=== PATIENT | male | born 1945 | race Caucasian/White ===

== ENCOUNTER → 2017-11-20 08:18 | Outpatient (CLI) | payer MEDICARE, OTHER, SELFPAY ==
[2015-12-09 13:30] VITALS: BMI 21.5
[2017-11-20 10:50] LABS: AST(SGOT) 17 U/L (15-37); Alanine Aminotransfer ALT/SGPT 42 U/L (16-61); Albumin, Serum 3.8 g/dL (3.2-5.0); Alkaline Phosphatase 52 U/L (45-117); Cholesterol 158 mg/dL (200); Globulin 3.2 g/dL (2.2-4.2); High Density Lipoprotein 50 mg/dL; Triglycerides 168 mg/dL; Very Low Density Lipoprotein 34 mg/dL (5-40)
== END ==
PROVIDERS: Family Provider Family Medicine; PCP Family Medicine; Visit Provider Internal Medicine Cardiovascular Disease
DX: E78.5 Hyperlipidemia, unspecified (principal); Z79.899 Other long term (current) drug therapy
CPT/HCPCS: 36415; 80061; 80076

== ENCOUNTER 2018-03-22 08:41 | Emergency (ER) | payer MEDICARE, OTHER, SELFPAY ==
[2015-12-09 13:30] VITALS: BMI 21.5
[2018-03-22] VITALS (13 sets, daily range): BP systolic 119–172; BP diastolic 67–117; PULSE 51–68; RESP 12–24; TEMP 36.7; O2SAT 87–100; BMI 33.7
--- NOTE | 2018-03-22 09:24 | ED.DCSUM_ITS ---
- ER Visit Summary Date of Service: 03/22/18 Chief Complaint: Left hip pain suspect dislocated History of Present Illness: The patient is a 72 M status post left hip prosthesis by Dr. Clive Thomas in the past. Patient was getting dressed this morning and his foot slipped as he was put on his slipper and he developed immediate left hip pain. No fall no trauma no other injuries. No other complaints. Physical Examination: Well-appearing male vital signs are stable afebrile. H EENT exam unremarkable. Neck nontender lungs clear to auscultation heart regular rhythm no murmur. Abdomen soft nontender. He is moving both upper and right lower extremities. His left hip is posteriorly dislocated with internal rotation and shortening. The distal left leg is nontender of the left foot is neurovascularly intact with dorsi and plantar flexion and normal touch sensation. It is warm to touch. With normal cap refill. Test Results: Left hip x-ray shows a superior posterior hip dislocation. Prosthesis. No fracture. Reduction in good position. Emergency Department Course and Treatment: Patient treated with IV morphine and Zofran. I discussed reduction with the patient and deep sedation. He was given IV propofol. She was deeply sedated with propofol and using traction countertraction attempted to reduce the dislocation but was unsuccessful on several attempts. I have spoken to Dr. Pepe Lagos on-call for orthopedics and will be and evaluate the patient and to do orthopedic reduction. Patient was deeply sedated with propofol [address] Lagos reduce the dislocation. Post reduction film was satisfactory. Patient was placed in a knee immobilizer. He has been watched for a lengthy period time is doing well will be discharged home. Treatment Plan: Immobilizer. Follow-up with Dr. Lagos in 2 weeks. Disposition: Discharge Impression: Acute left hip prosthesis dislocation Deep sedation by ER Acute left hip dislocation reduction by orthopedic physician Dr. Ifeanyi Lagos This note was generated with [employer] dictation software. It may contain incorrect words, spelling, and punctuation that were not noted in review of the chart prior to signing ED Disposition - Plan for ED Patient: Chief Complaint: Lower Extremity Injury Referrals: Dwain Oliver DO [Primary Care Provider] -
[2018-03-22] MEDS: Ondansetron 4 MG/2 ML Vial IV (09:37)
[2018-03-22] MEDS: morphine 8 MG/ML Syringe IV (09:37)
[2018-03-22] MEDS: Propofol 200 MG/20 ML Vial 60 MG IV BOLUS (10:21)
--- NOTE | 2018-03-22 12:19 | ED.RN ---
DR PORTILLO AT BEDSIDE TO TRY TO PUT L HIP BACK IN. BP 166/78 P 53 O2 99%. PT ALERT AND ORIENTED.
--- NOTE | 2018-03-22 12:20 | ED.RN ---
[address] CARR AND LINDSEY AT BEDSIDE. PROCEDURE START
--- NOTE | 2018-03-22 12:24 | ED.RN ---
BP 138/90 70 92% PROCEDURE DONE
--- NOTE | 2018-03-22 12:29 | ED.RN ---
XRAY AT BEDSIDE. 128/61 61 96% PT AWAKE AND ORIENTED
--- NOTE | 2018-03-22 12:35 | ED.RN ---
KNEE IMMOBILIZER ON BP 141/63 P 59 O2 99%PT ALERT AND ORIENTED. AT BEDSIDE
--- NOTE | 2018-03-22 12:35 | PCM.CONS.GEN ---
Reason for Consult Date of Consultation: 03/22/18 Reason for Consultation: Left hip dislocation. Requested by Dr. Gill History of Present Illness: The patient is a 72 year old M status post left total hip replacement in June 2016 presents today with left hip pain. Patient was leaning forward to put his slippers on this morning when he felt immediate pain in his hip his leg was shortened and he could not put weight on it. He was brought to the emergency department with 10 out of 10 pain. He denies any numbness and tingling that is new he does have some chronic paresthesias from neuropathy. Patient does state that after surgery he did have groin pain in went through several bouts of physical therapy. The groin pain has persisted up until today. Today the pain is in the posterior and lateral portions of his hip as well as his groin. It is significantly worsened. Is worse with motion better with immobilization. Currently he is resting in bed. The emergency department physician did attempt a closed reduction however he has significant desaturation during this attempt in the run able to get in successfully. Past Medical History Past Medical History (Chronic Problems): Chronic Problems (Last Reviewed 11/26/17 @ 13:48 by Eve Morales) Cardiomyopathy in other diseases classified elsewhere (Chronic) H/O aortic valve replacement (Chronic) Mini invasive aortic valve replacement and aortoplasty of ascending aorta @ [facility] (Dr. Bony Bautista) Hypertension (Chronic) Hyperlipidemia (Chronic) Medical History: Medical History (Last Reviewed 03/22/18 @ 12:37 by Christiano Lagos MD) Cardiomyopathy in other diseases classified elsewhere (Chronic) I43 Hypertension (Chronic) I10 Hyperlipidemia (Chronic) E78.5 BPH with obstruction/lower urinary tract symptoms N40.1, N13.8 Neuropathy G62.9 Osteoarthritis M19.90 CONCEPCION (obstructive sleep apnea) G47.33 Allergies poison lauren extract Allergy (Verified 03/22/18 08:45) Itching Home Medications: Ambulatory Orders Medication Instructions Recorded Multivitamins,Therapeutic 1 tab PO DAILY 06/21/16 [Multivitamin] Aspirin E.C. [Ecotrin] 81 mg PO DAILY@0800 08/01/17 Gabapentin [Gralise] 600 mg PO DINNER 08/01/17 amlodipine 2.5 mg tablet 2.5 mg PO DAILY #90 tab 10/01/17 pravastatin 80 mg tablet 80 mg PO QHS #90 tab 02/12/18 losartan 100 1 tab PO QDAY #90 tab 02/19/18 mg-hydrochlorothiazide 25 mg tablet Surgical History: Surgical History (Last Reviewed 03/22/18 @ 12:37 by Christiano Lagos MD) H/O aortic valve replacement (Chronic) Z95.2 Mini invasive aortic valve replacement and aortoplasty of ascending aorta @ [facility] (Dr. Bony Bautista) History of left hip replacement Z96.642 History of tonsillectomy Z90.89 History of transurethral resection of prostate Z98.890, Z90.79 Surgical History: total hip arthroplasty - Left, 2016, - Smoking Status: Never smoker Tobacco Use: Non-smoker Alcohol: Heavy Drugs: None Review of Systems Constitutional: Denies: Chills, Fever, Weight Change HEENT: Denies: Head Aches, Sinus Congestion, Sinus Drainage Cardiovascular: Denies: Chest Pain, Palpitations Respiratory: Denies: Cough, Shortness of breath at rest, Sputum production Gastrointestinal: Denies: Abdominal Pain, Nausea, Vomiting Genitourinary: Denies: Dysuria Musculoskeletal: Reports: Joint Pain - See HPI Skin: Denies: Rash, Wounds Neurological: Denies: Numbness, Tingling, Focal weakness Psychiatric: Denies: Anxiety, Depression, Homicidal Ideations, Suicidal Ideations Hematologic/ Lymphatic: Denies: Easy Bruising, Easy Bleeding Objective: Left hip x-rays reveal a posterior superior dislocation of a total hip replacement. Acetabular component appears to be in appropriate version compared to [place] anatomy. - Physical Exam General: Alert, Oriented x3, Cooperative HEENT: - - Patient has rosacea of his nose Neck: No JVD Lungs: - - Nonlabored breathing Cardiovascular: - - Regular pulse rate Abdomen: Non-Distended Extremities: - - Left lower extremity: Pain with hip range of motion. Shortened externally rotated left lower extremity. Saphenous sural superficial peroneal deep peroneal and tibial nerve distributions are all intact light touch. Motor is intact dorsiflexion EHL and plantar flexion. 2+ DP pulse. Skin: No rashes, No breakdown Neurological: Cranial nerves II-XII grossly intact Psych/Mental Status: Normal Affect Vital Signs Temp Pulse Resp BP Pulse Ox 98.1 F 53 L 14 158/106 H 99 03/22/18 08:42 03/22/18 12:18 03/22/18 12:18 03/22/18 12:18 03/22/18 12:18 Oxygen Flow Rate (L/min) [7] 15 Oxygen Flow Rate (L/min) [6] 15 Oxygen Flow Rate (L/min) [5] 15 Oxygen Flow Rate (L/min) [4] 15 Oxygen Flow Rate (L/min) [2] 8 Oxygen Flow Rate (L/min) [1 ( 8 Initial Baseline)] Oxygen Flow Rate (L/min) 2 Oxygen Delivery Method [7] Ambu-Bag Oxygen Delivery Method [6] Ambu-Bag Oxygen Delivery Method [5] Ambu-Bag Oxygen Delivery Method [4] Ambu-Bag Oxygen Delivery Method [3] Non-Rebreather Oxygen Delivery Method [2] Nasal Cannula Oxygen Delivery Method [1 ( Nasal Cannula Initial Baseline)] Oxygen Delivery Method Nasal Cannula Weight: 235 lb Body Mass Index (BMI) 33.7 Assessment/Plan Patient is 21 months status post left total hip replacement with chronic groin pain since his surgery. He has a acute dislocation posterior superior of the hip today. After failed attempt at reduction from the emergency department physician and significant desaturation after his first conscious sedation we were elected to reattempt the reduction with myself and respiratory therapy to help monitor the patient's respiratory status. Risks and benefits of the procedure were discussed the patient including but not limited to feel reduction, neurovascular injuries, cardiovascular and respiratory compromise. Patient interested in understanding and is able to sign informed consent. The hip was reduced in the emergency department. Patient will spend 2 weeks in a knee immobilizer and follow-up in my office in 2 weeks. He was instructed once again on strict posterior hip precautions which will be maintained for the next 3 months. He will be discharged home today. [facility] Office: Procedure: After discussion of risk and benefits and obtaining consent from the patient for the procedure conscious sedation was administered by the emergency room physician. Respiratory therapy monitored the patient's respiratory status throughout the procedure. The hip was flexed to 90? internally rotated and traction was pulled. Hip was then reduced and placed in extension. X-rays used to verify reduction of the hip. Once it was adequately reduced patient was placed in a knee immobilizer.
--- NOTE | 2018-03-22 13:50 | ED.DEP ---
ED Disposition - Plan for ED Patient: Disposition: Home or Assisted Living Chief Complaint: Lower Extremity Injury Instructions: ED Hip Replace Dislocation Reduc Referrals: Christiano Lagos MD [STAFF PHYSICIAN] - 1-2 Weeks Additional Instructions: And follow-up with Dr. Lagos in 2 weeks. Legion knee immobilizer on to prevent a recurrent dislocation.
== END 2018-03-22 14:19 | disposition home or self-care (01) ==
PROVIDERS: Emergency Provider Emergency Medicine; Family Provider Family Medicine; PCP Family Medicine
DX: T84.021A Dislocation of internal left hip prosthesis, initial encounter (principal); I10 Essential (primary) hypertension
CPT/HCPCS: 27265; 72170; 73501; 73502; 96374; 96375; 99152; 99251; 99285; J7030; A4216; G0463; J2405

== ENCOUNTER 2018-05-28 10:00 | Outpatient (RCR) | payer MEDICARE, OTHER, SELFPAY ==
[2015-12-09 13:30] VITALS: BMI 21.5
--- NOTE | 2018-04-16 16:28 | HP.PTEVAL ---
Patient's Visit Information ELDA RUSH is a 72 year old M referred to Physical Therapy by Christiano Lagos MD with a diagnosis of Dislocation of L hip prothesis. Date of Evaluation: 04/16/18 Physical Therapist: Sandra Thomson - Visit Plan Frequency: 2x /Week Duration: 6 Weeks Plan: Maintain hip precautions as just a precaution..... 2X/ week for 4-6 weeks for B hip strength, core stability, gait training, functional training, with HEP - Subjective Subjective: Almost 2 years ago had L hip replacement. Pt reports that his L hip was dislocated when he had his foot on the step and his foot slipped off when he was tying his shoe. He was transported to [facility] and the ER Dr tried to put it back in place and was unsuccessful and then they called in Dr Lagos and her put it back in place. said to go back to PT for a refresher course in PT. Pt goes to the 3X/ week low impact step class and has been back to his step class. said to use common sense. He is avoiding crossing his legs. said that things look like they lined up good on x-ray. He reports that he is still sore from his buttcheck and up his back and in the groin a little bit. He used the cane for a few days to be on the safe side. Sometimes he will go up and down stairs one at a time if he is not feeling good that day. After her moves around a lot he is able to go up and down stairs easier. He sleeps with a pillow between his knees. Pt is sore. He has neuropathy in B feet. He can lay on L side but it will wake him up at night. - Pain L hip pain Pain Intensity (Out of 10): 2 - Objective Gait: walks with decrease stance time on the L compared to the Right. LE MMT: hip flex R 4+/5 and L 4/5, Knee ext B 4+/5, Knee flex B 4+/5, hip abd R 4+/5 and L 4/5, hip ext (able to do 3/4 normal ROM bridge). Sit to stand: pt is able to get out of a straight back chair without UE support - Goals Goal 1:: I HEP Goal Time Frame: 4-6 Weeks Goal 2:: Be able to walk with normal gait pattern with equal stance time on B LE's Goal Time Frame: 4-6 Weeks Goal 3:: Increase L hip strength to 4+/5 all planes (at time of eval: LE MMT: hip flex R 4+/5 and L 4/5, Knee ext B 4+/5, Knee flex B 4+/5, hip abd R 4+/5 and L 4/5, hip ext (able to do 3/4 normal ROM bridge). Goal Time Frame: 4-6 Weeks - Rehabilitation Potential Rehabilitation Potential: Good - Anticipated Interventions Patient/Client Instruction: Educate patient on: Condition, Plan of Care For the Purpose of:: To decrease pain, To decrease swelling/inflammation, To increase ROM, To improve nutrient delivery to tissue, To improve muscle performance and motor function, To improve ability to perform ADL's, To increase tolerance to activity/condition/position, To improve performance and independence with ADL's, To improve ability of physical actions for home/community/work/leisure, To improve gait and locomotor functions, To improve health of tissue Therapeutic Exercise to Include: Strength training, Balance training, Body mechanics, Gait and locomotor training, Neuromotor development, Active ROM, Dynamic Lumbar Stabilization For the Purpose of:: To decrease pain, To decrease swelling/inflammation, To increase ROM, To improve nutrient delivery to tissue, To increase oxygenation perfusion, To improve muscle performance and motor function, To improve ability to perform ADL's, To increase tolerance to activity/condition/position, To improve performance and independence with ADL's, To improve ability of physical actions for home/community/work/leisure, To improve gait and locomotor functions, To improve health of tissue Functional Training to Include: Gait training For the Purpose of:: To improve gait and locomotor functions, To improve health of tissue Thank you for the opportunity to evaluate your patient. For Medicare and Medicare HMO plans, please review the plan of care and approve it. It will need to be FAXED BACK to us at [phone] for Medicare purposes. Please let me know if there are questions or concerns regarding this plan of care. Physician Signature: Date:
--- NOTE | 2018-05-23 13:25 | HP.OTEVAL ---
Patient's Visit Information JEY RUSH is a 73 year old M, referred to Occupational Therapy by Christiano Lagos MD, with a diagnosis of OA of first R CMC joint. 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 Noted thumb pain started about 3 years ago. No cortisone injection to thumb but has had h/o of cortisone shots in B shoulders for OA. OA throughout body. - Pain Right Hand 0 Pain Intensity Range: 0, 4, 5 - Objective Objective/Observation: No reddness, or heat to touch. Concerns: Maybe beneficial for Jey to get CMC Push Brace for CMC stability during gardening and ADL/IADLs related tasks for pain management. A script would be beneficial to see if insurance will cover part with doctor script. - ROM CMC: opposition: R 0-26, L 0-37 degrees MP: R 0-46, L 38 degrees IP: R 0-69, L 0-60 degrees Radial Abduction: R 0-51, L 0-40 degrees MP: WFL PIP: WFL DIP: WFL - Strength Yield Loss Inspector: R 89, L 93 lbs Lateral Pinch: R 26, L 24 lbs Tripod Pinch: R 16 (pain 3/10), L 24 lbs Tip-to-Tip Pinch: R 12, L 16 lbs - Sensation Stereognosis: Normal - Right, Normal - Left Kinesthesia: Normal - Right, Normal - Left Proprioception: Normal - Right, Normal - Left Sensation Comments: Denied numbbess/tinging in fingers; does have neuropathy in feet. - DASH-Disabilities of Arm, Shoulder& Hand DASH Sum: 55 - Goals Goal:: Jey to complete strengthening program to promote increased in match maker of R hand by 10 lbs to promote increased strength and stability of R hand and CMC for ADl/IADls by d/c. Goal:: Jey to have no more than 0-1/10 with repetitive thumb and wrist movements with use of pain management tools and techniques to promote increased ability to complete ADL/IADLs by d/c. Goal:: Jey to be mod I to complete joint protection techniques for R thumb and wrist to decrease pain with functional tasks 4/5 trials 80% of the time by d/c. Goal:: Jey to be mod I to complete all ADl/IADls including yardwork with adaptations as needed 4/5 trials 80% of the time by d/c. Goal:: Jey to consistently complete HEP and techniques to promote CMC stability 4/5 trials 80% of the time by d/c. - Rehabilitation General Assessment: OT evaluation on this date of 05/23/18. He noted thumb pain has been off/on for last 3 years. Decreased strength noted in R hand. No braces for thumb pain. Notes often thumb pain decreases ability to complete certain tasks especially IADls tasks like gardening and yardwork. OT needed for 2x 4- 6 weeks to promote compensations and pain management strategies as well as strengthening program to promote ability to complete ADL/IADLS at OF. Rehabilitation Potential: Good - Anticipated Interventions Anticipated Interventions: A/AAROM/PROM, Strengthening, Edema Control, Scar Care, Modalities, Orthoses, Joint Protection/Energy Conservation, Dynamic Sitting Balance, Fine Motor Coord/Migue, ADL Training, Caregiver Training, Home Program - Visit Plan Frequency: 2x /Week Duration: 4-6 Weeks General Plan: OT to work on strength and stability of R CMC joint to promote increased ability to complete all ADl/IAdl sin pain free range. OT to additionally work on increasing compensations and joiner management as needed to decrease pain symptoms. TEXT: Thank you for the opportunity to evaluate your patient. For Medicare and Medicare HMO plans, please review the plan of care and approve it. It will need to be FAXED BACK to us at [phone] for Medicare purposes. Please let me know if there are questions or concerns regarding this plan of care. Physician Signature: Date:
--- NOTE | 2018-05-24 13:52 | HP.PTDCSUM ---
HP - PT D/C Summary It has been my pleasure to treat ELDA RUSH under orders from Christiano Lagos MD, for the diagnosis of Dislocation of L hip prothesis for a total of 9 visit(s). Discharge Date: 05/24/18 Please see the following information for a summary of their discharge status. - Subjective Subjective: Pt reports that he is achy all over today and thinks that it is because of the weather. - Pain L hip pain Pain Intensity (Out of 10): 1 - Objective Objective/Function: LE MMT: hip flex R 4+/5 and L 4/5, Knee ext B 4+/5, Knee flex B 4+/5, hip abd R 4+/5 and L 4/5, hip ext (able to do 3/4 normal ROM bridge). - Goals Goal 1:: I HEP Goal Progress: Goal Met Goal 2:: Be able to walk with normal gait pattern with equal stance time on B LE's Goal Progress: Progressing Goal 3:: Increase L hip strength to 4+/5 all planes (at time of eval: LE MMT: hip flex R 4+/5 and L 4/5, Knee ext B 4+/5, Knee flex B 4+/5, hip abd R 4+/5 and L 4/5, hip ext (able to do 3/4 normal ROM bridge). Goal Progress: Progressing - Plan Plan: DC PT to I exercise routine. - D/C Information Discharge Comments: DC PT to HEP and back to gym routine If there are questions or concerns regarding this patient's physical therapy, please feel free to call me at [phone]. Thank you for the referral of this patient. Sincerely, Sandra Thomson
--- NOTE | 2018-06-24 15:21 | HP.OT.NRP ---
HP - Discharge Summary - Patient Information ELDA RUSH was seen in my office for initial evaluation on 05/23/18. The following Plan of Care was established for this patient: Initial Frequency: 2x /Week Initial Duration: 4-6 Weeks Plan: cont POC - Anticipated Interventions Anticipated Interventions: A/AAROM/PROM, Strengthening, Edema Control, Scar Care, Modalities, Orthoses, Joint Protection/Energy Conservation, Dynamic Sitting Balance, Fine Motor Coord/Migue, ADL Training, Caregiver Training, Home Program This patient was last seen in our office 05/28/18. Pertinent comments regarding their Occupational therapy will appear below: Seen for one visit. Was to follow up but did not complete follow up appointments and will be discharged at this time. At this point I will be discontinuing this patient from occupational therapy. I would be happy to see this patient again in the future if found appropriate by the physician. Thank you! Ermelinda Hutton
== END 2018-05-28 19:00 | disposition home or self-care (01) ==
LOC: OT 10:00
PROVIDERS: Family Provider Family Medicine; PCP Family Medicine; Visit Provider Specialist
DX: T84.021D Dislocation of internal left hip prosthesis, subsequent encounter (principal)
CPT/HCPCS: 97110; 97161; 97166; 97530

== ENCOUNTER 2018-07-16 08:48 | Emergency (ER) | payer MEDICARE, OTHER, SELFPAY ==
[2015-12-09 13:30] VITALS: BMI 21.5
[2018-07-16] VITALS (9 sets, daily range): BP systolic 132–174; BP diastolic 68–111; PULSE 51–78; RESP 12–121; TEMP 36.6; O2SAT 86–100; BMI 35.6
--- NOTE | 2018-07-16 09:01 | ED.DCSUM_ITS ---
- ER Visit Summary Date of Service: 07/16/18 Chief Complaint: Prosthetic left hip dislocation. History of Present Illness: The patient is a 73 M who was bent over putting on his slippers. He states his left hip dislocated. He had a similar episode February 2018. He complains of pain left hip region. He was unable to ambulate after the event. He denies paresthesia, anesthesia motors. He does have history of obstructive sleep apnea and had episode of hypoxia when he was sedated earlier this year. He denies allergy to soy products or egg products. He denies fever, chills night sweats. He denies ocular, visual auditory symptoms. He denies cardiac respiratory symptoms. He denies abdominal pain, nausea or vomiting. He denies urologic symptoms. Past medical history of cardiomyopathy, hypertension, hyperlipidemia. Patient has history of obstructive sleep apnea and states he is compliant with his BiPAP mask. He last ate yesterday evening. He is not anything to drink this morning. Physical Examination: Vital signs are marked for an elevated blood pressure 174/111. He appears uncomfortable. HEENT exam is unremarkable. Heart is regular without murmur, gallop or rub. Lungs are clear auscultation. Abdomen soft nontender. There is no induration or pelvis. The left hip is flexed with flexion at the knee and internal rotation of the left lower extremity. PT pulses palpable. There is edema bilaterally. Neuro exam is nonfocal. Test Results: 3 view x-ray left hip reveals a posterior superior prosthetic dislocation. Post reduction film, 2 views, reveals proper alignment and successful reduction by Dr. Javier Perry Emergency Department Course and Treatment: X-ray of the hip was ordered. This was obtained to confirm suspicion for dislocation. Patient was consented for sedation with propofol and for closed reduction of presumed dislocation of left prosthetic hip. With history of hypoxia will have respiratory in the room when patient is sedated and appropriate airway rescue equipment available. Patient desaturated rapidly in spite of preoxygenation after first dose of propofol. Oxygen was increased. In spite of increasing oxygen by nasal cannula patient continued desaturated. He required bag valve assistance for respiratory therapist. Since I am unable to monitor patient's airway and attempt reduction, Dr. Javier Perry who is on-call for orthopedics was contacted. He will see patient in the emergency department. Plan is to attempt closed reduction in the ER with me managing the airway. Please read written notes by nursing staff to document vital signs, O2 saturation and CO2 reading. Time for initial attempt, which was unsuccessful was [address] Perry inform patient of risks for reduction. He received a total of 300 mg of propofol. Total time of deep procedural sedation was 7 minutes 44 seconds. He was placed in a knee immobilizer and he is to follow-up with Dr. Ifeanyi Lagos. Treatment Plan: Knee immobilizer for 2 weeks and follow-up with orthopedics Disposition: 1. Superior posterior left prosthetic hip dislocation 2. Deep procedural sedation 3. Failed attempt at closed reduction by me 4. Successful closed reduction by Dr. Javier Perry Impression: [] This note was generated with [employer] dictation software. It may contain incorrect words, spelling, and punctuation that were not noted in review of the chart prior to signing ED Disposition - Plan for ED Patient: Disposition: Home or Assisted Living Chief Complaint: Lower Extremity Injury Instructions: ED Hip Replace Dislocation Reduc Referrals: Dwain Oliver DO [Primary Care Provider] - Christiano Lagos MD [STAFF PHYSICIAN] - 1-2 Weeks
--- NOTE | 2018-07-16 09:25 | RAD_ITS ---
STUDY: X-RAY - LEFT HIP REASON FOR EXAM: Male, 73 years old. LEFT HIP DISLOCATION. LEFT HIP REPLACED 2 YEARS AGO PER PATIENT.. TECHNIQUE: 2 views of the hip. COMPARISON: None. FINDINGS: There is a dislocated left hip prosthesis. Normal Normal visualized superior and inferior pubic rami and ischial tuberosities. RAD/HIP, UNI W/ Pelvis 2-3 Views IMPRESSION: Dislocation. Electronically Signed: Tasia Hope MD at 9:57 EST Tel , Service support ,
[2018-07-16] MEDS: Ondansetron 4 MG/2 ML Vial IV (09:34)
[2018-07-16] MEDS: Propofol 200 MG/20 ML Vial IV BOLUS ×2 (10:30→10:32)
--- NOTE | 2018-07-16 10:31 | RAD_ITS ---
STUDY: X-RAY - LEFT HIP REASON FOR EXAM: Male, 73 years old. PORTABLE POST REDUCTION LEFT HIP. TECHNIQUE: 2 views of the hip. COMPARISON: None. FINDINGS: There is reduced femoral component now. RAD/HIP, UNI W/ Pelvis 2-3 Views IMPRESSION: Post reduction. Electronically Signed: Tasia Hope MD at 11:27 EST Tel , Service support ,
--- NOTE | 2018-07-16 10:56 | PCM.CONS.GEN ---
Reason for Consult Date of Consultation: 07/16/18 History of Present Illness: The patient is a 73 year old male patient in his usual state of health this morning when he bent over to put on his slippers. Patient had pain and felt a pop in his left hip. He was not able to walk. He was brought to [place] emergency room. He was diagnosed with a dislocated left hip replacement. Attempts at reduction were not successful. Orthopedics consulted. Patient had left total hip replacement by Dr. Thomas approximately 2 years ago Patient had dislocated his hip March 22, 2018 in a similar fashion. He underwent closed reduction by Dr. Lagos. He has seen Dr. Lagos in the office. She denies head injury or loss of consciousness. He did wish to have closed reduction in the emergency room. Seen with his present. Seen with ER physician present. [] Past Medical History Past Medical History (Chronic Problems): Chronic Problems (Last Reviewed 03/22/18 @ 12:37 by Christiano Lagos MD) Cardiomyopathy in other diseases classified elsewhere (Chronic) H/O aortic valve replacement (Chronic) Mini invasive aortic valve replacement and aortoplasty of ascending aorta @ [facility] (Dr. Bony Bautista) Hypertension (Chronic) Hyperlipidemia (Chronic) Medical History: Medical History (Last Reviewed 03/22/18 @ 12:37 by Christiano Lagos MD) Cardiomyopathy in other diseases classified elsewhere (Chronic) I43 Hypertension (Chronic) I10 Hyperlipidemia (Chronic) E78.5 BPH with obstruction/lower urinary tract symptoms N40.1, N13.8 Neuropathy G62.9 Osteoarthritis M19.90 CONCEPCION (obstructive sleep apnea) G47.33 Allergies poison lauren extract Allergy (Verified 03/22/18 08:45) Itching Home Medications: Ambulatory Orders Medication Instructions Recorded Multivitamins,Therapeutic 1 tab PO DAILY 06/21/16 [Multivitamin] Aspirin E.C. [Ecotrin] 81 mg PO DAILY@0800 08/01/17 Gabapentin [Gralise] 600 mg PO DINNER 08/01/17 amlodipine 2.5 mg tablet 2.5 mg PO DAILY #90 tab 10/01/17 pravastatin 80 mg tablet 80 mg PO QHS #90 tab 02/12/18 losartan 100 1 tab PO QDAY #90 tab 02/19/18 mg-hydrochlorothiazide 25 mg tablet Surgical History: Surgical History (Last Reviewed 03/22/18 @ 12:37 by Christiano Lagos MD) H/O aortic valve replacement (Chronic) Z95.2 Mini invasive aortic valve replacement and aortoplasty of ascending aorta @ [facility] (Dr. Bony Bautista) History of left hip replacement Z96.642 History of tonsillectomy Z90.89 History of transurethral resection of prostate Z98.890, Z90.79 Surgical History: total hip arthroplasty - Left, 2015, - Smoking Status: Never smoker Objective: Patient has shortening and internal rotation of the left hip. He has pain about the left hip. No pain at the left knee. No calf pain. Negative Homans sign. He is able to plantarflex and dorsiflex toes and ankles. Normal sensation throughout the foot and ankle. No pain at the right hip. X-rays AP pelvis AP and lateral of left hip shows a posterior superior left hip dislocation from a total hip replacement. No obvious signs of cup or stem failure or fractures. - Physical Exam Vital Signs Temp Pulse Resp BP Pulse Ox 97.8 F 63 16 147/87 H 98 07/16/18 08:48 07/16/18 09:50 07/16/18 09:50 07/16/18 09:50 07/16/18 09:50 Oxygen Flow Rate (L/min) [5] 15 Oxygen Flow Rate (L/min) [4] 15 Oxygen Flow Rate (L/min) [3] 5 Oxygen Flow Rate (L/min) [2] 15 Oxygen Flow Rate (L/min) 2 Oxygen Delivery Method [5] Ambu-Bag Oxygen Delivery Method [4] Ambu-Bag Oxygen Delivery Method [3] Nasal Cannula Oxygen Delivery Method [2] Ambu-Bag Oxygen Delivery Method Nasal Cannula Weight: 112.582 kg Body Mass Index (BMI) 35.6 Assessment/Plan Patient and his are explained his diagnosis and treatment options. They did wish to have closed reduction in the emergency room. Risk of needing hip revision surgery discussed. He will follow-up with Dr. Lagos. They understand I do not do total hip revisions routinely. Risk of surgery including but not limited to from operative or postoperative complications. Risk of anesthetic complications such as heart attacks, strokes, seizures, or . Risk of infections. Risk of damage to nerves arteries tendons. Risk of inadvertent fractures or dislocations. Risk of bone or wound healing complications. Possibility of nonunion malunion pain stiffness weakness. Possible need for further surgery such as hardware removal. Risk of DVT PE and other potential complications could lead to or disability explained. No guarantees were stated or implied. All of their questions were answered. Appropriate informed consent was obtained and signed for surgical intervention. Procedure: After obtaining appropriate informed consent patient was given conscious sedation by the ER physician. This was done with appropriate nursing and respiratory staff present. After adequate anesthesia was performed hip reduction was performed with me standing on the gurney, hip flexed near 90 degrees knee bent at 90 degrees and with gentle rotation of the hip and traction hip reduced clinically. Leg lengths were now equal with knee and hip in extension. No malrotation. Knee immobilizer was applied. X-rays immediately ordered. Postreduction x-rays AP pelvis, AP and lateral of left hip shows an anatomically reduced total hip replacement. Patient will be discharged to wear the knee immobilizer. Weightbearing as tolerated. Follow-up with Dr. Lagos. Case discussed with ER physician.
--- NOTE | 2018-07-16 11:07 | CON.PCM_ITS ---
Reason for Consult Date of Consultation: 07/16/18 History of Present Illness: The patient is a 73 year old male patient in his usual state of health this morning when he bent over to put on his slippers. Patient had pain and felt a pop in his left hip. He was not able to walk. He was brought to [facility] Emergency room. He was diagnosed with a dislocated left hip replacement. Attempts at reduction were not successful. Orthopedics consulted. Patient had left total hip replacement by Dr. Thomas approximately 2 years ago Patient had dislocated his hip March 22, 2018 in a similar fashion. He underwent closed reduction by Dr. Lagos. He has seen Dr. Lagos in the office. She denies head injury or loss of consciousness. He did wish to have closed reduction in the emergency room. Seen with his present. Seen with ER physician present. [] Past Medical History Past Medical History (Chronic Problems): Chronic Problems (Last Reviewed 03/22/18 @ 12:37 by Christiano Lagos MD) Cardiomyopathy in other diseases classified elsewhere (Chronic) H/O aortic valve replacement (Chronic) Mini invasive aortic valve replacement and aortoplasty of ascending aorta @ [facility] (Dr. Bony Bautista) Hypertension (Chronic) Hyperlipidemia (Chronic) Medical History: Medical History (Last Reviewed 03/22/18 @ 12:37 by Christiano Lagos MD) Cardiomyopathy in other diseases classified elsewhere (Chronic) I43 Hypertension (Chronic) I10 Hyperlipidemia (Chronic) E78.5 BPH with obstruction/lower urinary tract symptoms N40.1, N13.8 Neuropathy G62.9 Osteoarthritis M19.90 CONCEPCION (obstructive sleep apnea) G47.33 Allergies poison lauren extract Allergy (Verified 03/22/18 08:45) Itching Home Medications: Ambulatory Orders Medication Instructions Recorded Multivitamins,Therapeutic 1 tab PO DAILY 06/21/16 [Multivitamin] Aspirin E.C. [Ecotrin] 81 mg PO DAILY@0800 08/01/17 Gabapentin [Gralise] 600 mg PO DINNER 08/01/17 amlodipine 2.5 mg tablet 2.5 mg PO DAILY #90 tab 10/01/17 pravastatin 80 mg tablet 80 mg PO QHS #90 tab 02/12/18 losartan 100 1 tab PO QDAY #90 tab 02/19/18 mg-hydrochlorothiazide 25 mg tablet Surgical History: Surgical History (Last Reviewed 03/22/18 @ 12:37 by Christiano Lagos MD) H/O aortic valve replacement (Chronic) Z95.2 Mini invasive aortic valve replacement and aortoplasty of ascending aorta @ [facility] (Dr. Bony Bautista) History of left hip replacement Z96.642 History of tonsillectomy Z90.89 History of transurethral resection of prostate Z98.890, Z90.79 Surgical History: total hip arthroplasty - Left, 2016, - Smoking Status: Never smoker Objective: Patient has shortening and internal rotation of the left hip. He has pain about the left hip. No pain at the left knee. No calf pain. Negative Homans sign. He is able to plantarflex and dorsiflex toes and ankles. Normal sensation throughout the foot and ankle. No pain at the right hip. X-rays AP pelvis AP and lateral of left hip shows a posterior superior left hip dislocation from a total hip replacement. No obvious signs of cup or stem failure or fractures. - Physical Exam Vital Signs Temp Pulse Resp BP Pulse Ox 97.8 F 63 16 147/87 H 98 07/16/18 08:48 07/16/18 09:50 07/16/18 09:50 07/16/18 09:50 07/16/18 09:50 Oxygen Flow Rate (L/min) [5] 15 Oxygen Flow Rate (L/min) [4] 15 Oxygen Flow Rate (L/min) [3] 5 Oxygen Flow Rate (L/min) [2] 15 Oxygen Flow Rate (L/min) 2 Oxygen Delivery Method [5] Ambu-Bag Oxygen Delivery Method [4] Ambu-Bag Oxygen Delivery Method [3] Nasal Cannula Oxygen Delivery Method [2] Ambu-Bag Oxygen Delivery Method Nasal Cannula Weight: 112.582 kg Body Mass Index (BMI) 35.6 Assessment/Plan Patient and his are explained his diagnosis and treatment options. They did wish to have closed reduction in the emergency room. Risk of needing hip revision surgery discussed. He will follow-up with Dr. Lagos. They understand I do not do total hip revisions routinely. Risk of surgery including but not limited to from operative or postoperative complications. Risk of anesthetic complications such as heart attacks, strokes, seizures, or . Risk of infections. Risk of damage to nerves arteries tendons. Risk of inadvertent fractures or dislocations. Risk of bone or wound healing complications. Possibility of nonunion malunion pain stiffness weakness. Possible need for further surgery such as hardware removal. Risk of DVT PE and other potential complications could lead to or di sability explained. No guarantees were stated or implied. All of their questions were answered. Appropriate informed consent was obtained and signed for surgical intervention. Procedure: After obtaining appropriate informed consent patient was given conscious sedation by the ER physician. This was done with appropriate nursing and respiratory staff present. After adequate anesthesia was performed hip reduction was performed with me standing on the gurney, hip flexed near 90 degrees knee bent at 90 degrees and with gentle rotation of the hip and traction hip reduced clinically. Leg lengths were now equal with knee and hip in extension. No malrotation. Knee immobilizer was applied. X-rays immediately ordered. Postreduction x-rays AP pelvis, AP and lateral of left hip shows an anatomically reduced total hip replacement. Patient will be discharged to wear the knee immobilizer. Weightbearing as tolerated. Follow-up with Dr. Lagos. Case discussed with ER physician.
== END 2018-07-16 12:00 | disposition home or self-care (01) ==
PROVIDERS: Emergency Provider Emergency Medicine; Family Provider Family Medicine; PCP Family Medicine
DX: T84.021A Dislocation of internal left hip prosthesis, initial encounter (principal); I42.9 Cardiomyopathy, unspecified; R09.02 Hypoxemia; I10 Essential (primary) hypertension; E78.5 Hyperlipidemia, unspecified; G47.33 Obstructive sleep apnea (adult) (pediatric); E66.9 Obesity, unspecified; Z95.2 Presence of prosthetic heart valve; N40.1 Benign prostatic hyperplasia with lower urinary tract symptoms; N13.8 Other obstructive and reflux uropathy; G62.9 Polyneuropathy, unspecified; M19.90 Unspecified osteoarthritis, unspecified site; Z79.82 Long term (current) use of aspirin; Z96.642 Presence of left artificial hip joint; Z79.899 Other long term (current) drug therapy; Z68.35 Body mass index [BMI] 35.0-35.9, adult; X50.1XXA Overexertion from prolonged static or awkward postures, initial encounter; Y92.9 Unspecified place or not applicable
CPT/HCPCS: 27265; 73502; 96374; 99152; 99285; J7030; A4216; J2405

== ENCOUNTER 2018-08-28 07:58 | Inpatient (IN) | payer MEDICARE, OTHER, SELFPAY ==
[2015-12-09 13:30] VITALS: BMI 21.5
[2018-07-16 08:48] VITALS: BMI 35.6
[2018-08-09 14:45] VITALS: BP 147/74; PULSE 60; RESP 16; TEMP 37.1; O2SAT 97; BMI 34.9
--- NOTE | 2018-08-09 15:10 | SDCEKG_ITS ---
Test Reason : Blood Pressure : / mmHG Vent. Rate : 052 BPM Atrial Rate : 052 BPM P-R Int : 256 ms QRS Dur : 116 ms QT Int : 456 ms P-R-T Axes : 057 -09 016 degrees QTc Int : 424 ms Sinus bradycardia with 1st degree A-V block with occasional Premature ventricular complexes Otherwise normal ECG Confirmed by SUMEET MOY, LILA ([id number]), copy editor ANGELLA LEWIS ([id number]) on 08/13/2018 12:54:00 PM Referred By: Christiano Lagos Confirmed By:LILA FAY MD
[2018-08-09 16:42] LABS: Partial Thromboplast Time 28.5 Seconds (24.1-36.2); Prothrombin Time (Protime)PT. 13.2 SECONDS (11.7-14.9)
[2018-08-09 16:44] LABS: Absolute Lymphocyte Count 2.18 X10^3/ul (0.83-4.51); Absolute Neutrophil Count 4.8 X10^3/uL (2.0-7.7); Basophil# 0.04 X10^3/uL; Basophil% 0.5 % (0-1); Eosinophil# 0.07 X10^3/uL; Eosinophils% 0.9 % (0-5); Hemoglobin 14.6 g/dl (13.0-16.5); Lymphocyte # 2.18 X10^3/ul (4.0); Lymphocyte % 27.5 % (19-41); Mean Corpuscular Hgb 31.9 pg (27.0-32.0); Mean Corpuscular Volume 93.9 fL (80-94); Mean Platelet Vol. 11.4 fl (6.2-12.0); Monocyte# 0.81 X10^3/uL; Monocyte% 10.2 % (0-10); Neutrophil # 4.81 X10^3/uL (2.7-7.7); Neutrophil % 60.6 % (47-70); POSITIVE COUNT NO; POSITIVE DIFFERENTIAL NO; POSITIVE MORPHOLOGY NO; Platelet Count 229 K/mm3 (150-450); RBC Distribution Width CV 13.7 % (11.6-14.6); RBC Distribution Width SD 46.9 fl (35.1-43.9); Red Blood Count 4.58 M/mm3 (4.6-6.2); White Blood Count 7.9 K/mm3 (4.4-11.0)
[2018-08-09 17:20] LABS: AST(SGOT) 19 U/L (15-37); Alanine Aminotransfer ALT/SGPT 27 U/L (16-61); Alkaline Phosphatase 47 U/L (45-117); Anion Gap 9 (5-15); BUN 20 mg/dL (7-18); BUN/Creat Ratio 14.9 RATIO (10-20); Bilirubin, Direct 0.18 mg/dL (0.00-0.30); Calcium,Total 8.9 mg/dL (8.5-10.1); Chloride 104 mmol/L (98-107); Creatinine, Serum 1.34 mg/dL (0.70-1.30); EST Glomerular Filtration Rate 56 mL/min (>60); Est Glom Filt Rate - Afr Amer 67 mL/min (>60); Estimated Creatinine Clearance 51.45 ml/min; Globulin 3.2 g/dL (2.2-4.2); Glucose 90 mg/dL (74-106); Potassium 3.7 mmol/L (3.5-5.1); Protein, Total 7.2 g/dL (6.4-8.2); Sodium Level 141 mmol/L (136-145)
--- NOTE | 2018-08-09 17:21 | PCM.HP.BLA ---
History and Physical DATE OF SURGERY: 08/28/2018 SCHEDULED PROCEDURE: revision left total hip arthroplasty HISTORY OF PRESENT ILLNESS: This is a 73-year-old male who has had previous left total hip arthroplasty by Dr. Clive Thomas on July 04, 2016. Patient has had 2 previous dislocations with the first one being March 22, 2018 followed by a second dislocation on July 16, 2018. These were both done while trying to tie his shoes bending forward. Patient had closed reduction performed. Patient states he never did have significant decrease in pain after his initial total hip replacement. Patient currently denies any recent trauma or injury. Patient has a medical history pertinent for hypertension, hypercholesterolemia, sleep apnea with use of CPAP, and previous aortic valve replacement. Patient is followed by Dr. Thacker. We are obtaining surgical clearance from the practice business asst. Patient also does report having neuropathy and having numbness and tingling in both feet. He currently denies any chest pain, shortness of breath, fevers chills, recent infections. After failure of conservative measures and discussing treatment options with Dr. Christiano Lagos, the patient would like proceed with a revision left total hip arthroplasty. REVIEW OF SYSTEMS: ROS: Const: Denies anorexia, change in appetite, fever, hard of hearing, vision problems and weight change. CV: Reports chest pain and irregular heartbeat, but denies heart murmur and peripheral vascular disease. Resp: Reports sleep apnea, but denies asthma, cough, pneumonia, SOB, tuberculosis and wheezing. GI: Denies constipation, diarrhea, difficulty swallowing, heartburn, nausea, bloody stools and vomiting. : Urinary: denies incontinence. Musculo: Denies leg swelling, limp, trouble walking and weakness. Skin: Denies Raynaud's, history of shingles and tattoo. Neuro: Reports numbness/tingling but denies ambulatory dysfunction, dizziness and tremor. Psych: Reports depression, but denies anxiety, insomnia, mental illness and stress. Maurice/Lymph: Reports past transfusion, but denies anemia and bleeding/bruising tendency. Reviewed, no changes. PAST MEDICAL HISTORY: Advance Care Plan: Other Directive, LIVING WILL Effective Date: 05/02/2016 Other Directive, POA Effective Date: 05/02/2016 PMH: Medical Problems: Arthritis, Coronary Artery Disease (CAD), High Blood Pressure, High Cholesterol, Sleep Apnea, Prostate Accidents: Fracture - pinky finger as a child Sports Related Injury - low back LT Hip Dislocation - FEBRUARY & JUNE Surgical Hx: Heart Bypass (CABG) - 08/24/08 [facility] Rt big toe surgery - 15 yrs ago Tonsillectomy Polypectomy - age 13 [place] teeth extracted - age 21 Tooth Removed - (2014) Biopsy Of Prostate LT THR - (07/04/2016) JASIEL @ [facility] Bridge Work - (07/2017) Prostate Surgery - (07/2017) Anesthesia Complications: None Assistive Devices: Glasses Reviewed, no changes. 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 Personal Habits: Smoking: Patient has never smoked.Cigarette Use: Never.Alcohol: Occasionally.Drug Use: Denies Use.Enjoy Exercising: Exercises 1-3 X/Week. Reviewed, no changes. VITALS: Ht: 70 Wt: 241lb Wt k.318 BMI: 34.6 BP: 140/68 Pulse: 66 Resp: 16 T: 97.7 T: 36.5C ALLERGIES: No Known Drug Allergy MEDICATIONS: Multivitamins 1 po qd, Amlodipine Besylate 2.5 mg 1 by mouth every day, Pravastatin Sodium 80 mg 1 tab PO daily, Aspirin 81 mg one PO daily, Gabapentin 600 mg one PO daily, Losartan Potassium/Hydrochlorothiazide 100-25 mg 1po qday, Gabapentin 300 mg 1 by mouth three times a day PRE-OP EXAM: General appearance:NORMAL Other: Eyes: Conjunctivae and lids: NORMAL Pupils: ERR Ears, Nose, Mouth, and Throat: NORMAL Other: Inspection of lips, teeth and gums: NORMAL Other: Neck: Examination of neck: no masses noted. Respiratory: Assessment of respiratory effort: NORMAL Other: Auscultation of lungs: clear to auscultation no wheezes, rhonchi or rales. Cardiovascular: Auscultation of heart: regular rate and rhythm, positive systolic murmur Exam of carotid arteries: NORMAL Other: Gastrointestinal: Exam of abdomen: soft, nontender, nondistended bowel sounds present. PHYSICAL EXAMINATION: Patient does walk with an antalgic gait. Previous incision over the posterior hip is well healed without any signs of erythema or infection. Nontender to palpation. Patient has no increase in pain with gentle range of motion of the left hip. Patient does have a leg length discrepancy on the left approximately 3 mm longer on the left. IMAGING STUDIES: X-rays from [facility] on July 16, 2018 does reveal a reduced total hip arthroplasty with no evidence of subsidence or loosening. IMPRESSION: 1. Previous left total hip arthroplasty with 2 postoperative dislocations 2. History of aortic valve replacement: The 2008 [facility], currently on aspirin 3. Hypertension 4. Sleep apnea: Uses CPAP 5. Hypercholesterolemia 6. Coronary artery disease PLAN: Dr. Christiano Lagos did discuss and review with the patient all treatment options including surgical versus nonsurgical options. Patient does wish to proceed with the above-stated procedure. Potential risks, benefits, and complications of the procedure were discussed in detail including but not limited to , infection, nerve and blood vessel damage, persistent pain, numbness, tingling, paresthesias, blood clot, pulmonary embolism, and requirement for possible further surgery. The patient expressed full understanding and has no further questions for the doctor. Patient does agree to proceed with the above-stated procedure and has signed the surgery consent form. We will obtain surgical clearance from primary care physician and practice business asst. We will ask for appropriate stoppage of the aspirin prior to surgery from the practice business asst. This dictation was created using voice recognition software. Phonetic and/or grammatical errors may exist.. ___ I have re-examined the patient. There are no clinical changes since date of exam. ___ See progress notes for changes. ___ Dictated on admission Date: Time: Signature:
[2018-08-13 14:27] VITALS: BMI 35.6
--- NOTE | 2018-08-23 14:20 | CASEMGMT ---
Call placed to patient's home phone to discuss discharge needs after upcoming surgery, message left for patient to return call. Cely Hansen LPN Clinical Support
[2018-08-28] VITALS (11 sets, daily range): BP systolic 102–162; BP diastolic 54–85; PULSE 58–92; RESP 15–18; TEMP 35.9–36.9; O2SAT 93–100; BMI 34.9
[2018-08-28] MEDS: Celecoxib 200 MG Capsule 400 MG PO (08:29)
[2018-08-28] MEDS: oxyCODONE HCl Cr 10 MG Tablet PO (08:29)
[2018-08-28] MEDS: Acetaminophen 500 MG Tablet 1000 MG PO ×2 (08:29→22:23)
[2018-08-28] MEDS: Lactated Ringers 1,000 ML 999 ML IV ×2 (08:56→14:50)
[2018-08-28] MEDS: Heparin Injection (Vial) 5,000 UNIT/ML VIAL 5000 UNIT (10:05)
[2018-08-28] MEDS: Cefazolin 2 GM in 0.9% Normal Saline 100 ML IV (10:08)
[2018-08-28] MEDS: Vancomycin IV 1,000 MG/20 ML Vial 2000 MG OPERA.SITE (14:42)
--- NOTE | 2018-08-28 14:50 | PCM.OPRPT ---
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 appeals specialist: [place] Type of Anesthesia:: General Anesthesiologist: Aleksandar Platt Special Medications: 2 g Ancef, 1 g TXA at incision, 1 g TXA closure, 10 mg Decadron, joint cocktail (5 mg Duramorph, 30 mL of 0.5% Ropivicaine, 1000 units of epinephrine, 30 mg of Toradol), grams Ancef 2 and half hours after initial incision. 2 g vancomycin powder and wound at completion of case. Estimated Blood Loss (mL): 700 ml Fluids Replaced: 2700 mL crystalloid, 250 mL Cell Saver Description of Procedure: On the date of the procedure patient's left hip was marked in the preoperative area. Patient was brought back to the operating room where there transferred to the table in the supine position. Anesthesia assumed control of the C-spine airway and remained to control throughout the remainder of the procedure. After anesthesia was administered all bony prominences identified well-padded and patient was placed in lateral decubitus position. Left hip was up in the air. At this time the peroneal nerve was padded and so was the down extremity. The left hip was then prepped in a sterile fashion while the surgeon scrubbed. Upon reentering the room the left lower extremity was draped in a sterile orthopedic fashion and a timeout was called. Everyone agreed upon the side, the site, the procedure to be performed, patient's identity and antibiotic given. Incision was marked out using the previous incision and extending it proximally distally for revision exposure. At this time the incision was taken down through skin subcu tissue fat down the fascia. During this portion of the procedure we attempted to maintain hemostasis. Once we got down to the fascia the fascia was incised in line with the incision. Charnley retractor was placed and immediately could see that there were no posterior structures given the stability of the hip. At this time a synovectomy was performed and synovium was sent for culture. After appropriate synovectomy of the posterior superior and inferior portions of the hip the hip was dislocated and the femoral head was from the trunnion. At this time our plan was to revise the cup to a dual mobility cup and try to retain the stem. We directed our attention towards the acetabulum where it was exposed using retractors the remainder the synovectomy was performed in the acetabular nice were used to separate the acetabular component from the surrounding bone. Once this had been adequately using a long and short knife the cup was removed. It was noted that even prior to removing the cup there was posterior wall deficiency based on her exposure MC from the posterior portion of the acetabulum. Based on patient's instability, preop assessment showing increased offset and increased leg length compared to the contralateral side we also elected to review the version of the stem. After close review of this the stem appeared to be under anteverted roughly only 5 degrees anteversion. At this time based on the patient's instability and previous position of the acetabular component and current position of the femoral component we elected to remove the femoral component. We spent a considerable amount of time using burs and osteotomes to get around the femoral component proximally as it appeared to be approximately coated stem. After multiple attempts and clearing up the proximal area we were unsuccessful. At this time we decided we needed to do a eccentric enteric osteotomy in order to remove the stem. Extended trochanteric osteotomy was performed removing the lateral one third of the proximal femur. This was done using a bur saw an osteotome. Once we had probably done the osteotomy we can get to the distal portion of the stem once we had cleared of the distal portion of the stem were able to remove it with a back slap. Once this was done we then used the drill to open up the pedestal distally. Once this was done 6 L of normal saline copiously irrigated throughout the wound and our attention was directed towards the reconstruction. Sequentially reamed to 66 mm and then trialed a 68 mm acetabular component. Based on the residual bone stock we elected to over size component which gave us good snug fit. We used the acetabular positioning food checkers and cashiers supervisor order to verify the position of the acetabular component which showed adequate anteversion and abduction. Once this was completed 2 screws were placed in the acetabular shell and 3 additional screws were placed in the superior and the acetabulum. We did use a 68 mm Piiku acetabular component. At this time and MDM liner was impacted into place and our attention was directed towards the femur. Centralizing drill was used to drill the pedestal. At this time the canal finder reamer was placed down the canal. We then sequentially reamed up to 17 mm. After we reamed the distal canal we reduce the extended trochanteric osteotomy and placed 2 cables provisionally. We then reamed to 17 with the trochanteric osteotomy fixed. Once this was done we placed the 17 mm x 195 mm stem down the femur. Once this was completed we reamed to a 25 mm cone body which gives a good fit for the cone body. We used a +10 cone body based on our reamer positioning. We then trialed a +8 mm head. This gave us good leg lengths and good stability of the hip at 90 degrees flexion. He can flex beyond 90 degrees there was minimal shuck. At 90 degrees we could internally rotate the hip 40 degrees without instability. At this time the hip was dislocated the trial body was removed and trial head removed. Wound was roldan irrigated out normal saline. Final head was impacted in the appropriate anteversion which was about 30 degrees anteversion. Once this was impacted the tightening screw was tightened in. Once this was tightened down into place the trunnion was cleaned and the MDM ball was impacted into place. Hip was reduced and remained stable just like our trials. Wound was roldan irrigated out normal saline. 2 g of vancomycin were placed in the wound. No posterior structures are repairable. Fascia was repaired with #1 Vicryl. Deep #1 Vicryl repair was done. 2-0 Vicryl repair was done and final skin closure was done with nylon. Patient was then placed in supine position and awakened by anesthesia. He was then transferred to PACU for recovery. Implants: Fred 68 mm RIS acetabular cup with MDM liner alpha code F 46 mm inner diameter. 5 screws were placed in the cup. Stem was a 17 mm x 195 mm stem with 25+10 mm cone body. Ball was 28 mm inner diameter size 46F and 28 mm +8 mm offset cobalt-chromium head. Postop plan: Patient will be placed on doxycycline as we follow cultures. Patient is touchdown weightbearing for 2 weeks followed by 50% weightbearing for an additional 4 weeks. At this weeks postop we will plan on weightbearing as tolerated. DVT prophylaxis will be aspirin twice daily. No active abduction for 6 weeks. During the course of the procedure the physician fitness assistant played a vital role. His intimate knowledge of my steps in the procedure aided in safe and expedient completion of the procedure. The PA played a vital rolls in positioning particularly in obtaining the appropriate lateral decubitus. The PA was also vital in the retraction of soft tissues during the exposure and especially the femoral work as this is a vital part of the procedure to prevent complications and fractures. The PA was also vital and protecting soft tissues during times of bony cuts and reaming. He also played a vital role in closure with my direct supervision. The PA was also important during reduction and dislocation of the joint and trials intraoperatively. - Complications No intraoperative complications - Admit VTE Documentation VTE Present on Admission: No VTE Mechan Device Prophylaxis: SCD's, Thigh High WALTER Hose VTE Pharm Prophylaxis ordered?: Yes
--- NOTE | 2018-08-28 15:45 | RAD_ITS ---
STUDY: X-RAY - LEFT HIP REASON FOR EXAM: Male, 73 years old. Postop. TECHNIQUE: 2 views of the hip. COMPARISON: AP pelvis and additional views of the left hip July 16, 2018. FINDINGS: The previous metal bipolar left hip prosthesis has been replaced with a new bipolar prosthesis. The acetabular component is now secured with at least 2 screws passing into the superomedial margin of the acetabulum. The stem of the femoral prosthesis extends now to the mid femur, and appears in good alignment with the acetabular component. Fracture/osteotomy lines now project within the intertrochanteric area and proximal diaphysis of the femur. 2 metal cerclage wires surround the femur above and below the expected level of the lesser trochanter. Normal visualized superior and inferior pubic rami and ischial tuberosities. Gas lucencies are present in the tissues over the hip and in the lateral margin of the upper left thigh, consistent with recent surgery. RAD/Hip Min 2 Views (Portable) IMPRESSION: Status post redo left total hip arthroplasty with replacement of bipolar hip prosthesis, as described. Electronically Signed: Yrn Horvath MD at 19:43 EST , Service support ,
[2018-08-28] MEDS: Scopolamine 1mg/72hr Patch 1 PATCH TD (16:34)
[2018-08-28] MEDS: 0.9% NaCl Peripheral Flush Adult/Peds IV (17:39)
[2018-08-28] MEDS: Morphine 2 MG/ML Syringe IV (17:39)
[2018-08-28] MEDS: Lactated Ringers 1,000 ML 125 ML IV (18:19)
[2018-08-28] MEDS: Aspirin 325 MG Tablet PO (18:21)
[2018-08-28] MEDS: Gabapentin 600 MG Tablet PO (18:22)
[2018-08-28] MEDS: Cefazolin 1 GM/50 ML BAG IV (18:34)
--- NOTE | 2018-08-28 19:16 | PCM.PN.HOSP ---
Subjective: CC: Consult for post-op medical management: HPI: 73-year-old male has medical history of previous left total hip arthroplasty, hypertension, hyperlipidemia, CONCEPCION on CPAP, BPH, chronic systolic CHF, EF 50%who comes in for revision of the left total hip arthroplasty. He had reported history of 2 left hip dislocations that were reduced in the emergency departments on 2 different occasions. He is status post left posterior revision total hip replacement with extended trochanteric ileostomy today. At the time of being examined, patient complains of his pain in the right hip pain for over 10. He denied any chest pain or dizziness or palpitations of fever or chills. He is on 2 L of oxygen postoperatively. PMHX: History of aortic valve disease status post aortic valve replacement, hypertension, hyperlipidemia, CONCEPCION on CPAP, history of left hip dislocation PSHx: Status post aortic valve replacement, status post colectomy, polypectomy, robotic prostate surgery, history of surgery on his toes, left total hip replacement FHx: Heart disease in both father and mother, brother of congestive heart failure SHx: , denied any smoking, drinks alcohol occasionally; beer, denies any use of illicit drugs ROS: 12 point review of system was essentially negative except for HPI Vitals/I&O's: Vital Signs Temp Pulse Resp BP Pulse Ox 98.4 F 79 16 124/70 H 98 08/28/18 18:04 08/28/18 18:04 08/28/18 18:04 08/28/18 18:04 08/28/18 18:04 Oxygen Flow Rate (L/min) 3 Oxygen Delivery Method Nasal Cannula Weight: 110.3 kg Body Mass Index (BMI) 34.9 Intake and Output for Last 24 Hours 08/26/18 08/27/18 08/28/18 23:59 23:59 23:59 Intake Total 3100 / 3100 Balance 3100 / 3100 General: Alert, Oriented x3, Cooperative, No apparent distress, - - on 2L oxygen HEENT: Atraumatic, PERRLA, EOMI, Normocephalic Oral: Moist Mucosa Neck: Supple, No JVD, Negative Carotid Bruits Lungs: Clear to auscultation, Normal air movement Cardiovascular: Regular rate, Regular Rhythm, Normal S1, Normal S2, No murmurs Abdomen: Bowel Sounds Present, Soft, Non Tender, Non-Distended, No Hepato-splenomegaly Extremities: No edema, Edema Skin: No rashes, No breakdown Musculoskeletal: Tenderness - over the left hip with cooling mat, insitu Lymphatic: No Cervical, Supraclavicular, or Inguinal Adenopathy Neurological: Cranial nerves II-XII grossly intact, Neuro grossly intact Psych/Mental Status: Normal Affect, Appropriate Current Medications Acetaminophen (Tylenol) 1,000 mg PO Q8 [facility] Amlodipine Besylate (Norvasc) 2.5 mg PO DAILY [facility] Last Admin: 08/28/18 18:21 Dose: 325 mg Celecoxib (Celebrex) 200 mg PO BID [facility] Doxycycline Monohydrate (Doxycycline) 100 mg PO BID [facility] Stop: 09/04/18 22:01 Famotidine (Pepcid) 20 mg PO DAILY [facility] Gabapentin (Neurontin) 300 mg PO LUNCH [facility] Gabapentin (Neurontin) 600 mg PO DINNER [facility] Last Admin: 08/28/18 18:22 Dose: 600 mg Hydrochlorothiazide (Hctz) 25 mg PO DAILY [facility] Cefazolin Sodium () 1 gm in 50 mls @ 150 mls/hr IV Q8H [facility] Stop: 08/29/18 02:19 Last Admin: 08/28/18 18:34 Dose: 150 mls/hr Lactated Ringer's () 1,000 mls @ 125 mls/hr IV .Q8H [facility] Last Admin: 08/28/18 18:19 Dose: 125 mls/hr Ketorolac Tromethamine (Toradol) 15 mg IV Q6H PRN PRN PRN Reason: MILD-MOD PAIN (1-5/10) Losartan Potassium (Cozaar) 100 mg PO DAILY [facility] Morphine Sulfate () 2 - 4 mg IV Q2H PRN PRN PRN Reason: SEVERE PAIN (6-10/10) Last Admin: 08/28/18 17:39 Dose: 2 mg Nutritional Formula (Lactose Free) (Ensure Clear) 120 ml PO TIDCM [facility] Last Admin: 08/28/18 18:33 Dose: 120 ml Ondansetron HCl (Zofran) 4 mg IV Q8H PRN PRN PRN Reason: NAUSEA Oxycodone HCl (Oxyir) 5 - 10 mg PO Q4H PRN PRN PRN Reason: MOD-SEVERE PAIN (4-10/10) Pravastatin Sodium (Pravachol) 80 mg PO QHS [facility] Promethazine HCl (Phenergan) 12.5 mg IM Q6H PRN PRN; Protocol PRN Reason: NAUSEA/VOMITING Senna/Docusate Sodium (Senokot-S, Marika-Colace) 2 tablet PO BID [facility] Sodium Chloride () 5 - 15 ml IV UD PRN PRN Reason: SALINE FLUSH Last Admin: 08/28/18 17:39 Dose: 10 ml Medical Necessity - Tobacco Use Smoking Status: Never smoker Assessment/Plan 1. POD #0, status post left posterior revision total hip replacement with extended trochanteric ileostomy, pain is controlled, continue with current pain medications, further recommendations per orthopedic team 2. Elevation in creatinine secondary to dehydration, on IV fluids, will be cautious with IV fluids given history of CHF, continue on IV fluids at 100 cc an hour repeat blood work in a.m. 3. Hypertension, controlled, continue on amlodipine, hydrochlorothiazide, losartan, continue to monitor vitals. 4. Hyperlipidemia, continue on pravastatin 5. Chronic systolic CHF, EF 50%, not in acute exacerbation, on losartan, not on Lasix, on HCTZ 6. DVT PPx - per orthopedics recommendations - aspirin BID Code Visit Inpatient E&M: 33697 Subs Hosp L2
--- NOTE | 2018-08-28 19:19 | PN_ITS ---
Subjective: CC: Consult for post-op medical management: HPI: 73-year-old male has medical history of previous left total hip arthroplasty, hypertension, hyperlipidemia, CONCEPCION on CPAP, BPH, chronic systolic CHF, EF 50%who comes in for revision of the left total hip arthroplasty. He had reported history of 2 left hip dislocations that were reduced in the emergency departments on 2 different occasions. He is status post left posterior revision total hip replacement with extended trochanteric ileostomy today. At the time of being examined, patient complains of his pain in the right hip pain for over 10. He denied any chest pain or dizziness or palpitations of fever or chills. He is on 2 L of oxygen postoperatively. PMHX: History of aortic valve disease status post aortic valve replacement, hypertension, hyperlipidemia, CONCEPCION on CPAP, history of left hip dislocation PSHx: Status post aortic valve replacement, status post colectomy, polypectomy, robotic prostate surgery, history of surgery on his toes, left total hip replacement FHx: Heart disease in both father and mother, brother of congestive heart failure SHx: , denied any smoking, drinks alcohol occasionally; beer, denies any use of illicit drugs ROS: 12 point review of system was essentially negative except for HPI Vitals/I&O's: Vital Signs Temp Pulse Resp BP Pulse Ox 98.4 F 79 16 124/70 H 98 08/28/18 18:04 08/28/18 18:04 08/28/18 18:04 08/28/18 18:04 08/28/18 18:04 Oxygen Flow Rate (L/min) 3 Oxygen Delivery Method Nasal Cannula Weight: 110.3 kg Body Mass Index (BMI) 34.9 Intake and Output for Last 24 Hours 08/26/18 08/27/18 08/28/18 23:59 23:59 23:59 Intake Total 3100 / 3100 Balance 3100 / 3100 General: Alert, Oriented x3, Cooperative, No apparent distress, - - on 2L oxygen HEENT: Atraumatic, PERRLA, EOMI, Normocephalic Oral: Moist Mucosa Neck: Supple, No JVD, Negative Carotid Bruits Lungs: Clear to auscultation, Normal air movement Cardiovascular: Regular rate, Regular Rhythm, Normal S1, Normal S2, No murmurs Abdomen: Bowel Sounds Present, Soft, Non Tender, Non-Distended, No Hepato-splenomegaly Extremities: No edema, Edema Skin: No rashes, No breakdown Musculoskeletal: Tenderness - over the left hip with cooling mat, insitu Lymphatic: No Cervical, Supraclavicular, or Inguinal Adenopathy Neurological: Cranial nerves II-XII grossly intact, Neuro grossly intact Psych/Mental Status: Normal Affect, Appropriate Current Medications Acetaminophen (Tylenol) 1,000 mg PO Q8 [facility] Amlodipine Besylate (Norvasc) 2.5 mg PO DAILY [facility] Last Admin: 08/28/18 18:21 Dose: 325 mg Celecoxib (Celebrex) 200 mg PO BID [facility] Doxycycline Monohydrate (Doxycycline) 100 mg PO BID [facility] Stop: 09/04/18 22:01 Famotidine (Pepcid) 20 mg PO DAILY [facility] Gabapentin (Neurontin) 300 mg PO LUNCH [facility] Gabapentin (Neurontin) 600 mg PO DINNER [facility] Last Admin: 08/28/18 18:22 Dose: 600 mg Hydrochlorothiazide (Hctz) 25 mg PO DAILY [facility] Cefazolin Sodium () 1 gm in 50 mls @ 150 mls/hr IV Q8H [facility] Stop: 08/29/18 02:19 Last Admin: 08/28/18 18:34 Dose: 150 mls/hr Lactated Ringer's () 1,000 mls @ 125 mls/hr IV .Q8H [facility] Last Admin: 08/28/18 18:19 Dose: 125 mls/hr Ketorolac Tromethamine (Toradol) 15 mg IV Q6H PRN PRN PRN Reason: MILD-MOD PAIN (1-5/10) Losartan Potassium (Cozaar) 100 mg PO DAILY [facility] Morphine Sulfate () 2 - 4 mg IV Q2H PRN PRN PRN Reason: SEVERE PAIN (6-10/10) Last Admin: 08/28/18 17:39 Dose: 2 mg Nutritional Formula (Lactose Free) (Ensure Clear) 120 ml PO TIDCM [facility] Last Admin: 08/28/18 18:33 Dose: 120 ml Ondansetron HCl (Zofran) 4 mg IV Q8H PRN PRN PRN Reason: NAUSEA Oxycodone HCl (Oxyir) 5 - 10 mg PO Q4H PRN PRN PRN Reason: MOD-SEVERE PAIN (4-10/10) Pravastatin Sodium (Pravachol) 80 mg PO QHS [facility] Promethazine HCl (Phenergan) 12.5 mg IM Q6H PRN PRN; Protocol PRN Reason: NAUSEA/VOMITING Senna/Docusate Sodium (Senokot-S, Marika-Colace) 2 tablet PO BID [facility] Sodium Chloride () 5 - 15 ml IV UD PRN PRN Reason: SALINE FLUSH Last Admin: 08/28/18 17:39 Dose: 10 ml Medical Necessity - Tobacco Use Smoking Status: Never smoker Assessment/Plan 1. POD #0, status post left posterior revision total hip replacement with extended trochanteric ileostomy, pain is controlled, continue with current pain medications, further recommendations per orthopedic team 2. Elevation in creatinine secondary to dehydration, on IV fluids, will be cautious with IV fluids given history of CHF, continue on IV fluids at 100 cc an hour repeat blood work in a.m. 3. Hypertension, controlled, continue on amlodipine, hydrochlorothiazide, losartan, continue to monitor vitals. 4. Hyperlipidemia, continue on pravastatin 5. Chronic systolic CHF, EF 50%, not in acute exacerbation, on losartan, not on Lasix, on HCTZ 6. DVT PPx - per orthopedics recommendations - aspirin BID Code Visit Inpatient E&M: 16717 Subs Hosp L2
[2018-08-28] MEDS: Doxycycline 100 MG CAPSULE PO (22:23)
[2018-08-28] MEDS: Senna/Docusate Sodium 1 Tablet 2 TABLET PO (22:24)
[2018-08-28] MEDS: Celecoxib 200 MG Capsule PO (22:24)
[2018-08-28] MEDS: Pravastatin 80 MG Tablet PO (22:25)
[2018-08-29] MEDS: Lactated Ringers 1,000 ML 100 ML IV (01:31)
[2018-08-29] MEDS: Cefazolin 1 GM/50 ML BAG IV (01:33)
[2018-08-29 04:13] VITALS: BP 120/68; PULSE 68; RESP 18; TEMP 36.4; O2SAT 94
[2018-08-29] MEDS: Acetaminophen 500 MG Tablet 1000 MG PO ×3 (05:24→21:20)
[2018-08-29 06:21] LABS: Anion Gap 8 (5-15); BUN 17 mg/dL (7-18); BUN/Creat Ratio 15.9 RATIO (10-20); Calcium,Total 7.6 mg/dL (8.5-10.1); Chloride 107 mmol/L (98-107); Creatinine, Serum 1.07 mg/dL (0.70-1.30); EST Glomerular Filtration Rate 72 mL/min (>60); Est Glom Filt Rate - Afr Amer 87 mL/min (>60); Estimated Creatinine Clearance 64.43 ml/min; Glucose 124 mg/dL (74-106); Potassium 4.4 mmol/L (3.5-5.1); Sodium Level 137 mmol/L (136-145)
[2018-08-29 06:25] LABS: Hematocrit 34.9 % (40-54); Hemoglobin 11.7 g/dl (13.0-16.5); Mean Corp Hgb Conc 33.5 g/gl (32-36); Mean Corpuscular Hgb 31.6 pg (27.0-32.0); Mean Corpuscular Volume 94.3 fL (80-94); Mean Platelet Vol. 11.6 fl (6.2-12.0); Platelet Count 209 K/mm3 (150-450); RBC Distribution Width CV 12.8 % (11.6-14.6); RBC Distribution Width SD 42.7 fl (35.1-43.9); White Blood Count 17.8 K/mm3 (4.4-11.0)
[2018-08-29 06:28] LABS: Scan Indicated on CBC? Y/N NO
[2018-08-29] MEDS: Celecoxib 200 MG Capsule PO ×2 (08:27→21:20)
[2018-08-29] MEDS: Famotidine 20 MG Tablet PO (08:27)
[2018-08-29] MEDS: Aspirin 325 MG Tablet PO ×2 (08:27→16:15)
[2018-08-29] MEDS: Ketorolac 15 MG/ML Vial IV ×2 (08:27→21:06)
[2018-08-29] MEDS: Losartan Potassium 100 MG Tablet PO (08:28)
[2018-08-29] MEDS: hydroCHLOROthiazide 25 MG Tablet PO (08:28)
[2018-08-29] MEDS: Senna/Docusate Sodium 1 Tablet 2 TABLET PO ×2 (08:29→21:20)
[2018-08-29] MEDS: amLODIPine 2.5 MG Tablet PO (08:29)
[2018-08-29] MEDS: Doxycycline 100 MG CAPSULE PO ×2 (08:29→21:20)
[2018-08-29] MEDS: 0.9% NaCl Peripheral Flush Adult/Peds IV ×2 (08:30→21:07)
[2018-08-29 09:29] VITALS: O2SAT 95
[2018-08-29 09:36] VITALS: BP 137/51; PULSE 66; RESP 18; TEMP 36.7; O2SAT 94
--- NOTE | 2018-08-29 09:47 | PN.ORTHO_ITS ---
Subjective: The patient was sitting in bedside chair upon examination. Patient denies any chest pain, shortness of breath, dizziness, lightheadedness, nausea or vomiting, or calf pain. Patient is complaining of pain in his left hip. He is currently on Tylenol and oxycodone. Patient is hesitant to take the narcotics. When he does take the medications they are somewhat helpful. No adverse overnight events. Patient does complain of numbness in bilateral lower extremities. He does have neuropathy. He states the numbness and tingling is no different than prior to surgery. Patient has been up with physical therapy. Patient wants to take the oxycodone only at nighttime and in the morning. Patient is currently touchdown weightbearing for the first 2 weeks postoperatively. No active abduction for 6 weeks. Objective: Vital signs stable and afebrile. Patient is able to plantarflex and dorsiflex actively. Sensation is intact to light touch to saphenous, sural, superficial and deep peroneal, and tibial distribution. Dressing is clean dry and intact. Negative Homans bilaterally, negative signs and symptoms of DVT. - Physical Exam General: Alert, Oriented x3, Cooperative, No apparent distress Vital Signs Temp Pulse Resp BP Pulse Ox 98.1 F 66 18 137/51 H 94 08/29/18 09:36 08/29/18 09:36 08/29/18 09:36 08/29/18 09:36 08/29/18 09:36 Oxygen Flow Rate (L/min) 1.5 Oxygen Delivery Method Room Air Weight: 110.3 kg Body Mass Index (BMI) 34.9 Intake and Output for Last 24 Hours 08/27/18 08/28/18 08/29/18 23:59 23:59 23:59 Intake Total 3100 / 3100 2950 / 2950 Output Total 625 / 625 Balance 3100 / 3100 2325 / 2325 Microbiology Past 72 Hours 08/28/18 15:10 Gram Stain - Final Tissue - Hip 08/28/18 15:10 Gram Stain - Final Bone - Hip 08/28/18 15:10 Gram Stain - Final Tissue - Hip Laboratory Tests Past 24 Hrs 08/29/18 08/29/18 05:50 05:50 WBC 17.8 H RBC 3.70 L Hgb 11.7 L Hct 34.9 L MCV 94.3 H MCH 31.6 MCHC 33.5 RDW 12.8 RDW Differential 42.7 Plt Count 209 MPV 11.6 Sodium 137 Potassium 4.4 Chloride 107 Carbon Dioxide 22.0 Anion Gap 8 BUN 17 Creatinine 1.07 Estim Creat Clear Calc 64.43 Est GFR (MDRD) Af Amer 87 Est GFR (MDRD) Non-Af 72 BUN/Creatinine Ratio 15.9 Glucose 124 H Calcium 7.6 L Medical Necessity - Tobacco Use Smoking Status: Never smoker Assessment/Plan 1. S/P left posterior hip revision total hip replacement with extended trochanteric osteotomy POD #1 2. Continue Pain Medications: Tylenol and OxyIR. Patient only wants to use the oxycodone at nighttime and in the morning. Continue with scheduled Tylenol. 3. DVT Prophylaxis: Aspirin 325 mg twice daily with food 4. PT/OT: Patient will be touchdown weightbearing left lower extremity for 2 weeks postoperatively followed by 50% weightbearing for an additional 4 weeks. Plan for weightbearing as tolerated at 6-week postop visit. No active abduction left hip 6 weeks postoperatively 5. H & H: 11.7/34.9, asymptomatic 6. Reactive leukocytosis: Currently 17.8, afebrile. 7. Continue antibiotic while following cultures: Currently pending. Patient is on doxycycline for 1 week postoperatively 8. Encouraged Incentive Spirometry 9. Continue postoperative medical management per medicine 10. Disposition: Plan for possible discharge home tomorrow. Patient wants to go home and not to a group home facility. Patient states he is on one level and only has 3 steps to get into the house. Dependent upon pain control and tolerance with physical therapy plan will be for discharge home tomorrow.
--- NOTE | 2018-08-29 10:13 | PCM.PN.HOSP ---
Subjective: Feels okay today, no events overnight, his surgical pain is controlled with medication. Vitals/I&O's: Vital Signs Temp Pulse Resp BP Pulse Ox 98.1 F 66 18 137/51 H 94 08/29/18 09:36 08/29/18 09:36 08/29/18 09:36 08/29/18 09:36 08/29/18 09:36 Oxygen Flow Rate (L/min) 1.5 Oxygen Delivery Method Room Air Weight: 243 lb 2.718 oz Body Mass Index (BMI) 34.9 Intake and Output for Last 24 Hours 08/27/18 08/28/18 08/29/18 23:59 23:59 23:59 Intake Total 3100 / 3100 2950 / 2950 Output Total 625 / 625 Balance 3100 / 3100 2325 / 2325 General: Alert, Oriented x3, Cooperative, No apparent distress HEENT: Atraumatic, EOMI, Normocephalic Oral: Moist Mucosa Neck: Supple, No JVD Lungs: Clear to auscultation, Normal air movement, No rhonchi, No wheeze, No rales, Diminished Cardiovascular: Regular rate, Regular Rhythm, Normal S1, Normal S2, No murmurs, No rub noted, No Gallop Abdomen: Soft, Non Tender, Non-Distended, No Hepato-splenomegaly Extremities: No edema, Capillary Refill Less than 3 Seconds Skin: No rashes, No breakdown, Incision - Dressing is intact Musculoskeletal: Tenderness - Left hip over incision Neurological: Neuro grossly intact, Sensory exam intact to light touch and pain - Neuropathy does lower extremities are stable Psych/Mental Status: Normal Affect, Appropriate Microbiology Past 72 Hours 08/28/18 15:10 Tissue - Hip Gram Stain - Final 08/28/18 15:10 Bone - Hip Gram Stain - Final 08/28/18 15:10 Tissue - Hip Gram Stain - Final Laboratory Results 08/29/18 05:50: WBC 17.8 H, RBC 3.70 L, Hgb 11.7 L, Hct 34.9 L, MCV 94.3 H, MCH 31.6, MCHC 33.5, RDW 12.8, RDW Differential 42.7, Plt Count 209, MPV 11.6 08/29/18 05:50: Sodium 137, Potassium 4.4, Chloride 107, Carbon Dioxide 22.0, Anion Gap 8, BUN 17, Creatinine 1.07, Estim Creat Clear Calc 64.43, Est GFR (MDRD) Af Amer 87, Est GFR (MDRD) Non-Af 72, BUN/Creatinine Ratio 15.9, Glucose 124 H, Calcium 7.6 L Current Medications Acetaminophen (Tylenol) 1,000 mg PO Q8 [facility] Last Admin: 08/29/18 05:24 Dose: 1,000 mg Amlodipine Besylate (Norvasc) 2.5 mg PO DAILY [facility] Last Admin: 08/29/18 08:29 Dose: 2.5 mg [facility] Last Admin: 08/29/18 08:27 Dose: 325 mg Celecoxib (Celebrex) 200 mg PO BID [facility] Last Admin: 08/29/18 08:27 Dose: 200 mg Doxycycline Monohydrate (Doxycycline) 100 mg PO BID [facility] Stop: 09/04/18 22:01 Last Admin: 08/29/18 08:29 Dose: 100 mg Famotidine (Pepcid) 20 mg PO DAILY [facility] Last Admin: 08/29/18 08:27 Dose: 20 mg Gabapentin (Neurontin) 300 mg PO LUNCH [facility] Gabapentin (Neurontin) 600 mg PO DINNER [facility] Last Admin: 08/28/18 18:22 Dose: 600 mg Hydrochlorothiazide (Hctz) 25 mg PO DAILY [facility] Last Admin: 08/29/18 08:28 Dose: 25 mg Ketorolac Tromethamine (Toradol) 15 mg IV Q6H PRN PRN PRN Reason: MILD-MOD PAIN (1-5/10) Last Admin: 08/29/18 08:27 Dose: 15 mg Losartan Potassium (Cozaar) 100 mg PO DAILY [facility] Last Admin: 08/29/18 08:28 Dose: 100 mg Morphine Sulfate () 2 - 4 mg IV Q2H PRN PRN PRN Reason: SEVERE PAIN (6-10/10) Last Admin: 08/28/18 17:39 Dose: 2 mg Nutritional Formula (Lactose Free) (Ensure Clear) 120 ml PO TIDCM [facility] Last Admin: 08/29/18 08:28 Dose: 120 ml Ondansetron HCl (Zofran) 4 mg IV Q8H PRN PRN PRN Reason: NAUSEA Oxycodone HCl (Oxyir) 5 - 10 mg PO Q4H PRN PRN PRN Reason: MOD-SEVERE PAIN (4-10) Pravastatin Sodium (Pravachol) 80 mg PO QHS [facility] Last Admin: 08/28/18 22:25 Dose: 80 mg Promethazine HCl (Phenergan) 12.5 mg IM Q6H PRN PRN; Protocol PRN Reason: NAUSEA/VOMITING Senna/Docusate Sodium (Senokot-S, Marika-Colace) 2 tablet PO BID [facility] Last Admin: 08/29/18 08:29 Dose: 2 tablet Sodium Chloride () 5 - 15 ml IV UD PRN PRN Reason: SALINE FLUSH Last Admin: 08/29/18 08:30 Dose: 10 ml Medical Necessity - Tobacco Use Smoking Status: Never smoker Assessment/Plan 1. Left posterior hip revision postop day 1 -Pain controlled by primary -PT/OT -He would prefer to go to home versus a jail 2. HTN/HLD/chronic systolic CHF/status post aortic valve replacement/AK I -Kidney injury has resolved -Continue with his home medication -Vital signs are stable 2. Peripheral neuropathy -Managed with gabapentin -We will continue while here Dispo: Stable for discharge when appropriate by ortho DVT: Full dose aspirin BID per primary Code Visit Inpatient E&M: 46532 Subs Hosp L2
--- NOTE | 2018-08-29 10:30 | PN_ITS ---
Subjective: Feels okay today, no events overnight, his surgical pain is controlled with medication. Vitals/I&O's: Vital Signs Temp Pulse Resp BP Pulse Ox 98.1 F 66 18 137/51 H 94 08/29/18 09:36 08/29/18 09:36 08/29/18 09:36 08/29/18 09:36 08/29/18 09:36 Oxygen Flow Rate (L/min) 1.5 Oxygen Delivery Method Room Air Weight: 243 lb 2.718 oz Body Mass Index (BMI) 34.9 Intake and Output for Last 24 Hours 08/27/18 08/28/18 08/29/18 23:59 23:59 23:59 Intake Total 3100 / 3100 2950 / 2950 Output Total 625 / 625 Balance 3100 / 3100 2325 / 2325 General: Alert, Oriented x3, Cooperative, No apparent distress HEENT: Atraumatic, EOMI, Normocephalic Oral: Moist Mucosa Neck: Supple, No JVD Lungs: Clear to auscultation, Normal air movement, No rhonchi, No wheeze, No rales, Diminished Cardiovascular: Regular rate, Regular Rhythm, Normal S1, Normal S2, No murmurs, No rub noted, No Gallop Abdomen: Soft, Non Tender, Non-Distended, No Hepato-splenomegaly Extremities: No edema, Capillary Refill Less than 3 Seconds Skin: No rashes, No breakdown, Incision - Dressing is intact Musculoskeletal: Tenderness - Left hip over incision Neurological: Neuro grossly intact, Sensory exam intact to light touch and pain - Neuropathy does lower extremities are stable Psych/Mental Status: Normal Affect, Appropriate Microbiology Past 72 Hours 08/28/18 15:10 Tissue - Hip Gram Stain - Final 08/28/18 15:10 Bone - Hip Gram Stain - Final 08/28/18 15:10 Tissue - Hip Gram Stain - Final Laboratory Results 08/29/18 05:50: WBC 17.8 H, RBC 3.70 L, Hgb 11.7 L, Hct 34.9 L, MCV 94.3 H, MCH 31.6, MCHC 33.5, RDW 12.8, RDW Differential 42.7, Plt Count 209, MPV 11.6 08/29/18 05:50: Sodium 137, Potassium 4.4, Chloride 107, Carbon Dioxide 22.0, Anion Gap 8, BUN 17, Creatinine 1.07, Estim Creat Clear Calc 64.43, Est GFR (MDRD) Af Amer 87, Est GFR (MDRD) Non-Af 72, BUN/Creatinine Ratio 15.9, Glucose 124 H, Calcium 7.6 L Current Medications Acetaminophen (Tylenol) 1,000 mg PO Q8 [facility] Last Admin: 08/29/18 05:24 Dose: 1,000 mg Amlodipine Besylate (Norvasc) 2.5 mg PO DAILY [facility] Last Admin: 08/29/18 08:29 Dose: 2.5 [facility] Last Admin: 08/29/18 08:27 Dose: 325 mg Celecoxib (Celebrex) 200 mg PO BID [facility] Last Admin: 08/29/18 08:27 Dose: 200 mg Doxycycline Monohydrate (Doxycycline) 100 mg PO BID [facility] Stop: 09/04/18 22:01 Last Admin: 08/29/18 08:29 Dose: 100 mg Famotidine (Pepcid) 20 mg PO DAILY [facility] Last Admin: 08/29/18 08:27 Dose: 20 mg Gabapentin (Neurontin) 300 mg PO LUNCH [facility] Gabapentin (Neurontin) 600 mg PO DINNER [facility] Last Admin: 08/28/18 18:22 Dose: 600 mg Hydrochlorothiazide (Hctz) 25 mg PO DAILY [facility] Last Admin: 08/29/18 08:28 Dose: 25 mg Ketorolac Tromethamine (Toradol) 15 mg IV Q6H PRN PRN PRN Reason: MILD-MOD PAIN (1-5/10) Last Admin: 08/29/18 08:27 Dose: 15 mg Losartan Potassium (Cozaar) 100 mg PO DAILY [facility] Last Admin: 08/29/18 08:28 Dose: 100 mg Morphine Sulfate () 2 - 4 mg IV Q2H PRN PRN PRN Reason: SEVERE PAIN (6-10/10) Last Admin: 08/28/18 17:39 Dose: 2 mg Nutritional Formula (Lactose Free) (Ensure Clear) 120 ml PO TIDCM [facility] Last Admin: 08/29/18 08:28 Dose: 120 ml Ondansetron HCl (Zofran) 4 mg IV Q8H PRN PRN PRN Reason: NAUSEA Oxycodone HCl (Oxyir) 5 - 10 mg PO Q4H PRN PRN PRN Reason: MOD-SEVERE PAIN (4-10) Pravastatin Sodium (Pravachol) 80 mg PO QHS [facility] Last Admin: 08/28/18 22:25 Dose: 80 mg Promethazine HCl (Phenergan) 12.5 mg IM Q6H PRN PRN; Protocol PRN Reason: NAUSEA/VOMITING Senna/Docusate Sodium (Senokot-S, Marika-Colace) 2 tablet PO BID [facility] Last Admin: 08/29/18 08:29 Dose: 2 tablet Sodium Chloride () 5 - 15 ml IV UD PRN PRN Reason: SALINE FLUSH Last Admin: 08/29/18 08:30 Dose: 10 ml Medical Necessity - Tobacco Use Smoking Status: Never smoker Assessment/Plan 1. Left posterior hip revision postop day 1 -Pain controlled by primary -PT/OT -He would prefer to go to home versus a [place] [facility] facility 2. HTN/HLD/chronic systolic CHF/status post aortic valve replacement/AK I -Kidney injury has resolved -Continue with his home medication -Vital signs are stable 2. Peripheral neuropathy -Managed with gabapentin -We will continue while here Dispo: Stable for discharge when appropriate by ortho DVT: Full dose aspirin BID per primary Code Visit Inpatient E&M: 68472 Subs Hosp L2
[2018-08-29] MEDS: Gabapentin 300 MG Capsule PO (16:13)
[2018-08-29 16:16] VITALS: BP 134/73; PULSE 65; RESP 16; TEMP 36.9; O2SAT 96
--- NOTE | 2018-08-29 16:35 | CASEMGMT ---
RN CM Assessment Presentation: [facility] Revision Intro role of CM and purpose of RN CM assessment. Pt sitting in chair, able to participate in dc planning. PCP: Dr. Oliver Specialists: Dr. Lagos [facility] Insurance: [facility] Prescription Benefit: yes LNOK: Stacie Mcneal, Living Arrangements: Lives in two story home, first floor set up. 3 steps into home. Pt states is generally independent. is able to assist. Transportation: is able to drive. DME: walker, raised toilet. Pt states no other equipment needed. No oxygen use @ home. HHC: none DC PLAN: Home with outpt therapy @ [facility] to begin 09/02.
[2018-08-29 21:14] VITALS: BP 114/58; PULSE 60; RESP 16; TEMP 36.5; O2SAT 95
[2018-08-29] MEDS: Gabapentin 600 MG Tablet PO (21:20)
[2018-08-29] MEDS: Pravastatin 80 MG Tablet PO (21:20)
[2018-08-30 03:27] VITALS: BP 118/53; PULSE 57; RESP 16; TEMP 36.6; O2SAT 94
[2018-08-30 06:24] LABS: Hematocrit 29.6 % (40-54); Hemoglobin 9.9 g/dl (13.0-16.5); Mean Corp Hgb Conc 33.4 g/gl (32-36); Mean Corpuscular Hgb 31.7 pg (27.0-32.0); Mean Corpuscular Volume 94.9 fL (80-94); Mean Platelet Vol. 11.2 fl (6.2-12.0); Platelet Count 161 K/mm3 (150-450); RBC Distribution Width CV 12.8 % (11.6-14.6); Red Blood Count 3.12 M/mm3 (4.6-6.2); White Blood Count 10.6 K/mm3 (4.4-11.0)
[2018-08-30 06:25] LABS: Scan Indicated on CBC? Y/N NO
[2018-08-30] MEDS: Acetaminophen 500 MG Tablet 1000 MG PO (06:30)
--- NOTE | 2018-08-30 07:07 | PCM.PN.ORT ---
Subjective: The patient was sitting in bed upon examination. Patient denies any chest pain, shortness of breath, dizziness, lightheadedness, nausea or vomiting, or calf pain. Pain is controlled on medications. No adverse overnight events. Patient has not required any narcotic at this time. Patient states he is doing well today. He is ready for discharge home today. He states he has been tolerating therapy. Objective: Vital signs stable and afebrile. Patient is able to plantarflex and dorsiflex actively. Sensation is intact to light touch to saphenous, sural, superficial and deep peroneal, and tibial distribution. Dressing is clean dry and intact. Negative Homans bilaterally, negative signs and symptoms of DVT. - Physical Exam General: Alert, Oriented x3, Cooperative, No apparent distress Vital Signs Temp Pulse Resp BP Pulse Ox 97.9 F 57 L 16 118/53 L 94 08/30/18 03:27 08/30/18 03:27 08/30/18 03:27 08/30/18 03:27 08/30/18 03:27 Oxygen Flow Rate (L/min) 1.5 Oxygen Delivery Method CPAP Weight: 110.3 kg Body Mass Index (BMI) 34.9 Intake and Output for Last 24 Hours 08/28/18 08/29/18 08/30/18 23:59 23:59 23:59 Intake Total 3100 / 3100 3450 / 3450 800 / 800 Output Total 1225 / 1225 2225 / 2225 Balance 3100 / 3100 2225 / 2225 -1425 / -1425 Microbiology Past 72 Hours 08/28/18 15:10 Gram Stain - Final Tissue - Hip Wound Culture - Preliminary No growth-Final to follow 08/28/18 15:10 Gram Stain - Final Bone - Hip Wound Culture - Preliminary No growth-Final to follow 08/28/18 15:10 Gram Stain - Final Tissue - Hip Wound Culture - Preliminary No growth-Final to follow Laboratory Tests Past 24 Hrs 08/30/18 06:06 WBC 10.6 RBC 3.12 L Hgb 9.9 L Hct 29.6 L MCV 94.9 H MCH 31.7 MCHC 33.4 RDW 12.8 RDW Differential 43.0 Plt Count 161 MPV 11.2 Medical Necessity - Tobacco Use Smoking Status: Never smoker Assessment/Plan 1. S/P left posterior hip revision total hip replacement with extended trochanteric osteotomy POD #2 2. Continue Pain Medications: Tylenol and OxyIR. Patient only wants to use the oxycodone at nighttime and in the morning. Continue with scheduled Tylenol. 3. DVT Prophylaxis: Aspirin 325 mg twice daily with food for 2 weeks, at 2-week follow-up will switch over to baby aspirin 81 mg twice daily for an additional 2 weeks 4. PT/OT: Patient will be touchdown weightbearing left lower extremity for 2 weeks postoperatively followed by 50% weightbearing for an additional 4 weeks. Plan for weightbearing as tolerated at 6-week postop visit. No active abduction left hip 6 weeks postoperatively 5. H & H: 9.9/29.6, asymptomatic. Patient denies any dizziness, lightheadedness. Vitals have been stable 6. Reactive leukocytosis: Resolved currently 10.6, afebrile. 7. Continue antibiotic while following cultures: Currently pending. Patient is on doxycycline for 1 week postoperatively 8. Encouraged Incentive Spirometry 9. Continue postoperative medical management per medicine 10. Disposition: Orthopedically stable, plan will be for discharge home today if patient tolerates physical therapy. Patient wants to go home and not to a senior living facility. Patient states he is on one level and only has 3 steps to get into the house. Prescriptions will be E scribed to [facility]. Patient will follow-up per postop instructions. Outpatient physical therapy is scheduled.
--- NOTE | 2018-08-30 07:23 | DCINST_ITS ---
Discharge Diet: No Restrictions Discharge Activity: May Not Drive - while taking narcotic pain medications. May shower in (days): 1 - Turned dressing away from water Weight Bearing Status: - - Touchdown weightbearing left lower extremity postoperatively with use of walker, no active abduction times 6 weeks. Hip dislocation precautions for 3 months postoperatively: No hip flexion past 90 degrees and no crossing of the legs. Elevate: Operative Extremity Additional Activity Instructions:: Wear elastic stockings for 2 weeks. DO NOT use alcohol with narcotic pain medication. DO NOT make important decisions while taking narcotic medication. If you have problems with taking your medication (rash, itching, nausea, etc.) call the office at once. Call your doctor if your incision/area has: Increased Pain/ Swelling, Increased Redness, Foul Smelling Discharge Call your doctor if you observe: Fever of 101 or Higher Remove Dressing in (days):: 3 - Okay to remove on September 02, 2018 Additional Instructions: Follow [facility] postop instructions DVT prophylaxis: Will take aspirin 325 mg twice daily with food for the first 2 weeks. This will be followed by 2 weeks of 81 mg aspirin twice a day after your 2-week follow-up visit at [facility]. Do not take any other anti-inflammatories while on Celebrex Allergies/Adverse Reactions: Allergies lactose Allergy (Verified 08/28/18 18:18) Food Allergy poison lauren extract Allergy (Verified 08/28/18 18:18) Itching Medications to take at Discharge Multivitamins,Therapeutic [Multivitamin] 1 tab PO DAILY 06/21/16 Gabapentin [Gralise] 600 mg PO DINNER 08/01/17 Amlodipine [Norvasc] 2.5 mg PO DAILY 08/09/18 Gabapentin [Neurontin] 300 mg PO LUNCH 08/09/18 Losartan/Hydrochlorothiazide [Hyzaar 100-25 Tablet] 1 tab PO QDAY 08/09/18 Pravastatin [Pravachol] 80 mg PO QHS 08/09/18 Acetaminophen [Tylenol] 1,000 mg PO Q8 #90 tablet 08/30/18 Aspirin 325 mg PO BIDCM #30 tablet 08/30/18 Celecoxib [Celebrex] 200 mg PO DAILY 30 Days #30 capsule 08/30/18 Doxycycline 100 mg PO BID #12 capsule 08/30/18 Famotidine [Pepcid] 20 mg PO DAILY #30 tablet 08/30/18 Oxycodone [Oxyir] 5 - 10 mg PO Q4H PRN PRN 5 Days #20 tablet 08/30/18 Senna/Docusate Sodium [Senokot-S] 2 tablet PO BID #20 tablet 08/30/18 The following prescriptions were given: Oxycodone [Oxyir] 5 - 10 mg PO Q4H PRN PRN 5 Days #20 tablet PRN Reason: Mod-Severe Pain (-05/01) Acetaminophen [Tylenol] 1,000 mg PO Q8 #90 tablet Celecoxib [Celebrex] 200 mg PO DAILY 30 Days #30 capsule Famotidine [Pepcid] 20 mg PO DAILY #30 tablet Aspirin 325 mg PO BIDCM #30 tablet Doxycycline 100 mg PO BID #12 capsule Senna/Docusate Sodium [Senokot-S] 2 tablet PO BID #20 tablet Primary Care Physician: Dwain Oliver DO [Primary Care Provider] - Test Results: Test results from this visit will be discussed in further detail at your follow- up appointment, if applicable. Please Follow Up With: [facility] When: 09/02/18 @ 1:00 pm with Rufino Please Follow Up With: Oneil Grove PA-C When: 09/11/18 @ 11:00 AM
[2018-08-30] MEDS: Magnesium Hydroxide 30 ML UDC PO (07:51)
[2018-08-30] MEDS: Aspirin 325 MG Tablet PO (07:51)
[2018-08-30 08:02] VITALS: O2SAT 96
[2018-08-30 09:32] VITALS: BP 126/75; PULSE 64; RESP 16; TEMP 36.3; O2SAT 97
[2018-08-30] MEDS: Losartan Potassium 100 MG Tablet PO (10:06)
[2018-08-30] MEDS: amLODIPine 2.5 MG Tablet PO (10:06)
[2018-08-30] MEDS: Famotidine 20 MG Tablet PO (10:07)
[2018-08-30] MEDS: Senna/Docusate Sodium 1 Tablet 2 TABLET PO (10:07)
[2018-08-30] MEDS: hydroCHLOROthiazide 25 MG Tablet PO (10:07)
[2018-08-30] MEDS: Doxycycline 100 MG CAPSULE PO (10:07)
[2018-08-30] MEDS: Celecoxib 200 MG Capsule PO (10:08)
--- NOTE | 2018-08-30 10:14 | PCM.PN.HOSP ---
Subjective: Doing most little bit better last night, no events overnight. States he is little bit constipated Vitals/I&O's: Vital Signs Temp Pulse Resp BP Pulse Ox 97.3 F L 64 16 126/75 H 97 08/30/18 09:32 08/30/18 09:32 08/30/18 09:32 08/30/18 09:32 08/30/18 09:32 Oxygen Flow Rate (L/min) 1.5 Oxygen Delivery Method Room Air Weight: 243 lb 2.718 oz Body Mass Index (BMI) 34.9 Intake and Output for Last 24 Hours 08/28/18 08/29/18 08/30/18 23:59 23:59 23:59 Intake Total 3100 / 3100 3450 / 3450 800 / 800 Output Total 1225 / 1225 2225 / 2225 Balance 3100 / 3100 2225 / 2225 -1425 / -1425 General: Alert, Oriented x3, Cooperative, No apparent distress HEENT: Atraumatic, EOMI, Normocephalic Oral: Moist Mucosa Neck: Supple, No JVD Lungs: Clear to auscultation, Normal air movement, No rhonchi, No wheeze, No rales, Diminished Cardiovascular: Regular rate, Regular Rhythm, Normal S1, Normal S2, No murmurs, No rub noted, No Gallop Abdomen: Soft, Non Tender, Non-Distended, No Hepato-splenomegaly Extremities: No edema, Capillary Refill Less than 3 Seconds Skin: No rashes, No breakdown, Incision Musculoskeletal: Tenderness - Left hip over incision Neurological: Neuro grossly intact, Sensory exam intact to light touch and pain - Neuropathy in lower extremities are stable Psych/Mental Status: Normal Affect, Appropriate Microbiology Past 72 Hours 08/28/18 15:10 Tissue - Hip Gram Stain - Final 08/28/18 15:10 Tissue - Hip Wound Culture - Preliminary No growth-Final to follow 08/28/18 15:10 Bone - Hip Gram Stain - Final 08/28/18 15:10 Bone - Hip Wound Culture - Preliminary No growth-Final to follow 08/28/18 15:10 Tissue - Hip Gram Stain - Final 08/28/18 15:10 Tissue - Hip Wound Culture - Preliminary No growth-Final to follow Laboratory Results 08/30/18 06:06: WBC 10.6, RBC 3.12 L, Hgb 9.9 L, Hct 29.6 L, MCV 94.9 H, MCH 31.7, MCHC 33.4, RDW 12.8, RDW Differential 43.0, Plt Count 161, MPV 11.2 Current Medications Acetaminophen (Tylenol) 1,000 mg PO Q8 [facility] Last Admin: 08/30/18 06:30 Dose: 1,000 mg Amlodipine Besylate (Norvasc) 2.5 mg PO DAILY [facility] Last Admin: 08/30/18 10:06 Dose: 2.5 mg [facility] Last Admin: 08/30/18 07:51 Dose: 325 mg Celecoxib (Celebrex) 200 mg PO BID [facility] Last Admin: 08/30/18 10:08 Dose: 200 mg Doxycycline Monohydrate (Doxycycline) 100 mg PO BID [facility] Stop: 09/04/18 22:01 Last Admin: 08/30/18 10:07 Dose: 100 mg Famotidine (Pepcid) 20 mg PO DAILY [facility] Last Admin: 08/30/18 10:07 Dose: 20 mg Gabapentin (Neurontin) 300 mg PO LUNCH [facility] Last Admin: 08/29/18 16:13 Dose: 300 mg Gabapentin (Neurontin) 600 mg PO DINNER [facility] Last Admin: 08/29/18 21:20 Dose: 600 mg Hydrochlorothiazide (Hctz) 25 mg PO DAILY [facility] Last Admin: 08/30/18 10:07 Dose: 25 mg Ketorolac Tromethamine (Toradol) 15 mg IV Q6H PRN PRN PRN Reason: MILD-MOD PAIN (1-5/10) Last Admin: 08/29/18 21:06 Dose: 15 mg Losartan Potassium (Cozaar) 100 mg PO DAILY [facility] Last Admin: 08/30/18 10:06 Dose: 100 mg Magnesium Hydroxide (Milk Of Magnesia) 30 ml PO BID@0800,1800 [facility] Last Admin: 08/30/18 07:51 Dose: 30 ml Morphine Sulfate () 2 - 4 mg IV Q2H PRN PRN PRN Reason: SEVERE PAIN (6-10/10) Last Admin: 08/28/18 17:39 Dose: 2 mg Nutritional Formula (Lactose Free) (Ensure Clear) 120 ml PO TIDCM [facility] Last Admin: 08/30/18 10:08 Dose: 120 ml Ondansetron HCl (Zofran) 4 mg IV Q8H PRN PRN PRN Reason: NAUSEA Oxycodone HCl (Oxyir) 5 - 10 mg PO Q4H PRN PRN PRN Reason: MOD-SEVERE PAIN (4-1010) Pravastatin Sodium (Pravachol) 80 mg PO QHS [facility] Last Admin: 08/29/18 21:20 Dose: 80 mg Promethazine HCl (Phenergan) 12.5 mg IM Q6H PRN PRN; Protocol PRN Reason: NAUSEA/VOMITING Senna/Docusate Sodium (Senokot-S, Marika-Colace) 2 tablet PO BID [facility] Last Admin: 08/30/18 10:07 Dose: 2 tablet Sodium Chloride () 5 - 15 ml IV UD PRN PRN Reason: SALINE FLUSH Last Admin: 08/29/18 21:07 Dose: 10 ml Medical Necessity - Tobacco Use Smoking Status: Never smoker Assessment/Plan 1. Left posterior hip revision postop day 2 -Pain controlled by primary -PT/OT -He would prefer to go to home versus a prison 2. HTN/HLD/chronic systolic CHF/status post aortic valve replacement/AK I -Kidney injury has resolved -Continue with his home medication -Vital signs are stable 2. Peripheral neuropathy -Managed with gabapentin -We will continue while here Dispo: Stable for discharge when appropriate by ortho DVT: Full dose aspirin BID per primary Code Visit Inpatient E&M: 04802 Subs Hosp L2
[2018-08-30] MEDS: oxyCODONE 5 MG Tablet PO (12:20)
[2018-08-30] MEDS: Gabapentin 300 MG Capsule PO (12:21)
[2018-08-30 13:06] VITALS: BP 100/56; PULSE 68; RESP 18; TEMP 36.8; O2SAT 99
== END 2018-08-30 13:05 | disposition home or self-care (01) | DRG 467 ==
PROVIDERS: Anesthesiology; Admitting Provider Specialist; Family Provider Family Medicine; PCP Family Medicine; Referring Provider Specialist; Visit Provider Family Medicine
PROC: 0SRB02A Replacement of Left Hip Joint with Metal on Polyethylene Synthetic Substitute, Uncemented, Open Approach (ICD-10-PCS; CPT 27134; principal; 2018-08-28 09:40)
DX: T84.021A Dislocation of internal left hip prosthesis, initial encounter (principal); I50.22 Chronic systolic (congestive) heart failure; E78.00 Pure hypercholesterolemia, unspecified; I25.10 Atherosclerotic heart disease of native coronary artery without angina pectoris; G47.33 Obstructive sleep apnea (adult) (pediatric); N40.0 Benign prostatic hyperplasia without lower urinary tract symptoms; Z95.2 Presence of prosthetic heart valve; Z96.642 Presence of left artificial hip joint; I11.0 Hypertensive heart disease with heart failure; G62.9 Polyneuropathy, unspecified
CPT/HCPCS: 36415; 73502; 80048; 80076; 85025; 85027; 85610; 85730; 87015; 87070; 87075; 87077; 87081; 87102; 87116; 87205; 87206; 93005; 97110; 97162; 97166; 97530; 97535; 99251; C1776; J7120; A4216; G0463

== ENCOUNTER → 2019-01-28 13:55 | Outpatient (CLI) | payer MEDICARE, OTHER, SELFPAY ==
[2015-12-09 13:30] VITALS: BMI 21.5
[2018-08-28 18:04] VITALS: BMI 34.9
[2019-01-28 14:56] LABS: Absolute Lymphocyte Count 1.64 X10^3/ul (0.83-4.51); Absolute Neutrophil Count 4.7 X10^3/uL (2.0-7.7); Basophil# 0.04 X10^3/uL; Basophil% 0.6 % (0-1); Eosinophil# 0.06 X10^3/uL; Eosinophils% 0.8 % (0-5); Hemoglobin 14.7 g/dl (13.0-16.5); Lymphocyte # 1.64 X10^3/ul (4.0); Lymphocyte % 22.7 % (19-41); Mean Corp Hgb Conc 34.2 g/gl (32-36); Mean Corpuscular Hgb 30.7 pg (27.0-32.0); Mean Corpuscular Volume 89.8 fL (80-94); Mean Platelet Vol. 11.2 fl (6.2-12.0); Monocyte# 0.77 X10^3/uL; Monocyte% 10.7 % (0-10); Neutrophil # 4.66 X10^3/uL (2.7-7.7); Neutrophil % 64.5 % (47-70); Platelet Count 238 K/mm3 (150-450); RBC Distribution Width SD 49.1 fl (35.1-43.9); Red Blood Count 4.79 M/mm3 (4.6-6.2); White Blood Count 7.2 K/mm3 (4.4-11.0)
[2019-01-28 14:57] LABS: POSITIVE COUNT NO; POSITIVE DIFFERENTIAL NO; POSITIVE MORPHOLOGY NO
[2019-01-28 15:39] LABS: Vitamin B12 393 pg/mL (211-911); Vitamin D,25 Hydroxy 16.4 ng/mL (29.95-100.01)
[2019-01-28 15:43] LABS: ALB/GLOB Ratio 1.1 RATIO (0.9-2.4); AST(SGOT) 20 U/L (15-37); Alanine Aminotransfer ALT/SGPT 27 U/L (16-61); Albumin, Serum 3.9 g/dL (3.2-5.0); Alkaline Phosphatase 85 U/L (45-117); Anion Gap 9 (5-15); BUN 17 mg/dL (7-18); BUN/Creat Ratio 15.7 RATIO (10-20); CPK Total, Creatine Kinase 74 U/L (39-308); Calcium,Total 8.9 mg/dL (8.5-10.1); Chloride 106 mmol/L (98-107); Creatinine, Serum 1.08 mg/dL (0.70-1.30); EST Glomerular Filtration Rate 71 mL/min (>60); Est Glom Filt Rate - Afr Amer 86 mL/min (>60); Globulin 3.4 g/dL (2.2-4.2); Glucose 98 mg/dL (74-106); Magnesium 2.3 mg/dL (1.6-2.6); Phosphorus 3.3 mg/dL (2.5-4.9); Potassium 3.6 mmol/L (3.5-5.1); Protein, Total 7.3 g/dL (6.4-8.2); Sodium Level 142 mmol/L (136-145)
== END ==
PROVIDERS: Family Provider Family Medicine; PCP Family Medicine; Referring Provider Nurse Practitioner Family; Visit Provider Nurse Practitioner Family
DX: G62.9 Polyneuropathy, unspecified (principal); E55.9 Vitamin D deficiency, unspecified; R25.2 Cramp and spasm
CPT/HCPCS: 36415; 80053; 82306; 82550; 82607; 83735; 84100; 85025

== ENCOUNTER → 2019-02-07 07:41 | Outpatient (CLI) | payer MEDICARE, OTHER, SELFPAY ==
[2015-12-09 13:30] VITALS: BMI 21.5
[2019-02-06 07:46] VITALS: BMI 35.2
[2019-02-07 08:27] LABS: AST(SGOT) 14 U/L (15-37); Alanine Aminotransfer ALT/SGPT 23 U/L (16-61); Albumin, Serum 3.8 g/dL (3.2-5.0); Alkaline Phosphatase 77 U/L (45-117); Bilirubin, Direct 0.17 mg/dL (0.00-0.30); Cholesterol 176 mg/dL (200); Globulin 3.5 g/dL (2.2-4.2); High Density Lipoprotein 52 mg/dL; Protein, Total 7.3 g/dL (6.4-8.2); Triglycerides 209 mg/dL; Very Low Density Lipoprotein 42 mg/dL (5-40)
[2019-02-07 08:31] LABS: BNP,B-Type NATRIURETIC PEPTIDE 159.6 pg/mL (0-100)
== END ==
PROVIDERS: Family Provider Family Medicine; PCP Family Medicine; Referring Provider Nurse Practitioner Family; Visit Provider Nurse Practitioner Family
DX: R06.09 Other forms of dyspnea (principal); E78.5 Hyperlipidemia, unspecified
CPT/HCPCS: 36415; 80061; 80076; 83880

== ENCOUNTER → 2019-02-25 14:45 | Outpatient (CLI) | payer MEDICARE, OTHER, SELFPAY ==
[2015-12-09 13:30] VITALS: BMI 21.5
[2019-02-06 07:46] VITALS: BMI 35.2
--- NOTE | 2019-02-25 14:48 | ECHOCS_ITS ---
Reason For Study: DYSPNEA Procedure This was a 2D Doppler, Color Flow transthoracic echocardiogram. The study was technically difficult. Contrast injection was performed. Exam performed in department. Left Ventricle Mildly dilated left ventricle. Segmental dysfunction with preserved ejection fraction (see wall motion). The estimated ejection fraction is 55 %. Post operative septal motion. Mid-inferoseptal : Hypokinetic. Mid-anteroseptal : Hypokinetic. Right Ventricle Normal RV size. Normal systolic function. Atria The left atrium is moderately enlarged. Normal right atrium. No doppler evidence for ASD. Mitral Valve There is no mitral annular calcification. Normal mitral valve. Trivial mitral valve insufficiency. Tricuspid Valve Normal tricuspid valve. Mild tricuspid valve insufficiency. Right ventricular systolic pressure estimated to be 27 mmHg. Aortic Valve Moderate aortic stenosis. Stable appearing bioprosthetic aortic valve apparatus. Trivial transvalvular insufficiency of the aortic valve. Pulmonic Valve The pulmonic valve is not well visualized. Trivial pulmonic valve insufficiency. Great Vessels Normal sized aortic root. Pericardium/Pleural No pericardial effusion. Medication 22 gauge I.V. with prn adaptor inserted into right arm. [id number] given slow IV push to enhance endocardial definition. MMode/2D Measurements & Calculations LVIDd: 5.9 cm IVSd: 1.2 cm LVOT diam: 2.1 cm LVIDs: 4.5 cm LVPWd: 0.99 cm RVDd: 4.2 cm FS: 23.4 % LVOT area: 3.5 cm2 Ao root diam: 3.6 cm LAV(MOD-bp): 99.3 ml LA A4 area: 29.0 cm2 LAV(MOD-bp) Indexed: 43.6 ml/m2 LAV(MOD-sp2): 86.1 ml LAV(MOD-sp4): 110.9 ml LA dimension(2D): 4.8 cm RA A4 area: 24.5 cm2 Time Measurements MV dec time: 0.22 sec Doppler Measurements & Calculations MV E max roel: 71.0 cm/sec Lat Peak E' Roel: 5.4 cm/sec Med Peak E' Roel: 5.5 cm/sec MV A max roel: 66.5 cm/sec E/E' lat: 13.3 E/E' med: 12.9 MV E/A: 1.1 Ao V2 max: 304.5 cm/sec LV V1 max: 83.3 cm/sec SV(LVOT): 74.7 ml Ao max P.3 mmHg LV V1 max P.8 mmHg Ao V2 mean: 238.4 cm/sec LV V1 mean P.7 mmHg Ao mean P.3 mmHg LV V1 mean: 62.6 cm/sec Ao V2 VTI: 73.3 cm LV V1 VTI: 21.5 cm TIMBO(I,D): 1.0 cm2 TIMBO(V,D): 0.95 cm2 TR max roel: 240.6 cm/sec TR max P.9 mmHg Interpretation Summary The study was technically difficult. Contrast injection was performed. Mildly dilated left ventricle. Segmental dysfunction with preserved ejection fraction (see wall motion). The estimated ejection fraction is 55 %. Post operative septal motion. The left atrium is moderately enlarged. Trivial mitral valve insufficiency. Mild tricuspid valve insufficiency. Stable appearing bioprosthetic aortic valve apparatus. Moderate aortic stenosis. Trivial transvalvular insufficiency of the aortic valve. Trivial pulmonic valve insufficiency. Right ventricular systolic pressure estimated to be 27 mmHg. Transmitral diastolic flow velocities suggest diastolic dysfunction (pseudonormal pattern). Ordering Physician: Talat Perez/Rodrigo Thacker Referring Physician: ROGER KOLB Performed By: Shama Schuster, RDCS, RVT
== END ==
PROVIDERS: Family Provider Family Medicine; PCP Family Medicine; Referring Provider Nurse Practitioner Family; Visit Provider Nurse Practitioner Family
DX: R06.02 Shortness of breath (principal); Z95.2 Presence of prosthetic heart valve
CPT/HCPCS: 93306; Q9957; A4216; C8929

== ENCOUNTER → 2019-05-14 10:41 | Outpatient (CLI) | payer MEDICARE, OTHER, SELFPAY ==
[2015-12-09 13:30] VITALS: BMI 21.5
[2019-02-06 07:46] VITALS: BMI 35.2
[2019-05-14 12:58] LABS: Vitamin D,25 Hydroxy 18.2 ng/mL (29.95-100.01)
== END ==
PROVIDERS: Family Provider Family Medicine; PCP Family Medicine; Referring Provider Nurse Practitioner Family; Visit Provider Nurse Practitioner Family
DX: E55.9 Vitamin D deficiency, unspecified (principal); R97.20 Elevated prostate specific antigen [PSA]
CPT/HCPCS: 36415; 82306; 84153

== ENCOUNTER → 2019-07-07 12:53 | Outpatient (CLI) | payer MEDICARE, OTHER, SELFPAY ==
[2015-12-09 13:30] VITALS: BMI 21.5
[2019-02-06 07:46] VITALS: BMI 35.2
--- NOTE | 2019-07-07 13:06 | VDLE_ITS ---
Reason For Study: Pain RIGHT LEFT CFV is compressible, spontaneous, phasic, GSV is normal. competent and demonstrates normal CFV is compressible, spontaneous, phasic, augmentation. competent, and demonstrates normal Procedure augmentation. Exam performed in department. FV is compressible, spontaneous, phasic, A preliminary report was called and/or faxed competent and demonstrates normal to Dr. Oliver. augmentation. POP V is compressible, spontaneous, phasic, competent and demonstrates normal augmentation. T/P Trunk is compressible. PTV is compressible. LT PerV is compressible. Interpretation Summary Deep veins of the left lower extremity are patent and compressible segmentally. There is no evidence of left lower extremity deep vein thrombosis. Valvular competence appears intact within the proximal deep venous system on the left . The left great saphenous vein appears patent and compressible segmentally. Ordering Physician: Dwain Oliver Referring Physician: Dwain Oliver Performed By: Luisa Perez, MARIA ELENA, RVT
== END ==
PROVIDERS: Family Provider Family Medicine; PCP Family Medicine; Referring Provider Family Medicine; Visit Provider Family Medicine
DX: M79.662 Pain in left lower leg (principal)
CPT/HCPCS: 93971

== ENCOUNTER → 2019-08-14 08:07 | Outpatient (CLI) | payer MEDICARE, OTHER, SELFPAY ==
[2015-12-09 13:30] VITALS: BMI 21.5
[2019-02-06 07:46] VITALS: BMI 35.2
[2019-08-14 09:07] LABS: AST(SGOT) 17 U/L (15-37); Alanine Aminotransfer ALT/SGPT 27 U/L (16-61); Albumin, Serum 3.8 g/dL (3.2-5.0); Alkaline Phosphatase 58 U/L (45-117); Bilirubin, Direct 0.21 mg/dL (0.00-0.30); Cholesterol 177 mg/dL (200); Globulin 3.5 g/dL (2.2-4.2); High Density Lipoprotein 50 mg/dL; Protein, Total 7.3 g/dL (6.4-8.2); Triglycerides 212 mg/dL; Very Low Density Lipoprotein 42 mg/dL (5-40)
[2019-08-14 10:37] LABS: Vitamin D,25 Hydroxy 77.9 ng/mL (29.95-100.01)
== END ==
PROVIDERS: Internal Medicine Cardiovascular Disease; Family Provider Family Medicine; PCP Family Medicine; Referring Provider Family Medicine; Visit Provider Nurse Practitioner Family
DX: E78.5 Hyperlipidemia, unspecified (principal); E55.9 Vitamin D deficiency, unspecified
CPT/HCPCS: 36415; 80061; 80076; 82306

== ENCOUNTER → 2020-02-03 08:14 | Outpatient (CLI) | payer MEDICARE, OTHER, SELFPAY ==
[2015-12-09 13:30] VITALS: BMI 21.5
[2019-08-18 15:06] VITALS: BMI 35.2
[2020-02-03 09:05] LABS: AST(SGOT) 21 U/L (15-37); Alanine Aminotransfer ALT/SGPT 27 U/L (16-61); Albumin, Serum 3.8 g/dL (3.2-5.0); Alkaline Phosphatase 50 U/L (45-117); Bilirubin, Direct 0.19 mg/dL (0.00-0.30); Cholesterol 167 mg/dL (200); Globulin 3.3 g/dL (2.2-4.2); High Density Lipoprotein 59 mg/dL; Protein, Total 7.1 g/dL (6.4-8.2); Triglycerides 147 mg/dL; Very Low Density Lipoprotein 29 mg/dL (5-40)
== END ==
PROVIDERS: PCP Family Medicine; Referring Provider Internal Medicine Cardiovascular Disease; Visit Provider Internal Medicine Cardiovascular Disease
DX: E78.00 Pure hypercholesterolemia, unspecified (principal); E78.5 Hyperlipidemia, unspecified
CPT/HCPCS: 36415; 80061; 80076

== ENCOUNTER → 2020-02-20 12:55 | Outpatient (CLI) | payer MEDICARE, OTHER, SELFPAY ==
[2015-12-09 13:30] VITALS: BMI 21.5
[2020-02-20 11:16] VITALS: BMI 34.2
[2020-02-20 13:37] LABS: Absolute Lymphocyte Count 1.82 X10^3/uL (0.83-4.51); Absolute Neutrophil Count 5.7 X10^3/uL (2.0-7.7); Basophil# 0.06 X10^3/uL; Basophil% 0.7 % (0-1); Eosinophil# 0.07 X10^3/uL; Eosinophils% 0.8 % (0-5); Hematocrit 43.4 % (40-54); Hemoglobin 14.8 g/dL (13.0-16.5); Lymphocyte # 1.82 X10^3/ul (4.0); Lymphocyte % 21.4 % (19-41); Mean Corp Hgb Conc 34.1 g/dL (32-36); Mean Corpuscular Hgb 31.1 pg (27.0-32.0); Mean Corpuscular Volume 91.2 fL (80-94); Mean Platelet Vol. 11.1 fl (6.2-12.0); Monocyte# 0.84 X10^3/uL; Monocyte% 9.9 % (0-10); NRBC Flagged by Analyzer 0 % (0-5); Neutrophil # 5.67 X10^3/uL (2.7-7.7); Neutrophil % 66.7 % (47-70); Platelet Count 305 K/mm3 (150-450); RBC Distribution Width CV 13.4 % (11.6-14.6); RBC Distribution Width SD 44.7 fl (35.1-43.9); Red Blood Count 4.76 M/mm3 (4.6-6.2); White Blood Count 8.5 K/mm3 (4.4-11.0)
[2020-02-20 14:01] LABS: Anion Gap 5 (5-15); BUN 15 mg/dL (7-18); BUN/Creat Ratio 15.6 RATIO (10-20); Calcium,Total 9.4 mg/dL (8.5-10.1); Chloride 108 mmol/L (98-107); Creatinine, Serum 0.96 mg/dL (0.70-1.30); EST Glomerular Filtration Rate 81 mL/min (>60); Est Glom Filt Rate - Afr Amer 99 mL/min (>60); Glucose 101 mg/dL (74-106); Magnesium 2.5 mg/dL (1.6-2.6); Potassium 3.6 mmol/L (3.5-5.1); Sodium Level 139 mmol/L (136-145); T4 Free Direct 0.92 ng/dL (0.76-1.46); Thyroid Stim Hormone (TSH) 2.62 uIU/mL (0.358-3.74)
== END ==
PROVIDERS: PCP Family Medicine; Referring Provider Nurse Practitioner Family; Visit Provider Nurse Practitioner Family
DX: E78.5 Hyperlipidemia, unspecified (principal); I48.0 Paroxysmal atrial fibrillation; Z95.2 Presence of prosthetic heart valve
CPT/HCPCS: 36415; 80048; 83735; 84439; 84443; 85025

== ENCOUNTER → 2020-03-02 15:00 | Outpatient (CLI) | payer MEDICARE, OTHER, SELFPAY ==
[2015-12-09 13:30] VITALS: BMI 21.5
[2020-02-20 11:16] VITALS: BMI 34.2
--- NOTE | 2020-03-02 13:36 | LES_PTH ---
PATIENT: ELDA RUSH LOC: [facility] U#:[id number] AGE/SX: 80/M ROOM: RE03/02/[address]: Dr. Dwain Oliver DO : 1945 BED: DIS: SPEC #: [id number] RECD: 03/02/20 17:01 STATUS: TRINITY LAVERNE #: [id number] LUZ: 03/02/20 13:[address]: Dwain Oliver DEPT: SURGICAL PATHOLOGY RECD BY: Alhaji Rincon Tissues: Skin of scalp, NOS Procedures: Surgery Specimen Level IV HEADER OPERATION: Growth excision from scalp PRE-OP DIAGNOSIS: Slow growing scalp lesion TISSUE SUBMITTED: Scalp lesion MICROSCOPIC DIAGNOSIS Skin lesion of scalp, biopsy: Intradermal nevus. AM:erick 03/04/20 COMMENT Case has been reviewed in consultation with Dr. Lima who concurs with the above diagnosis. IDC:[email or web address] MICROSCOPIC DESCRIPTION Slides are reviewed. GROSS DESCRIPTION Received is one container labeled with the patient's name and not further designated. The specimen consists of a piece of evans-white skin measuring 1.2 x 1 x 0.3 cm. The specimen is inked, serially sectioned and submitted entirely in one cassette. / SJ:rg 03/03/20 TC:5 [facility]: [id number]
== END ==
PROVIDERS: PCP Family Medicine; Visit Provider Family Medicine
DX: L98.9 Disorder of the skin and subcutaneous tissue, unspecified (principal)
CPT/HCPCS: 88305

== ENCOUNTER → 2020-03-09 12:49 | Outpatient (CLI) | payer MEDICARE, OTHER, SELFPAY ==
[2015-12-09 13:30] VITALS: BMI 21.5
[2020-02-20 11:16] VITALS: BMI 34.2
--- NOTE | 2020-03-09 12:50 | ECHOCS_ITS ---
Version 2 Reason For Study: AORTIC VALVE HISTORY Procedure This was a 2D Doppler, Color Flow transthoracic echocardiogram. The study was technically difficult. Contrast injection was performed. Exam performed in department. Left Ventricle Mildly dilated left ventricle. Moderate segmental systolic dysfunction (see wall motion). The estimated ejection fraction is 30 %. Post operative septal motion. Posterior-Basal: Hypokinetic. Infero-Basal: Akinetic. Basal inferoseptal: Akinetic. Basal anteroseptal: Hypokinetic. Mid-Lateral : Hypokinetic. Mid-Posterior: Hypokinetic. Mid-Inferior: Hypokinetic. Mid-inferoseptal : Hypokinetic. Mid-anteroseptal : Hypokinetic. Bruni : Hypokinetic. Right Ventricle Normal RV size. Normal systolic function. Atria The left atrium is moderately enlarged. The right atrium is moderately enlarged. No doppler evidence for ASD. Mitral Valve There is no mitral annular calcification. Normal mitral valve. Trivial mitral valve insufficiency. Tricuspid Valve Normal tricuspid valve. Mild tricuspid valve insufficiency. Right ventricular systolic pressure estimated to be 23 mmHg. Aortic Valve The aortic valve is not well visualized. Moderate aortic stenosis. Stable appearing bioprosthetic aortic valve apparatus. Pulmonic Valve The pulmonic valve is not well visualized. Trivial pulmonic valve insufficiency. Great Vessels Normal sized aortic root. Pericardium/Pleural No pericardial effusion. Medication 22 gauge I.V. with prn adaptor inserted into right arm. Diluted definity 4ml given slow IV push to enhance endocardial definition. MMode/2D Measurements & Calculations LVIDd: 6.0 cm IVSd: 0.97 cm LVOT diam: 2.1 cm LVIDs: 4.8 cm LVPWd: 0.94 cm RVDd: 3.9 cm FS: 19.4 % LVOT area: 3.5 cm2 Ao root diam: 3.5 cm LAV(MOD-bp): 87.3 ml LVAd ap4: 42.9 cm2 LAV(MOD-bp) Indexed: 38.7 ml/m2 EDV(MOD-sp4): 175.2 ml LAV(MOD-sp2): 67.3 ml EDV(sp4-el): 187.2 ml LAV(MOD-sp4): 99.5 ml LVAs ap4: 33.9 cm2 ESV(MOD-sp4): 122.6 ml ESV(sp4-el): 126.1 ml EF(MOD-sp4): 30.0 % EF(sp4-el): 32.6 % SV(MOD-sp4): 52.6 ml SV(sp4-el): 61.1 ml LA A4 area: 28.5 cm2 LA dimension(2D): 4.8 cm RA A4 area: 22.7 cm2 Time Measurements MV dec time: 0.17 sec Doppler Measurements & Calculations MV E max roel: 85.4 cm/sec Lat Peak E' Roel: 10.4 cm/sec Med Peak E' Roel: 6.6 cm/sec MV A max roel: 33.7 cm/sec E/E' lat: 8.2 E/E' med: 12.8 MV E/A: 2.5 Ao V2 max: 259.8 cm/sec LV V1 max: 61.3 cm/sec SV(LVOT): 46.7 ml Ao max P.0 mmHg LV V1 max P.5 mmHg Ao V2 mean: 193.6 cm/sec LV V1 mean P.86 mmHg Ao mean P.2 mmHg LV V1 mean: 43.9 cm/sec Ao V2 VTI: 53.6 cm LV V1 VTI: 13.3 cm TIMBO(I,D): 0.87 cm2 TIMBO(V,D): 0.83 cm2 PA V2 max: 73.0 cm/sec TR max roel: 222.3 cm/sec TR max P.0 mmHg Interpretation Summary The study was technically difficult. Contrast injection was performed. Mildly dilated left ventricle. Moderate segmental systolic dysfunction (see wall motion). The estimated ejection fraction is 30 %. Post operative septal motion. The left atrium is moderately enlarged. The right atrium is moderately enlarged. Trivial mitral valve insufficiency. Mild tricuspid valve insufficiency. Stable appearing bioprosthetic aortic valve apparatus. Moderate aortic stenosis. Trivial pulmonic valve insufficiency. Right ventricular systolic pressure estimated to be 23 mmHg. Transmitral diastolic flow velocities suggest diastolic dysfunction (pseudonormal pattern). Ordering Physician: Talat Perez/Rodrigo Thacker Referring Physician: Talat Perez Performed By: Vita Escobedo RDCS
== END ==
PROVIDERS: PCP Family Medicine; Referring Provider Nurse Practitioner Family; Visit Provider Nurse Practitioner Family
DX: R00.2 Palpitations (principal); I43 Cardiomyopathy in diseases classified elsewhere; I48.0 Paroxysmal atrial fibrillation; Z95.2 Presence of prosthetic heart valve
CPT/HCPCS: 93306; Q9957; A4216; C8929

== ENCOUNTER 2020-03-30 10:29 | Day surgery (SDC) | payer MEDICARE, OTHER, SELFPAY ==
[2015-12-09 13:30] VITALS: BMI 21.5
[2020-03-19 10:51] VITALS: BMI 33.3
--- NOTE | 2020-03-19 12:10 | HP_ITS ---
HPI HPI History of Present Illness Surgical H&P: Yes Details: ELDA RUSH, is a 74 year old white male who presents to the office today for a cardiovascular outpatient follow-up with a history of aortic valve disease status post aortic valve replacement with a 25 mm Brooks Sams bioprosthetic aortic valve in 2008, aortic root dilation status post aortoplasty in 2008, paroxysmal atrial fibrillation first noted in January 2020, PVCs, hypertension, hyperlipidemia, and CONCEPCION with CPAP therapy. At last office appointment on 02/20/2020 patient was noted to be in atrial fibrillation. He was started on Eliquis therapy for CVA protection. He underwent an echocardiogram on 03/09/2020 that showed a reduced ejection fraction of 30%, moderately enlarged left atrium, and moderately enlarged right atrium. His aortic valve apparatus was noted to be stable and showed moderate aortic valve stenosis. He expresses prostate concerns and urinary frequency at night. He hoping to discuss with urologist. He states an increase in fatigue. He denies chest, arm, jaw, or neck discomfort. His exercise tolerance is stable. He denies symptoms of CHF, palpitations, lightheadedness, dizziness, near syncope, or syncopal episodes. He denies edema or claudication issues. He denies orthopnea, PND, fever, chills, blood in urine, blood in stool, or myalgia. 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 Accompanied by: None Is patient in pain?: No Allergies lactose Allergy (Verified 03/19/20 10:51) Food Allergy poison lauren extract Allergy (Verified 03/19/20 10:51) Itching Medications Multivitamins,Therapeutic [Multivitamin] 1 tab PO DAILY 06/21/16 [History Confirmed 03/19/20] gabapentin 300 mg capsule 300 mg PO QAM cap 02/06/19 [History Confirmed 03/19/20] gabapentin 600 mg tablet,extended release 24 hr 900 mg PO DINNER tab 02/06/19 [History Confirmed 03/19/20] cholecalciferol (vitamin D3) 250 mcg (10,000 unit) capsule 10,000 unit PO DAILY 08/18/19 [History Confirmed 03/19/20] naproxen sodium 220 mg capsule 220 mg PO BID PRN 08/18/19 [History Confirmed 03/19/20] amlodipine 5 mg tablet 5 mg PO DAILY #90 tab 08/29/19 [Rx Confirmed 03/19/20] losartan 100 mg-hydrochlorothiazide 25 mg tablet 1 tab PO QDAY #90 tab 01/26/20 [Rx Confirmed 03/19/20] pravastatin 80 mg tablet 80 mg PO QHS #90 tab 01/26/20 [Rx Confirmed 03/19/20] magnesium 250 mg tablet 250 mg PO DAILY 02/20/20 [History Confirmed 03/19/20] rivaroxaban 20 mg tablet 20 mg PO DAILY #30 tab 03/19/20 [Rx Confirmed 03/19/20] PFSH Social History (Updated 03/19/20 @ 12:10 by Talat Perez HEAD OF ENGLISH-C) Smoking Status: Never smoker alcohol intake: current details: 1 case per week caffeine: Yes Type: coffee ROS Const Const: Positive for fatigue; negative for weakness, body ache, fever(s) or chills ENT ENT: Negative for dizziness Cardio Chest Pain: No Palpitations: No Edema: None Muscle aches with walking: None Resp Respiratory: Negative for SOB with activity, SOB at rest, SOB orthopnea\SOB lying down or paroxysmal nocturnal dyspnea GI GI: Negative nausea, vomiting blood/hematemesis, bright, red blood in stools or black,tarry stools : Positive for frequent nighttime urination/ nocturia; negative for hematuria Musc Musc: Negative for muscle aches/ myalgia Skin Skin: Negative non-healing lesions or rash Neuro Neuro: Negative for dizziness, lightheadedness, near syncope, syncope, orthostatic symptoms or weakness Endo Endo: Positive for fatigue Allergy Allergy/Immunology: Negative for rash Assessment & Plan 1. Paroxysmal atrial fibrillation I48.0 Plan Patient's EKG today in office shows atrial flutter with PVC at a rate of 70 bpm, QTC of 427, and a QRS of 112. He states he has been on anticoagulants since last office appointment on 02/20/2020 without interruption. His heart rate is well controlled today. He will undergo a cardioversion in attempt to maintain sinus rhythm. Hopefully, with maintaining sinus rhythm his ejection fraction improves. If he maintains sinus rhythm and his ejection fraction does not improve, we can consider further evaluation with stress test to rule out coronary artery disease component. Patient does acknowledge challenge financially with Eliquis therapy. He will transition to Xarelto therapy. He was asked when he completes Eliquis therapy to resume Xarelto the following day without any days of interruption. If, cardioversion is unsuccessful, we can consider antiarrhythmic medication plus or minus repeat cardioversion in the future. Patient does acknowledge hesitancy for EPS/RFA evaluation if indicated. Orders Orders: 12 Lead EKG performed by [facility] Today Cardioversion Today Basic Metabolic Profile (BMP) Today Prothrombin Time w/INR Today Chest PA and Lateral Today 2. 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 His repeat echocardiogram in February 2020 showed ejection fraction of 30%, moderately enlarged left atrium, and moderate enlarged right atrium. At this time, his reduced ejection is thought to be related to his atrial dysrhythmia. Hopefully, with cardioversion and maintaining sinus rhythm if this improves. He does not appear to be in a fluid volume overload state. He will continue current medical therapy. Orders Orders: Cardioversion Today Basic Metabolic Profile (BMP) Today Prothrombin Time w/INR Today Chest PA and Lateral Today 3. H/O aortic valve replacement Z95.2 Mini invasive aortic valve replacement and aortoplasty of ascending aorta with a 25mm Julian Sams bioprosthetic valve @ [facility] (Dr. Bony Bautista) 08/24/08 Plan His echocardiogram in February 2020 showed an ejection fraction of 30%, stable appearing bioprosthetic aortic valve apparatus, and moderate aortic valve stenosis. At this time, he will continue current medical therapy and we will continue to monitor. He was reminded the importance of antibiotic prophylaxis prior to dental procedures. Orders Orders: Cardioversion Today Basic Metabolic Profile (BMP) Today Prothrombin Time w/INR Today Chest PA and Lateral Today 4. Essential (primary) hypertension I10 Plan His blood pressure still elevated today in office. This is uncharacteristic for him. The exact etiology is unknown clear. This will be evaluated over time. Hopefully with maintaining sinus rhythm/post cardioversion, this improves. If it does not, we can consider increasing his amlodipine to 10 mg p.o. daily or 5 mg p.o. twice daily. 5. Hyperlipidemia, unspecified hyperlipidemia type E78.5 Plan Lipid panel from 02/03/2020 showed cholesterol: 167, HDL: 59, LDL: 79, and triglycerides: 147. He will continue current high-dose statin medication. Plan Detail Other Medications New: rivaroxaban (Xarelto) must administer with evening meal 20 mg PO DAILY 30 tabs 11RF Discontinued: apixaban (Eliquis) Discontinued Reason: Order Changed 5 mg PO BID 60 tabs 11RF Additional Comments Thank you for allowing us to participate in the patients plan of care, if you have any questions please do not hesitate to call. This note was generated using a voice recognition system and there may be incorrect words, spelling or punctuation that were not noted when reviewing the office note prior to saving. 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 Contrast injection was performed. Mildly dilated left ventricle. Moderate segmental systolic dysfunction (see wall motion). The estimated ejection fraction is 30 %. Post operative septal motion. The left atrium is moderately enlarged. The right atrium is moderately enlarged. Trivial mitral valve insufficiency. Mild tricuspid valve insufficiency. Stable appearing bioprosthetic aortic valve apparatus. Moderate aortic stenosis. Trivial pulmonic valve insufficiency. Right ventricular systolic pressure estimated to be 23 mmHg. Transmitral diastolic flow velocities suggest diastolic dysfunction (pseudonormal pattern). Labs LDL Cholesterol 79 mg/dL (0-130) 02/03/20 HDL Cholesterol 59 mg/dL (40-) 02/03/20 Triglycerides 147 mg/dL (-199) 02/03/20 VLDL Cholesterol 29 mg/dL (5-40) 02/03/20 Diagnostics Electrocardiogram 03/19/20 Echocardiogram 03/09/20 Venous Doppler Study 07/07/19 03/19/20 1210 <Electronically signed by Talat Sultana> Date _ Talat JOHNSONC
--- NOTE | 2020-03-23 09:41 | RAD_ITS ---
STUDY: X-RAY CHEST REASON FOR EXAM: Male, 74 years old. pre-operative next Sunday for a-fib, some SOB TECHNIQUE: Frontal and lateral views COMPARISON: None. FINDINGS: Sternotomy wires are present. The lungs are clear and expanded. There is no demonstrated pleural abnormality. Borderline cardiac shadow. Normal mediastinum and jl. Normal visualized pulmonary arteries. Normal visualized aortic arch and descending thoracic aorta. Mild degenerative changes of the thoracic spine. Normal visualized ribs, clavicles, and shoulders. There is no demonstrated abnormality of the visualized soft tissue structures of the upper abdomen. RAD/Chest PA and Lateral IMPRESSION: No acute pulmonary pathology of the chest. Electronically Signed: Cleve Hester DO at 17:39 EDT Tel [phone], Service support ,
[2020-03-23 10:35] LABS: International Normalized Ratio 1.1; Prothrombin Time (Protime)PT. 13.4 SECONDS (11.7-14.9)
[2020-03-23 10:59] LABS: Anion Gap 4 (5-15); BUN 26 mg/dL (7-18); BUN/Creat Ratio 25.7 RATIO (10-20); Calcium,Total 8.9 mg/dL (8.5-10.1); Chloride 108 mmol/L (98-107); Creatinine, Serum 1.01 mg/dL (0.70-1.30); EST Glomerular Filtration Rate 77 mL/min (>60); Est Glom Filt Rate - Afr Amer 93 mL/min (>60); Glucose 100 mg/dL (74-106); Potassium 4.3 mmol/L (3.5-5.1); Sodium Level 137 mmol/L (136-145)
[2020-03-26 11:49] VITALS: BMI 33.3
--- NOTE | 2020-03-30 07:56 | PCM.HP.BLA ---
Problem List (1) Atrial fibrillation Status: Acute History and Physical Date of Admission: 03/30/20 [facility] [address] [place] [address] OFFICE VISIT Date of Service: 03/19/20 MR#: [id number] Acct: [id number] Name: ELDA RUSH Rep #: [id number] : 1945 Provider: EDIL Perez Age/Sex: 74/M Location: [facility] Status: Signed HPI HPI History of Present Illness Surgical H&P: Yes Details: ELDA RUSH, is a 74 year old white male who presents to the office today for a cardiovascular outpatient follow-up with a history of aortic valve disease status post aortic valve replacement with a 25 mm Brooks Sams bioprosthetic aortic valve in 2008, aortic root dilation status post aortoplasty in 2008, paroxysmal atrial fibrillation first noted in January 2020, PVCs, hypertension, hyperlipidemia, and CONCEPCION with CPAP therapy. At last office appointment on 02/20/2020 patient was noted to be in atrial fibrillation. He was started on Eliquis therapy for CVA protection. He underwent an echocardiogram on 03/09/2020 that showed a reduced ejection fraction of 30%, moderately enlarged left atrium, and moderately enlarged right atrium. His aortic valve apparatus was noted to be stable and showed moderate aortic valve stenosis. He expresses prostate concerns and urinary frequency at night. He hoping to discuss with urologist. He states an increase in fatigue. He denies chest, arm, jaw, or neck discomfort. His exercise tolerance is stable. He denies symptoms of CHF, palpitations, lightheadedness, dizziness, near syncope, or syncopal episodes. He denies edema or claudication issues. He denies orthopnea, PND, fever, chills, blood in urine, blood in stool, or myalgia. Intake Vital Signs 03/19/20 Height 5 ft 10 in 03/19/20 Weight: 232 lb 03/19/20 BP 161/87 H 03/19/20 Blood Pressure Location Lt brachial 03/19/20 Position Sitting 03/19/20 Respiration 18 03/19/20 Pulse 76 03/19/20 Pulse Source Monitor 03/19/20 Pulse Oximetry (%) 93 Intake Visit Reasons: [address] [employer] Required: No Accompanied by: None Is patient in pain?: No Allergies lactose Allergy (Verified 03/19/20 10:51) Food Allergy poison lauren extract Allergy (Verified 03/19/20 10:51) Itching Medications Multivitamins,Therapeutic [Multivitamin] 1 tab PO DAILY 06/21/16 [History Confirmed 03/19/20] gabapentin 300 mg capsule 300 mg PO QAM cap 02/06/19 [History Confirmed 03/19/20] gabapentin 600 mg tablet,extended release 24 hr 900 mg PO DINNER tab 02/06/19 [History Confirmed 03/19/20] cholecalciferol (vitamin D3) 250 mcg (10,000 unit) capsule 10,000 unit PO DAILY 08/18/19 [History Confirmed 03/19/20] naproxen sodium 220 mg capsule 220 mg PO BID PRN 08/18/19 [History Confirmed 03/19/20] amlodipine 5 mg tablet 5 mg PO DAILY #90 tab 08/29/19 [Rx Confirmed 03/19/20] losartan 100 mg-hydrochlorothiazide 25 mg tablet 1 tab PO QDAY #90 tab 01/26/20 [Rx Confirmed 03/19/20] pravastatin 80 mg tablet 80 mg PO QHS #90 tab 01/26/20 [Rx Confirmed 03/19/20] magnesium 250 mg tablet 250 mg PO DAILY 02/20/20 [History Confirmed 03/19/20] rivaroxaban 20 mg tablet 20 mg PO DAILY #30 tab 03/19/20 [Rx Confirmed 03/19/20] PFSH Social History (Updated 03/19/20 @ 12:10 by ALEX IngramC) Smoking Status: Never smoker alcohol intake: current details: 1 case per week caffeine: Yes Type: coffee ROS Const Const: Positive for fatigue; negative for weakness, body ache, fever(s) or chills ENT ENT: Negative for dizziness Cardio Chest Pain: No Palpitations: No Edema: None Muscle aches with walking: None Resp Respiratory: Negative for SOB with activity, SOB at rest, SOB orthopnea\SOB lying down or paroxysmal nocturnal dyspnea GI GI: Negative nausea, vomiting blood/hematemesis, bright, red blood in stools or black,tarry stools : Positive for frequent nighttime urination/ nocturia; negative for hematuria Musc Musc: Negative for muscle aches/ myalgia Skin Skin: Negative non-healing lesions or rash Neuro Neuro: Negative for dizziness, lightheadedness, near syncope, syncope, orthostatic symptoms or weakness Endo Endo: Positive for fatigue Allergy Allergy/Immunology: Negative for rash Assessment & Plan 1. Paroxysmal atrial fibrillation I48.0 Plan Patient's EKG today in office shows atrial flutter with PVC at a rate of 70 bpm, QTC of 427, and a QRS of 112. He states he has been on anticoagulants since last office appointment on 02/20/2020 without interruption. His heart rate is well controlled today. He will undergo a cardioversion in attempt to maintain sinus rhythm. Hopefully, with maintaining sinus rhythm his ejection fraction improves. If he maintains sinus rhythm and his ejection fraction does not improve, we can consider further evaluation with stress test to rule out coronary artery disease component. Patient does acknowledge challenge financially with Eliquis therapy. He will transition to Xarelto therapy. He was asked when he completes Eliquis therapy to resume Xarelto the following day without any days of interruption. If, cardioversion is unsuccessful, we can consider antiarrhythmic medication plus or minus repeat cardioversion in the future. Patient does acknowledge hesitancy for EPS/RFA evaluation if indicated. Orders Orders: 12 Lead EKG performed by [facility] Today Cardioversion Today Basic Metabolic Profile (BMP) Today Prothrombin Time w/INR Today Chest PA and Lateral Today 2. 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 His repeat echocardiogram in February 2020 showed ejection fraction of 30%, moderately enlarged left atrium, and moderate enlarged right atrium. At this time, his reduced ejection is thought to be related to his atrial dysrhythmia. Hopefully, with cardioversion and maintaining sinus rhythm if this improves. He does not appear to be in a fluid volume overload state. He will continue current medical therapy. Orders Orders: Cardioversion Today Basic Metabolic Profile (BMP) Today Prothrombin Time w/INR Today Chest PA and Lateral Today 3. H/O aortic valve replacement Z95.2 Mini invasive aortic valve replacement and aortoplasty of ascending aorta with a 25mm Julian Sams bioprosthetic valve @ [facility] (Dr. Bony Bautista) 08/24/08 Plan His echocardiogram in February 2020 showed an ejection fraction of 30%, stable appearing bioprosthetic aortic valve apparatus, and moderate aortic valve stenosis. At this time, he will continue current medical therapy and we will continue to monitor. He was reminded the importance of antibiotic prophylaxis prior to dental procedures. Orders Orders: Cardioversion Today Basic Metabolic Profile (BMP) Today Prothrombin Time w/INR Today Chest PA and Lateral Today 4. Essential (primary) hypertension I10 Plan His blood pressure still elevated today in office. This is uncharacteristic for him. The exact etiology is unknown clear. This will be evaluated over time. Hopefully with maintaining sinus rhythm/post cardioversion, this improves. If it does not, we can consider increasing his amlodipine to 10 mg p.o. daily or 5 mg p.o. twice daily. 5. Hyperlipidemia, unspecified hyperlipidemia type E78.5 Plan Lipid panel from 02/03/2020 showed cholesterol: 167, HDL: 59, LDL: 79, and triglycerides: 147. He will continue current high-dose statin medication. Plan Detail Other Medications New: rivaroxaban (Xarelto) must administer with evening meal 20 mg PO DAILY 30 tabs 11RF Discontinued: apixaban (Eliquis) Discontinued Reason: Order Changed 5 mg PO BID 60 tabs 11RF Additional Comments Thank you for allowing us to participate in the patients plan of care, if you have any questions please do not hesitate to call. This note was generated using a voice recognition system and there may be incorrect words, spelling or punctuation that were not noted when reviewing the office note prior to saving. 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 Contrast injection was performed. Mildly dilated left ventricle. Moderate segmental systolic dysfunction (see wall motion). The estimated ejection fraction is 30 %. Post operative septal motion. The left atrium is moderately enlarged. The right atrium is moderately enlarged. Trivial mitral valve insufficiency. Mild tricuspid valve insufficiency. Stable appearing bioprosthetic aortic valve apparatus. Moderate aortic stenosis. Trivial pulmonic valve insufficiency. Right ventricular systolic pressure estimated to be 23 mmHg. Transmitral diastolic flow velocities suggest diastolic dysfunction (pseudonormal pattern). Labs LDL Cholesterol 79 mg/dL (0-130) 02/03/20 HDL Cholesterol 59 mg/dL (40-) 02/03/20 Triglycerides 147 mg/dL (-199) 02/03/20 VLDL Cholesterol 29 mg/dL (5-40) 02/03/20 Diagnostics Electrocardiogram 03/19/20 Echocardiogram 03/09/20 Venous Doppler Study 07/07/19 03/19/20 1210 <Electronically signed by Talat SOLO> Date Talat SOLO Cosigner Signature: Date (if applicable) CC: Dr. Dwain Oliver, DO ~ I have re-examined the patient. There are no clinical changes since date of exam. Procedure Criteria Procedure Type: Elective COVID Risk Discussion: The surgeon/proceduralist and patient have discussed in detail the risk of exposure to and/or potential harm posed by the COVID-19 virus with having a surgery/procedure at this time versus the risk of delaying the surgery/procedure. It is not possible to know either the risk of delaying the surgery or procedure or chance of getting an infection with perfect accuracy, but a joint decision was made between the patient and the surgeon/proceduralist to proceed at this time with the scheduled surgery/procedure as indicated on the consent form.
--- NOTE | 2020-03-30 12:32 | CARDIOVERS ---
Cardioversion Cardioversion: Date: 03-30-2020 Procedure: Synchronized Biphasic DC Cardioversion Indications: Atrial fibrillation Consent: Per the Patient Anesthesia: per Dr. Greer of pulmonology and critical care medicine with etomidate 6 mg IV push total Procedure: Synchronized Biphasic DC Cardioversion: 200 J x1: Result: Sinus rhythm; occasional PVC Complications: no apparent complications This note was generated with One Jacksonation software. It may contain incorrect words, spelling, and punctuation that were not noted in checking the note before signing.
--- NOTE | 2020-03-30 12:44 | PCM.OP.PRO ---
Procedure Report Date of Procedure: 03/30/20 CONSCIOUS SEDATION REPORT DATE OF SERVICE: March 30, 2020 BRIEF HISTORY OF PRESENT ILLNESS: The patient is a 74-year-old male who presented to [facility] for an elective outpatient cardioversion due to underlying atrial fibrillation. The patient is currently anticoagulated on Xarelto. Surface echocardiogram revealed an ejection fraction of approximately 30%. The patient has never undergone a prior cardioversion. He denies any known prior anesthetic complications. He does have a history of obstructive sleep apnea and currently utilizes CPAP on a nightly basis. PHYSICAL EXAMINATION: VITAL SIGNS: Reviewed and were acceptable. GENERAL: The patient is a male, in no apparent distress, speaking in full sentences. HEENT: Normocephalic, atraumatic. Mucous membranes are moist and pink. Good mouth opening noted. Trachea is midline. CHEST: S1, S2 irregularly irregular. No murmurs, rubs or gallops were noted. LUNGS: Clear to auscultation bilaterally without appreciable wheezes, rales or rhonchi. ABDOMEN: Soft, nontender, nondistended. Positive bowel sounds. EXTREMITIES: There is no clubbing, cyanosis or edema. ASA Class: II DESCRIPTION OF PROCEDURE: After confirmation of informed consent, the patient's anesthesia plan was reviewed in detail. Etomidate was chosen. Risks and benefits were reviewed and the patient agreed to proceed. At 1206, the patient was given 6 mg of etomidate. The patient achieved an appropriate level of sedation and was given a 200 joule synchronized cardioversion by Dr. Thacker at the bedside. This was successful in achieving normal sinus rhythm. The patient was monitored until 1216, at which time he reached his baseline mental status and function. The patient tolerated the procedure well. COMPLICATIONS: None ESTIMATED BLOOD LOSS: None RECOMMENDATIONS: Okay to recover in usual fashion. 9xxxx: Other Procedure See Report - [id number]
== END 2020-03-30 13:15 | disposition home or self-care (01) ==
PROVIDERS: Nurse Practitioner Family; PCP Family Medicine; Referring Provider Internal Medicine Cardiovascular Disease; Visit Provider Internal Medicine Cardiovascular Disease
DX: I48.0 Paroxysmal atrial fibrillation (principal); I43 Cardiomyopathy in diseases classified elsewhere; I10 Essential (primary) hypertension; E78.5 Hyperlipidemia, unspecified; I11.9 Hypertensive heart disease without heart failure; Z79.01 Long term (current) use of anticoagulants; Z95.3 Presence of xenogenic heart valve; G47.33 Obstructive sleep apnea (adult) (pediatric); I49.3 Ventricular premature depolarization
CPT/HCPCS: 36415; 71046; 80048; 85610; 92960; 93005; J7040

== ENCOUNTER → 2020-05-18 20:54 | Outpatient (CLI) | payer MEDICARE, OTHER, SELFPAY ==
[2015-12-09 13:30] VITALS: BMI 21.5
[2020-05-04 10:24] VITALS: BMI 34.1
== END ==
PROVIDERS: PCP Family Medicine; Referring Provider Psychiatry & Neurology Neurology; Visit Provider Psychiatry & Neurology Neurology
DX: G47.30 Sleep apnea, unspecified (principal)
CPT/HCPCS: 95811

== ENCOUNTER → 2020-05-21 12:56 | Outpatient (CLI) | payer MEDICARE, OTHER, SELFPAY ==
[2015-12-09 13:30] VITALS: BMI 21.5
[2020-04-06 10:32] VITALS: BMI 33.3
[2020-05-04 10:24] VITALS: BMI 34.1
== END ==
PROVIDERS: PCP Family Medicine; Referring Provider Nurse Practitioner Family; Visit Provider Nurse Practitioner Family
DX: I11.0 Hypertensive heart disease with heart failure (principal); I50.9 Heart failure, unspecified; I43 Cardiomyopathy in diseases classified elsewhere; I48.0 Paroxysmal atrial fibrillation; I77.810 Thoracic aortic ectasia; E78.5 Hyperlipidemia, unspecified
CPT/HCPCS: 93308; Q9957; A4216; C8924

== ENCOUNTER → 2020-06-08 09:57 | Outpatient (CLI) | payer MEDICARE, OTHER, SELFPAY ==
[2015-12-09 13:30] VITALS: BMI 21.5
[2020-05-25 08:58] VITALS: BMI 34.4
[2020-06-08 11:56] LABS: Vitamin B12 403 pg/mL (211-911)
[2020-06-09 16:09] LABS: Free Kappa Light Chains 19.7 mg/L (3.3-19.4); Free Lambda Light Chains 22.6 mg/L (5.7-26.3)
== END ==
PROVIDERS: PCP Family Medicine; Referring Provider Psychiatry & Neurology Neurology; Visit Provider Psychiatry & Neurology Neurology
DX: G62.9 Polyneuropathy, unspecified (principal)
CPT/HCPCS: 36415; 82607; 82746; 83883

== ENCOUNTER → 2020-07-06 09:36 | Outpatient (CLI) | payer MEDICARE, OTHER, SELFPAY ==
[2015-12-09 13:30] VITALS: BMI 21.5
[2020-06-08 13:26] VITALS: BMI 34.1
[2020-07-06 10:58] LABS: International Normalized Ratio 1.3; Prothrombin Time (Protime)PT. 15.8 SECONDS (11.7-14.9)
[2020-07-08 12:07] LABS: Albumin 3.4 g/dL (2.9-4.4); Alpha-1-Globulins 0.2 g/dL (0.0-0.4); Alpha-2-Globulins 0.7 g/dL (0.4-1.0); Gamma Globulin 0.8 g/dL (0.4-1.8); Immunoglobulin A 212 mg/dL (61-437); Immunoglobulin G 752 mg/dL (603-1613); Immunoglobulin M 178 mg/dL (15-143); PROEL- TOTAL PROTEIN 6.2 g/dL (6.0-8.5)
== END ==
PROVIDERS: Internal Medicine Cardiovascular Disease; PCP Family Medicine; Referring Provider Psychiatry & Neurology Neurology; Visit Provider Psychiatry & Neurology Neurology
DX: G62.9 Polyneuropathy, unspecified (principal); I48.91 Unspecified atrial fibrillation; Z79.01 Long term (current) use of anticoagulants
CPT/HCPCS: 36415; 82784; 84165; 85610; 86334; 86335

== ENCOUNTER 2020-08-09 14:47 | Outpatient (RCR) | payer MEDICARE, OTHER, SELFPAY ==
[2015-12-09 13:30] VITALS: BMI 21.5
[2020-06-08 13:26] VITALS: BMI 34.1
[2020-08-09 15:16] LABS: Prothrombin Time Fingerstick 26.9 SEC (11.9-14.4)
== END 2020-08-09 18:00 | disposition home or self-care (01) ==
LOC: LAB 14:47
PROVIDERS: PCP Family Medicine; Referring Provider Internal Medicine Cardiovascular Disease; Visit Provider Internal Medicine Cardiovascular Disease
DX: I48.91 Unspecified atrial fibrillation (principal); Z79.01 Long term (current) use of anticoagulants
CPT/HCPCS: 36416; 85610

== ENCOUNTER 2020-09-16 13:56 | Outpatient (RCR) | payer MEDICARE, OTHER, SELFPAY ==
[2015-12-09 13:30] VITALS: BMI 21.5
[2020-06-08 13:26] VITALS: BMI 34.1
[2020-08-26 09:03] VITALS: BMI 35.2
[2020-08-26 12:26] LABS: Prothrombin Time Fingerstick 20.9 SEC (11.9-14.4)
[2020-09-02 10:30] LABS: Prothrombin Time Fingerstick 17.7 SEC (11.9-14.4)
[2020-09-16 14:05] LABS: Prothrombin Time Fingerstick 20.1 SEC (11.9-14.4)
== END 2020-09-16 18:00 | disposition home or self-care (01) ==
LOC: LAB 13:56
PROVIDERS: PCP Family Medicine; Referring Provider Internal Medicine Cardiovascular Disease; Visit Provider Internal Medicine Cardiovascular Disease
DX: I48.91 Unspecified atrial fibrillation (principal); Z79.01 Long term (current) use of anticoagulants
CPT/HCPCS: 36416; 85610

== ENCOUNTER 2020-10-07 08:17 | Outpatient (RCR) | payer MEDICARE, OTHER, SELFPAY ==
[2015-12-09 13:30] VITALS: BMI 21.5
[2020-08-26 09:03] VITALS: BMI 35.2
[2020-10-07 09:51] LABS: International Normalized Ratio 2.9; Prothrombin Time (Protime)PT. 29.7 SECONDS (11.7-14.9)
[2020-10-07 10:09] LABS: AST(SGOT) 14 U/L (15-37); Alanine Aminotransfer ALT/SGPT 27 U/L (16-61); Albumin, Serum 3.8 g/dL (3.2-5.0); Alkaline Phosphatase 42 U/L (45-117); Bilirubin, Direct 0.23 mg/dL (0.00-0.30); Cholesterol 170 mg/dL (200); High Density Lipoprotein 57 mg/dL; Protein, Total 6.8 g/dL (6.4-8.2); Triglycerides 121 mg/dL; Very Low Density Lipoprotein 24 mg/dL (5-40)
== END 2020-10-07 18:00 | disposition home or self-care (01) ==
LOC: LAB 08:17
PROVIDERS: PCP Family Medicine; Referring Provider Internal Medicine Cardiovascular Disease; Visit Provider Internal Medicine Cardiovascular Disease
DX: I48.91 Unspecified atrial fibrillation (principal); Z79.01 Long term (current) use of anticoagulants; E78.5 Hyperlipidemia, unspecified
CPT/HCPCS: 36415; 80061; 80076; 85610

== ENCOUNTER → 2020-10-28 09:45 | Outpatient (CLI) | payer MEDICARE, OTHER, SELFPAY ==
[2015-12-09 13:30] VITALS: BMI 21.5
[2020-10-18 15:11] VITALS: BMI 33.7
== END ==
PROVIDERS: PCP Family Medicine; Referring Provider Internal Medicine Cardiovascular Disease; Visit Provider Internal Medicine Cardiovascular Disease
DX: I48.0 Paroxysmal atrial fibrillation (principal); I43 Cardiomyopathy in diseases classified elsewhere; G47.33 Obstructive sleep apnea (adult) (pediatric); Z95.2 Presence of prosthetic heart valve
CPT/HCPCS: 93308; Q9957; A4216; C8924

== ENCOUNTER 2020-11-11 09:42 | Outpatient (RCR) | payer MEDICARE, OTHER, SELFPAY ==
[2015-12-09 13:30] VITALS: BMI 21.5
[2020-10-18 15:11] VITALS: BMI 33.7
[2020-11-04 12:34] LABS: Prothrombin Time (Protime)PT. 40.7 SECONDS (11.7-14.9)
[2020-11-04 12:51] LABS: International Normalized Ratio 4.3
[2020-11-05 15:11] LABS: INR Fingerstick 4.4; Prothrombin Time Fingerstick 46.6 SEC (11.9-14.4)
[2020-11-11 09:55] LABS: INR Fingerstick 2.4; Prothrombin Time Fingerstick 26.6 SEC (11.9-14.4)
== END 2020-11-11 18:00 | disposition home or self-care (01) ==
LOC: LAB 09:42
PROVIDERS: PCP Family Medicine; Referring Provider Internal Medicine Cardiovascular Disease; Visit Provider Internal Medicine Cardiovascular Disease
DX: I48.91 Unspecified atrial fibrillation (principal); Z79.01 Long term (current) use of anticoagulants
CPT/HCPCS: 36415; 36416; 85610

== ENCOUNTER 2020-11-26 14:28 | Outpatient (RCR) | payer MEDICARE, OTHER, SELFPAY ==
[2015-12-09 13:30] VITALS: BMI 21.5
[2020-10-18 15:11] VITALS: BMI 33.7
[2020-11-26 14:52] LABS: International Normalized Ratio 2.3; Prothrombin Time (Protime)PT. 24.8 SECONDS (11.7-14.9)
[2020-11-26 14:56] LABS: Anion Gap 5 (5-15); BUN 18 mg/dL (7-18); BUN/Creat Ratio 18.8 RATIO (10-20); Calcium,Total 9.2 mg/dL (8.5-10.1); Chloride 108 mmol/L (98-107); Creatinine, Serum 0.96 mg/dL (0.70-1.30); EST Glomerular Filtration Rate 82 mL/min (>60); Est Glom Filt Rate - Afr Amer 99 mL/min (>60); Glucose 99 mg/dL (74-106); Potassium 3.7 mmol/L (3.5-5.1); Sodium Level 141 mmol/L (136-145)
== END 2020-11-26 18:00 | disposition home or self-care (01) ==
LOC: LAB 14:28
PROVIDERS: Nurse Practitioner Family; PCP Family Medicine; Referring Provider Internal Medicine Cardiovascular Disease; Visit Provider Internal Medicine Cardiovascular Disease
DX: I48.91 Unspecified atrial fibrillation (principal); Z79.01 Long term (current) use of anticoagulants
CPT/HCPCS: 36415; 80048; 85610

== ENCOUNTER 2021-01-07 10:51 | Outpatient (RCR) | payer MEDICARE, OTHER, SELFPAY ==
[2015-12-09 13:30] VITALS: BMI 21.5
[2020-12-07 13:04] VITALS: BMI 33.7
[2020-12-24 09:41] LABS: International Normalized Ratio 3.5; Prothrombin Time (Protime)PT. 34.4 SECONDS (11.7-14.9)
[2020-12-24 10:11] LABS: Anion Gap 5 (5-15); BUN 30 mg/dL (7-18); BUN/Creat Ratio 25.9 RATIO (10-20); Calcium,Total 9.1 mg/dL (8.5-10.1); Chloride 100 mmol/L (98-107); Creatinine, Serum 1.16 mg/dL (0.70-1.30); EST Glomerular Filtration Rate 65 mL/min (>60); Est Glom Filt Rate - Afr Amer 79 mL/min (>60); Glucose 102 mg/dL (74-106); Potassium 3.9 mmol/L (3.5-5.1); Sodium Level 135 mmol/L (136-145)
[2020-12-28 16:09] LABS: Albumin 3.9 g/dL (2.9-4.4); Alpha-1-Globulins 0.2 g/dL (0.0-0.4); Alpha-2-Globulins 0.6 g/dL (0.4-1.0); Free Kappa Light Chains 12.1 mg/L (3.3-19.4); Free Lambda Light Chains 13.8 mg/L (5.7-26.3); Gamma Globulin 0.8 g/dL (0.4-1.8); Immunoglobulin A 238 mg/dL (61-437); Immunoglobulin G 841 mg/dL (603-1613); Immunoglobulin M 203 mg/dL (15-143); PROEL- TOTAL PROTEIN 6.5 g/dL (6.0-8.5)
[2021-01-07 11:10] LABS: INR Fingerstick 3.1; Prothrombin Time Fingerstick 33.9 SEC (11.9-14.4)
== END 2021-01-07 18:00 | disposition home or self-care (01) ==
LOC: LAB 10:51
PROVIDERS: Nurse Practitioner Family; PCP Family Medicine; Referring Provider Internal Medicine Cardiovascular Disease; Visit Provider Internal Medicine Cardiovascular Disease
DX: I48.91 Unspecified atrial fibrillation (principal); Z79.01 Long term (current) use of anticoagulants; G62.9 Polyneuropathy, unspecified
CPT/HCPCS: 36415; 36416; 80048; 82784; 83883; 84165; 85610; 86334; 86335

== ENCOUNTER 2021-02-18 10:58 | Outpatient (RCR) | payer MEDICARE, OTHER, SELFPAY ==
[2015-12-09 13:30] VITALS: BMI 21.5
[2020-12-07 13:04] VITALS: BMI 33.7
[2021-01-20 09:55] LABS: INR Fingerstick 2.4; Prothrombin Time Fingerstick 27.4 SEC (11.9-14.4)
[2021-02-18 11:10] LABS: INR Fingerstick 2.3; Prothrombin Time Fingerstick 26.2 SEC (11.9-14.4)
== END 2021-02-18 18:00 | disposition home or self-care (01) ==
LOC: LAB 10:58
PROVIDERS: PCP Family Medicine; Referring Provider Internal Medicine Cardiovascular Disease; Visit Provider Internal Medicine Cardiovascular Disease
DX: I48.91 Unspecified atrial fibrillation (principal); Z79.01 Long term (current) use of anticoagulants
CPT/HCPCS: 36416; 85610

== ENCOUNTER 2021-04-21 09:43 | Outpatient (RCR) | payer MEDICARE, OTHER, SELFPAY ==
[2015-12-09 13:30] VITALS: BMI 21.5
[2020-12-07 13:04] VITALS: BMI 33.7
[2021-03-24 09:51] LABS: INR Fingerstick 2.2; Prothrombin Time Fingerstick 24.9 SEC (11.9-14.4)
[2021-04-21 10:01] LABS: INR Fingerstick 2.2; Prothrombin Time Fingerstick 25.2 SEC (11.9-14.4)
== END 2021-04-21 18:00 | disposition home or self-care (01) ==
LOC: LAB 09:43
PROVIDERS: PCP Family Medicine; Referring Provider Internal Medicine Cardiovascular Disease; Visit Provider Internal Medicine Cardiovascular Disease
DX: I48.91 Unspecified atrial fibrillation (principal); Z79.01 Long term (current) use of anticoagulants
CPT/HCPCS: 36416; 85610

== ENCOUNTER 2021-05-20 08:33 | Outpatient (RCR) | payer MEDICARE, OTHER, SELFPAY ==
[2015-12-09 13:30] VITALS: BMI 21.5
[2021-04-21 18:23] VITALS: BMI 33.7
[2021-05-20 09:14] LABS: International Normalized Ratio 1.9; Prothrombin Time (Protime)PT. 20.9 SECONDS (11.7-14.9)
[2021-05-20 09:31] LABS: AST(SGOT) 20 U/L (15-37); Alanine Aminotransfer ALT/SGPT 26 U/L (16-61); Albumin, Serum 3.5 g/dL (3.2-5.0); Alkaline Phosphatase 51 U/L (45-117); Bilirubin, Direct 0.17 mg/dL (0.00-0.30); Cholesterol 178 mg/dL (200); Globulin 3.6 g/dL (2.2-4.2); High Density Lipoprotein 48 mg/dL; Protein, Total 7.1 g/dL (6.4-8.2); Triglycerides 232 mg/dL; Very Low Density Lipoprotein 46 mg/dL (5-40)
== END 2021-05-22 02:44 | disposition home or self-care (01) ==
LOC: LAB 08:33
PROVIDERS: Nurse Practitioner Family; PCP Family Medicine; Referring Provider Internal Medicine Cardiovascular Disease; Visit Provider Internal Medicine Cardiovascular Disease
DX: I48.91 Unspecified atrial fibrillation (principal); Z79.01 Long term (current) use of anticoagulants; E78.5 Hyperlipidemia, unspecified
CPT/HCPCS: 36415; 80061; 80076; 85610

== ENCOUNTER 2021-06-04 11:14 | Outpatient (RCR) | payer MEDICARE, OTHER, SELFPAY ==
[2015-12-09 13:30] VITALS: BMI 21.5
[2021-05-22 02:44] VITALS: BMI 33.7
[2021-06-04 12:05] LABS: International Normalized Ratio 2.2
== END 2021-06-21 18:00 | disposition home or self-care (01) ==
LOC: LAB 11:14
PROVIDERS: PCP Family Medicine; Referring Provider Internal Medicine Cardiovascular Disease; Visit Provider Internal Medicine Cardiovascular Disease
DX: I48.91 Unspecified atrial fibrillation (principal); Z79.01 Long term (current) use of anticoagulants
CPT/HCPCS: 36415; 85610

== ENCOUNTER 2021-07-12 10:05 | Outpatient (RCR) | payer MEDICARE, OTHER, SELFPAY ==
[2015-12-09 13:30] VITALS: BMI 21.5
[2021-06-22 01:17] VITALS: BMI 33.7
== END 2021-07-23 18:00 | disposition home or self-care (01) ==
LOC: LAB 10:05
PROVIDERS: PCP Family Medicine; Referring Provider Internal Medicine Cardiovascular Disease; Visit Provider Internal Medicine Cardiovascular Disease
DX: I48.91 Unspecified atrial fibrillation (principal); Z79.01 Long term (current) use of anticoagulants
CPT/HCPCS: 36416; 85610

== ENCOUNTER 2021-08-19 12:43 | Outpatient (RCR) | payer MEDICARE, OTHER, SELFPAY ==
[2015-12-09 13:30] VITALS: BMI 21.5
[2021-07-24 03:30] VITALS: BMI 33.7
[2021-08-19 12:56] LABS: INR Fingerstick 2.6; Prothrombin Time Fingerstick 29.9 SEC (11.9-14.4)
== END 2021-08-22 18:00 | disposition home or self-care (01) ==
LOC: LAB 12:43
PROVIDERS: PCP Family Medicine; Referring Provider Internal Medicine Cardiovascular Disease; Visit Provider Internal Medicine Cardiovascular Disease
DX: I48.91 Unspecified atrial fibrillation (principal); Z79.01 Long term (current) use of anticoagulants
CPT/HCPCS: 36416; 85610

== ENCOUNTER 2021-09-19 13:55 | Outpatient (RCR) | payer MEDICARE, OTHER, SELFPAY ==
[2015-12-09 13:30] VITALS: BMI 21.5
[2021-08-22 22:05] VITALS: BMI 33.7
[2021-09-19 16:56] LABS: INR Fingerstick 2.2; Prothrombin Time Fingerstick 25.8 SEC (11.9-14.4)
== END 2021-09-19 18:00 | disposition home or self-care (01) ==
LOC: LAB 13:55
PROVIDERS: PCP Family Medicine; Referring Provider Internal Medicine Cardiovascular Disease; Visit Provider Internal Medicine Cardiovascular Disease
DX: I48.91 Unspecified atrial fibrillation (principal); Z79.01 Long term (current) use of anticoagulants
CPT/HCPCS: 36416; 85610

== ENCOUNTER 2021-10-17 11:27 | Outpatient (RCR) | payer MEDICARE, OTHER, SELFPAY ==
[2015-12-09 13:30] VITALS: BMI 21.5
[2021-09-20 08:56] VITALS: BMI 33.7
[2021-10-17 16:01] LABS: INR Fingerstick 2.6; Prothrombin Time Fingerstick 29.8 SEC (11.7-14.9)
== END 2021-10-20 18:00 | disposition home or self-care (01) ==
LOC: LAB 11:27
PROVIDERS: PCP Family Medicine; Referring Provider Internal Medicine Cardiovascular Disease; Visit Provider Internal Medicine Cardiovascular Disease
DX: I48.91 Unspecified atrial fibrillation (principal); Z79.01 Long term (current) use of anticoagulants
CPT/HCPCS: 36416; 85610

== ENCOUNTER 2021-11-01 11:58 | Outpatient (RCR) | payer MEDICARE, OTHER, SELFPAY ==
[2015-12-09 13:30] VITALS: BMI 21.5
[2021-10-21 00:41] VITALS: BMI 33.7
[2021-11-01 12:56] LABS: International Normalized Ratio 2.5; Prothrombin Time (Protime)PT. 25.8 SECONDS (11.7-14.9)
[2021-11-01 13:00] LABS: AST(SGOT) 24 U/L (15-37); Alanine Aminotransfer ALT/SGPT 31 U/L (16-61); Albumin, Serum 3.7 g/dL (3.2-5.0); Alkaline Phosphatase 45 U/L (45-117); Anion Gap 5 (5-15); BUN 22 mg/dL (7-18); Bilirubin, Direct 0.14 mg/dL (0.00-0.30); Calcium,Total 9.1 mg/dL (8.5-10.1); Chloride 103 mmol/L (98-107); Cholesterol 197 mg/dL (200); Creatinine, Serum 1.05 mg/dL (0.70-1.30); EST Glomerular Filtration Rate 73 mL/min (>60); Est Glom Filt Rate - Afr Amer 88 mL/min (>60); Globulin 3.4 g/dL (2.2-4.2); Glucose 102 mg/dL (74-106); High Density Lipoprotein 56 mg/dL; Potassium 3.8 mmol/L (3.5-5.1); Protein, Total 7.1 g/dL (6.4-8.2); Sodium Level 138 mmol/L (136-145); Triglycerides 266 mg/dL; Very Low Density Lipoprotein 53 mg/dL (5-40)
== END 2021-11-01 18:00 | disposition home or self-care (01) ==
LOC: LAB 11:58
PROVIDERS: Nurse Practitioner Family; PCP Family Medicine; Referring Provider Internal Medicine Cardiovascular Disease; Visit Provider Internal Medicine Cardiovascular Disease
DX: I48.91 Unspecified atrial fibrillation (principal); Z79.01 Long term (current) use of anticoagulants; I43 Cardiomyopathy in diseases classified elsewhere; I10 Essential (primary) hypertension; I48.0 Paroxysmal atrial fibrillation
CPT/HCPCS: 36415; 80048; 80061; 80076; 85610

== ENCOUNTER 2021-11-03 14:07 | Outpatient (CLI) | payer MEDICARE, OTHER, SELFPAY ==
[2015-12-09 13:30] VITALS: BMI 21.5
[2021-11-03 14:20] LABS: Absolute Lymphocyte Count 1.94 X10^3/uL (0.83-4.51); Absolute Neutrophil Count 8.5 X10^3/uL (2.0-7.7); Basophil# 0.06 X10^3/uL; Basophil% 0.5 % (0-1); Eosinophil# 0.03 X10^3/uL; Eosinophils% 0.3 % (0-5); Hematocrit 41.1 % (40-54); Hemoglobin 14.7 g/dL (13.0-16.5); Lymphocyte # 1.94 X10^3/ul (0.83-4.51); Lymphocyte % 16.9 % (19-41); Mean Corp Hgb Conc 35.8 g/dL (32-36); Mean Corpuscular Hgb 31.1 pg (27.0-32.0); Mean Corpuscular Volume 87.1 fL (80-94); Mean Platelet Vol. 9.6 fl (6.2-12.0); Monocyte# 0.84 X10^3/uL; Monocyte% 7.3 % (0-10); NRBC Flagged by Analyzer 0 % (0-5); Neutrophil # 8.49 X10^3/uL (2.7-7.7); Neutrophil % 74.2 % (47-70); Platelet Count 287 K/mm3 (150-450); RBC Distribution Width SD 41.2 fl (35.1-43.9); Red Blood Count 4.72 M/mm3 (4.6-6.2); White Blood Count 11.5 K/mm3 (4.4-11.0)
[2021-11-03 14:36] LABS: Hemoglobin A1c 5.7 % (3.8-5.6)
[2021-11-03 14:45] LABS: Thyroid Stim Hormone (TSH) 2.88 uIU/mL (0.358-3.74)
== END 2021-11-03 23:59 | disposition home or self-care (01) ==
LOC: LAB 14:09
PROVIDERS: PCP Family Medicine; Referring Provider Physician Assistant Medical; Visit Provider Physician Assistant Medical
DX: E78.5 Hyperlipidemia, unspecified (principal); R73.9 Hyperglycemia, unspecified
CPT/HCPCS: 36415; 83036; 84443; 85025

== ENCOUNTER → 2021-11-24 | Outpatient (CLI) | payer MEDICARE, OTHER, SELFPAY ==
[2015-12-09 13:30] VITALS: BMI 21.5
--- NOTE | 2021-11-24 09:38 | STRESSREP_ITS ---
Stress Test Report Date: 11-24-2021 Procedure: Exercise tolerance test/imaging study Indications: Shortness of breath/dyspnea on exertion; atrial fibrillation; sta tus post aortic valve replacement (25 mm Julian-Sams bioprosthetic valve- 2008), status post aortoplasty; hyperlipidemia; hypertension Consent: Per the patient Procedure: The patient exercised on a Vinicio protocol for 3 minutes and 10 seconds completing Stage I achieving a peak heart rate of 153 bpm (105% predicted maximal heart rate) with a peak blood pressure 180/72 mmHg and a peak MET c apacity of 5 METs. The baseline ECG demonstrated atrial fibrillation with controlled ventricular response. The peak exercise ECG demonstrated somatic/motion artifact with no obvious ECG change. There was a rare PVC during exercise and recovery. The functional capacity was considered decreased. There was no complaint of chest discomfort during exercise or recovery. The examination was discontinued secondary to dyspnea. Impression: 1. Technically adequate (percent predicted maximal heart rate greater than 85%) exercise tolerance test 2. Peak exercise ECG with somatic/motion artifact with no obvious ECG changes 3. There was a rare PVC during exercise and recovery 4. Nuclear images pending Myocardial perfusion imaging study: Technique: The patient was injected with 14.8 mCi of technetium 99m Cardiolite and subsequently rest SPECT Cardiolite nuclear imaging was obtained in the horizontal long, vertical long, and short axis views. The patient exercised on a Vinicio protocol for 3 minutes and 10 seconds completing Stage I achieving a peak heart rate of 153 bpm (105% predicted maximal heart rate) with a peak blood pressure 180/72 mmHg and a peak MET capacity of 5 METs. The patient was injected with 44.9 mCi of technetium 99m Cardiolite and subsequently stress SPECT Cardiolite nuclear imaging was obtained in the horizontal long, vertical long, and short axis views. A gated Cardiolite study at peak stress was obtained. Interpretation: Rest and stress SPECT Cardiolite nuclear imaging status post realignment, normalization, and attenuation correction, demonstrates the appearance of relative uniform tracer uptake and myocardial perfusion appearing within normal limits. There is end systolic thickening and brightening. The gated Cardiolite study demonstrates myocardial thickening and inward wall motion. The reported LVEF is 41%. Impression: 1. Rest and stress SPECT Cardiolite nuclear imaging demonstrate relative uniform tracer uptake and myocardial perfusion appearing within normal limits. 2. The gated Cardiolite study reports an LVEF of 41%. This note was generated with Veritractation software. It may contain incorrect words, spelling, and punctuation that were not noted in checking the note before signing.
== END | disposition home or self-care (01) ==
LOC: CVS 06:23
PROVIDERS: PCP Family Medicine; Referring Provider Physician Assistant Medical; Visit Provider Physician Assistant Medical
DX: R53.83 Other fatigue (principal); I48.0 Paroxysmal atrial fibrillation; R06.02 Shortness of breath; E78.5 Hyperlipidemia, unspecified; I10 Essential (primary) hypertension; Z95.2 Presence of prosthetic heart valve
CPT/HCPCS: 78452; 93017; A9500; A4216

== ENCOUNTER 2021-12-20 10:05 | Outpatient (RCR) | payer MEDICARE, OTHER, SELFPAY ==
[2015-12-09 13:30] VITALS: BMI 21.5
[2021-11-20 02:34] VITALS: BMI 33.7
[2021-12-20 10:59] LABS: International Normalized Ratio 2.3; Prothrombin Time (Protime)PT. 25.2 SECONDS (11.7-14.9)
== END 2021-12-20 18:00 | disposition home or self-care (01) ==
LOC: LAB 10:05
PROVIDERS: PCP Family Medicine; Referring Provider Internal Medicine Cardiovascular Disease; Visit Provider Internal Medicine Cardiovascular Disease
DX: I48.91 Unspecified atrial fibrillation (principal); Z79.01 Long term (current) use of anticoagulants; Z12.5 Encounter for screening for malignant neoplasm of prostate
CPT/HCPCS: 36415; 84153; 85610; G0103

== ENCOUNTER 2022-01-18 14:52 | Outpatient (RCR) | payer MEDICARE, OTHER, SELFPAY ==
[2015-12-09 13:30] VITALS: BMI 21.5
[2021-12-20 20:06] VITALS: BMI 33.7
[2022-01-18 15:06] LABS: INR Fingerstick 2.6; Prothrombin Time Fingerstick 29.7 SEC (11.7-14.9)
== END 2022-01-18 18:00 | disposition home or self-care (01) ==
LOC: LAB 14:52
PROVIDERS: PCP Family Medicine; Referring Provider Internal Medicine Cardiovascular Disease; Visit Provider Internal Medicine Cardiovascular Disease
DX: Z79.01 Long term (current) use of anticoagulants; I48.91 Unspecified atrial fibrillation
CPT/HCPCS: 36416; 85610

== ENCOUNTER 2022-02-17 13:53 | Outpatient (RCR) | payer MEDICARE, OTHER, SELFPAY ==
[2015-12-09 13:30] VITALS: BMI 21.5
[2022-02-17 13:52] VITALS: BMI 33.7
[2022-02-17 14:11] LABS: INR Fingerstick 1.7; Prothrombin Time Fingerstick 20.6 SEC (11.7-14.9)
== END 2022-02-19 01:53 | disposition home or self-care (01) ==
LOC: LAB 13:53
PROVIDERS: PCP Family Medicine; Referring Provider Internal Medicine Cardiovascular Disease; Visit Provider Internal Medicine Cardiovascular Disease
DX: I48.91 Unspecified atrial fibrillation (principal); Z79.01 Long term (current) use of anticoagulants
CPT/HCPCS: 36416; 85610

== ENCOUNTER 2022-03-03 11:10 | Outpatient (RCR) | payer MEDICARE, OTHER, SELFPAY ==
[2015-12-09 13:30] VITALS: BMI 21.5
[2022-02-19 01:53] VITALS: BMI 33.7
[2022-03-03 11:20] LABS: INR Fingerstick 1.9; Prothrombin Time Fingerstick 22.2 SEC (11.7-14.9)
== END 2022-03-03 18:00 | disposition home or self-care (01) ==
LOC: LAB 11:10
PROVIDERS: PCP Family Medicine; Referring Provider Internal Medicine Cardiovascular Disease; Visit Provider Internal Medicine Cardiovascular Disease
DX: I48.91 Unspecified atrial fibrillation (principal); Z79.01 Long term (current) use of anticoagulants
CPT/HCPCS: 36416; 85610

== ENCOUNTER → 2022-03-09 | Outpatient (CLI) | payer MEDICARE, OTHER, SELFPAY ==
[2015-12-09 13:30] VITALS: BMI 21.5
--- NOTE | 2022-03-09 10:48 | RAD_ITS ---
STUDY: X-RAY - RIGHT FOOT CLINICAL: Pain at right first metatarsal region. TECHNIQUE: 3 view(s) of the foot. COMPARISON: Radiographs 03/03/2013. FINDINGS: Normal talus, calcaneus, and tarsal bones. Normal visualized subtalar, talonavicular, calcaneocuboid, tarsal and tarsometatarsal articulations. Normal metatarsi. There are marginal osteophytes and severe joint space narrowing of the metatarsophalangeal joint of the great toe, progressed since the prior study. Normal tibial and fibular sesamoid bones. Normal interphalangeal joint of the great toe. Normal phalanges of the great toe. Normal second through fifth metatarsophalangeal joints. Normal interphalangeal joints and phalanges of the lesser toes. There is vascular calcification. RAD/Foot min 3 Views IMPRESSION: Arthrosis of the first metatarsophalangeal joint. Electronically Signed: Brian Kahn MD at 14:36 EDT ,
== END | disposition home or self-care (01) ==
LOC: MTRAD 10:48
PROVIDERS: PCP Family Medicine; Referring Provider Psychiatry & Neurology Neurology; Visit Provider Psychiatry & Neurology Neurology
DX: M79.671 Pain in right foot (principal)
CPT/HCPCS: 73630

== ENCOUNTER → 2022-03-29 | Outpatient (CLI) | payer MEDICARE, OTHER, SELFPAY ==
[2015-12-09 13:30] VITALS: BMI 21.5
== END | disposition home or self-care (01) ==
LOC: SL 20:08
PROVIDERS: PCP Family Medicine; Referring Provider Internal Medicine Critical Care Medicine; Visit Provider Internal Medicine Critical Care Medicine
DX: G47.33 Obstructive sleep apnea (adult) (pediatric) (principal)
CPT/HCPCS: 95811

== ENCOUNTER → 2022-04-03 | Outpatient (CLI) | payer MEDICARE, OTHER, SELFPAY ==
[2015-12-09 13:30] VITALS: BMI 21.5
--- NOTE | 2022-04-03 15:37 | RAD_ITS ---
STUDY: X-RAY - RIGHT KNEE REASON FOR EXAM: Male, 76 years old. KNEE PAIN TECHNIQUE: 4 view(s) of the knee. COMPARISON: None. FINDINGS: Normal visualized distal femur. Normal visualized proximal tibia and fibula. Normal proximal tibiofibular articulation. Normal medial femorotibial compartment. Normal lateral femorotibial compartment. Normal patellofemoral articulation. The soft tissue structures are unremarkable. RAD/Knee 4 or More Views IMPRESSION: Normal x-ray examination of the knee. Electronically Signed: Benjie Aparicio MD at 17:06 EDT ,
== END | disposition home or self-care (01) ==
LOC: MTRAD 15:36
PROVIDERS: PCP Family Medicine; Referring Provider Family Medicine; Visit Provider Family Medicine
DX: M25.561 Pain in right knee (principal)
CPT/HCPCS: 73564

== ENCOUNTER 2022-04-20 09:23 | Outpatient (RCR) | payer MEDICARE, OTHER, SELFPAY ==
[2015-12-09 13:30] VITALS: BMI 21.5
[2022-04-20 09:56] LABS: International Normalized Ratio 2.7; Prothrombin Time (Protime)PT. 28.4 SECONDS (11.7-14.9)
[2022-04-20 10:31] LABS: AST(SGOT) 10 U/L (15-37); Alanine Aminotransfer ALT/SGPT 22 U/L (16-61); Albumin, Serum 3.5 g/dL (3.2-5.0); Alkaline Phosphatase 48 U/L (45-117); Bilirubin, Direct 0.18 mg/dL (0.00-0.30); Cholesterol 162 mg/dL (200); Globulin 3.2 g/dL (2.2-4.2); High Density Lipoprotein 58 mg/dL; Protein, Total 6.7 g/dL (6.4-8.2); Triglycerides 115 mg/dL; Very Low Density Lipoprotein 23 mg/dL (5-40)
== END 2022-04-20 18:00 | disposition home or self-care (01) ==
LOC: LAB 09:23
PROVIDERS: PCP Family Medicine; Visit Provider Internal Medicine Cardiovascular Disease
DX: I48.91 Unspecified atrial fibrillation (principal); Z79.01 Long term (current) use of anticoagulants; E78.1 Pure hyperglyceridemia
CPT/HCPCS: 36415; 80061; 80076; 85610

== ENCOUNTER → 2022-05-19 | Outpatient (CLI) | payer MEDICARE, OTHER, SELFPAY ==
[2015-12-09 13:30] VITALS: BMI 21.5
--- NOTE | 2022-05-19 13:35 | ECHOCS_ITS ---
Reason For Study: Aortic Valve Replacement Procedure This was a 2D Doppler, Color Flow transthoracic echocardiogram. The study was technically difficult. Contrast injection was performed. Exam performed in department. Left Ventricle Normal LV size. Mild concentric left ventricular hypertrophy. Mild segmental systolic dysfunction (see wall motion). The estimated ejection fraction is 50 %. Post operative septal motion. Unable to assess diastolic dysfunction. Basal inferoseptal: Hypokinetic. Basal anteroseptal: Hypokinetic. Mid- inferoseptal : Hypokinetic. Mid-anteroseptal : Hypokinetic. Right Ventricle Normal RV size. Normal systolic function. Atria The left atrium is mildly enlarged. The right atrium is mildly enlarged. No doppler evidence for ASD. Mitral Valve There is no mitral annular calcification. Normal mitral valve. Mild (1+) mitral valve insufficiency. Tricuspid Valve Normal tricuspid valve. Mild tricuspid valve insufficiency. Right ventricular systolic pressure estimated to be 23 mmHg. Aortic Valve Stable appearing bioprosthetic aortic valve apparatus. Pulmonic Valve Normal pulmonic valve. Trivial pulmonic valve insufficiency. Great Vessels The aortic root is not well visualized. Pericardium/Pleural No pericardial effusion. Medication 20 gauge I.V. with prn adaptor inserted into right arm. Diluted definity 2ml given slow IV push to enhance endocardial definition. MMode/2D Measurements & Calculations LVIDd: 4.8 cm IVSd: 1.3 cm LVOT diam: 2.0 cm LVIDs: 3.3 cm LVPWd: 1.3 cm FS: 31.4 % LVOT area: 3.2 cm2 LA dimension: 4.7 cm LAV(MOD-bp): 81.2 ml LA A4 area: 26.3 cm2 LAV(MOD-bp) Indexed: 36.2 ml/m2 LAV(MOD-sp2): 74.2 ml LAV(MOD-sp4): 83.7 ml RA A4 area: 27.4 cm2 Doppler Measurements & Calculations MV E max kierra: 72.3 cm/sec Ao V2 max: 241.0 cm/sec LV V1 max: 89.8 cm/sec Ao max P.5 mmHg LV V1 max P.3 mmHg Ao V2 mean: 156.3 cm/sec LV V1 mean P.7 mmHg Ao mean P.7 mmHg LV V1 mean: 58.9 cm/sec Ao V2 VTI: 42.9 cm LV V1 VTI: 16.3 cm TIMBO(I,D): 1.2 cm2 TIMBO(V,D): 1.2 cm2 SV(LVOT): 51.7 ml PA V2 max: 82.5 cm/sec TR max kierra: 225.9 cm/sec TR max P.4 mmHg ECHO/Echo Complete W/ Contrast Interpretation Summary The study was technically difficult. Contrast injection was performed. Mild segmental systolic dysfunction (see wall motion). The estimated ejection fraction is 50 %. Post operative septal motion. Mild concentric left ventricular hypertrophy. The left atrium is mildly enlarged. The right atrium is mildly enlarged. Mild (1+) mitral valve insufficiency. Mild tricuspid valve insufficiency. Stable appearing bioprosthetic aortic valve apparatus. Trivial pulmonic valve insufficiency. Right ventricular systolic pressure estimated to be 23 mmHg. Unable to assess diastolic dysfunction. Ordering Physician: Rodrigo Thacker Referring Physician: Dwain Oliver Performed By: Wes Ernst, YUSUF
== END | disposition home or self-care (01) ==
LOC: CVS 13:34
PROVIDERS: PCP Family Medicine; Referring Provider Internal Medicine Cardiovascular Disease; Visit Provider Internal Medicine Cardiovascular Disease
DX: I48.0 Paroxysmal atrial fibrillation (principal); I43 Cardiomyopathy in diseases classified elsewhere; I77.810 Thoracic aortic ectasia; I10 Essential (primary) hypertension; Z95.2 Presence of prosthetic heart valve; E78.5 Hyperlipidemia, unspecified
CPT/HCPCS: 93306; Q9957; A4216; C8929

== ENCOUNTER 2022-07-06 09:22 | Outpatient (RCR) | payer MEDICARE, OTHER, SELFPAY ==
[2015-12-09 13:30] VITALS: BMI 21.5
== END 2022-07-06 18:00 | disposition home or self-care (01) ==
LOC: LAB 09:22
PROVIDERS: PCP Family Medicine; Visit Provider Internal Medicine Cardiovascular Disease
DX: I48.91 Unspecified atrial fibrillation (principal); Z79.01 Long term (current) use of anticoagulants
CPT/HCPCS: 36416; 85610

== ENCOUNTER 2022-08-10 10:29 | Outpatient (RCR) | payer MEDICARE, OTHER, SELFPAY ==
[2015-12-09 13:30] VITALS: BMI 21.5
[2022-08-10 10:41] LABS: INR Fingerstick 2.6; Prothrombin Time Fingerstick 29.7 SEC (11.7-14.9)
== END 2022-08-10 12:00 | disposition home or self-care (01) ==
LOC: LAB 10:29
PROVIDERS: PCP Family Medicine; Visit Provider Internal Medicine Cardiovascular Disease
DX: I48.91 Unspecified atrial fibrillation (principal); Z79.01 Long term (current) use of anticoagulants
CPT/HCPCS: 36416; 85610

== ENCOUNTER 2022-10-16 13:12 | Outpatient (RCR) | payer MEDICARE, OTHER, SELFPAY ==
[2015-12-09 13:30] VITALS: BMI 21.5
[2022-10-16 13:51] LABS: Absolute Lymphocyte Count 1.77 X10^3/uL (0.83-4.51); Absolute Neutrophil Count 12.6 X10^3/uL (2.0-7.7); Basophil# 0.02 X10^3/uL; Basophil% 0.1 % (0-1); Eosinophil# 0.01 X10^3/uL; Eosinophils% 0.1 % (0-5); Hematocrit 42.8 % (40-54); Hemoglobin 14.8 g/dL (13.0-16.5); Lymphocyte # 1.77 X10^3/ul (0.83-4.51); Lymphocyte % 11.3 % (19-41); Mean Corp Hgb Conc 34.6 g/dL (32-36); Mean Corpuscular Volume 89.7 fL (80-94); Mean Platelet Vol. 10.5 fl (6.2-12.0); Monocyte# 0.94 X10^3/uL; NRBC Flagged by Analyzer 0 % (0-5); Neutrophil # 12.64 X10^3/uL (2.7-7.7); Platelet Count 318 K/mm3 (150-450); RBC Distribution Width CV 14.3 % (11.6-14.6); RBC Distribution Width SD 47.5 fl (35.1-43.9); Red Blood Count 4.77 M/mm3 (4.6-6.2); White Blood Count 15.6 K/mm3 (4.4-11.0)
[2022-10-16 14:01] LABS: International Normalized Ratio 2.2
[2022-10-16 14:07] LABS: Anion Gap 6 (5-15); BUN 35 mg/dL (7-18); BUN/Creat Ratio 28.5 RATIO (10-20); Calcium,Total 8.8 mg/dL (8.5-10.1); Chloride 101 mmol/L (98-107); Creatinine, Serum 1.23 mg/dL (0.70-1.30); EST Glomerular Filtration Rate 61 mL/min (>60); Est Glom Filt Rate - Afr Amer 74 mL/min (>60); Glucose 113 mg/dL (74-106); Potassium 3.9 mmol/L (3.5-5.1); Sodium Level 134 mmol/L (136-145)
== END 2022-10-20 21:14 | disposition home or self-care (01) ==
LOC: LAB 13:12
PROVIDERS: PCP Family Medicine; Visit Provider Internal Medicine Cardiovascular Disease
DX: I48.91 Unspecified atrial fibrillation (principal); Z79.01 Long term (current) use of anticoagulants; I10 Essential (primary) hypertension; Z51.81 Encounter for therapeutic drug level monitoring
CPT/HCPCS: 36415; 80048; 85025; 85610

== ENCOUNTER 2022-11-14 09:30 | Outpatient (RCR) | payer MEDICARE, OTHER, SELFPAY ==
[2015-12-09 13:30] VITALS: BMI 21.5
[2022-10-31 10:04] LABS: International Normalized Ratio 3.6; Prothrombin Time (Protime)PT. 35.8 SECONDS (11.7-14.9)
[2022-10-31 10:07] LABS: AST(SGOT) 18 U/L (15-37); Alanine Aminotransfer ALT/SGPT 31 U/L (16-61); Albumin, Serum 3.5 g/dL (3.2-5.0); Alkaline Phosphatase 45 U/L (45-117); Bilirubin, Direct 0.22 mg/dL (0.00-0.30); Cholesterol 203 mg/dL (200); Globulin 3.1 g/dL (2.2-4.2); High Density Lipoprotein 70 mg/dL; Protein, Total 6.6 g/dL (6.4-8.2); Triglycerides 171 mg/dL; Very Low Density Lipoprotein 34 mg/dL (5-40)
[2022-11-14 09:40] LABS: INR Fingerstick 3.3; Prothrombin Time Fingerstick 35.3 SEC (11.7-14.9)
== END 2022-11-19 00:23 | disposition home or self-care (01) ==
LOC: LAB 09:30
PROVIDERS: Nurse Practitioner Family; PCP Family Medicine; Referring Provider Internal Medicine Cardiovascular Disease; Visit Provider Internal Medicine Cardiovascular Disease
DX: I48.91 Unspecified atrial fibrillation (principal); Z51.81 Encounter for therapeutic drug level monitoring; Z79.01 Long term (current) use of anticoagulants; E78.00 Pure hypercholesterolemia, unspecified; I10 Essential (primary) hypertension
CPT/HCPCS: 36415; 36416; 80061; 80076; 85610

== ENCOUNTER 2022-11-30 13:58 | Outpatient (RCR) | payer MEDICARE, OTHER, SELFPAY ==
[2015-12-09 13:30] VITALS: BMI 21.5
[2022-11-30 14:16] LABS: Prothrombin Time Fingerstick 32.6 SEC (11.7-14.9)
== END 2022-11-30 15:00 | disposition home or self-care (01) ==
LOC: LAB 13:58
PROVIDERS: PCP Family Medicine; Referring Provider Internal Medicine Cardiovascular Disease; Visit Provider Internal Medicine Cardiovascular Disease
DX: I48.91 Unspecified atrial fibrillation (principal); I10 Essential (primary) hypertension; Z79.01 Long term (current) use of anticoagulants
CPT/HCPCS: 36416; 85610

== ENCOUNTER 2022-12-28 09:55 | Outpatient (RCR) | payer MEDICARE, OTHER, SELFPAY ==
[2015-12-09 13:30] VITALS: BMI 21.5
[2022-12-28 11:13] LABS: International Normalized Ratio 2.2; Prothrombin Time (Protime)PT. 24.5 SECONDS (11.7-14.9)
[2022-12-28 11:29] LABS: PSA,Total - Annual Screen 3.13 ng/mL (0.00-4.00)
== END 2022-12-28 18:00 | disposition home or self-care (01) ==
LOC: LAB 09:55
PROVIDERS: Urology; PCP Family Medicine; Referring Provider Internal Medicine Cardiovascular Disease; Visit Provider Internal Medicine Cardiovascular Disease
DX: I48.91 Unspecified atrial fibrillation (principal); I10 Essential (primary) hypertension; Z51.81 Encounter for therapeutic drug level monitoring; Z79.01 Long term (current) use of anticoagulants; Z12.5 Encounter for screening for malignant neoplasm of prostate
CPT/HCPCS: 36415; 84153; 85610; G0103

== ENCOUNTER 2023-04-13 14:08 | Outpatient (RCR) | payer MEDICARE, OTHER, SELFPAY ==
[2015-12-09 13:30] VITALS: BMI 21.5
[2023-04-13 14:22] LABS: INR Fingerstick 2.7; Prothrombin Time Fingerstick 28.7 SEC (11.7-14.9)
== END 2023-04-13 18:00 | disposition home or self-care (01) ==
LOC: LAB 14:08
PROVIDERS: PCP Family Medicine; Referring Provider Internal Medicine Cardiovascular Disease; Visit Provider Internal Medicine Cardiovascular Disease
DX: I48.91 Unspecified atrial fibrillation (principal); Z79.01 Long term (current) use of anticoagulants; I10 Essential (primary) hypertension; Z51.81 Encounter for therapeutic drug level monitoring
CPT/HCPCS: 36416; 85610

== ENCOUNTER 2023-07-19 09:00 | Outpatient (RCR) | payer MEDICARE, OTHER, SELFPAY ==
[2015-12-09 13:30] VITALS: BMI 21.5
[2023-07-19 10:08] LABS: Hematocrit 45.6 % (40-54); Hemoglobin 15.1 g/dL (13.0-16.5); Mean Corp Hgb Conc 33.1 g/dL (32-36); Mean Corpuscular Volume 93.6 fL (80-94); Mean Platelet Vol. 10.1 fl (6.2-12.0); Platelet Count 291 K/mm3 (150-450); RBC Distribution Width CV 13.7 % (11.6-14.6); RBC Distribution Width SD 47.1 fl (35.1-43.9); Red Blood Count 4.87 M/mm3 (4.6-6.2); White Blood Count 14.1 K/mm3 (4.4-11.0)
[2023-07-19 10:28] LABS: Hemoglobin A1c 5.8 % (3.8-5.6)
[2023-07-19 10:35] LABS: Vitamin B12 334 pg/mL (211-911)
[2023-07-19 10:43] LABS: AST(SGOT) 17 U/L (15-37); Alanine Aminotransfer ALT/SGPT 27 U/L (16-61); Albumin, Serum 3.4 g/dL (3.2-5.0); Alkaline Phosphatase 43 U/L (45-117); Anion Gap 6 (5-15); BUN 25 mg/dL (7-18); BUN/Creat Ratio 26.3 RATIO (10-20); Bilirubin, Direct 0.17 mg/dL (0.00-0.30); Calcium,Total 8.8 mg/dL (8.5-10.1); Chloride 108 mmol/L (98-107); Cholesterol 166 mg/dL (200); Creatinine, Serum 0.95 mg/dL (0.70-1.30); EST Glomerular Filtration Rate 82 mL/min (>60); Est Glom Filt Rate - Afr Amer 99 mL/min (>60); Globulin 3.4 g/dL (2.2-4.2); Glucose 99 mg/dL (74-106); High Density Lipoprotein 60 mg/dL; Magnesium 2.8 mg/dL (1.6-2.6); Potassium 4.2 mmol/L (3.5-5.1); Protein, Total 6.8 g/dL (6.4-8.2); Sodium Level 140 mmol/L (136-145); Triglycerides 156 mg/dL; Very Low Density Lipoprotein 31 mg/dL (5-40)
[2023-07-19 10:46] LABS: International Normalized Ratio 3.3; Prothrombin Time (Protime)PT. 33.9 SECONDS (11.7-14.9)
== END 2023-07-22 18:00 | disposition home or self-care (01) ==
LOC: LAB 09:00
PROVIDERS: Psychiatry & Neurology Neurology; PCP Family Medicine; Referring Provider Internal Medicine Cardiovascular Disease; Visit Provider Internal Medicine Cardiovascular Disease
DX: I48.91 Unspecified atrial fibrillation (principal); I10 Essential (primary) hypertension; E78.00 Pure hypercholesterolemia, unspecified; Z79.01 Long term (current) use of anticoagulants; G62.9 Polyneuropathy, unspecified; R73.9 Hyperglycemia, unspecified; E78.1 Pure hyperglyceridemia
CPT/HCPCS: 36415; 80053; 80061; 82248; 82607; 83036; 83735; 84443; 85027; 85610

== ENCOUNTER → 2023-08-10 | Outpatient (CLI) | payer MEDICARE, OTHER, SELFPAY ==
[2015-12-09 13:30] VITALS: BMI 21.5
--- NOTE | 2023-08-10 12:45 | ECHOCS_ITS ---
Reason For Study: Dyspnea/SOB Procedure This was a 2D Doppler, Color Flow transthoracic echocardiogram. Contrast injection was performed. Exam performed in department. Left Ventricle Normal LV size. The left ventricular ejection fraction is 50 %. Post operative septal motion. No regional wall motion abnormalities noted. Right Ventricle Normal RV size. Normal systolic function. Atria The left atrium is mildly enlarged. Normal right atrium. Mitral Valve Normal mitral valve. Mild (1+) eccentric mitral valve insufficiency. Tricuspid Valve Normal tricuspid valve. Mild tricuspid valve insufficiency. Pulmonary artery systolic pressure is 29 mmHg. Aortic Valve Peak aortic valve gradient 25 mmHg. Mean aortic valve gradient 16 mmHg. Trivial aortic valve insufficiency. Bioprosthetic aortic valve. Pulmonic Valve Normal pulmonic valve. Trivial pulmonic valve insufficiency. Great Vessels Normal aortic root. The pulmonary artery is normal size. Normal inferior vena cava. Pericardium/Pleural No pericardial effusion. Medication Diluted definity 3.5ml given slow IV push to enhance endocardial definition. MMode/2D Measurements & Calculations LVIDd: 5.8 cm IVSd: 1.1 cm LVOT diam: 2.1 cm LVIDs: 4.6 cm LVPWd: 1.1 cm RVDd: 3.5 cm FS: 21.4 % LVOT area: 3.4 cm2 Ao root diam: 3.4 cm LAV(MOD-bp): 89.1 ml LA A4 area: 25.7 cm2 LAV(MOD-bp) Indexed: 39.2 ml/m2 LAV(MOD-sp2): 89.1 ml LAV(MOD-sp4): 85.6 ml LA dimension(2D): 5.2 cm RA A4 area: 18.0 cm2 Doppler Measurements & Calculations MV E max roel: 79.1 cm/sec Lat Peak E' Roel: 12.8 cm/sec Med Peak E' Roel: 8.2 cm/sec E/E' lat: 6.2 E/E' med: 9.6 Ao V2 max: 250.3 cm/sec LV V1 max: 119.5 cm/sec SV(LVOT): 77.6 ml Ao max P.4 mmHg LV V1 max P.7 mmHg Ao V2 mean: 194.4 cm/sec LV V1 mean P.8 mmHg Ao mean P.2 mmHg LV V1 mean: 94.7 cm/sec Ao V2 VTI: 47.0 cm LV V1 VTI: 22.8 cm AV (velocity ratio): 0.48 TIMBO(I,D): 1.7 cm2 TIMBO(V,D): 1.6 cm2 PA V2 max: 89.1 cm/sec TR max roel: 250.3 cm/sec TR max P.1 mmHg ECHO/Echo Complete W/ Contrast Interpretation Summary Normal LV size. The left ventricular ejection fraction is 50 %. Post operative septal motion. The left atrium is mildly enlarged. Bioprosthetic aortic valve. Mean aortic valve gradient 16 mmHg. Contrast injection was performed. Ordering Physician: Bridgette Neal Referring Physician: Dwain Oliver Performed By: Luisa Perez RDCS, RVT
--- OUTSIDE RECORDS SUMMARY | 2023-08-10 13:07 | XMS RPT_ITS | CCD ---
Author Name Unknown Address [address] [place] [address] Organization [facility] Care Team Providers Care Clinical Services Consultant Name Role Phone Nicole Del Real Unavailable Unavailable Nicole Del Real Unavailable Unavailable Symone Ruiz Unavailable Unavailable Kedar MOY, Rodrigo Edwards Unavailable [phone] Medications Completed/Discontinued Medications Medication Drug Class(es) Dates Sig (Normalized) Sig (Original) amLODIPine 2.5 mg oral tablet (8 sources) Dihydropyridine Calcium Channel Audie Start: 01-19-2011 take 1 tablet by mouth once daily AMLODIPINE BESYLATE 2.5 MG TABS One tablet by mouth daily AMLODIPINE BESYLATE [id number] Talat Perez NP amoxicillin 500 mg oral tablet (4 sources) Penicillin-class Antibacterial Start: 03-14-2017 take 4 tablets by mouth every hour AMOXICILLIN 500 MG TABS 4 tablets by mouth 1 hr prior to procedure AMOXICILLIN [id number] Talat Perez NP aspirin 81 mg oral tablet (8 sources) Nonsteroidal Anti-inflammatory Drug Start: 01-19-2011 take 1 tablet by mouth once daily ASPIRIN 81 MG TABS One tablet by mouth daily ASPIRIN [id number] Wendi Sosa Problems Active Problems Problem Classification Problem Date Documented Date Episodic/Chronic Disorders of lipid metabolism (4 sources) Hyperlipidemia; Translations: [Hyperlipidemia, unspecified] Onset: 01-19-2011 01-19-2011 Chronic Heart valve disorders (8 sources) Aortic valve disorder; Translations: [Heart valve replaced by other means] Onset: 01-19-2011 01-19-2011 Chronic Marika-; endo-; and myocarditis; cardiomyopathy (4 sources) Cardiomyopathy in diseases classified elsewhere; Translations: [Cardiomyopathy in diseases classified elsewhere] Onset: 01-19-2011 01-19-2011 Chronic Unclassified (20 sources) Body mass index (BMI) 36.0-36.9, adult; Translations: [Body mass index (BMI) 34.0-34.9, adult] Onset: 05-07-2013 Resolved: 09-08-2015 09-08-2015 Chronic Unclassified (4 sources) 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; 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] Onset: 01-19-2011 01-19-2011 Past or Other Problems Problem Classification Problem Date Documented Date Episodic/Chronic Cardiac dysrhythmias (4 sources) Palpitations; Translations: [Palpitations] Onset: 05-20-2014 05-20-2014 Episodic Malaise and fatigue (4 sources) Fatigue; Translations: [Other fatigue] Onset: 01-19-2011 01-19-2011 Episodic Nonspecific chest pain (4 sources) Chest pain, unspecified; Translations: [Chest pain, unspecified] Onset: 05-20-2014 05-20-2014 Episodic Other lower respiratory disease (4 sources) Dyspnea; Translations: [Shortness of breath] Onset: 01-19-2011 01-19-2011 Episodic Unclassified (4 sources) Abnormal result of cardiovascular function study, unspecified; Translations: [Abnormal result of cardiovascular function study, unspecified] Onset: 01-19-2011 01-19-2011 Episodic Unclassified (4 sources) Family history of stroke; Translations: [Family history of stroke] 05-20-2014 Episodic Results Test Name Value Interpretation Reference Range Facil ity Vital Signs Date Time Vital Sign Value Performing Clinician Tyree adams 06-05-2017 09:02-0500 BMI (Body Mass Index) 36.15 kg/m2 [facility] Work Phone: 06-05-2017 09:02-0500 BP Diastolic 60 mm[Hg] [facility] Work Phone: 06-05-2017 09:02-0500 BP Systolic 130 mm[Hg] [facility] Work Phone: 06-05-2017 09:02-0500 Height 177.8 cm [facility] Work Phone: 06-05-2017 09:02-0500 Pulse (Heart Rate) 52 /min [facility] Work Phone: 06-05-2017 09:02-0500 Respiratory Rate 20 /min [facility] Work Phone: 06-05-2017 09:02-0500 Weight 114.31 kg Nicole Del Real [facility] Work Phone: 12-13-2016 15:40-0400 BMI (Body Mass Index) 36.01 kg/m2 Rodrigo Thacker MD [facility] Work Phone: 12-13-2016 15:40-0400 BP Diastolic 60 mm[Hg] Rodrigo Thacker MD [facility] Work Phone: 12-13-2016 15:40-0400 BP Systolic 102 mm[Hg] Rodrigo Thacker MD [facility] Work Phone: 12-13-2016 15:40-0400 Pulse (Heart Rate) 60 /min [facility] Work Phone: 12-13-2016 15:40-0400 Respiratory Rate 16 /min Rodrigo Thacker MD [facility] Work Phone: 12-13-2016 15:40-0400 Weight 113.85 kg Rodrigo Thacker MD [facility] Work Phone: 03-15-2016 13:00-0400 BSA (Body Surface Area) 2.29 m2 Rodrigo Thacker MD [facility] Work Phone: 12-11-2011 09:43-0400 Height 177.8 cm [facility] Work Phone: Procedures Date Procedure Procedure Detail Performing Clinician Start: 05-16-2017 End: 05-31-2017 *Hepatic Function Panel Rodrigo Thacker MD Start: 05-16-2017 End: 05-31-2017 Lipid 1996 panel - Serum or Plasma Rodrigo Thacker MD Start: 12-13-2016 End: 12-13-2016 Follow Up Appt 6 months Rodrigo Thacker MD Start: 12-13-2016 End: 12-13-2016 PFM Rodrigo Thacker MD Start: 09-26-2016 End: 11-14-2016 Lipid 1996 panel - Serum or Plasma Rodrigo Thacker MD Start: 03-15-2016 End: 03-15-2016 Ecg routine ecg w/least 12 lds w/i&r Rodrigo Thacker MD Start: 03-02-2016 End: 11-17-2016 *Hepatic Function Panel Rodrigo Thacker MD Start: 03-02-2016 End: 11-17-2016 Lipid 1996 panel - Serum or Plasma Rodrigo Thacker MD Start: 09-08-2015 End: 09-08-2015 Follow Up Appt 6 months Rodrigo Thacker MD Start: 09-08-2015 End: 09-08-2015 PFM Rodrigo Thacker MD Start: 08-31-2015 End: 09-01-2015 *Hepatic Function Panel Rodrigo Thacker MD Start: 08-31-2015 End: 09-01-2015 Lipid 1996 panel - Serum or Plasma Rodrigo Thacker MD Start: 03-10-2015 End: 03-11-2015 Documentation of current medications Rodrigo Thacker MD Start: 03-10-2015 End: 03-10-2015 Ecg routine ecg w/least 12 lds w/i&r Rodrigo Thacker MD Start: 03-10-2015 End: 03-10-2015 Follow Up Appt 6 months Rodrigo Thacker MD Start: 03-10-2015 End: 03-10-2015 PFM Rodrigo Thacker MD Start: 07-23-2014 End: 08-14-2014 *Hepatic Function Panel Rodrigo Thacker MD Start: 07-23-2014 End: 08-14-2014 Lipid 1996 panel - Serum or Plasma Rodrigo Thacker MD Start: 01-20-2014 End: 02-05-2014 *Hepatic Function Panel Rodrigo Thacker MD Start: 01-20-2014 End: 02-05-2014 Lipid 1996 panel - Serum or Plasma Rodrigo Thacker MD Start: 11-12-2013 End: 11-12-2013 Ecg routine ecg w/least 12 lds w/i&r Rodrigo Thacker MD Start: 11-12-2013 End: 11-12-2013 Follow Up Appt 6 months Rodrigo Thacker MD Start: 11-12-2013 End: 11-12-2013 PFM Rodrigo Thacker MD Start: 05-07-2013 End: 11-06-2013 *Hepatic Function Panel Rodrigo Thacker MD Start: 05-07-2013 End: 11-06-2013 Follow Up Appt 6 months Rodrigo Thacker MD Start: 05-07-2013 End: 11-06-2013 Lipid 1996 panel - Serum or Plasma Rodrigo Thacker MD Start: 05-07-2013 End: 11-06-2013 PFM Rodrigo Thacker MD Start: 04-22-2013 End: 11-06-2013 *Hepatic Function Panel Rodrigo Thacker MD Start: 04-22-2013 End: 11-06-2013 Lipid 1996 panel - Serum or Plasma Rodrigo Thacker MD Start: 10-21-2012 End: 11-04-2012 *Hepatic Function Panel Rodrigo Thacker MD Start: 10-21-2012 End: 11-04-2012 Lipid 1996 panel - Serum or Plasma Rodrigo Thacker MD Start: 07-12-2012 End: 11-06-2013 Echocardiography Rodrigo Thacker MD Start: 07-12-2012 End: 07-12-2012 Follow Up Appt 6 months Rodrigo Thacker MD Start: 05-23-2012 End: 05-23-2012 *Hepatic Function Panel Rodrigo Thacker MD Start: 05-23-2012 End: 05-23-2012 Lipid 1996 panel - Serum or Plasma Rodrigo Thacker MD Start: 12-12-2011 End: 05-23-2012 *Hepatic Function Panel Rodrigo Thacker MD Start: 12-12-2011 End: 05-23-2012 Lipid 1996 panel - Serum or Plasma Rodrigo Thacker MD Start: 12-11-2011 End: 11-06-2013 Follow Up Appt 6 months Rodrigo Thacker MD Plan of Treatment Date Care Activity Detail Author Start: 11-28-2017 End: 06-01-2017 *Hepatic Function Panel *Hepatic Function Panel [facility] Work Phone: Start: 11-28-2017 End: 06-01-2017 Lipid panel [AGGREGATE] *Lipid Profile CC PCP [facility] Work Phone: Start: 11-26-2017 End: 11-26-2017 Appointment Appointment [facility] Work Phone: Start: 06-05-2017 End: 06-05-2017 Appointment Appointment [facility] Work Phone: Start: 05-16-2017 End: 05-31-2017 *Hepatic Function Panel *Hepatic Function Panel [facility] Work Phone: Start: 05-16-2017 End: 05-31-2017 Lipid panel [AGGREGATE] *Lipid Profile CC PCP [facility] Work Phone: Start: 12-13-2016 End: 12-13-2016 24 hour holter monitor 24 hour holter monitor [facility] Work Phone: Start: 12-13-2016 End: 12-13-2016 Echocardiography Echocardiogram (complete) [facility] Work Phone: Start: 12-13-2016 End: 12-13-2016 Follow Up Appt 6 months Follow Up Appt 6 months [facility] Work Phone: Start: 12-13-2016 End: 12-13-2016 PFM PFM [facility] Work Phone: Start: 09-26-2016 End: 09-26-2016 *Hepatic Function Panel *Hepatic Function Panel [facility] Work Phone: Start: 09-26-2016 End: 11-14-2016 Lipid panel [AGGREGATE] *Lipid Profile CC PCP [facility] Work Phone: Start: 03-15-2016 End: 03-15-2016 Ecg routine ecg w/least 12 lds w/i&r EKG (In office) [facility] Work Phone: Start: 03-15-2016 End: 03-15-2016 Follow Up Appt 6 months Follow Up Appt 6 months [facility] Work Phone: Start: 03-15-2016 End: 03-15-2016 PFM PFM [facility] Work Phone: Start: 03-02-2016 End: 11-17-2016 *Hepatic Function Panel *Hepatic Function Panel [facility] Work Phone: Start: 03-02-2016 End: 11-17-2016 Lipid panel [AGGREGATE] *Lipid Profile CC PCP [facility] Work Phone: Start: 09-08-2015 End: 09-08-2015 Follow Up Appt 6 months Follow Up Appt 6 months [facility] Work Phone: Start: 09-08-2015 End: 09-08-2015 PFM PFM [facility] Work Phone: Start: 08-31-2015 End: 08-30-2015 *Hepatic Function Panel *Hepatic Function Panel [facility] Work Phone: Start: 08-31-2015 End: 08-30-2015 Lipid panel [AGGREGATE] *Lipid Profile CC PCP [facility] Work Phone: Start: 03-10-2015 End: 03-10-2015 Ecg routine ecg w/least 12 lds w/i&r EKG (In office) [facility] Work Phone: Start: 03-10-2015 End: 03-10-2015 Echocardiography Echocardiogram (complete) [facility] Work Phone: Start: 03-10-2015 End: 03-10-2015 Follow Up Appt 6 months Follow Up Appt 6 months [facility] Work Phone: Start: 03-10-2015 End: 03-10-2015 Follow Up Appt Other Follow Up Appt Other [facility] Work Phone: Start: 03-10-2015 End: 03-10-2015 PFM PF [facility] Work Phone: Start: 07-23-2014 End: 08-14-2014 *Hepatic Function Panel *Hepatic Function Panel [facility] Work Phone: Start: 07-23-2014 End: 08-14-2014 Lipid panel [AGGREGATE] *Lipid Profile CC PCP [facility] Work Phone: Start: 05-20-2014 End: 05-20-2014 Follow Up Appt 6 months Follow Up Appt 6 months [facility] Work Phone: Start: 05-20-2014 End: 05-20-2014 Follow Up Appt Other Follow Up Appt Other [facility] Work Phone: Start: 05-20-2014 End: 05-20-2014 PFM PF [facility] Work Phone: Start: 01-20-2014 End: 02-05-2014 *Hepatic Function Panel *Hepatic Function Panel [facility] Work Phone: Start: 01-20-2014 End: 02-05-2014 Lipid panel [AGGREGATE] *Lipid Profile CC PCP [facility] Work Phone: Start: 11-12-2013 End: 11-12-2013 Ecg routine ecg w/least 12 lds w/i&r EKG (In office) [facility] Work Phone: Start: 11-12-2013 End: 11-12-2013 Follow Up Appt 6 months Follow Up Appt 6 months [facility] Work Phone: Start: 11-12-2013 End: 11-12-2013 PFM PFM [facility] Work Phone: Start: 05-07-2013 End: 11-06-2013 *Hepatic Function Panel *Hepatic Function Panel [facility] Work Phone: Start: 05-07-2013 End: 11-06-2013 Follow Up Appt 6 months Follow Up Appt 6 months [facility] Work Phone: Start: 05-07-2013 End: 11-06-2013 Lipid panel [AGGREGATE] *Lipid Profile CC PCP [facility] Work Phone: Start: 05-07-2013 End: 11-06-2013 PFM PFM [facility] Work Phone: Start: 04-22-2013 End: 11-06-2013 *Hepatic Function Panel *Hepatic Function Panel [facility] Work Phone: Start: 04-22-2013 End: 11-06-2013 Lipid panel [AGGREGATE] *Lipid Profile [facility] Work Phone: Start: 10-21-2012 End: 11-04-2012 *Hepatic Function Panel *Hepatic Function Panel [facility] Work Phone: Start: 10-21-2012 End: 11-04-2012 Lipid panel [AGGREGATE] *Lipid Profile [facility] Work Phone: Start: 07-12-2012 End: 08-19-2012 Echocardiography Echocardiogram (complete) [facility] Work Phone: Start: 07-12-2012 End: 07-12-2012 Follow Up Appt 6 months Follow Up Appt 6 months [facility] Work Phone: Start: 05-23-2012 End: 05-23-2012 *Hepatic Function Panel *Hepatic Function Panel [facility] Work Phone: Start: 05-23-2012 End: 05-23-2012 Lipid panel [AGGREGATE] *Lipid Profile [facility] Work Phone: Start: 12-12-2011 End: 05-23-2012 *Hepatic Function Panel *Hepatic Function Panel [facility] Work Phone: Start: 12-12-2011 End: 05-23-2012 Lipid panel [AGGREGATE] *Lipid Profile [facility] Work Phone: Start: 12-11-2011 End: 11-06-2013 Follow Up Appt 6 months Follow Up Appt 6 months [facility] Work Phone: Patient Education [facility] Work Phone: Additional Source Comments FOR RECORDS PERTAINING TO PATIENTS WHO ARE OR HAVE BEEN ENROLLED IN A CHEMICAL DEPENDENCY/SUBSTANCEABUSE PROGRAM, SOME INFORMATION MAY BE OMITTED. This clinical summary was aggregated from multiple sources. Caution should be exercised in using it in the provision of clinical care. This summary normalizes information from multiple sources, and as a consequence, information in this document may materially change the coding, format and clinical context of patient data. In addition, data may be omitted in some cases. CLINICAL DECISIONS SHOULD BE BASED ON THE PRIMARY CLINICAL RECORDS. [employer] [facility]. provides no warranty or guarantee of the accuracy or completeness of information in this document.
== END | disposition home or self-care (01) ==
LOC: CVS 12:45
PROVIDERS: PCP Family Medicine; Referring Provider Nurse Practitioner Acute Care; Visit Provider Nurse Practitioner Acute Care
DX: I11.0 Hypertensive heart disease with heart failure (principal); I50.9 Heart failure, unspecified
CPT/HCPCS: 93306; Q9957; A4216; C8929

== ENCOUNTER 2023-08-16 10:02 | Outpatient (RCR) | payer MEDICARE, OTHER, SELFPAY ==
[2015-12-09 13:30] VITALS: BMI 21.5
[2023-08-16 10:13] LABS: Prothrombin Time Fingerstick 21.2 SEC (11.7-14.9)
== END 2023-08-16 18:00 | disposition home or self-care (01) ==
LOC: LAB 10:02
PROVIDERS: PCP Family Medicine; Referring Provider Internal Medicine Cardiovascular Disease; Visit Provider Internal Medicine Cardiovascular Disease
DX: I48.91 Unspecified atrial fibrillation (principal); I10 Essential (primary) hypertension; Z51.81 Encounter for therapeutic drug level monitoring; Z79.01 Long term (current) use of anticoagulants
CPT/HCPCS: 36416; 85610

== ENCOUNTER → 2023-08-24 | Outpatient (CLI) | payer MEDICARE, OTHER, SELFPAY ==
[2015-12-09 13:30] VITALS: BMI 21.5
--- OUTSIDE RECORDS SUMMARY | 2023-08-24 20:15 | XMS RPT_ITS | CCD ---
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 Phone Nicole Del Real Unavailable Unavailable Nicole Del Real Unavailable Unavailable Symone Ruiz Unavailable Unavailable Kedar MOY, Rodrigo Edwards Unavailable Medications Completed/Discontinued Medications Medication Drug Class(es) Dates Sig (Normalized) Sig (Original) amLODIPine 2.5 mg oral tablet (8 sources) Dihydropyridine Calcium Channel Audie Start: 01-19-2011 take 1 tablet by mouth once daily AMLODIPINE BESYLATE 2.5 MG TABS One tablet by mouth daily AMLODIPINE BESYLATE [id number] Talat Perez NP amoxicillin 500 mg oral tablet (4 sources) Penicillin-class Antibacterial Start: 03-14-2017 take 4 tablets by mouth every hour AMOXICILLIN 500 MG TABS 4 tablets by mouth 1 hr prior to procedure AMOXICILLIN [id number] Talat Perez NP aspirin 81 mg oral tablet (8 sources) Nonsteroidal Anti-inflammatory Drug Start: 01-19-2011 take 1 tablet by mouth once daily ASPIRIN 81 MG TABS One tablet by mouth daily ASPIRIN [id number] Wendi Sosa Problems Active Problems Problem Classification [...] (4 sources) 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; 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] Onset: 01-19-2011 01-19-2011 Past [...] BP Diastolic 60 mm[Hg] Rodrigo Thacker MD [facility] Work Phone: 12-13-2016 15:40-0400 BP Systolic 102 mm[Hg] Rodirgo Thacker MD [facility] Work Phone: 12-13-2016 15:40-0400 Pulse (Heart Rate) 60 /min [facility] Work Phone: 12-13-2016 15:40-0400 Respiratory Rate 16 /min Rodrigo Thacker MD [facility] Work Phone: 12-13-2016 15:40-0400 Weight 113.85 kg Rodrigo hTacker MD [facility] Work Phone: 03-15-2016 [...] 06-01-2017 *Hepatic Function Panel *Hepatic Function Panel [facility] Work Phone: Start: 11-28-2017 End: 06-01-2017 Lipid panel [AGGREGATE] *Lipid Profile CC PCP [facility] Work Phone: Start: 11-26-2017 End: 11-26-2017 Appointment Appointment [facility] Work Phone: Start: 06-05-2017 End: 06-05-2017 Appointment Appointment [facility] Work Phone: Start: 05-16-2017 End: 05-31-2017 *Hepatic Function Panel *Hepatic Function Panel [facility] Work Phone: Start: 05-16-2017 End: 05-31-2017 Lipid panel [AGGREGATE] *Lipid Profile CC PCP [facility] Work Phone: Start: 12-13-2016 End: 12-13-2016 24 hour holter monitor 24 hour holter monitor [facility] Work Phone: Start: 12-13-2016 End: 12-13-2016 Echocardiography Echocardiogram (complete) [facility] Work Phone: Start: 12-13-2016 End: 12-13-2016 Follow Up Appt 6 months Follow Up Appt 6 months [facility] Work Phone: Start: 12-13-2016 End: 12-13-2016 PFM PFM [facility] Work Phone: Start: 09-26-2016 End: 09-26-2016 *Hepatic Function Panel *Hepatic Function Panel [facility] Work Phone: Start: 09-26-2016 End: 11-14-2016 Lipid panel [AGGREGATE] *Lipid Profile CC PCP [facility] Work Phone: Start: 03-15-2016 End: 03-15-2016 Ecg routine ecg w/least 12 lds w/i&r EKG (In office) [facility] Work Phone: Start: 03-15-2016 End: 03-15-2016 Follow Up Appt 6 months Follow Up Appt 6 months [facility] Work Phone: Start: 03-15-2016 End: 03-15-2016 PFM PFM [facility] Work Phone: Start: 03-02-2016 End: 11-17-2016 *Hepatic Function Panel *Hepatic Function Panel [facility] Work Phone: Start: 03-02-2016 End: 11-17-2016 Lipid panel [AGGREGATE] *Lipid Profile CC PCP [facility] Work Phone: Start: 09-08-2015 End: 09-08-2015 Follow Up Appt 6 months Follow Up Appt 6 months [facility] Work Phone: Start: 09-08-2015 End: 09-08-2015 PFM PFM [facility] Work Phone: Start: 08-31-2015 End: 08-30-2015 *Hepatic Function Panel *Hepatic Function Panel [facility] Work Phone: Start: 08-31-2015 End: 08-30-2015 Lipid panel [AGGREGATE] *Lipid Profile CC PCP [facility] Work Phone: Start: 03-10-2015 End: 03-10-2015 Ecg routine ecg w/least 12 lds w/i&r EKG (In office) [facility] Work Phone: Start: 03-10-2015 End: 03-10-2015 Echocardiography Echocardiogram (complete) [facility] Work Phone: Start: 03-10-2015 End: 03-10-2015 Follow Up Appt 6 months Follow Up Appt 6 months [facility] Work Phone: Start: 03-10-2015 End: 03-10-2015 Follow Up Appt Other Follow Up Appt Other [facility] Work Phone: Start: 03-10-2015 End: 03-10-2015 PFM PF [facility] Work Phone: Start: 07-23-2014 End: 08-14-2014 *Hepatic Function Panel *Hepatic Function Panel [facility] Work Phone: Start: 07-23-2014 End: 08-14-2014 Lipid panel [AGGREGATE] *Lipid Profile CC PCP [facility] Work Phone: Start: 05-20-2014 End: 05-20-2014 Follow Up Appt 6 months Follow Up Appt 6 months [facility] Work Phone: Start: 05-20-2014 End: 05-20-2014 Follow Up Appt Other Follow Up Appt Other [facility] Work Phone: Start: 05-20-2014 End: 05-20-2014 PFM PF [facility] Work Phone: Start: 01-20-2014 End: 02-05-2014 *Hepatic Function Panel *Hepatic Function Panel [facility] Work Phone: Start: 01-20-2014 End: 02-05-2014 Lipid panel [AGGREGATE] *Lipid Profile CC PCP [facility] Work Phone: Start: 11-12-2013 End: [...] 6 months Follow Up Appt 6 months [facility] Work Phone: Start: 05-07-2013 End: 11-06-2013 Lipid panel [AGGREGATE] *Lipid Profile CC PCP [facility] Work Phone: Start: 05-07-2013 End: 11-06-2013 PFM PFM [facility] Work Phone: Start: 04-22-2013 End: 11-06-2013 *Hepatic Function Panel *Hepatic Function Panel [facility] Work Phone: Start: 04-22-2013 End: 11-06-2013 Lipid panel [AGGREGATE] *Lipid Profile [facility] Work Phone: Start: 10-21-2012 End: 11-04-2012 *Hepatic Function Panel *Hepatic Function Panel [facility] Work Phone: Start: 10-21-2012 End: 11-04-2012 Lipid panel [AGGREGATE] *Lipid Profile [facility] Work Phone: Start: 07-12-2012 End: 08-19-2012 Echocardiography Echocardiogram (complete) [facility] Work Phone: Start: 07-12-2012 End: 07-12-2012 Follow Up Appt 6 months Follow Up Appt 6 months [facility] Work Phone: Start: 05-23-2012 End: 05-23-2012 *Hepatic Function Panel *Hepatic Function Panel [facility] Work Phone: Start: 05-23-2012 End: 05-23-2012 Lipid panel [AGGREGATE] *Lipid Profile [facility] Work Phone: Start: 12-12-2011 End: 05-23-2012 *Hepatic Function Panel *Hepatic Function Panel [facility] Work Phone: Start: 12-12-2011 End: 05-23-2012 Lipid panel [AGGREGATE] *Lipid Profile [facility] Work Phone: Start: 12-11-2011 End: [...] BE BASED ON THE PRIMARY CLINICAL RECORDS. [employer] [facility]. provides no warranty or guarantee of the accuracy or completeness of information in this document.
== END | disposition home or self-care (01) ==
LOC: SL 20:13
PROVIDERS: PCP Family Medicine; Referring Provider Nurse Practitioner Acute Care; Visit Provider Nurse Practitioner Acute Care
DX: G47.33 Obstructive sleep apnea (adult) (pediatric) (principal)
CPT/HCPCS: 95811

== ENCOUNTER 2023-11-15 10:56 | Outpatient (RCR) | payer MEDICARE, OTHER, SELFPAY ==
[2015-12-09 13:30] VITALS: BMI 21.5
[2023-11-06 09:53] LABS: INR Fingerstick 1.3
[2023-11-15 11:09] LABS: INR Fingerstick 1.7; Prothrombin Time Fingerstick 18.2 SEC (11.7-14.9)
== END 2023-11-20 22:30 | disposition home or self-care (01) ==
LOC: LAB 10:56
PROVIDERS: PCP Family Medicine; Referring Provider Internal Medicine Cardiovascular Disease; Visit Provider Internal Medicine Cardiovascular Disease
DX: I10 Essential (primary) hypertension; Z51.81 Encounter for therapeutic drug level monitoring; Z79.01 Long term (current) use of anticoagulants; I48.0 Paroxysmal atrial fibrillation
CPT/HCPCS: 36416; 85610

== ENCOUNTER 2023-11-26 12:09 | Outpatient (RCR) | payer MEDICARE, OTHER, SELFPAY ==
[2015-12-09 13:30] VITALS: BMI 21.5
[2023-11-26 12:23] LABS: INR Fingerstick 2.3; Prothrombin Time Fingerstick 23.7 SEC (11.7-14.9)
== END 2023-11-26 18:00 | disposition home or self-care (01) ==
LOC: LAB 12:09
PROVIDERS: PCP Family Medicine; Referring Provider Internal Medicine Cardiovascular Disease; Visit Provider Internal Medicine Cardiovascular Disease
DX: I10 Essential (primary) hypertension; Z51.81 Encounter for therapeutic drug level monitoring; Z79.01 Long term (current) use of anticoagulants; I48.0 Paroxysmal atrial fibrillation
CPT/HCPCS: 36416; 85610

== ENCOUNTER → 2023-11-26 | Outpatient (CLI) | payer MEDICARE, OTHER, SELFPAY ==
[2015-12-09 13:30] VITALS: BMI 21.5
== END | disposition home or self-care (01) ==
LOC: PSN 11:50
PROVIDERS: PCP Family Medicine; Referring Provider Internal Medicine Cardiovascular Disease; Visit Provider Internal Medicine Cardiovascular Disease
DX: R00.1 Bradycardia, unspecified (principal); I48.19 Other persistent atrial fibrillation; I48.0 Paroxysmal atrial fibrillation; R42 Dizziness and giddiness
CPT/HCPCS: 93225; 93226

== ENCOUNTER → 2023-12-27 | Outpatient (CLI) | payer MEDICARE, OTHER, SELFPAY ==
[2015-12-09 13:30] VITALS: BMI 21.5
--- NOTE | 2023-12-27 14:20 | STRESSREP ---
Stress Test Report Pharmacologic myocardial perfusion stress test. 78-year-old man with a history of abnormal EKG Resting EKG demonstrates atrial fibrillation with a rate of 70 bpm. Resting blood pressure is 116/84 mmHg. 0.4 mg of regadenoson was infused per usual protocol followed by rapid intravenous saline flush injection. Continuous EKG monitoring was performed. The maximum heart rate was 83 bpm which was 58% of max impacted heart rate the maximum workload was 1 metabolic equivalent. At rest there were no ST or T wave changes noted to suggest ischemia and at peak infusion nonspecific ST changes were noted which did not meet the criteria for ischemia. No clinical angina is noted. The final blood pressure was 116/84 mmHg. Myocardial perfusion protocol. 14.8 mCi of technetium 99m sestamibi was injected at rest. 0.4 mg of regadenoson was infused per usual protocol. At peak infusion 45 mCi of technetium 99m sestamibi was injected stress images were obtained stress and rest images were reconstructed and compared in the short axis vertical long and horizontal long axis. Gated images were also obtained. Perfusion SPECT analysis: Review of the stress images demonstrate normal uptake of tracer noted in all areas of the myocardium except for a small area in the apex with mildly reduced perfusion. The resting images similar demonstrated normal uptake of tracer noted in all areas of the myocardium with mildly reduced perfusion. Minimal apical ischemia cannot be completely excluded. Gated SPECT analysis: The gated ejection fraction is 43%. Conclusion: Minimally abnormal pharmacologic myocardial perfusion stress test with apical ischemia Mildly reduced ejection fraction.
== END | disposition home or self-care (01) ==
LOC: CVS 06:46
PROVIDERS: PCP Family Medicine; Referring Provider Physician Assistant Medical; Visit Provider Physician Assistant Medical
DX: I49.3 Ventricular premature depolarization (principal); I43 Cardiomyopathy in diseases classified elsewhere; Z95.2 Presence of prosthetic heart valve; E78.5 Hyperlipidemia, unspecified; R94.31 Abnormal electrocardiogram [ECG] [EKG]
CPT/HCPCS: 78452; 93017; A9500; A4216; J2785

== ENCOUNTER 2024-01-21 07:03 | Day surgery (SDC) | payer MEDICARE, OTHER, SELFPAY ==
[2015-12-09 13:30] VITALS: BMI 21.5
--- NOTE | 2024-01-16 15:55 | PCM.HP.BLA ---
History and Physical Date of Admission: 01/21/24 ELDA RUSH, is a 78 year old white male who presents to the [facility] employment [facility] today for a heart catheterization on account of PVC burden and abnormal stress test. He has a history of aortic valve disease status post aortic valve replacement with a 25 mm Brooks Sams bioprosthetic aortic valve in 2008, aortic root dilation status post aortoplasty in 2008, paroxysmal atrial fibrillation first noted in January 2020, PVCs, hyperlipidemia, hypertension, and CONCEPCION with CPAP therapy. The patient reports that he is doing fairly well in his home environment he is concerned about his weight discussed in detail some weight loss management. Patient also complains of some dizziness and nonspecific interventricular conduction delay. The patient's dizziness is described as occurring once he is up in the activity does not appear to be orthostatic in nature. He does not remember if it is associated with palpitations or not he really has not paid attention as he does feel palpitations occasionally when he is in atrial fibs. The patient denies any chest pain denies any PND or he denies any lower extremity. Patient has a bioprosthetic aortic valve and is echo done July 2023 showed normal LV size his EF is 50% he has postoperative septal motion the left atrium was mildly enlarged he has a bioprosthetic aortic valve with a mean aortic valve gradient of 16. The patient does carry history of a nonischemic cardiomyopathy most probably related to his valvular heart disease. He denies any PND orthopnea denies any lower extremity edema and appears to be doing quite well as he continues to exercise Sunday and Sunday at one of the local health facilities. Intake Vital Signs: See EMR Intake Visit Reasons: [facility] Hide Curer Required: No Accompanied by: Self Is patient in pain?: No Allergies lactose Allergy (Verified 10/30/23 11:11) Food Allergy poison lauren extract Allergy (Verified 10/30/23 11:11) Itching dapagliflozin [From Farxiga] Adverse Reaction (Intermediate, Verified 10/30/23 11:11) Extreme fatigue and somnolence rivaroxaban [From Xarelto] Adverse Reaction (Intermediate, Verified 10/30/23 11:11) Bruising easily, nosebleeds Medications See EMR Ejection fraction %: 50 to [facility] History Aortic root dilatation BPH with obstruction/lower urinary tract symptoms Cardiomyopathy in other diseases classified elsewhere Essential hypertension History of cardioversion (~03/30/20) 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 Neuropathy Nocturnal leg cramps CONCEPCION (obstructive sleep apnea) CONCEPCION (obstructive sleep apnea) Osteoarthritis Polyneuropathy, unspecified Surgical History H/O aortic valve replacement (~08/24/08) History of left hip replacement History of prostate surgery History of tonsillectomy History of transurethral resection of prostate Family History Father CVA (cerebral vascular accident) Congestive heart failureBrother Heart disease Congestive heart failure DiabetesMother Cancer Ovarian Cancer Social History Smoking Status: Never smoker second hand exposure: No alcohol intake: current alcohol intake frequency: 0-2 drinks per day details: beer caffeine: Yes Type: coffee Number of servings: 1 what type of physical activity do you participate in: walking and other details: step & light weight lifting frequency: 3-4 times per week ambrose/islam: Scientologist seatbelt use: always ROS Const Const: Positive for fatigue and headache(s); Negative for weakness ENT ENT: Positive for headache(s) and dizziness; Negative for balance problems Cardio Chest Pain: No Palpitations: No Edema: None Muscle aches with walking: None Resp Respiratory: Positive for SOB with activity; Negative for SOB at rest or SOB orthopnea\SOB lying down GI GI: Negative nausea, vomiting or heartburn Musc Musc: Negative for muscle weakness or balance problems Neuro Neuro: Positive for dizziness and headache(s); Negative for lightheadedness, near syncope, syncope or weakness Endo Endo: Positive for fatigue Cardiology Exam Const Appearance: cooperative, comfortable and no acute distress Head Head: normal to inspection Eyes General: appearance normal, both eyes and all related structures Neck Neck: normal visual inspection and no JVD Carotids: Negative bruit Chest Chest inspection: normal inspection of the chest Auscultation: Bilateral: Clear to Auscultation Cardio Rate: regular rate Rhythm: irregularly irregular Heart sounds: S1 normal, S2 normal and murmur (Soft systolic murmur along the right and left sternal border.); Negative rub or gallop Murmur: Grade 1/6 and early systolic GI GI: other (Prominent abdomen.) Neuro General: patient alert and patient oriented x3 Skin Skin: no rashes or lesions noted Extremities Lower Extremity Edema: None: Bilateral Psych Psychological: normal affect Supplemental Info Supplemental Information Assessment and Plan Assessment and Plan (1) Atrial fibrillation: Status: Chronic Qualifiers: Atrial fibrillation type: persistent (not longstanding) Qualified Code(s): I48.19 - Other persistent atrial fibrillation Comment: Patient is in atrial fibrillation in the office on his EKG well-controlled rate on no rate modulating drug. Patient does complain of some dizziness but he is not certain that this occurs when he is in atrial fibrillation or regular rhythm. He feels that he feels his dizziness approximately every day. He completed a Holter monitor in November 2023 that showed atrial fibrillation with frequent PVCs. PVC burden was 23.1%. He had a stress test on 12/27/2023 that was minimally abnormal with apical ischemia. On account of such findings, he will proceed with heart catheterization. Depending on results, further recommendation will be made. (2) Dizziness: Status: Acute Comment: The dizziness appears to become evident after he is up and active 1 episode he describes he planted a tree yesterday did everything and then as he was putting his tools away in the barn noticed that he was dizzy. The spells do not occur with change of position (3) Congestive heart failure: Status: Chronic Qualifiers: Heart failure type: systolic Heart failure chronicity: chronic Qualified Code(s): I50.22 - Chronic systolic (congestive) heart failure Comment: Patient has a history of near normal EF of 50% normal functioning aortic valve with a mean gradient of 16 this is a bioprosthetic aortic valve. He denies any overt signs or symptoms of congestive heart failure. 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 Bony Bautista) 08/24/08 will monitor the patient yearly in the office. He is continue SBE prophylaxis. (6) Hyperlipidemia: Status: Chronic Qualifiers: Hyperlipidemia type: unspecified Qualified Code(s): E78.5 - Hyperlipidemia, unspecified Comment: Will continue to be followed to the primary care service. Given no known coronary disease his target LDL should be less than 100. He is tolerating the pravastatin 80 mg daily. (7) Obesity: Status: Chronic Qualifiers: Obesity type: due to excess calories Obesity classification: adult class 1 (BMI 30 - 34.9) Serious obesity comorbidity presence: with serious comorbidity Body mass index: BMI 34.0-34.9 Qualified Code(s): E66.09 - Other obesity due to excess calories; Z68.34 - Body mass index [BMI] 34.0-34.9, adult Comment: I congratulated him on his preference to going Sunday and Sunday to work out. This is wonderful for him. However he is still not able to get down to the weight that he would like to treat. (8) Essential hypertension: Status: Chronic Comment: Home blood pressure readings have ranged from 140-116 systolic and 65-100 diastolic. He is taking them with a biceps cuff in the seated position. It was recommended he continue to monitor his blood pressures but on a weekly basis instead on multiple days per week. I feel that if he can drop 20 to 30 pounds his blood pressure will be much better controlled that would be better than trying to add additional medical therapy.
--- NOTE | 2024-01-17 16:41 | PCM.HP.BLA ---
History and Physical Date of Admission: 01/21/24 ELDA RUSH, is a 78 year old white male with a history of aortic valve disease status post aortic valve replacement with a 25 mm Brooks Sams bioprosthetic aortic valve in 2008, aortic root dilation status post aortoplasty in 2008, paroxysmal atrial fibrillation first noted in January 2020, PVCs, hyperlipidemia, hypertension, and CONCEPCION with CPAP therapy. Patient has a bioprosthetic aortic valve and is echo done July 2023 showed normal LV size his EF is 50% he has postoperative septal motion the left atrium was mildly enlarged he has a bioprosthetic aortic valve with a mean aortic valve gradient of 16. The patient reports that he is doing fairly well in his home environment he is concerned about his weight discussed in detail some weight loss management. Patient also complains of some dizziness and nonspecific interventricular conduction delay. The patient's dizziness is described as occurring once he is up in the activity does not appear to be orthostatic in nature. He does not remember if it is associated with palpitations or not he really has not paid attention as he does feel palpitations occasionally when he is in atrial fibs. The patient denies any chest pain denies any PND or he denies any lower extremity. The patient does carry history of a nonischemic cardiomyopathy most probably related to his valvular heart disease. He denies any PND orthopnea denies any lower extremity edema and appears to be doing quite well as he continues to exercise Sunday and Sunday at one of the local health facilities. He underwent a stress test 12/2023 which demonstrated Minimally abnormal pharmacologic myocardial perfusion stress test with apical ischemia, Mildly reduced ejection fraction. He was referred to Dr. Collin Pollock for possible ablation is is scheduled to see him 01/29/24. With his abnormal stress test he is scheduled for a diagnostic heart cath. 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 Neuropathy Nocturnal leg cramps CONCEPCION (obstructive sleep apnea) CONCEPCION (obstructive sleep apnea) Osteoarthritis Polyneuropathy, unspecified Surgical History H/O aortic valve replacement (~08/24/08) History of left hip replacement History of prostate surgery History of tonsillectomy History of transurethral resection of prostate Family History Father CVA (cerebral vascular accident) Congestive heart failure Brother Heart disease Congestive heart failure Diabetes Mother Cancer Ovarian Cancer Social History Smoking Status: Never smoker second hand exposure: No alcohol intake: current alcohol intake frequency: 0-2 drinks per day details: beer caffeine: Yes Type: coffee Number of servings: 1 what type of physical activity do you participate in: walking and other details: step & light weight lifting frequency: 3-4 times per week ambrose/latter-day: Yarsanism seatbelt use: always ROS Const Const: Positive for fatigue and headache(s); Negative for weakness ENT ENT: Positive for headache(s) and dizziness; Negative for balance problems Cardio Chest Pain: No Palpitations: No Edema: None Muscle aches with walking: None Resp Respiratory: Positive for SOB with activity; Negative for SOB at rest or SOB orthopnea\SOB lying down GI GI: Negative nausea, vomiting or heartburn Musc Musc: Negative for muscle weakness or balance problems Neuro Neuro: Positive for dizziness and headache(s); Negative for lightheadedness, near syncope, syncope or weakness Endo Endo: Positive for fatigue Cardiology Exam Const Appearance: cooperative, comfortable and no acute distress Head Head: normal to inspection Eyes General: appearance normal, both eyes and all related structures Neck Neck: normal visual inspection and no JVD Carotids: Negative bruit Chest Chest inspection: normal inspection of the chest Auscultation: Bilateral: Clear to Auscultation Cardio Rate: regular rate Rhythm: irregularly irregular Heart sounds: S1 normal, S2 normal and murmur (Soft systolic murmur along the right and left sternal border.); Negative rub or gallop Murmur: Grade 1/6 and early systolic GI GI: other (Prominent abdomen.) Neuro General: patient alert and patient oriented x3 Skin Skin: no rashes or lesions noted Extremities Lower Extremity Edema: None: Bilateral Psych Psychological: normal affect Assessment & Plan Assessment/Plan (1) Abnormal stress test: (2) Atrial fibrillation: QUALIFIERS: Atrial fibrillation type: persistent (not longstanding) Qualified Code(s): I48.19 - Other persistent atrial fibrillation (3) Congestive heart failure: QUALIFIERS: Heart failure type: systolic Heart failure chronicity: chronic Qualified Code(s): I50.22 - Chronic systolic (congestive) heart failure (4) Aortic root dilatation: (5) H/O aortic valve replacement: (6) Hyperlipidemia: QUALIFIERS: Hyperlipidemia type: unspecified Qualified Code(s): E78.5 - Hyperlipidemia, unspecified PLAN: Plan F/u will be based on his heart cath.
[2024-01-18 09:59] VITALS: BMI 34.9
[2024-01-18 12:50] LABS: Absolute Lymphocyte Count 2.03 X10^3/uL (0.83-4.51); Absolute Neutrophil Count 9.5 X10^3/uL (2.0-7.7); Basophil# 0.05 X10^3/uL; Basophil% 0.4 % (0-1); Eosinophil# 0.06 X10^3/uL; Eosinophils% 0.5 % (0-5); Hemoglobin 14.1 g/dL (13.0-16.5); Lymphocyte # 2.03 X10^3/ul (0.83-4.51); Lymphocyte % 16.2 % (19-41); Mean Corp Hgb Conc 32.8 g/dL (32-36); Mean Corpuscular Hgb 29.4 pg (27.0-32.0); Mean Corpuscular Volume 89.6 fL (80-94); Mean Platelet Vol. 10.5 fl (6.2-12.0); Monocyte# 0.75 X10^3/uL; NRBC Flagged by Analyzer 0 % (0-5); Neutrophil # 9.53 X10^3/uL (2.7-7.7); Neutrophil % 76.3 % (47-70); Platelet Count 256 K/mm3 (150-450); RBC Distribution Width CV 13.5 % (11.6-14.6); RBC Distribution Width SD 44.6 fl (35.1-43.9); White Blood Count 12.5 K/mm3 (4.4-11.0)
--- NOTE | 2024-01-18 12:50 | RAD_ITS ---
STUDY: X-RAY CHEST REASON FOR EXAM: Male, 78 years old. Preprocedural evaluation for heart catheterization. TECHNIQUE: Frontal and lateral views of the chest on 3 images. COMPARISON: March 23, 2020 FINDINGS: Stable mild hyperinflation. There is no demonstrated pleural abnormality. Borderline cardiomegaly with sternotomy wires, unchanged. Normal mediastinum and jl. Normal visualized pulmonary arteries. Normal visualized aortic arch and descending thoracic aorta. Thoracic osteopenia with diffuse mild spondylosis. Normal visualized ribs, clavicles, and shoulders. No abnormality of the visualized soft tissue structures of the upper abdomen. RAD/Chest PA and Lateral IMPRESSION: Stable borderline cardiomegaly with mild hyperinflation. No acute or active cardiopulmonary disease. Electronically Signed: Kenney Castañeda MD at 13:24 EDT ,
[2024-01-18 12:57] LABS: International Normalized Ratio 2.2; Prothrombin Time (Protime)PT. 24.1 SECONDS (11.7-14.9)
[2024-01-18 12:58] LABS: Partial Thromboplast Time 33.4 Seconds (24.1-36.2)
[2024-01-18 13:13] LABS: Anion Gap 5 (5-15); BUN 16 mg/dL (7-18); Calcium,Total 9.1 mg/dL (8.5-10.1); Chloride 104 mmol/L (98-107); Creatinine, Serum 1.07 mg/dL (0.70-1.30); EST Glomerular Filtration Rate 71 mL/min (>60); Est Glom Filt Rate - Afr Amer 86 mL/min (>60); Estimated Creatinine Clearance 72.02 ml/min; Glucose 137 mg/dL (74-106); Potassium 3.5 mmol/L (3.5-5.1); Sodium Level 136 mmol/L (136-145)
[2024-01-21 07:26] LABS: International Normalized Ratio 1.3; Prothrombin Time (Protime)PT. 15.9 SECONDS (11.7-14.9)
--- NOTE | 2024-01-21 13:28 | CL.D_ITS ---
Patient Name: ELDA RUSH Study Date: 01/21/2024 Performing: Matias Delatorre MD Ht: 70 inches 177.8 cm : 1945 Wt: 244.01 lbs 110.68 kg Age: 78 Gender: male BSA: 2.27 PROCEDURE(S) PERFORMED [id number]-([id number])LHC/COR CLINICAL PROFILE AND INDICATIONS Indications: Other Heart Failure: None Stress/Imaging Date: 12/27/23Stress Test with SPECT MPI: Positive Low Risk CAD Presentations: Symptom unlikely to be ischemic. CONCLUSIONS Stable bioprosthetic aortic valve replacement and minimal coronary artery disease RECOMMENDATIONS Medical therapy DESCRIPTION OF PROCEDURE The patient arrived to the procedure lab. The risks and benefits of the procedure as well as a full description of our services here and current unavailability of surgical backup were fully explained to the patient and/or their significant other prior to the catheterization. The Timeout was completed, verifying the correct patient and procedure. The patient's procedural site was prepped and draped in the usual fashion. Local anesthetic was given subcutaneously to right radial region with Lidocaine 2%. Local anesthetic was given subcutaneously to right groin region with Lidocaine 2%. Using a modified Seldinger technique, arterial access was obtained via the right femoral artery, a 5Fr sheath was inserted. Left Coronary Artery selective angiography was performed in multiple views using a 5 Fr. JL4 catheter. Right Coronary Artery selective angiography was then performed in multiple views using a 5 Fr. 3DRC (Bryson) catheter.Contrast was injected through the sheath and the Right Iliac and Femoral artery were assessed for possible closure device.The arterial sheath was pulled and a Mynx closure device was deployed for hemostasis CORONARY ANGIOGRAPHY DOMINANCE: Left Dominant LEFT HEART ASSESSMENT Left Ventricular Ejection Fraction: by Echo 55 % Normal Left Ventricular systolic function LEFT MAIN: Angiographically normal LEFT ANTERIOR DESCENDING ARTERY: Mild luminal irregularities CIRCUMFLEX ARTERY: Mild luminal irregularities RIGHT CORONARY ARTERY: Mild luminal irregularities VALVE FINDINGS: Bioprosthetic and well-seated. COMPLICATIONS No Complications PROCEDURE MEDICATIONS Fentanyl 50 mcg IV Versed 1 mg IV Versed 1 mg IV Oxygen: 2 L/min via nasal cannula Oxygen: 2 L/min via nasal cannula Aspirin (325mg) 1 Tabs PO @ 01/21/2024 07:34:54 SUMMARY OF HEMODYNAMIC DATA Time AIR REST ECG 07:31:18 AO 142/49 (69) SA 11:16:23 Signed By Matias Delatorre MD On 01/21/2024 13:28:04 Matias Delatorre MD
== END 2024-01-21 14:00 | disposition home or self-care (01) ==
PROVIDERS: Internal Medicine Cardiovascular Disease; PCP Family Medicine; Referring Provider Internal Medicine Cardiovascular Disease; Visit Provider Internal Medicine Cardiovascular Disease
DX: I25.10 Atherosclerotic heart disease of native coronary artery without angina pectoris (principal); I11.0 Hypertensive heart disease with heart failure; I50.22 Chronic systolic (congestive) heart failure; I48.19 Other persistent atrial fibrillation; E66.09 Other obesity due to excess calories; I77.819 Aortic ectasia, unspecified site; E78.5 Hyperlipidemia, unspecified; G47.33 Obstructive sleep apnea (adult) (pediatric); Z79.01 Long term (current) use of anticoagulants; Z79.899 Other long term (current) drug therapy; Z68.34 Body mass index [BMI] 34.0-34.9, adult
CPT/HCPCS: 36415; 71046; 80048; 85025; 85610; 85730; 93454; 99152; 99153; C1760; J7040; C1769; C1894

== ENCOUNTER 2024-01-28 07:36 | Outpatient (RCR) | payer MEDICARE, OTHER, SELFPAY ==
[2015-12-09 13:30] VITALS: BMI 21.5
[2024-01-28 09:01] LABS: PSA,Total - Annual Screen 2.41 ng/mL (0.00-4.00)
[2024-01-28 09:28] LABS: International Normalized Ratio 1.6; Prothrombin Time (Protime)PT. 19.1 SECONDS (11.7-14.9)
== END 2024-02-20 18:00 | disposition home or self-care (01) ==
LOC: LAB 07:36
PROVIDERS: Nurse Practitioner Family; PCP Family Medicine; Referring Provider Internal Medicine Cardiovascular Disease; Visit Provider Internal Medicine Cardiovascular Disease
DX: I48.91 Unspecified atrial fibrillation (principal); Z79.01 Long term (current) use of anticoagulants; Z12.5 Encounter for screening for malignant neoplasm of prostate; I10 Essential (primary) hypertension; Z51.81 Encounter for therapeutic drug level monitoring
CPT/HCPCS: 36415; 84153; 85610; G0103

== ENCOUNTER → 2024-02-22 | Outpatient (CLI) | payer MEDICARE, OTHER, SELFPAY ==
[2015-12-09 13:30] VITALS: BMI 21.5
--- NOTE | 2024-02-22 11:36 | RAD_ITS ---
STUDY: X-RAY - LEFT FOOT CLINICAL: Male, 78 years old. FOOT INJURY TECHNIQUE: 3 views of the left foot. COMPARISON: Left foot radiographs dated 03/03/2013. FINDINGS: Intact talus, calcaneus, and tarsal bones. There is a small plantar calcaneal tuberosity spur. Normal visualized subtalar, talonavicular, calcaneocuboid, tarsal and tarsometatarsal articulations. Normal metatarsi. There is persistent severe degenerative arthrosis at the first MTP joint. Normal tibial and fibular sesamoid bones. Normal interphalangeal joint of the great toe. Normal phalanges of the great toe. Normal second through fifth metatarsophalangeal joints. Normal interphalangeal joints and phalanges of the lesser toes. There is no demonstrated fracture. There are mild atherosclerotic calcifications. There is new soft tissue swelling along the dorsum of the forefoot. RAD/Foot min 3 Views IMPRESSION: Persistent severe degenerative arthrosis at the first MTP joint. Small plantar calcaneal tuberosity spur. New soft tissue swelling along the dorsum of the forefoot. No demonstrated fracture. Electronically Signed: Ketan Roach MD at 12:12 EDT ,
== END | disposition home or self-care (01) ==
LOC: MTRAD 11:35
PROVIDERS: PCP Family Medicine; Referring Provider Nurse Practitioner Family; Visit Provider Nurse Practitioner Family
DX: M79.672 Pain in left foot (principal)
CPT/HCPCS: 73630

== ENCOUNTER 2024-03-12 10:44 | Outpatient (RCR) | payer MEDICARE, OTHER, SELFPAY ==
[2015-12-09 13:30] VITALS: BMI 21.5
[2024-02-29 11:36] LABS: International Normalized Ratio 3.4; Prothrombin Time (Protime)PT. 33.8 SECONDS (11.7-14.9)
[2024-02-29 11:52] LABS: Magnesium 2.5 mg/dL (1.6-2.6); Uric Acid 5.8 mg/dL (3.5-7.2)
[2024-03-06 09:32] LABS: INR Fingerstick 2.9; Prothrombin Time Fingerstick 29.2 SEC (11.7-14.9)
[2024-03-12 11:19] LABS: INR Fingerstick 2.3; Prothrombin Time Fingerstick 23.7 SEC (11.7-14.9)
== END 2024-03-12 18:00 | disposition home or self-care (01) ==
LOC: LAB 10:44
PROVIDERS: Psychiatry & Neurology Neurology; PCP Family Medicine; Referring Provider Internal Medicine Cardiovascular Disease; Visit Provider Internal Medicine Cardiovascular Disease
DX: Z79.01 Long term (current) use of anticoagulants (principal); I10 Essential (primary) hypertension; Z51.81 Encounter for therapeutic drug level monitoring; I48.0 Paroxysmal atrial fibrillation; M79.672 Pain in left foot; R25.2 Cramp and spasm
CPT/HCPCS: 36415; 36416; 83735; 84550; 85610

== ENCOUNTER 2024-06-10 09:04 | Outpatient (RCR) | payer MEDICARE, OTHER, SELFPAY ==
[2015-12-09 13:30] VITALS: BMI 21.5
[2024-06-10 10:14] LABS: International Normalized Ratio 1.7; Prothrombin Time (Protime)PT. 19.7 SECONDS (11.7-14.9)
[2024-06-10 10:54] LABS: Anion Gap 5 (5-15); BUN 17 mg/dL (7-18); BUN/Creat Ratio 18.8 RATIO (10-20); Calcium,Total 9.7 mg/dL (8.5-10.1); Chloride 101 mmol/L (98-107); EST Glomerular Filtration Rate 86 mL/min (>60); Est Glom Filt Rate - Afr Amer 105 mL/min (>60); Glucose 95 mg/dL (74-106); Potassium 3.6 mmol/L (3.5-5.1); Sodium Level 135 mmol/L (136-145)
== END 2024-06-21 18:00 | disposition home or self-care (01) ==
LOC: LAB 09:04
PROVIDERS: Nurse Practitioner Family; PCP Family Medicine; Referring Provider Internal Medicine Cardiovascular Disease; Visit Provider Internal Medicine Cardiovascular Disease
DX: Z79.01 Long term (current) use of anticoagulants (principal); I48.91 Unspecified atrial fibrillation; I10 Essential (primary) hypertension; Z51.81 Encounter for therapeutic drug level monitoring; I48.0 Paroxysmal atrial fibrillation; R60.0 Localized edema; R25.2 Cramp and spasm; Z79.899 Other long term (current) drug therapy
CPT/HCPCS: 36415; 80048; 85610

== ENCOUNTER 2024-07-17 07:52 | Outpatient (RCR) | payer MEDICARE, OTHER, SELFPAY ==
[2015-12-09 13:30] VITALS: BMI 21.5
[2024-07-17 08:25] LABS: International Normalized Ratio 2.3; Prothrombin Time (Protime)PT. 24.8 SECONDS (11.7-14.9)
[2024-07-17 08:34] LABS: Erythrocyte Sedimentation Rate 1 mm/hr (0-20)
[2024-07-17 08:36] LABS: ALB/GLOB Ratio 1.1 RATIO (0.9-2.4); AST(SGOT) 16 U/L (15-37); Absolute Lymphocyte Count 2.46 X10^3/uL (0.83-4.51); Absolute Neutrophil Count 7.2 X10^3/uL (2.0-7.7); Alanine Aminotransfer ALT/SGPT 32 U/L (16-61); Albumin, Serum 3.7 g/dL (3.2-5.0); Alkaline Phosphatase 76 U/L (45-117); Anion Gap 2 (5-15); BUN 27 mg/dL (7-18); BUN/Creat Ratio 20.1 RATIO (10-20); Basophil# 0.04 X10^3/uL; Basophil% 0.4 % (0-1); CRP 6.11 mg/L (0.0-3.0); Calcium,Total 9.5 mg/dL (8.5-10.1); Chloride 100 mmol/L (98-107); Creatinine, Serum 1.34 mg/dL (0.70-1.30); EST Glomerular Filtration Rate 55 mL/min (>60); Eosinophil# 0.06 X10^3/uL; Eosinophils% 0.6 % (0-5); Est Glom Filt Rate - Afr Amer 66 mL/min (>60); Globulin 3.3 g/dL (2.2-4.2); Glucose 104 mg/dL (74-106); Hematocrit 46.6 % (40-54); Hemoglobin 15.7 g/dL (13.0-16.5); Lymphocyte # 2.46 X10^3/ul (0.83-4.51); Lymphocyte % 23.1 % (19-41); Mean Corp Hgb Conc 33.7 g/dL (32-36); Mean Corpuscular Hgb 29.7 pg (27.0-32.0); Mean Corpuscular Volume 88.1 fL (80-94); Mean Platelet Vol. 10.5 fl (6.2-12.0); Monocyte# 0.78 X10^3/uL; Monocyte% 7.3 % (0-10); NRBC Flagged by Analyzer 0 % (0-5); Neutrophil # 7.24 X10^3/uL (2.7-7.7); Neutrophil % 67.9 % (47-70); Platelet Count 259 K/mm3 (150-450); RBC Distribution Width CV 13.9 % (11.6-14.6); RBC Distribution Width SD 44.7 fl (35.1-43.9); Red Blood Count 5.29 M/mm3 (4.6-6.2); Sodium Level 136 mmol/L (136-145); White Blood Count 10.7 K/mm3 (4.4-11.0)
== END 2024-07-17 18:00 | disposition home or self-care (01) ==
LOC: LAB 07:52
PROVIDERS: Nurse Practitioner Family; PCP Family Medicine; Referring Provider Internal Medicine Cardiovascular Disease; Visit Provider Internal Medicine Cardiovascular Disease
DX: Z79.01 Long term (current) use of anticoagulants (principal); I48.91 Unspecified atrial fibrillation; Z12.5 Encounter for screening for malignant neoplasm of prostate; I10 Essential (primary) hypertension; Z51.81 Encounter for therapeutic drug level monitoring
CPT/HCPCS: 36415; 80053; 85025; 85610; 85652; 86140

== ENCOUNTER 2024-07-26 19:17 | Emergency (ER) | payer MEDICARE, OTHER, SELFPAY ==
[2015-12-09 13:30] VITALS: BMI 21.5
[2024-07-26 19:18] VITALS: BP 127/69; PULSE 63; RESP 16; TEMP 36.8; O2SAT 98; BMI 29.8
--- NOTE | 2024-07-26 20:39 | EX.ED.UPPERE ---
HPI History of Present Illness Chief Complaint: Fall Narrative Narrative: 79-year-old male past medical history of atrial fibrillation, on Coumadin, presents with skin tear to his left hand that he sustained about an hour prior to arrival. He states that the cushion that he had on a chair fell on the floor. He leaned over to pick it up, and fell forward. His left hand hit a plant stand, and it was dragged across the metal surface. He sustained a large skin tear to the dorsum of his left hand, mainly between his first and second digit, and some at the base of his third digit. He has had skin tears in the past. He states his tetanus immunization is current. He denies other injury. No hitting his his head or loss of consciousness. 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 CONCEPCION (obstructive sleep apnea) History of cardioversion (~03/30/20) Aortic root dilatation Essential hypertension BPH with obstruction/lower urinary tract symptoms Cardiomyopathy in other diseases classified elsewhere CONCEPCION (obstructive sleep apnea) Neuropathy Hyperlipidemia Osteoarthritis Home Medications ?Medication ?Instructions ?Recorded ?Last Taken ?Type multivitamin with folic acid 400 1 tab PO DAILY SUPPLEMENT 06/21/16 08/07/17 08:00 History mcg tablet 1 magnesium 250 mg tablet 500 mg PO QHS 05/04/20 Unknown History cholecalciferol (vitamin D3) 50 50 mcg PO DAILY 10/18/20 Unknown History mcg (2,000 unit) tablet Compression stockings (10-20) #2 ea 02/26/24 Unknown Rx pravastatin 80 mg tablet 80 mg PO QHS CHOLESTEROL #90 tabs 04/04/24 Unknown Rx warfarin 4 mg tablet 4 mg PO DAILY #90 tabs 04/16/24 Unknown Rx gabapentin 600 mg tablet 1,200 mg (2 x 600 mg) PO QHS #180 05/08/24 Unknown Rx tabs tizanidine 4 mg tablet 4 mg PO QHS muscle spasticity #90 05/08/24 Unknown Rx tabs semaglutide (weight loss) 0.5 0.5 mg subcut QWEEK 06/10/24 Unknown History mg/0.5 mL subcutaneous pen injector (Wegovy) losartan 100 See Rx Instructions .Route 06/30/24 Unknown Rx mg-hydrochlorothiazide 25 mg tablet .COMPLEX #90 tabs furosemide 40 mg tablet 40 mg PO BID #180 tabs 07/01/24 Unknown Rx potassium chloride 20 mEq 20 meq PO BID this is a dose 07/03/24 Unknown Rx tablet,extended release increase #180 tabs Allergy/AdvReac Type Severity Reaction Status Date / Time lactose Allergy Food Verified 07/26/24 19:18 Allergy poison lauren extract Allergy Itching Verified 07/26/24 19:18 dapagliflozin (From Farxiga) AdvReac Intermediate Extreme Verified 07/26/24 19:18 fatigue and somnolence rivaroxaban (From Xarelto) AdvReac Intermediate Bruising Verified 07/26/24 19:18 easily, nosebleeds Family History Father CVA (cerebral vascular accident) Congestive heart failure Brother Heart disease Congestive heart failure Diabetes Mother Cancer Ovarian Cancer Surgical History History of prostate surgery History of transurethral resection of prostate History of left hip replacement History of tonsillectomy H/O aortic valve replacement (~08/24/08) Social History Smoking Status: Never smoker second hand exposure: No alcohol intake: current alcohol intake frequency: 0-2 drinks per day details: beer caffeine: Yes Type: coffee Number of servings: 1 what type of physical activity do you participate in: walking and other details: step & light weight lifting frequency: 3-4 times per week ambrose/pentecostalism: Temple seatbelt use: always ROS ROS ED ROS Narrative Review of systems positive for skin tear on dorsum of left hand between first and second digits, and on third digit. No hitting of his head, no loss of consciousness, no pain with movement of fingers. Denies other injuries. EXAM Physical Exam Narrative Exam Narrative: GCS 15. ABCs intact. Focused physical examination does reveal a 5 to 6 cm skin tear on the dorsum of his left hand, proximal to the webspace of the first and second digits. There is 2 to 3 cm skin tear at the base of his third digit on the dorsum of the finger. Minimal active bleeding. The larger avulsion does have remaining epidermis attached to about half of it. No bony tenderness of hand. Full range of motion of wrist without pain. Palpable radial pulse. Good capillary refill of fingers. Const Vital Signs: 07/26/24 19:18 07/26/24 20:08 Temperature 98.2 F Temperature Source Oral Pulse Rate 63 Respiratory Rate 16 Respiratory Effort Normal Blood Pressure 127/69 H Blood Pressure Mean 88 Pulse Ox 98 Oxygen Delivery Method Room Air Room Air MDM MDM MDM Narrative Medical decision making narrative: I do not feel differential diagnosis is applicable. He has a skin tear. I have very low suspicion for underlying fracture. I discussed the utility of x-ray with the patient but he declined stating that the skin holland, but he has no pain in his hand or wrist. I do not feel laboratory work is indicated. Additionally, he stopped taking his Coumadin recently for colonoscopy, but recently restarted it. He is supposed to have an INR drawn on Sunday, 3 days from now. I offered to draw his INR currently but he declined. His skin avulsion was cleansed with normal saline. I did discuss with him wound closure. Initially he wanted the epidermal layer debrided. However, as it is attached to half of the larger skin avulsion, I cleansed underneath it and pull the skin back in place. RN will Steri-Strip and dressed with either bacitracin and nonadherent dressing or Vaseline gauze dressing. At this point in time, I feel he can be discharged to follow-up with his primary care provider. He should have a wound check within a week. Return instructions to the emergency department were reviewed. Disposition is discharged home in stable condition. Discharge Plan Triage Chief Complaint: Fall Other Complaint: Wound ED Provider: Amadeo Claire Dx/Rx/DC Orders Clinical Impression: Skin tear of left hand without complication, Fall Instructions: ED Skin Tear (Skin Avulsion), ED Fall Prevention Prescriptions: No Action magnesium 250 mg tablet 500 mg PO QHS cholecalciferol (vitamin D3) 50 mcg (2,000 unit) tablet 50 mcg PO DAILY (DME) Compression stockings (10-20) See Rx Instructions .ROUTE .MEDSUPPLY Qty: 2 0RF Rx Instructions: As directed tizanidine 4 mg tablet 4 mg PO QHS Qty: 90 2RF gabapentin 600 mg tablet 1,200 mg PO QHS Qty: 180 2RF multivitamin with folic acid 1 TABLET tablet 1 tab PO DAILY pravastatin 80 mg tablet 80 mg PO QHS Qty: 90 3RF warfarin 4 mg tablet 4 mg PO DAILY Qty: 90 3RF Protocol: Dose Management Condition: Sunday Dose/Route: 2 mg Instruction: 0.5 x 4 mg tablets Condition: Sunday Dose/Route: 4 mg Instruction: 1 x 4 mg tablet Condition: Sunday Dose/Route: 4 mg Instruction: 1 x 4 mg tablet Condition: Sunday Dose/Route: 4 mg Instruction: 1 x 4 mg tablet Condition: Dose/Route: 4 mg Instruction: 1 x 4 mg tablet Condition: Sunday Dose/Route: 4 mg Instruction: 1 x 4 mg tablet Condition: Sunday Dose/Route: 4 mg Instruction: 1 x 4 mg tablet Protocol Text: Adjustment Start Date: 07/17/24 INR Value: 2.3 INR Date: 07/17/24 Recheck Date: 08/16/24 Wegovy 0.5 mg/0.5 mL pen injector 0.5 mg subcut QWEEK Rx Instructions: administer weeks 5 through 8 of therapy losartan-hydrochlorothiazide 100-25 mg tablet See Rx Instructions .ROUTE .COMPLEX Qty: 90 3RF Dose Instruction: TAKE 1 TABLET EVERY DAY Rx Instructions: TAKE 1 TABLET EVERY DAY furosemide 40 mg tablet 40 mg PO BID Qty: 180 3RF potassium chloride 20 mEq tablet extended release 20 meq PO BID Qty: 180 3RF Primary Care Provider: Dwain Oliver Referrals: Dwain Oliver DO [Primary Care Provider] - 1 Week Activity Restrictions/Additional Instructions: Return to the emergency department with fever, red streak up your hand/arm, new or worsening symptoms. Have your wound checked within the next week by your primary care provider. Print Language: Cymro Disposition Disposition: Home, Self Care
== END 2024-07-26 20:58 | disposition home or self-care (01) ==
PROVIDERS: Emergency Provider Emergency Medicine; PCP Family Medicine; Visit Provider Emergency Medicine
DX: S61.412A Laceration without foreign body of left hand, initial encounter (principal); I42.9 Cardiomyopathy, unspecified; E78.5 Hyperlipidemia, unspecified; I10 Essential (primary) hypertension; Z95.2 Presence of prosthetic heart valve; G47.33 Obstructive sleep apnea (adult) (pediatric); Z79.01 Long term (current) use of anticoagulants; W18.09XA Striking against other object with subsequent fall, initial encounter
CPT/HCPCS: 99284

== ENCOUNTER 2024-08-18 16:30 | Outpatient (RCR) | payer MEDICARE, OTHER, SELFPAY ==
[2015-12-09 13:30] VITALS: BMI 21.5
[2024-08-06 14:41] LABS: INR Fingerstick 1.5; Prothrombin Time Fingerstick 16.6 SEC (11.7-14.9)
[2024-08-18 16:52] LABS: International Normalized Ratio 2.1; Prothrombin Time (Protime)PT. 23.8 SECONDS (11.7-14.9)
== END 2024-08-18 18:00 | disposition home or self-care (01) ==
LOC: LAB 16:30
PROVIDERS: PCP Family Medicine; Referring Provider Internal Medicine Cardiovascular Disease; Visit Provider Internal Medicine Cardiovascular Disease
DX: Z79.01 Long term (current) use of anticoagulants (principal); I48.91 Unspecified atrial fibrillation; I10 Essential (primary) hypertension; Z51.81 Encounter for therapeutic drug level monitoring
CPT/HCPCS: 36415; 36416; 85610

== ENCOUNTER → 2024-08-18 | Outpatient (CLI) | payer MEDICARE, OTHER, SELFPAY ==
[2015-12-09 13:30] VITALS: BMI 21.5
--- NOTE | 2024-08-18 15:30 | VDLE_ITS ---
Reason For Study: Left leg pain RIGHT LEFT CFV is compressible, spontaneous, phasic, GSV is normal. competent and demonstrates normal CFV is compressible, spontaneous, phasic, augmentation. competent, and demonstrates normal Procedure augmentation. This is a venous duplex using B-mode, color FV is compressible, spontaneous, phasic, flow and spectral Doppler. competent and demonstrates normal Exam performed in department. augmentation. A preliminary report was called and/or faxed POP V is compressible, spontaneous, phasic, to Bob HAND STITCHER-C. competent and demonstrates normal augmentation. T/P Trunk is compressible. PTV is compressible. LT PerV is compressible. VL/Venous Duplex US, Unilateral Interpretation Summary Deep veins of the left lower extremity are patent and compressible segmentally. There is no evidence of left lower extremity deep vein thrombosis. The left great saphenous vein deon ears patent and compressible segmentally. Ordering Physician: Luisa Rojas Referring Physician: Dwain Oliver Performed By: Yesenia Perez RVT
--- NOTE | 2024-08-18 16:04 | RAD_ITS ---
STUDY: X-RAY - PELVIS AND LEFT HIP REASON FOR EXAM: Male, 79 years old. Fall. Pain. TECHNIQUE: 4 views of the pelvis and hip. COMPARISON: August 28, 2018 FINDINGS: There is a non-specific bowel gas pattern. Marked vascular calcification. Stable phleboliths. Osteopenia. Normal bilateral iliac wings, sacroiliac joints and visualized sacrum. Normal bilateral superior and inferior pubic rami. Normal pubic symphysis. Normal bilateral ischial tuberosities. Mild arthrosis of the right hip unchanged. Stable revision left total hip arthroplasty with longstem femoral component and cerclage wires. RAD/HIP, UNI W/ Pelvis 2-3 Views IMPRESSION: Stable pelvis and proximal femurs with no acute abnormality. Electronically Signed: Kenney Castañeda MD at 9:52 EST ,
== END | disposition home or self-care (01) ==
LOC: CVS 15:26
PROVIDERS: PCP Family Medicine; Referring Provider Nurse Practitioner Family; Visit Provider Nurse Practitioner Family
DX: M79.652 Pain in left thigh (principal); Z91.81 History of falling
CPT/HCPCS: 73502; 93971

== ENCOUNTER 2024-10-14 09:40 | Outpatient (RCR) | payer MEDICARE, OTHER, SELFPAY ==
[2015-12-09 13:30] VITALS: BMI 21.5
[2024-09-30 10:40] LABS: International Normalized Ratio 1.8; Prothrombin Time (Protime)PT. 21.3 SECONDS (11.7-14.9)
[2024-10-14 10:51] LABS: International Normalized Ratio 2.1; Prothrombin Time (Protime)PT. 23.9 SECONDS (11.7-14.9)
== END 2024-10-14 18:00 | disposition home or self-care (01) ==
LOC: LAB 09:40
PROVIDERS: PCP Family Medicine; Referring Provider Internal Medicine Cardiovascular Disease; Visit Provider Internal Medicine Cardiovascular Disease
DX: I48.0 Paroxysmal atrial fibrillation; Z79.01 Long term (current) use of anticoagulants
CPT/HCPCS: 36415; 85610

== ENCOUNTER 2024-11-04 08:49 | Outpatient (RCR) | payer MEDICARE, OTHER, SELFPAY ==
[2015-12-09 13:30] VITALS: BMI 21.5
[2024-11-04 10:20] LABS: International Normalized Ratio 2.7; Prothrombin Time (Protime)PT. 29.3 SECONDS (11.7-14.9)
[2024-11-04 11:20] LABS: Cholesterol 165 mg/dL (<=200); High Density Lipoprotein 66 mg/dL; Low Density Lipoprotein Calc. 73 mg/dL; Triglycerides 131 mg/dL; Very Low Density Lipoprotein 26 mg/dL (5-40); cholesterol:hdl ratio screen 2.49
[2024-11-04 11:22] LABS: AST(SGOT) 30 U/L (<=37); Alanine Aminotransfer ALT/SGPT 25 U/L (<=46); Albumin, Serum 3.8 g/dL (3.4-4.8); Alkaline Phosphatase 49 U/L (40-129); Bilirubin, Direct 0.18 mg/dL (0.00-0.30); Globulin 2.5 g/dL (2.2-4.2); Protein, Total 6.4 g/dL (5.9-8.4)
== END 2024-11-19 18:00 | disposition home or self-care (01) ==
LOC: LAB 08:49
PROVIDERS: PCP Family Medicine; Referring Provider Student in an Organized Health Care Education/Training Program; Visit Provider Internal Medicine Cardiovascular Disease
DX: Z79.01 Long term (current) use of anticoagulants (principal); I48.0 Paroxysmal atrial fibrillation; I10 Essential (primary) hypertension; Z51.81 Encounter for therapeutic drug level monitoring
CPT/HCPCS: 36415; 80061; 80076; 85610

== ENCOUNTER → 2024-11-13 | Outpatient (CLI) | payer MEDICARE, OTHER, SELFPAY ==
[2015-12-09 13:30] VITALS: BMI 21.5
== END | disposition home or self-care (01) ==
LOC: PSN 13:50
PROVIDERS: PCP Family Medicine; Referring Provider Student in an Organized Health Care Education/Training Program; Visit Provider Student in an Organized Health Care Education/Training Program
DX: R55 Syncope and collapse (principal)
CPT/HCPCS: 93225; 93226

== ENCOUNTER → 2024-11-25 | Outpatient (CLI) | payer MEDICARE, OTHER, SELFPAY ==
[2015-12-09 13:30] VITALS: BMI 21.5
--- NOTE | 2024-11-25 13:49 | ECHOCS_ITS ---
Reason For Study Reason For Study: AVR Procedure This was a 2D Doppler, Color Flow transthoracic echocardiogram. Contrast injection was performed. Exam performed in department. Left Ventricle Normal LV size. The left ventricular ejection fraction is 55 %. No regional wall motion abnormalities noted. Right Ventricle Normal RV size. Normal systolic function. Atria The left atrium is moderately enlarged. Normal right atrium. Mitral Valve Normal mitral valve. Tricuspid Valve Normal tricuspid valve. Mild (1+) tricuspid valve insufficiency. Pulmonary artery systolic pressure is 30 mmHg. Aortic Valve Peak aortic valve gradient 28 mmHg. Mean aortic valve gradient 16 mmHg. Bioprosthetic aortic valve. Pulmonic Valve Normal pulmonic valve. Great Vessels Normal aortic root. The sinus of valsalva is mildly dilated. The pulmonary artery is normal size. Inferior vena cava collapse with respiration. Pericardium/Pleural No pericardial effusion. Medication Diluted definity 2ml given slow IV push to enhance endocardial definition. MMode/2D Measurements & Calculations LVIDd: 5.5 cm IVSd: 1.2 cm LVOT diam: 2.5 cm LVIDs: 4.0 cm LVPWd: 1.1 cm RVDd: 4.0 cm FS: 27.4 % LVOT area: 4.9 cm2 Ao root diam: 3.1 cm LAV(MOD-bp): 97.4 ml LVAd ap4: 33.3 cm2 LAV(MOD-bp) Indexed: 46.8 ml/m2 LVLd ap4: 7.6 cm LAV(MOD-sp2): 99.2 ml EDV(MOD-sp4): 122.0 ml LAV(MOD-sp4): 94.2 ml EDV(sp4-el): 124.6 ml LVAs ap4: 19.5 cm2 LVLs ap4: 6.2 cm ESV(MOD-sp4): 51.2 ml ESV(sp4-el): 52.3 ml EF(MOD-sp4): 58.0 % EF(sp4-el): 58.0 % SV(MOD-sp4): 70.8 ml SV(sp4-el): 72.2 ml LA A4 area: 27.8 cm2 SI(MOD-sp4): 34.0 ml/m2 LA dimension(2D): 5.1 cm RA A4 area: 22.9 cm2 TAPSE: 1.1 cm Doppler Measurements & Calculations MV E max roel: 70.3 cm/sec Lat Peak E' Roel: 13.1 cm/sec Med Peak E' Roel: 9.3 cm/sec E/E' lat: 5.4 E/E' med: 7.6 Ao V2 max: 263.5 cm/sec LV V1 max: 128.1 cm/sec SV(LVOT): 139.5 ml Ao max P.0 mmHg LV V1 max P.7 mmHg Ao V2 mean: 191.4 cm/sec LV V1 mean P.5 mmHg Ao mean P.4 mmHg LV V1 mean: 102.5 cm/sec Ao V2 VTI: 57.3 cm LV V1 VTI: 28.2 cm AV (velocity ratio): 0.49 TIMBO(I,D): 2.4 cm2 TIMBO(V,D): 2.4 cm2 PA V2 max: 82.4 cm/sec TR max roel: 250.6 cm/sec TR max P.1 mmHg ECHO/Echo Complete W/ Contrast Interpretation Summary The left atrium is moderately enlarged. Normal LV size. The left ventricular ejection fraction is 55 %. Bioprosthetic aortic valve. Mean aortic valve gradient 16 mmHg. Ordering Physician: Raymon Heart Referring Physician: Dwain Oliver Performed By: Luisa Perez, MARIA ELENA, RVT
== END | disposition home or self-care (01) ==
LOC: CVS 13:48
PROVIDERS: PCP Family Medicine; Referring Provider Student in an Organized Health Care Education/Training Program; Visit Provider Student in an Organized Health Care Education/Training Program
DX: Z95.2 Presence of prosthetic heart valve (principal)
CPT/HCPCS: 93306; Q9957; A4216; C8929

== ENCOUNTER 2025-01-13 09:08 | Outpatient (RCR) | payer MEDICARE, OTHER, SELFPAY ==
[2015-12-09 13:30] VITALS: BMI 21.5
[2025-01-13 09:44] LABS: Hematocrit 42.2 % (40-54); Hemoglobin 14.8 g/dL (13.0-16.5); Mean Corp Hgb Conc 35.1 g/dL (32-36); Mean Corpuscular Hgb 31.8 pg (27.0-32.0); Mean Corpuscular Volume 90.8 fL (80-94); Platelet Count 271 K/mm3 (150-450); RBC Distribution Width CV 13.6 % (11.6-14.6); RBC Distribution Width SD 45.8 fl (35.1-43.9); Red Blood Count 4.65 M/mm3 (4.6-6.2); White Blood Count 9.9 K/mm3 (4.4-11.0)
[2025-01-13 10:03] LABS: International Normalized Ratio 1.5; Prothrombin Time (Protime)PT. 18.6 SECONDS (11.7-14.9)
[2025-01-13 10:07] LABS: Hemoglobin A1c 5.6 % (<=5.6)
[2025-01-13 10:25] LABS: Anion Gap 11 (5-15); BUN 24 mg/dL (4-19); BUN/Creat Ratio 23.3 RATIO (10-20); Calcium,Total 9.8 mg/dL (7.6-11.0); Carbon Dioxide 25.9 mmol/L (21.0-32.0); Chloride 102 mmol/L (98-108); Creatinine, Serum 1.02 mg/dL (0.70-1.20); EST Glomerular Filtration Rate 75 (>60); Glucose 101 mg/dL (70-99); Potassium 4.4 mmol/L (3.3-5.1); Sodium Level 138 mmol/L (133-145)
== END 2025-01-13 18:00 | disposition home or self-care (01) ==
LOC: LAB 09:08
PROVIDERS: Nurse Practitioner Family; Psychiatry & Neurology Neurology; PCP Family Medicine; Referring Provider Nurse Practitioner; Visit Provider Internal Medicine Cardiovascular Disease
DX: Z79.01 Long term (current) use of anticoagulants (principal); Z12.5 Encounter for screening for malignant neoplasm of prostate; I10 Essential (primary) hypertension; Z51.81 Encounter for therapeutic drug level monitoring; I48.0 Paroxysmal atrial fibrillation; R73.9 Hyperglycemia, unspecified
CPT/HCPCS: 36415; 80048; 83036; 85027; 85610

== ENCOUNTER 2025-01-27 08:41 | Outpatient (RCR) | payer MEDICARE, OTHER, SELFPAY ==
[2015-12-09 13:30] VITALS: BMI 21.5
[2025-01-27 09:39] LABS: Prothrombin Time (Protime)PT. 31.1 SECONDS (11.7-14.9)
[2025-01-27 10:26] LABS: PSA,Total - Annual Screen 2.19 ng/mL (0.02-4.00)
== END 2025-02-19 20:42 | disposition home or self-care (01) ==
LOC: LAB 08:41
PROVIDERS: Internal Medicine Cardiovascular Disease; PCP Family Medicine; Referring Provider Internal Medicine Cardiovascular Disease; Visit Provider Internal Medicine Cardiovascular Disease
DX: Z79.01 Long term (current) use of anticoagulants (principal); I48.0 Paroxysmal atrial fibrillation; I10 Essential (primary) hypertension; Z51.81 Encounter for therapeutic drug level monitoring; Z12.5 Encounter for screening for malignant neoplasm of prostate
CPT/HCPCS: 36415; 84153; 85610; G0103

== ENCOUNTER 2025-02-24 07:57 | Outpatient (RCR) | payer MEDICARE, OTHER, SELFPAY ==
[2015-12-09 13:30] VITALS: BMI 21.5
[2025-02-24 09:44] LABS: Prothrombin Time (Protime)PT. 29.3 SECONDS (11.7-14.9)
[2025-02-24 10:08] LABS: Anion Gap 10 (5-15); BUN 24 mg/dL (4-19); BUN/Creat Ratio 24.4 RATIO (10-20); Calcium,Total 9.5 mg/dL (7.6-11.0); Carbon Dioxide 28.5 mmol/L (21.0-32.0); Chloride 96 mmol/L (98-108); Glucose 89 mg/dL (70-99); Potassium 3.9 mmol/L (3.3-5.1)
== END 2025-02-24 18:00 | disposition home or self-care (01) ==
LOC: LAB 07:57
PROVIDERS: Student in an Organized Health Care Education/Training Program; PCP Family Medicine; Referring Provider Internal Medicine Cardiovascular Disease; Visit Provider Internal Medicine Cardiovascular Disease
DX: Z79.01 Long term (current) use of anticoagulants (principal); I48.91 Unspecified atrial fibrillation; I10 Essential (primary) hypertension; Z51.81 Encounter for therapeutic drug level monitoring
CPT/HCPCS: 36415; 80048; 85610

== ENCOUNTER 2025-04-14 08:05 | Outpatient (RCR) | payer MEDICARE, OTHER, SELFPAY ==
[2015-12-09 13:30] VITALS: BMI 21.5
[2025-04-14 09:03] LABS: Prothrombin Time (Protime)PT. 22.8 SECONDS (11.7-14.9)
[2025-04-14 09:32] LABS: Magnesium 2.9 mg/dL (1.5-2.2)
[2025-04-14 09:33] LABS: Anion Gap 11 (5-15); BUN 22 mg/dL (4-19); BUN/Creat Ratio 20.9 RATIO (10-20); Calcium,Total 9.6 mg/dL (7.6-11.0); Carbon Dioxide 29.1 mmol/L (21.0-32.0); Chloride 95 mmol/L (98-108); Glucose 93 mg/dL (70-99); Potassium 4.3 mmol/L (3.3-5.1)
== END 2025-04-21 18:00 | disposition home or self-care (01) ==
LOC: LAB 08:05
PROVIDERS: Student in an Organized Health Care Education/Training Program; PCP Family Medicine; Referring Provider Internal Medicine Cardiovascular Disease; Visit Provider Internal Medicine Cardiovascular Disease
DX: Z79.01 Long term (current) use of anticoagulants (principal); I48.91 Unspecified atrial fibrillation; Z12.5 Encounter for screening for malignant neoplasm of prostate; I10 Essential (primary) hypertension; Z51.81 Encounter for therapeutic drug level monitoring
CPT/HCPCS: 36415; 80048; 83735; 84443; 85610

== ENCOUNTER → 2025-04-23 | Outpatient (CLI) | payer MEDICARE, OTHER, SELFPAY ==
[2015-12-09 13:30] VITALS: BMI 21.5
--- NOTE | 2025-04-23 15:27 | LES_PTH ---
PATIENT: ELDA RUSH LOC: [facility] U#:[id number] AGE/SX: 79/M ROOM: RE04/23/[address]: Dr. Dwain Oliver DO : 1945 BED: DIS: 04/23/2025 SPEC #: [id number] RECD: 04/23/25 19:26 STATUS: TRINITY LAVERNE #: [id number] LUZ: 04/23/25 15:[address]: Dwain Oliver DEPT: SURGICAL PATHOLOGY RECD BY: Kenneth Saucedo Tissues: A - Skin of chest Procedures: Surgery Specimen Level IV HEADER OPERATION: Punch biopsy - mole chest PRE-OP DIAGNOSIS: Changing mole, rule out melanoma TISSUE SUBMITTED: A- 3mm - punch biopsy, right chest MICROSCOPIC DIAGNOSIS A. Skin, right chest, "changing mole", punch biopsy: * Seborrheic keratosis, benign. MICROSCOPIC DESCRIPTION Slides are reviewed. GROSS DESCRIPTION A. Received in formalin labeled with the patient's name and date of . Designated as " R chest" is a 0.4 x 0.3 cm light to dark brown, granular and friable skin punch excised to maximum depth of 0.1 cm. The resection margin is inked blue. Entirely submitted in 1 cassette. MN [id number]
--- OUTSIDE RECORDS SUMMARY | 2025-04-24 07:38 | XMS RPT_ITS | CCD ---
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 Dwain Kolb Primary Care Provider [phone] Dr. Dwain Kolb Referring Provider Timo ROY, 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-C Nichelle Attending Provider PATRICIA Moscoso Attending Provider PATRICIA Moscoso Referring Provider PATRICIA Moscoso Other Provider Dr. Rodrigo Thacker Attending Provider [phone] Dwain Kolb Primary Care Provider [phone] Dr. Dwain Kolb Referring Provider Dr. Dwain Kolb Primary Care Provider [phone] Dr. Dwain Kolb Referring Provider PATRICIA Moscoso Attending Provider Dr. Oneil Nova Attending Provider [phone] Dr. Vinicio Steward Attending Provider [phone] Dr. Dwain Kolb Primary Care Provider [phone] Dr. Dwain Kolb Primary Care Provider [phone] Dr. Dwain Kolb Referring Provider Dr. Rodrigo Thacker Attending Provider Neal 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, 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-C Bridgette Attending Provider [phone] Dr. Dwain Kolb Primary Care Provider [phone] Dr. Dwain Kolb Referring Provider Neal 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, 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-C Bridgette Attending Provider Dr. Oneil Nova Attending Provider [phone] Dr. Vinicio Steward Attending Provider Dr. Dwain Kolb Primary Care Provider [phone] Dr. Dwain Kolb Referring Provider Roof 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, 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-C Talat Bacon Attending Provider Dr. Dwain Kolb Primary Care Provider [phone] Dr. Dwain Kolb Referring Provider [phone] Dr. Dwain Kolb Primary Care Provider [phone] Dr. Dwain Kolb Referring Provider Chris 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, 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-C Talat Bacon Attending Provider Ángel 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, 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-C Bridgette Attending Provider Dr. Dwain Kolb Primary Care Provider [phone] Dr. Dwain Kolb Referring Provider Neal 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, 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-C Bridgette Attending Provider [phone] Dr. Oneil Nova Attending Provider [phone] Dr. Dwain Kolb Primary Care Provider [phone] Dr. Dwain Kolb Referring Provider Neal 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, 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-C Bridgette Attending Provider [phone] Dr. Matias Delatorre Attending Provider [phone] Dr. Matias Delatorre Referring Provider [phone] Roof 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, 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-C Talat Bacon Attending Provider Dr. Dwain Kolb Primary Care Provider [phone] Dr. Matias Delatorre Attending Provider Dr. Matias Delatorre Referring Provider Chris 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, 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-C Talat Bacon Attending Provider Dr. Dwain Kolb Referring Provider Dr. Oneil Nova Attending Provider Dr. Zuleyma Mcclure Attending Provider Dr. Donis Davies Attending Provider Ángel 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, 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-C Bridgette Attending Provider Donis Davies MD Unavailable Dwain Kolb Primary Care Provider Unavailable Primary Care Provider JR Tovar Attending JR Tovar Attending JR Tovar Attending Payal e SELF Referring Unavailable Dr. Dwain Kolb DO Primary Care Provider [phone] Timo 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-CNichelle Other Provider Chris ROY-C, Talat Bacon Other Provider Dr. Matias Delatorre MD Attending Provider Dr. Matias Delatorre MD Referring Provider Tracey MOY, Dr. Thompson Jaffe Other Provider Dr. Oneil Nova MD Other Provider IRWIN RAMIREZ Other Provider Amadeo Claire MD Attending Provider Amadeo Claire MD Emergency Provider Bob 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-CLuisa Attending Provider Bob 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-CLuisa Referring Provider Dr. Davi Diaz MD Attending Provider [phone] Dwain Kolb DO Referring Provider Ángle ROY-CBridgette Attending Provider Dr. Dwain Kolb DO Primary Care Provider Cheuvront 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-C, Christen Other Provider Roof 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-C, Talat H Other Provider Juan Ramon MOY, Dr. Salcedo Attending Provider Juan Ramon MOY, Dr. Salcedo Referring Provider Tracey MOY, Dr. Thompson Jaffe Other Provider Avtar MOY, Dr. Riggs Other Provider IRWIN RAMIREZ Other Provider Rakesh Shirleyyler Attending Provider Rakesh Shirleyyler Referring Provider Dr. Dwain Kolb DO Primary Care Provider Cheuvront 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-C, Christen Other Provider Roof 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-C, Talat H Other Provider Juan Ramon MOY, Dr. Salcedo Attending Provider [phone] Juan Ramon MOY, Dr. Salcedo Referring Provider [phone] Tracey MOY, Dr. Thompson Jaffe Other Provider Avtar MOY, Dr. Riggs Other Provider IRWIN RAMIREZ Other Provider Dr. Dwain Kolb DO Referring Provider Dr. Oneil Nova MD Attending Provider Peyton Velazquez Referring Provider Dr. Dwain Kolb DO Primary Care Provider Cheuvront 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-C, Christen Other Provider Roof 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-C, Talat H Other Provider Juan Ramon MOY, Dr. Salcedo Attending Provider Tracey MOY, Dr. Thompson Jaffe Other Provider [phone] Avtar MOY, Dr. Riggs Other Provider IRWIN RAMIREZ Other Provider Juan Ramon MOY, Dr. Salcedo Referring Provider Peyton Velazquez Other Provider Dr. Dwain Kolb DO Primary Care Provider [phone] Raymon Shirley Attending Provider Rakesh Shirleyyler Referring Provider Juan Ramon MOY, Dr. Salcedo Attending Provider Dr. Dwain Kolb DO Referring Provider Chehitesh 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-C, Nichelle Other Provider Chris 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-C, Talat Bacon Other Provider Tracey MOY, Dr. Thompson Jaffe Other Provider Atvar MOY, Dr. Riggs Other Provider IRWIN RAMIREZ Other Provider Sly GOMEZ Raymon Other Provider Neal 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-CBridgette Attending Provider Dr. Dwain Kolb DO Primary Care Provider [phone] Rakesh Shirleyyler Attending Provider Sly GOMEZ Raymon Referring Provider [phone] Juan Ramon MOY, Dr. Salcedo Attending Provider [phone] Dwain Kolb DO Referring Provider Dwain Kolb Primary Care Unavailable Dwain Kolb Referring Unavailable Juan Ramon, Matias Attending Unavailable Dwain Kolb Primary Care Unavailable Juan Ramon, [place] Attending Unavailable Juan Ramon, Matias Referring Unavailable Chehitesh 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, Nichelle Consulting Unavailab Thompson Barnes Consulting Unavailable Oneil Nova Consulting Unavailable Roof 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, Talat Bacon Consulting Unavailable FRANICSCO BANSAL Consulting Unavailab Peyton Vitale Consulting Unavailable Dwain Kolb Primary Care Unavailable Ujan Ramon, [place] Referring Unavailable Juan Ramon, [place] Attending Unavailable Cheuvront 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, Nichelle Consulting Unavailab le Tracey, Babak Consulting Unavailable Baddour, Oneil Consulting Unavailable Roof 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, Talat H Consulting Unavailable ROLF, HARDENBROOK Consulting Unavailab le Crosby, Peyton Consulting Unavailable Demiter, Raymon Consulting Unavailable [facility] Primary Care Unavailable Crosby, Peyton Referring Unavailable Juan Ramon, [place] Attending Unavailable Cheuvront 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, Christen Consulting Unavailab le Tracey, Babak Consulting Unavailable Baddour, Oneil Consulting Unavailable Roof 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, Talat H Consulting Unavailable ROLF, HARDENBROOK Consulting Unavailab le [facility] Primary Care Unavailable Juan Ramon, [place] Referring Unavailable Juan Ramon, [place] Attending Unavailable Cheuvront 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, Christen Consulting Unavailab le Tracey, Babak Consulting Unavailable Baddour, Oneil Consulting Unavailable Roof 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, Talat H Consulting Unavailable ROLF, HARDENBROOK Consulting Unavailab le [facility] Primary Care Unavailable Juan Ramon, [place] Referring Unavailable Juan Ramon, [place] Attending Unavailable Cheuvront 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, Christen Consulting Unavailab le Tracey, Babak Consulting Unavailable Baddour, Oneil Consulting Unavailable Roof 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, Talat H Consulting Unavailable ROLF, HARDENBROOK Consulting Unavailab le [facility] Primary Care Unavailable Baddour, Oneil Attending Unavailable [facility] Referring Unavailable Cheuvront 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, Christen Consulting Unavailab le [facility] Care Unavailable Juan Ramon, Matias Attending Unavailable Demiter, Raymon Referring Unavailable Tracey, Babak Consulting Unavailable Baddour, Oneil Consulting Unavailable Roof 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, Talat H Consulting Unavailable ROLF, HARDENBROOK Consulting Unavailab le Cheuvront 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, Christen Consulting Unavailab le Juan Ramon, Matias Referring Unavailable [facility] Primary Care Unavailable Juan Ramon, Matias Attending Unavailable Tracey, Babak Consulting Unavailable Baddour, Oneil Consulting Unavailable Roof 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, Talat H Consulting Unavailable ROLF, HARDENBROOK Consulting Unavailab le Cheuvront 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, Christen Consulting Unavailab [facility] Primary Care Unavailable Juan Ramon, Matias Referring Unavailable Juan Ramon, [place] Attending Unavailable Tracey, Babak Consulting Unavailable Baddour, Oneil Consulting Unavailable Roof 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, Talat H Consulting Unavailable ROLF, HARDENBROOK Consulting Unavailab le Cortes, Dwain Primary Care Unavailable Cortes, Dwain Attending Unavailable Cortes, Dwain Primary Care Unavailable Juan Ramon, Matias Attending Unavailable Juan Ramon, Matias Referring Unavailable Cortes, Dwain Primary Care Unavailable Crosby, Peyton Attending Unavailable Crosby, Peyton Referring Unavailable Cortes, Dwain Primary Care Unavailable Juan Ramon, Matias Referring Unavailable Juan Ramon, Matias Attending Unavailable Timo 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, Nichelle Consulting UnavailThompson Foster Consulting Unavailable Oneil Nova Consulting Unavailable Chris 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, Talat Bacon Consulting Unavailable FRANCISCO BANSAL Consulting Unavailab monica Crosby, Peyton Consulting Unavailable Demiter, Raymon Consulting Unavailable Cortes, Dwain Primary Care Unavailable Demiter, Raymon Attending Unavailable Demiter, Raymon Referring Unavailable Cortes, Dwain Primary Care Unavailable Amadeo Claire Attending Unavailable Cortes, Dwain Primary Care Unavailable BobLuisa parekh Attending Unavailable Bob, Luisa Referring Unavailable Cortes, Dwain Referring Unavailable Cortes, Dwain Primary Care Unavailable Oneil Nova Attending Unavailable Cortes, Dwain Primary Care Unavailable Cortes, Dwain Referring Unavailable Neal 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, Bridgette Attending Unavailable Cortes, Dwain Primary Care Unavailable Demiter, Raymon Referring Unavailable Demiter, Raymon Attending Unavailable Cortes, Dwain Primary Care Unavailable Demiter, Raymon Referring Unavailable Demiter, Raymon Attending Unavailable Cortes, Dwain Primary Care Unavailable Demiter, Raymon Attending Unavailable Cortes, Dwain Referring Unavailable Cortes, Dwain Primary Care Unavailable Cortes, Dwain Referring Unavailable Neal 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, Bridgette Attending Unavailable Cortes, Dwain Primary Care Unavailable Juan Ramon, Matias Attending Unavailable Cortes, Dwain Primary Care Unavailable Demiter, Raymon Referring Unavailable Juan Ramon, Matias Attending Unavailable Cortes, Dwain Primary Care Unavailable Bob, Luisa Referring Unavailable Davi Diaz Attending Unavailable Allergies Allergy Classification Reported Allergen(s) Allergy Type Date of Onset Reaction(s) Facility (20 sources) Lactose Drug Allergy 09-06-19 22 Food Allergy [facility] (20 sources) POISON LAUREN EXTRACT Drug Allergy 09-06-19 22 Itching [facility] (20 sources) rivaroxaban Drug Allergy 09-06-19 22 Bruising easily, nosebleeds [facility] (20 sources) dapagliflozin Drug Allergy 03-23-20 22 Extreme fatigue and somnolence [facility] (1 source) Lactose (non-medical use) Drug Intolerance 01-29-20 24 Diarrhea [facility] (4 sources) Lactase; Translations: [LACTASE] Drug Allergy 09-03-[address] [facility] (7 sources) Environmental Allergies: Uncoded; Translations: [Environmental Allergies: Uncoded] Allergy to substance 10-29-19 congestion [facility] (1 source) dapagliflozin Drug Allergy 03-05-20 [facility] (1 source) Lactose Drug Allergy 03-05-20 [facility] (1 source) rivaroxaban Drug Allergy 03-05-20 [facility] (1 source) poison lauren extract Drug allergy (disorder) 03-05-20 [facility] Medications Current Medications Medication Drug Class(es) Dates Sig (Normalized) Sig (Original) alpha lipoic acid (6 sources) Start: 10-28-2024 alpha lipoic acid Active PO DAILY October 28, 2024 12:00am amLODIPine 5 mg oral tablet (20 sources) Dihydropyridine Calcium Channel Marysol Start: 01-28-2025 take 1 tablet by mouth once daily Amlodipine 5 mg tablet Active 5 mg PO daily 30 January 28, 2025 5:31pm Start: 12-29-2024 End: 01-28-2025 take 1 tablet by mouth once daily Amlodipine 10 mg tablet Discontinued 10 mg PO daily 30 December 29, 2024 12:28pm January 28, 2025 5:33pm Start: 12-03-2024 End: 12-29-2024 take 1 tablet by mouth once daily Amlodipine 5 mg tablet Discontinued 5 mg PO daily 30 December 03, 2024 12:00am December 29, 2024 12:29pm Start: 11-22-2023 End: 07-01-2024 take 5 mg by mouth at bedtime Amlodipine 10 mg tablet Discontinued 5 mg PO AT BEDTIME November 22, 2023 9:12am July 01, 2024 9:26am On Hold: Edema Start: 11-22-2023 take 5 mg by mouth at bedtime Amlodipine Active 5 MG PO AT BEDTIME November 22, 2023 9:12am Start: 11-15-2023 End: 11-22-2023 take 1 tablet by mouth at bedtime Amlodipine 10 mg tablet Discontinued 10 mg PO AT BEDTIME 90 November 15, 2023 12:27pm November 22, 2023 9:13am Start: 10-08-2023 End: 11-15-2023 take 2.5 mg by mouth at bedtime Amlodipine 5 mg tablet Discontinued 2.5 mg PO AT BEDTIME 90 October 08, 2023 4:05pm November 15, 2023 12:28pm Start: 10-08-2023 End: 11-15-2023 take 2.5 mg by mouth at bedtime Amlodipine Discontinue d 2.5 MG PO AT BEDTIME 90 October 08, 2023 4:05pm November 15, 2023 12:28pm Start: 11-07-2022 End: 10-08-2023 take 1 tablet by mouth at bedtime Amlodipine 5 mg tablet Discontinued 5 mg PO AT BEDTIME 90 August 27, 2023 4:44pm October 08, 2023 4:05pm Start: 08-10-2022 End: 11-07-2022 take 1 tablet by mouth once daily Amlodipine 10 mg tablet Discontinued 10 mg PO DAILY 90 August 10, 2022 1:00am November 07, 2022 10:21am Start: 01-19-2022 End: 08-10-2022 take 1 tablet by mouth once daily at bedtime Amlodipine 5 mg tablet Discontinued 5 mg PO .COMPLEX 90 3 July 07, 2022 12:26pm August 10, 2022 3:50pm 5 mg orally qHS; Start: 11-03-2021 End: 01-19-2022 take 5 mg by mouth once daily Amlodipine 10 mg tablet Discontinued 5 mg PO DAILY 90 November 03, 2021 1:44pm January 19, 2022 2:12pm Start: 11-03-2021 End: 01-19-2022 take 5 mg by mouth once daily Amlodipine Discontinued 5 MG PO DAILY November 03, 2021 1:44pm January 19, 2022 2:12pm Start: 06-22-2020 End: 11-03-2021 take 1 tablet by mouth once daily Amlodipine 10 mg tablet Discontinued 10 mg PO DAILY 90 March 15, 2021 10:28am November 03, 2021 1:44pm Start: 05-25-2020 End: 06-22-2020 take 2 tablets by mouth once daily Amlodipine 5 mg tablet Discontinued 10 mg PO DAILY May 25, 2020 5:00pm June 22, 2020 2:53pm BP Start: 05-25-2020 End: 06-22-2020 take 10 mg by mouth once daily Amlodipine Discontinued 10 MG PO DAILY May 25, 2020 5:00pm June 22, 2020 2:53pm Start: 08-18-2019 End: 05-25-2020 take 1 tablet by mouth once daily Amlodipine 5 mg tablet Discontinued 5 mg PO DAILY August 29, 2019 10:58am May 25, 2020 5:00pm BP Start: 01-19-2011 End: 08-18-2019 take 1 tablet by mouth once daily Amlodipine 2.5 mg tablet Discontinued 2.5 mg PO DAILY October 16, 2018 3:56pm August 18, 2019 4:42pm BP take 2 tablets by mo ut in the morning amLODIPine (Norvasc) 2.5 MG tablet Take 5 mg by mouth in the morning. Active ascorbic acid 500 mg oral capsule (20 sources) Vitamin C Start: 10-28-2024 take 1 mg by mouth at bedtime Ascorbic Acid (Vitamin C) 500 mg capsule Active mg PO BEDTIME October 28, 2024 12:00am Start: 11-26-2020 End: 01-19-2022 take 1 g by mouth at bedtime Ascorbic Acid (Vitamin C) 500 mg tablet Discontinued 1 g PO AT BEDTIME November 26, 2020 12:00am January 19, 2022 1:27pm Start: 11-26-2020 End: 01-19-2022 take 1 g by mouth at bedtime Ascorbic Acid (Vitamin C) Discontinued 1 GM PO AT BEDTIME November 26, 2020 12:00am January 19, 2022 1:27pm cholecalciferol 0.25 mg oral capsule (20 sources) Vitamin D Start: 10-28-2024 take 1 capsule by mouth once daily Cholecalciferol (Vitamin D3) 250 mcg (10,000 unit) capsule Active 250 ug PO daily October 28, 2024 12:00am Start: 10-18-2020 End: 10-28-2024 take 1 tablet by mouth once daily Cholecalciferol (Vitamin D3) 50 mcg (2,000 unit) tablet Discontinued 50 ug PO DAILY October 18, 2020 12:00am October 28, 2024 9:25am Start: 08-18-2019 End: 10-18-2020 take 1 capsule by mouth once daily Cholecalciferol (Vitamin D3) 10,000 unit capsule Discontinued 43876 U PO DAILY August 18, 2019 1:00am October 18, 2020 3:13pm Cholecalciferol, Vitamin D3, 25 mcg (1,000 unit) cap Take 4,000 Units by mouth. Active take 1 capsule by mo uth once daily cholecalciferol (Vitamin D-3) 25 MCG (1000 UT) capsule Take 4,000 Units by mouth daily. Active Compression stockings (10-20 ) (7 sources) Start: 02-26-[address] [place] (10-20) Active 0 .ROUTE .MEDSUPPLY 2 0 February 26, 2024 12:00am Edema of both lower extremities Localized edema edema in legs As directed Start: 02-26-[address] [place] (10-20) Active 0 .ROUTE .MEDSUPPLY 2 February 26, 2024 12:00am As directed Creatine Monohydrate 5,000 mg powder in packet (6 sources) Start: 10-28-2024 take 1 mg by mouth once daily Creatine Monohydrate 5,000 mg powder in packet Active mg PO DAILY October 28, 2024 12:00am furosemide 40 mg oral tablet (20 sources) Loop Diuretic Start: 07-01-2024 take 1 tablet by mouth twice daily Furosemide 40 mg tablet Active 40 mg PO TWICE A DAY 180 3 July 01, 2024 11:13am Start: 08-10-2023 End: 07-01-2024 take 1 tablet by mouth once daily Furosemide 40 mg tablet Discontinued 40 mg PO DAILY 90 3 October 08, 2023 4:04pm July 01, 2024 11:14am Start: 12-06-2020 End: 10-08-2023 take 1 tablet by mouth twice daily Furosemide 40 mg tablet Discontinued 40 mg PO TWICE A DAY 180 3 March 09, 2023 8:26am October 08, 2023 4:05pm Start: 11-26-2020 End: 12-06-2020 take 1 tablet by mouth once daily Furosemide 40 mg tablet Discontinued 40 mg PO DAILY 90 3 November 26, 2020 3:02pm December 06, 2020 2:09pm hydroCHLOROthiazide 50 mg oral tablet (20 sources) Thiazide Diuretic Start: 01-28-2025 take 1 tablet by mouth once daily in the morning Hydrochlorothiazide 50 mg tablet Active 50 mg PO EVERY MORNING 30 January 28, 2025 12:00am Start: 07-06-2016 End: 07-06-2016 take 1 tablet by mouth once daily Hydrochlorothiazide 25 MG tablet Discontinued 25 mg PO DAILY 0 July 06, 2016 1:00am July 06, 2016 8:55am Start: 01-19-2011 End: 01-16-2014 take 1 tablet by mouth once daily HYDROCHLOROTHIAZIDE 25 MG TABS One tablet by mouth daily HYDROCHLOROTHIAZIDE [id number] Rodrigo Thacker MD losartan potassium 100 mg oral tablet (3 sources) Angiotensin 2 Receptor Marysol Start: 01-28-2025 take 1 tablet by mouth once daily Losartan 100 mg tablet Active 100 mg PO daily 30 January 28, 2025 12:00am Magnesium (20 sources) Start: 05-04-2020 take 2 tablets by mouth at bedtime Magnesium 250 mg tablet Active 500 mg PO AT BEDTIME May 04, 2020 11:21am Start: 05-04-2020 take 500 mg by mouth at bedtim e Magnesium Active 500 MG PO AT BEDTIME May 04, 2020 10:21am Start: 05-04-2020 take 500 mg by mouth at bedtim e Magnesium Active 500 MG PO AT BEDTIME May 04, 2020 11:21am Start: 02-20-2020 End: 05-04-2020 take 250 mg by mouth once daily Magnesium Discontinued 250 MG PO DAILY February 20, 2020 11:18am May 04, 2020 7:08pm Start: 02-20-2020 End: 05-04-2020 take 1 tablet by mouth once daily Magnesium 250 mg tablet Discontinued 250 mg PO DAILY February 20, 2020 12:00am May 04, 2020 7:08pm Start: 02-20-2020 End: 05-04-2020 take 250 mg by mouth once daily Magnesium Discontinued 250 MG PO DAILY February 19, 2020 11:00pm May 04, 2020 6:08pm Start: 02-20-2020 End: 05-04-2020 take 250 mg by mouth once daily Magnesium Discontinued 250 MG PO DAILY February 20, 2020 12:00am May 04, 2020 7:08pm magnesium oxide 500 mg oral tablet (3 sources) MAGNESIUM OXIDE ORAL Take 500 mg by mouth. Active Multiple Vitamin (multivitamin) capsule (1 source) take 1 capsule by mouth once daily Multiple Vitamin (multivitamin) capsule Take 1 capsule by mouth daily. Active Multivitamin capsule (3 sources) take 1 capsule by mouth once daily Multivitamin capsule Take 1 capsule by mouth once daily. Active Multivitamin With Folic Acid (20 sources) Start: 06-21-2016 take 1 tablet by mouth once daily Multivitamin With Folic Acid Active 1 TABLET PO DAILY June 21, 2016 12:02pm Start: 06-21-2016 take 1 tablet by shaylee th once daily Multivitamin With Folic Acid Active 1 TABLET PO DAILY June 21, 2016 12:00am Start: 06-21-2016 take 1 tablet by shaylee th once daily Multivitamin With Folic Acid Active 1 TABLET PO DAILY June 21, 2016 1:00am Multivitamin With Folic Acid 1 TABLET tablet (7 sources) Start: 06-21-2016 take 1 tablet by mouth once daily Multivitamin With Folic Acid 1 TABLET tablet Active 1 {tbl} PO DAILY June 21, 2016 1:00am SUPPLEMENT Start: 06-21-2016 take 1 tablet by shaylee th once daily Multivitamin With Folic Acid 1 TABLET tablet Active 1 {tbl} PO DAILY June 21, 2016 1:00am potassium chloride 20 meq extended release oral tablet (14 sources) Start: 07-03-2024 take 1 tablet by mouth twice daily Potassium Chloride 20 mEq tablet extended release Active 20 meq PO TWICE A DAY 180 July 03, 2024 11:14am this is a dose increase Start: 05-29-2024 End: 07-03-2024 take 1 tablet by mouth once daily Potassium Chloride 20 mEq tablet extended release Discontinued 20 meq PO daily 30 May 29, 2024 1:00am July 03, 2024 11:16am potassium gluconate 2.5 meq oral tablet (6 sources) Start: 10-28-2024 take 1 tablet by mouth once daily Potassium Gluconate 595 mg (99 mg) tablet Active 595 mg PO daily October 28, 2024 12:00am Semaglutide (Weight Loss) (13 sources) Start: 10-28-2024 Semaglutide (W eight Loss) (Huy) 0.5 mg/0.5 mL pen injector Active 0.25 mg SC EVERY WEEK October 28, 2024 9:28am administer weeks 5 through 8 of therapy Start: 06-10-2024 End: 10-28-2024 Semaglutide (Weight Loss) (W egovy) 0.5 mg/0.5 mL pen injector Discontinued 0.5 mg SC EVERY WEEK June 10, 2024 1:00am October 28, 2024 9:35am administer weeks 5 through 8 of therapy Start: 06-10-2024 Semaglutide (W eight Loss) (Wegovy) 0.5 mg/0.5 mL pen injector Active 0.5 mg SC EVERY WEEK June 10, 2024 1:00am administer weeks 5 through 8 of therapy Semaglutide 2 mg/dose (8 mg/ 3 mL) pen injector (6 sources) Start: 10-28-2024 Semaglutide 2 mg/dose (8 mg/3 mL) pen injector Active 2 mg SC EVERY WEEK October 28, 2024 12:00am UBIDECARENONE/VITAMIN E MIXE D (COQ10 SG 100 ORAL) (3 sources) UBIDECARENONE/ TAMIN E MIXED (COQ10 SG 100 ORAL) Take by mouth. Active Completed/Discontinued Medications Medication Drug Class(es) Dates Sig (Normalized) Sig (Original) acetaminophen 500 mg oral tablet (20 sources) Start: 08-30-2018 End: 08-18-2019 take 2 tablets by mouth every eight hours Acetaminophen 500 MG tablet Discontinued 1000 mg PO EVERY 8 HOURS 90 0 August 30, 2018 1:00am August 18, 2019 4:10pm Start: 08-30-2018 End: 08-18-2019 take 1000 mg by mouth every eight hours Acetaminophen Discontinued 1000 MG PO EVERY 8 HOURS 90 August 30, 2018 1:00am August 18, 2019 4:10pm acetaminophen 325 mg / HYDROcodone bitartrate 5 mg oral tablet (20 sources) Opioid Agonist Start: 07-06-2016 End: 07-06-2016 Hydrocodone-Acetaminophen 1 TABLET tablet Discontinued 1 - 2 {tbl} PO EVERY 6 HOURS NEEDED as needed for Mild-moderate pain (scale 1-5) 90 0 July 06, 2016 1:00am July 06, 2016 8:56am Start: 07-06-2016 End: 07-06-2016 take 1 tablet by mouth every six hours as needed Hydrocodone-Acetaminophen Discontinued 1 - 2 TABLET PO EVERY 6 HOURS NEEDED July 06, 2016 1:00am July 06, 2016 8:56am amoxicillin 500 mg oral tablet (4 sources) Penicillin-class Antibacterial Start: 03-14-2017 take 4 tablets by mouth every hour AMOXICILLIN 500 MG TABS 4 tablets by mouth 1 hr prior to procedure AMOXICILLIN [id number] Talat Perez NP Antiarthritic Combination No.2 (Glucosamine-Chondr oitin) 900 MG tablet (20 sources) Start: 06-21-2016 End: 07-06-2016 take 1 capsule by mouth once daily Antiarthritic Combination No.2 (Glucosamine-Chond roitin) 900 MG tablet Discontinued 1500 CAP PO DAILY June 21, 2016 12:02pm July 06, 2016 8:52am Start: 06-21-2016 End: 07-06-2016 Antiarthritic Combination No .2 (Glucosamine-Chondroitin) 900 MG tablet Discontinued 1500 NMA PO DAILY June 21, 2016 1:00am July 06, 2016 8:52am Start: 06-21-2016 End: 07-06-2016 take 1 capsule by mouth once daily Antiarthritic Combination No.2 (Glucosamine-Chondroitin) 900 MG tablet Discontinued 1500 CAP PO DAILY June 21, 2016 12:00am July 06, 2016 7:52am Start: 06-21-2016 End: 07-06-2016 take 1 capsule by mouth once daily Antiarthritic Combination No.2 (Glucosamine-Chondroitin) 900 MG tablet Discontinued 1500 CAP PO DAILY June 21, 2016 1:00am July 06, 2016 8:52am apixaban 5 mg oral tablet (20 sources) Factor Xa Inhibitor Start: 02-20-2020 End: 03-19-2020 take 1 tablet by mouth twice daily Apixaban (Eliquis) 5 mg tablet Discontinued 5 mg PO TWICE A DAY 60 February 20, 2020 12:00am March 19, 2020 11:18am aspirin 81 mg delayed release oral tablet (20 sources) Nonsteroidal Anti-inflammatory Drug Start: 02-06-2019 End: 02-24-2020 Aspirin (Adult Low Dose Aspirin) 81 mg tablet,delayed release (DR/EC) Discontinued 81 mg PO DAILY February 06, 2019 12:00am February 24, 2020 11:22am Start: 08-30-2018 End: 02-06-2019 take 1 tablet by mouth twice daily at mealtime Aspirin 325 MG tablet Discontinued 325 mg PO TWICE DAILY WITH MEALS 30 0 August 30, 2018 1:00am February 06, 2019 1:22pm Start: 08-01-2017 End: 08-30-2018 take 1 tablet by mouth once daily Aspirin 81 MG tablet Discontinued 81 mg PO DAILY@0800 August 01, 2017 1:00am August 30, 2018 8:18am HEART Start: 07-06-2016 End: 07-06-2016 take 1 tablet by mouth twice daily at mealtime Aspirin 325 MG tablet Discontinued 325 mg PO TWICE DAILY WITH MEALS 60 0 July 06, 2016 1:00am July 06, 2016 8:56am Start: 01-19-2011 End: 07-06-2016 take 1 tablet by mouth once daily Aspirin 81 MG tablet Discontinued 81 mg PO DAILY@0800 June 21, 2016 1:00am July 06, 2016 8:52am Start: 01-19-2011 take 1 tablet by shaylee th once daily ASPIRIN 81 MG TABS One tablet by mouth daily ASPIRIN [id number] Wendi M Sosa Start: 08-28-2008 take 1 tablet by shaylee th once daily ASPIRIN 81 MG CHEWABLE TAB 1 Tab PO DAILY 30 0 08/28/2008 Active baclofen 10 mg oral tablet (20 sources) gamma-Aminobutyric Acid-ergic Agonist Start: 05-22-2022 End: 05-09-2023 take 1 tablet by mouth at bedtime Baclofen 10 mg tablet Discontinued 10 mg PO AT BEDTIME 90 2 October 01, 2022 9:29pm May 09, 2023 1:29pm Start: 01-25-2022 End: 05-22-2022 take 7.5 mg by mouth at bedtime as needed Baclofen 5 mg tablet Discontinued 7.5 mg PO AT BEDTIME as needed for muscle cramping 135 1 March 09, 2022 10:24am May 22, 2022 5:00pm Start: 01-25-2022 End: 05-22-2022 take 7.5 mg by mouth at bedtime Baclofen Discontinued 7.5 MG PO AT BEDTIME 135 March 09, 2022 10:24am May 22, 2022 5:00pm Start: 06-14-2021 End: 01-25-2022 take 1 tablet by mouth at bedtime as needed Baclofen 5 mg tablet Discontinued 5 mg PO AT BEDTIME as needed for muscle cramping 90 1 September 06, 2021 2:29pm January 25, 2022 8:54am bromfenac (8 sources) Nonsteroidal Anti-inflammatory Drug Start: 12-11-2011 End: 07-12-2012 BROMDAY 0.09 % (DAILY) SOLN one daily to right eye BROMFENAC SODIUM [id number] Rodrigo Thacker MD Start: 12-11-2011 BROMDAY 0.09 % (DAILY) SOLN one daily to right eye BROMFENAC SODIUM [id number] Rodrigo Thacker MD celecoxib 200 mg oral capsule (20 sources) Nonsteroidal Anti-inflammatory Drug Start: 08-30-2018 End: 09-29-2018 take 1 capsule by mouth once daily Celecoxib 200 MG capsule Discontinued 200 mg PO DAILY August 30, 2018 1:00am September 28, 2018 1:00am September 29, 2018 1:09am GLUCOSAMINE-CHO NDROITIN CAPS (6 sources) Start: 01-19-2011 End: 06-05-2017 take 2 tablets by mouth once daily GLUCOSAMINE-CHONDR OITIN CAPS Two tablets by mouth daily GLUCOSAMINE-CHONDR OITIN CAPS [id number] Talat Perez NP Start: 01-19-2011 take 2 tablets by mo [facility] once daily GLUCOSAMINE-CHONDROITIN CAPS Two tablets by mouth daily GLUCOSAMINE-CHONDROITIN CAPS [id number] Wendi Sosa ciprofloxacin 500 mg oral tablet (20 sources) Quinolone Antimicrobial Start: 08-09-2017 End: 11-26-2017 take 1 tablet by mouth twice daily Ciprofloxacin Hcl 500 MG tablet Discontinued 500 mg PO TWICE A DAY August 09, 2017 1:00am November 26, 2017 1:47pm ubidecarenone 50 mg chewable tablet (20 sources) Start: 06-21-2016 End: 07-06-2016 take 10 tablets by mouth once daily Coenzyme Q10 50 MG Tab.Chew Discontinued 200 mg PO DAILY June 21, 2016 1:00am July 06, 2016 8:53am Start: 05-07-2013 End: 06-05-2017 take 1 tablet by mouth once daily CO Q-10 100 MG CAPS One tablet by mouth daily COENZYME Q10 [id number] Talat Perez NP Start: 05-07-2013 take 1 tablet by shaylee once daily CO Q-10 100 MG CAPS One tablet by mouth daily COENZYME Q10 [id number] Rodrigo Thacker MD dapagliflozin 10 mg oral tablet (20 sources) Sodium-Glucose Cotransporter 2 Inhibitor Start: 03-07-2022 End: 03-23-2022 take 1 tablet by mouth once daily Dapagliflozin Propanediol (Farxiga) 10 mg tablet Discontinued 10 mg PO DAILY 21 06March 07, 2022 12:00am March 23, 2022 4:38pm docusate sodium 100 mg oral capsule (20 sources) Start: 08-09-2017 End: 11-26-2017 take 1 capsule by mouth twice daily Docusate Sodium 100 MG capsule Discontinued 100 mg PO TWICE A DAY August 09, 2017 1:00am November 26, 2017 1:47pm docusate sodium 50 mg / sennosides, fdc 8.6 mg oral tablet (20 sources) Start: 08-30-2018 End: 02-06-2019 Sennosides-Docusat e Sodium 1 TABLET tablet Discontinued 2 {tbl} PO TWICE A DAY August 30, 2018 1:00am February 06, 2019 1:21pm Take until first bowel movement, then as needed Start: 08-30-2018 End: 02-06-2019 Sennosides-Docusate Sodium D iscontinued 2 TABLET PO TWICE A DAY August 30, 2018 1:00am February 06, 2019 1:21pm Take until first bowel movement, then as needed Start: 07-06-2016 End: 07-06-2016 take 1 tablet by mouth twice daily as needed Sennosides-Docusate Sodium (Stool Softener-Stimulant Laxat) 1 TABLET tablet Discontinued 2 {tbl} PO TWICE A DAY July 06, 2016 1:00am July 06, 2016 8:56am PLEASE TAKE UNTIL FIRST BOWEL MOVEMENT, THEN CAN TAKE NEEDED doxazosin 2 mg oral tablet (20 sources) alpha-Adrenergic Marysol Start: 06-21-2016 End: 10-18-2017 take 4 mg by mouth once daily Doxazosin Discontinued 4 MG PO DAILY June 21, 2016 1:00am October 18, 2017 9:42am Start: 09-08-2015 End: 10-18-2017 take 2 tablets by mouth once daily Doxazosin 2 MG tablet Discontinued 4 mg PO DAILY June 21, 2016 1:00am October 18, 2017 9:42am Start: 09-08-2015 take 1 tablet by shaylee th at bedtime DOXAZOSIN MESYLATE 4 MG TABS One tablet by mouth at bedtime. DOXAZOSIN MESYLATE [id number] Rodrigo Thacker MD doxycycline hyclate 100 mg oral capsule (20 sources) Tetracycline-class Drug Start: 08-26-2020 End: 10-18-2020 take 1 capsule by mouth twice daily Doxycycline Hyclate 100 mg capsule Discontinued 100 mg PO TWICE A DAY August 26, 2020 1:00am October 18, 2020 3:13pm Start: 08-30-2018 End: 02-06-2019 take 1 capsule by mouth twice daily Doxycycline Monohydrate 100 MG capsule Discontinued 100 mg PO TWICE A DAY 12 0 August 30, 2018 1:00am February 06, 2019 1:22pm famotidine 20 mg oral tablet (20 sources) Histamine-2 Receptor Antagonist Start: 08-30-2018 End: 02-06-2019 take 1 tablet by mouth once daily Famotidine 20 MG tablet Discontinued 20 mg PO DAILY 30 0 August 30, 2018 1:00am February 06, 2019 1:21pm fish oil (8 sources) Start: 01-19-2011 take 2 tablets by mouth once daily FISH OIL CAPS Two tablets by mouth daily OMEGA-3 FATTY ACIDS CAPS [id number] Wendi Sosa Start: 01-19-2011 End: 11-12-2013 take 2 tablets by mouth once daily FISH OIL CAPS Two tablets by mouth daily OMEGA-3 FATTY ACIDS CAPS [id number] Rodrigo Thacker MD gabapentin 600 mg oral tablet (20 sources) Anti-epileptic Agent Start: 09-14-2023 gabapenti n (NEURONTIN) 600 mg tablet Take 600 mg by mouth. 09/14/2023 Active Start: 09-13-2023 End: 01-06-2025 take 2 tablets by mouth at bedtime Gabapentin 600 mg tablet Discontinued 1200 mg PO AT BEDTIME 180 2 May 08, 2024 5:11pm January 06, 2025 1:35pm Start: 09-13-2023 take 1200 mg by mouth at bedti nj Gabapentin Active 1200 MG PO AT BEDTIME 180 September 13, 2023 1:00am Start: 07-18-2022 End: 09-13-2023 take 3 capsules by mouth once daily in the evening Gabapentin 300 mg capsule Discontinued 900 mg PO EVERY EVENING 270 1 May 09, 2023 1:29pm September 13, 2023 2:53pm Polyneuropathy, unspecified Start: 07-18-2022 End: 09-13-2023 take 900 mg by mouth once daily in the evening Gabapentin Discontinued 900 MG PO EVERY EVENING 270 May 09, 2023 1:29pm September 13, 2023 2:53pm Start: 05-04-2020 End: 03-09-2022 Gabapentin Discontinued 0 .R OUTE .COMPLEX 360 May 17, 2021 4:33pm June 14, 2021 3:16pm 1 capsule QAM and 3 capsules QPM Start: 02-06-2019 End: 05-04-2020 Gabapentin 600 mg tablet ext ended release 24 hr Discontinued 900 mg PO WITH DINNER February 06, 2019 1:20pm May 04, 2020 10:00am NEUROPATHY Start: 02-06-2019 End: 05-04-2020 take 900 mg by mouth at dinner Gabapentin Discontinued 900 MG PO WITH DINNER February 06, 2019 1:20pm May 04, 2020 10:00am Start: 08-09-2018 End: 07-18-2022 Gabapentin 300 mg capsule Discontinued 0 .ROUTE .COMPLEX 360 0 May 17, 2021 4:33pm June 14, 2021 3:16pm Polyneuropathy, unspecified NEUROPATHY 1 capsule QAM and 3 capsules QPM Start: 08-01-2017 End: 02-06-2019 take 1 tablet by mouth every twenty-four hours at dinner Gabapentin 600 MG tablet extended release 24 hr Discontinued 600 mg PO WITH DINNER August 01, 2017 1:00am February 06, 2019 1:22pm NEUROPATHY Start: 12-13-2016 take 1 tablet by shaylee th once daily GABAPENTIN 600 MG TABS One tablet by mouth daily GABAPENTIN [id number] Rodrigo Thacker MD hydroCHLOROthiazide 25 mg / losartan potassium 100 mg oral tablet (20 sources) Thiazide Diuretic, Angiotensin 2 Receptor Marysol Start: 01-26-2022 End: 01-28-2025 Losartan-Hydrochlorothiazide 100-25 mg tablet Discontinued 0 .ROUTE .COMPLEX 90 June 30, 2024 9:58am January 28, 2025 5:24pm TAKE 1 TABLET EVERY DAY Start: 01-26-2022 End: 08-28-2023 take 1 tablet by mouth once daily Losartan-Hydrochlorothiazide Discontinue d 1 TABLET PO DAILY September 29, 2022 9:40am August 28, 2023 8:59am Start: 02-19-2018 End: 01-19-2022 Losartan-Hydrochlorothiazide 100-25 mg tablet Discontinued 1 {tbl} PO daily 90 3 March 02, 2021 11:31am January 19, 2022 2:10pm BP Start: 02-19-2018 End: 01-19-2022 take 1 tablet by mouth once daily Losartan-Hydrochlorothiazide Discontinue d 1 TABLET PO daily March 02, 2021 11:31am January 19, 2022 2:10pm hydroCHLOROthiazide 25 mg / valsartan 320 mg oral tablet (20 sources) Thiazide Diuretic, Angiotensin 2 Receptor Marysol Start: 06-21-2016 End: 02-19-2018 take 1 tablet by mouth once daily Valsartan-Hydrochlorothiazide Discontinued 1 TABLET PO DAILY February 12, 2018 6:11pm February 19, 2018 3:04pm Start: 07-07-2011 End: 02-19-2018 Valsartan-Hydrochlorothiazid e 320-25 mg tablet Discontinued 1 {tbl} PO DAILY 90 4 February 12, 2018 6:11pm February 19, 2018 3:04pm Inositol-Choline Bit-Biofl-B -C (Lipo-Flavonoid) 500 mg tablet (5 sources) Start: 10-28-2024 End: 03-05-2025 Inositol-Choline Bit-Biofl-B -C (Lipo-Flavonoid) 500 mg tablet Discontinued 2 {tbl} PO 3 times per day with meals October 28, 2024 12:00am March 05, 2025 1:50pm Tinnitus Start: 10-28-2024 Inositol-Choli ne Lrb-Clbbr-D-C (Lipo-Flavonoid) 500 mg tablet Active 2 {tbl} PO 3 times per day with meals October 28, 2024 12:00am Tinnitus Start: 10-28-2024 Inositol-Choli ne Gid-Zsxkc-S-C (Lipo-Flavonoid) 500 mg tablet Active 2 {tbl} PO 3 times per day with meals October 28, 2024 12:00am MULTIPLE VITAMIN (4 sources) Start: 05-07-2013 take 1 tablet by mouth once daily MULTIVITAMINS TABS One tablet by mouth daily MULTIPLE VITAMIN Rodriog Thacker MD naproxen sodium 220 mg oral capsule (20 sources) Nonsteroidal Anti-inflammatory Drug Start: 08-18-2019 End: 05-04-2020 take 1 capsule by mouth twice daily Naproxen Sodium (Aleve) 220 mg capsule Discontinued 220 mg PO TWICE A DAY August 18, 2019 1:00am May 04, 2020 10:01am Start: 06-21-2016 End: 07-06-2016 take 3 tablets by mouth at bedtime Naproxen Sodium (Aleve) 220 MG tablet Discontinued 660 mg PO AT BEDTIME June 21, 2016 1:00am July 06, 2016 8:52am Start: 03-10-2015 take 1 tablet by shaylee th once daily as needed ALEVE 220 MG TABS One tablet by mouth daily as needed NAPROXEN SODIUM [id number] Talat Perez 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 oxyCODONE hydrochloride 5 mg oral tablet (20 sources) Opioid Agonist Start: 08-30-2018 End: 09-04-2018 take 5-10 mg by mouth every four hours as needed for pain Oxycodone 5 MG tablet Discontinued 5 - 10 mg PO EVERY 4 HOURS NEEDED as needed for Mod-Severe Pain (4-10/10) 20 5 0 August 30, 2018 1:00am September 03, 2018 1:00am September 04, 2018 1:07am Presence of left artificial hip joint pravastatin sodium 80 mg oral tablet (20 sources) HMG-CoA Reductase Inhibitor Start: 09-12-2011 End: 01-21-2025 take 1 tablet by mouth at bedtime Pravastatin 80 mg tablet Discontinued 80 mg PO AT BEDTIME 90 3 April 04, 2024 8:08am January 21, 2025 8:07am CHOLESTEROL rivaroxaban 20 mg oral tablet (20 sources) Factor Xa Inhibitor Start: 03-19-2020 End: 06-22-2020 take 1 tablet by mouth once daily at dinner Rivaroxaban (Xarelto) 20 mg tablet Discontinued 20 mg PO DAILY 90 3 April 06, 2020 10:27am June 22, 2020 2:59pm must administer with evening meal sacubitril 49 mg / valsartan 51 mg oral tablet (20 sources) Angiotensin 2 Receptor Marysol Start: 01-19-2022 End: 01-26-2022 Sacubitril-Valsart an (Entresto) 49-51 mg tablet Discontinued 1 {tbl} PO TWICE A DAY 60 3 January 19, 2022 12:00am January 26, 2022 11:18am simvastatin 40 mg oral tablet (8 sources) HMG-CoA Reductase Inhibitor Start: 01-19-2011 End: 09-12-2011 take 1 tablet by mouth at bedtime SIMVASTATIN 40 MG TABS One tablet by mouth at bedtime. SIMVASTATIN [id number] Flex Gao RN tiZANidine 4 mg oral tablet (20 sources) Central alpha-2 Adrenergic Agonist Start: 05-09-2023 End: 01-06-2025 take 1 tablet by mouth at bedtime Tizanidine 4 mg tablet Discontinued 4 mg PO AT BEDTIME 90 2 May 08, 2024 5:09pm January 06, 2025 1:46pm muscle spasticity Start: 05-09-2023 End: 09-13-2023 take 1-2 tablets by mouth at bedtime Tizanidine Discontinued 0 PO AT BEDTIME May 09, 2023 12:00am September 13, 2023 2:55pm Take 1 to 2 tablets orally at bedtime; take 1 capsule by [facility] once daily tiZANidine (Zanaflex) 4 MG capsule Take 4 mg by mouth Nightly. Active valsartan 320 mg oral tablet (8 sources) Angiotensin 2 Receptor Marysol Start: 01-19-2011 take 1 tablet by mouth once daily DIOVAN 320 MG TABS One tablet by mouth daily VALSARTAN [id number] Lisa Young MD-Choline-In ositol-Bioflv (Lipo-Flavonoid) 500 mg tablet (1 source) Start: 10-28-2024 End: 03-05-2025 Vitb,Z-Vkmnkux-Fqvf itol-Bioflv (Lipo-Flavonoid) 500 mg tablet Discontinued 2 {tbl} PO 3 times per day with meals October 28, 2024 12:00am March 05, 2025 1:50pm Tinnitus warfarin sodium 4 mg oral tablet (20 sources) Vitamin K Antagonist Start: 06-22-2020 End: 02-11-2025 take 1 tablet by mouth once daily Warfarin 4 mg tablet Discontinued 4 mg PO DAILY 90 3 April 16, 2024 8:32am February 11, 2025 9:15am Please contact the information source for Protocol details. Problems Active Problems Problem Classification Problem Date Documented Da te Episodic/Chronic Acquired foot deformities (4 sources) Toe joint rigid; Translations: [Hallux rigidus, right foot] Onset: 07-24-2024 05-15-2024 Chronic Aortic; peripheral; and visceral artery aneurysms (20 sources) Aortic root dilatation; Translations: [Thoracic aortic ectasia] Chronic Comment on above: Status post aortic r oot aortoplasty in 2008 Cardiac dysrhythmias (20 sources) Atrial fibrillation; Translations: [Unspecified atrial fibrillation] Onset: 10-28-2024 Chronic Comment on above: Patient is in atrial fibrillation in the office today on his EKG well-controlled rate on no rate modulating drug. Patient does complain of some dizziness but he is not certain that this occurs when he is in atrial fibrillation or regular rhythm. He feels that he feels his dizziness approximately every day. Cardiac dysrhythmias (20 sources) Palpitations; Translations: [Bradycardia] Onset: 05-20-2014 05-20-2014 Episodic Conditions associated with dizziness or vertigo (11 sources) Dizziness; Translations: [Dizziness and giddiness] 10-30-2023 Episodic Comment on above: The dizziness appear s to become evident after he is up and active 1 episode he describes he planted a tree yesterday did everything and then as he was putting his tools away in the barn noticed that he was dizzy. The spells do not occur with change of position Congestive heart failure; nonhypertensive (20 sources) Congestive heart failure; Translations: [Heart failure, unspecified] Onset: 08-25-2008 Chronic Comment on above: Patient has a histor y of near normal EF of 50% normal functioning aortic valve with a mean gradient of 16 this is a bioprosthetic aortic valve. He denies any overt signs or symptoms of congestive heart failure. Diabetes mellitus without complication (20 sources) Hyperglycemia; Translations: [Hyperglycemia, unspecified] Onset: 01-19-2025 11-03-2021 Episodic Diseases of white blood cells (15 sources) Leukocytosis; Translations: [Elevated white blood cell count, unspecified] 09-25-2023 Chronic Disorders of lipid metabolism (20 sources) Hyperlipidemia; Translations: [Hyperlipidemia, unspecified] Onset: 08-19-2008 01-19-2011 Chronic Comment on above: Will continue to be followed to the primary care service. Given no known coronary disease his target LDL should be less than 100. He is tolerating the pravastatin 80 mg daily. E Codes: Fall (7 sources) Fall; Translations: [Unspecified fall, initial encounter] 08-03-2024 Episodic Essential hypertension (20 sources) Essential hypertension; Translations: [Essential (primary) hypertension] Onset: 08-19-2008 Chronic Comment on above: Patient brought bloo d pressure In his home environment they range from 140-116 systolic and 65-100 diastolic. He is taking them with a biceps cuff in the seated position. I recommend he continue to monitor his blood pressures but on a weekly basis instead on multiple days per week. I feel that if he can drop 20 to 30 pounds his blood pressure will be much better controlled that would be better than trying to add additional medical therapy. 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 Bony Bautista) 08/24/08 will monitor the patient yearly in the office. He is continue SBE prophylaxis. 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) use of anticoagulants] 06-22-2020 Episodic Comment on above: Continue Coumadin th erapy for atrial fibrillation Other aftercare (3 sources) terminal clerk (current) use of anticoagulants; Translations: [Long-term (current) use of anticoagulants] Onset: 03-22-2025 10-30-2023 Episodic Other aftercare (7 sources) Long-term current use of diuretic; Translations: [Encounter for therapeutic drug level monitoring] 05-29-2024 Episodic Other connective tissue disease (20 sources) Cramp in lower limb; Translations: [Sleep related leg cramps] 03-09-2022 Chronic Other connective tissue disease (20 sources) Sleep related leg cramps; Translations: [Sleep related leg cramps] Chronic Other connective tissue disease (20 sources) Foot pain; Translations: [Pain in right foot] 03-09-2022 Episodic Other connective tissue disease (2 sources) Pain in right foot; Translations: [Pain in right foot] 05-15-2024 Episodic Other connective tissue disease (7 sources) Cramp; Translations: [Cramp and spasm] 02-26-2024 Episodic Other nervous system disorders (20 sources) Polyneuropathy; Translations: [Polyneuropathy, unspecified] 03-09-2022 Chronic Other nervous system disorders (16 sources) Polyneuropathy, unspecified; Translations: [Unspecified hereditary and idiopathic peripheral neuropathy] Chronic Other nutritional; endocrine; and metabolic disorders (20 sources) Obesity; Translations: [Obesity, unspecified] 04-09-2023 Chronic Other nutritional; endocrine; and metabolic disorders (9 sources) Obesity, unspecified; Translations: [Obesity, unspecified] 04-09-2023 Chronic Other upper respiratory disease (9 sources) Hoarse; Translations: [Dysphonia] 09-04-2024 Episodic Marika-; endo-; and myocarditis; cardiomyopathy (20 sources) Cardiomyopathy in diseases classified elsewhere; 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] Onset: 01-19-2011 01-19-2011 Chronic Residual codes; unclassified (20 sources) Obstructive sleep apnea syndrome; Translations: [Obstructive sleep apnea (adult) (pediatric)] 06-22-2020 Chronic Residual codes; unclassified (10 sources) Obstructive sleep apnea (adult) (pediatric); Translations: [Obstructive sleep apnea (adult)(pediatric)] Chronic Residual codes; unclassified (20 sources) Sleep apnea; Translations: [Sleep apnea, unspecified] 07-17-2023 Chronic Comment on above: ASV 18/12 cmH2O with 14 breaths/min Residual codes; unclassified (5 sources) Sleep apnea, unspecified; Translations: [Unspecified sleep apnea] 07-17-2023 Chronic Residual codes; unclassified (1 source) Swelling - edema - symptom; Translations: [Edema, unspecified] Episodic Residual codes; unclassified (20 sources) Family history of diabetes mellitus; Translations: [Family history of diabetes mellitus] 11-03-2021 Episodic Residual codes; unclassified (20 sources) Edema; Translations: [Edema, unspecified] 11-26-2020 Episodic Residual codes; unclassified (5 sources) Family history of diabetes mellitus; Translations: [Family history of diabetes mellitus] Episodic Residual codes; unclassified (7 sources) Bilateral lower limb edema; Translations: [Localized edema] 02-26-2024 Episodic Unclassified (20 sources) Body mass index (BMI) 36.0-36.9, adult; Translations: [Body mass index (BMI) 34.0-34.9, adult] Onset: 05-07-2013 Resolved: 09-08-2015 09-08-2015 Chronic Unclassified (20 sources) Abnormal result of cardiovascular function study, unspecified; Translations: [Cardiovascular stress test abnormal] Onset: 01-19-2011 01-19-2011 Episodic Unclassified (4 sources) 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; Translations: [Other [place] [facility] (current) drug therapy] Onset: 01-19-2011 01-19-2011 Past or Other Problems Problem Classification Problem Date Documented Da te Episodic/Chronic Coagulation and hemorrhagic disorders (3 sources) Blood coagulation disorder; Translations: [Hemorrhagic condition, unspecified] Onset: 08-25-2008 Episodic Nonspecific chest pain (7 sources) Chest pain, unspecified; Translations: [Chest pain] Onset: 08-26-2008 05-20-2014 Episodic Open wounds of extremities (8 sources) Open wound of left hand; Translations: [Laceration without foreign body of left hand, initial encounter] Onset: 08-20-2024 08-03-2024 Episodic Other aftercare (1 source) Encounter for therapeutic drug level monitoring; Translations: [Encounter for therapeutic drug level monitoring] Onset: 06-21-2024 Episodic Other aftercare (1 source) Other [place] [facility] (current) drug therapy; Translations: [Other terminal computer operator (current) drug therapy] Onset: 06-21-2024 Episodic Other circulatory disease (3 sources) Low blood pressure; Translations: [Hypotension, unspecified] Onset: 08-25-2008 Resolved: 08-25-2008 Episodic Other connective tissue disease (5 sources) Pain in right foot; Translations: [Pain in limb] Onset: 05-15-2024 Episodic Other connective tissue disease (1 source) Pain in left thigh; Translations: [Pain in left thigh] Onset: 09-06-2024 Episodic Other connective tissue disease (1 source) Cramp and spasm; Translations: [Cramp and spasm] Onset: 06-21-2024 Episodic Other gastrointestinal disorders (2 sources) Diarrhea, unspecified; Translations: [Diarrhea, unspecified] Onset: 06-10-2024 Episodic Other lower respiratory disease (4 sources) Dyspnea; Translations: [Shortness of breath] Onset: 01-19-2011 01-19-2011 Episodic Residual codes; unclassified (1 source) Localized edema; Translations: [Localized edema] Onset: 06-21-2024 Episodic Respiratory failure; insufficiency; arrest (adult) (3 sources) Acute respiratory failure; Translations: [Acute respiratory failure, unspecified whether with hypoxia or hypercapnia] Onset: 08-25-2008 Resolved: 04-26-2016 04-26-2016 Episodic Syncope (11 sources) Syncope; Translations: [Syncope and collapse] Onset: 11-27-2024 10-28-2024 Episodic Unclassified (4 sources) Family history of stroke; Translations: [Family history of stroke] 05-20-2014 Episodic Results Test Name Value Interpretation Reference Range Facility Basic Metabolic Profile (BMP )on 04-14-2025 BUN/CRE 20.9 RATIO High 05-11 [facility] Comment on above: Performed By: #### L 500.3400, L500.4100, L300.3900 #### [facility] [place], [address] Calcium [Mass/Vol] 9.6 mg/dL Normal 7.6-11.0 [facility] Comment on above: Performed By: #### L 500.3400, L500.4100, L300.3900 #### [facility] [address] [place], [address] Chloride [Moles/Vol] 95 mmol/L Low 98-108 [facility] Comment on above: Performed By: #### L 500.3400, L500.4100, L300.3900 #### [facility] [address] [place], [address] CO2 [Moles/Vol] 29.1 mmol/L Normal 21.0-32.0 [facility] Comment on above: Performed By: #### L 500.3400, L500.4100, L300.3900 #### [facility] [address] [place], [address] Creatinine [Mass/Vol] 1.06 mg/dL Normal 0.70-1.20 [facility] Comment on above: Performed By: #### L 500.3400, L500.4100, L300.3900 #### [facility] [address] [place], [address] GAP 11 Normal 5-15 [facility] Comment on above: Performed By: #### L 500.3400, L500.4100, L300.3900 #### [facility] [address] [place], [address] GFR/1.73 sq M.predicted among non-blacks MDRD (S/P/Bld) [Vol rate/Area] 72 mL/min/{1.73_m2} Normal >60 [facility] Comment on above: Result Comment: mL/m in/1.73m2 CKD-EPI Creatinine Equation (2020) Performed By: #### L 500.3400, L500.4100, L300.3900 #### [facility] [address] [place], [address] Glucose [Mass/Vol] 93 mg/dL Normal 70-99 [facility] Comment on above: Performed By: #### L 500.3400, L500.4100, L300.3900 #### [facility] [address] [place], [address] Potassium [Moles/Vol] 4.3 mmol/L Normal 3.3-5.1 [facility] Comment on above: Result Comment: Hemo lysis present, Results??could be affected. ?? Performed By: #### L 500.3400, L500.4100, L300.3900 #### [facility] [address] [place], [address] Sodium [Moles/Vol] 135 mmol/L Normal 133-145 [facility] Comment on above: Performed By: #### L 500.3400, L500.4100, L300.3900 #### [facility] [address] [place], [address] Urea nitrogen [Mass/Vol] 22 mg/dL High 4-19 [facility] Comment on above: Performed By: #### L 500.3400, L500.4100, L300.3900 #### [facility] [address] [place], [address] Magnesiumon 04-14-2025 Magnesium [Mass/Vol] 2.9 mg/dL High 1.5-2.2 [facility] Comment on above: Performed By: #### L 500.3400, L500.4100, L300.3900 #### [facility] [address] [place], [address] Prothrombin Time w/INRon INR Coag (PPP) [Relative time] 2.0 {INR} Normal [facility] Comment on above: Performed By: #### L 500.3400, L500.4100, L300.3900 #### [facility] [address] [place], [address] PT Coag (PPP) [Time] 22.8 s High 11.7-14.9 [facility] Comment on above: Performed By: #### L 500.3400, L500.4100, L300.3900 #### [facility] [address] [place], [address] Thyroid Stim Hormone (TSH)on 04-14-2025 TSH 2.310 uIU/mL Normal 0.300-4.200 [facility] Comment on above: Performed By: #### L 500.3400, L500.4100, L300.3900 #### [facility] [address] [place], [address] Pulmonary Visit Reporton Pulmonary Visit Report [facility] [place] [address] [place] [address] OFFICE VISIT Date of Service: 03/05/25 MR#: [id number] Acct: [id number] Name: JEY RUSH Rep #: [id number] : 1945 Provider: EDIL Neal Age/Sex: 79/M [place] [facility] [place] Status: Signed Assessment and Plan Assessment and Plan (1) Sleep apnea: Status: Chronic Qualifiers: Sleep apnea type: unspecified type Qualified Code(s): G47.30 - Sleep apnea, unspecified Comment: ASV 18/12 cmH2O with 14 breaths/min Plan: He is using and benefiting from Pap therapy. No indication for titration study at this time. Contact the office for any new or worsening symptoms in the meantime. Follow-up in 1 year. Plan Details Additional Comments: This note was generated with [employer] dictation software. It may contain incorrect words, spelling, and punctuation that were not noted in checking the note before signing. Follow Up: 1 Year HPI 6 M FU Chief Complaint: routine follow up HPI Comments Details: This patient presents to the office today for follow-up of his sleep apnea. He is ambulatory with the use of a cane and on room air. He has not recently been seen in the ED or urgent care for any respiratory illness. Has not required any antibiotics or prednisone for any breathing problems. He denies any difficulty with shortness of breath. He denies any cough, sputum production or hemoptysis. He denies any wheezing, chest tightness, chest pain or palpitations. He also denies any fever, chills or body aches. The hoarseness has completely resolved. He is feeling rested when waking up. He is no longer experiencing dry mouth. He denies any difficulty with excessive nocturia. He is not nodding off to sleep unintentionally. He is not requiring naps. The patient was seen and evaluated by gearcase assembler. A laryngoscopy was performed and determined that the patient did not have any abnormalities to his airways. Compliance report for the past 30 days shows 97% compliance with average use of 9 hours and 2 minutes per night. Current setting is ASV 18/12 cmH2O with a backup rate of 14 breaths/min. Residual AHI 0.3 events per hour. Leaks do not appear to be problematic. Intake Vital Signs 09/04/24 07:51 03/05/25 09:05 Height 5 ft 10 in 5 ft 10 in Weight: 199 lb BMI 28.5 BP 129/78 H Blood Pressure Location Lt brachial Position Sitting Respiration 18 Pulse 63 Pulse Source Monitor Temp 97.4 F L Temperature Source Temporal Artery Pulse Oximetry (%) 100 Oxygen Delivery Method room air Intake Visit Reasons: 6 M FU Chief Complaint: Vegetable Tier Required: No DME Vendor: Denilson Accompanied by: Self Is patient in pain?: No Allergies Environmental Allergies: Uncoded (seasonal) Allergy (Mild, Verified 03/05/25 13:46) congestion lactose Allergy (Verified 03/05/25 13:46) Food Allergy poison lauren extract Allergy (Verified 03/05/25 13:46) Itching dapagliflozin (From Farxiga) Adverse Reaction (Intermediate, Verified 03/05/25 13:46) Extreme fatigue and somnolence rivaroxaban (From Xarelto) Adverse Reaction (Intermediate, Verified 03/05/25 13:46) Bruising easily, nosebleeds Medications ???Medication ???Instructions ???Recorded ???Confirmed ???Type multivitamin with folic acid 400 1 tab PO DAILY SUPPLEMENT 06/21/16 03/05/25 History mcg tablet magnesium 250 mg tablet 500 mg PO QHS 05/04/20 03/05/25 Hi story Compression stockings (10-20) #2 ea 02/26/24 03/05/25 Rx furosemide 40 mg tablet 40 mg PO BID #180 tabs 07/01/24 Rx potassium chloride 20 mEq 20 meq PO BID this is a dose 07/0303/05/25 Rx tablet,extended release increase #180 tabs alpha lipoic acid PO DAILY 10/28/24 03/05/25 History ascorbic acid (vitamin C) 500 mg mg PO HS 10/28/24 03/05/25 History capsule cholecalciferol (vitamin D3) 250 250 mcg PO QDAY 10/28/24 03/05/25 History mcg (10,000 unit) capsule creatine monohydrate 5,000 mg oral mg PO DAILY 10/28/24 03/05/25 Hi story powder packet potassium gluconate 595 mg (99 mg) 595 mg PO QDAY 10/28/24 03/05/25 History tablet semaglutide (weight loss) 0.5 0.25 mg subcut QWEEK 10/28/2402/20 History mg/0.5 mL subcutaneous pen injector (Toniey) semaglutide 2 mg/dose (8 mg/3 mL) 2 mg subcut QWEEK 10/28/24 History subcutaneous pen injector gabapentin 600 mg tablet 1,200 mg (2 x 600 mg) PO QHS #180 01/06/25 03/05/25 Rx tabs tizanidine 4 mg tablet 4 mg PO QHS #90 tabs 01/06/2502/20 Rx pravastatin 80 mg tablet 80 mg PO QHS for cholesterol #90 0 01/21/25 03/05/25 Rx TABLETS amlodipine 5 mg tablet 5 mg PO QDAY #30 tabs 01/28/25 Rx hydrochlorothiazide 50 mg tablet 50 mg PO QAM #30 (more content not included)... Normal [facility] Anion gap in Serum or Plasma Ordered By: Raymon Heart on 02-24-2025 Anion gap [Moles/Vol] 10 mmol/L 12-04 [facility] BUN/creatinine ratioOrdered By: Raymon Heart on 02-24-2025 Urea nitrogen/Creatinine [Mass ratio] 24.4 mg/mg High 05-11 [facility] Basic Metabolic Profile (BMP )on 02-24-2025 BUN/CRE 24.4 RATIO High 05-11 [facility] Comment on above: Performed By: #### L 500.3400, L500.4100, L300.3900 #### [facility] [address] [place], [address] Calcium [Mass/Vol] 9.5 mg/dL Normal 7.6-11.0 [facility] Comment on above: Performed By: #### L 500.3400, L500.4100, L300.3900 #### [facility] [address] [place], [address] Chloride [Moles/Vol] 96 mmol/L Low 98-108 [facility] Comment on above: Performed By: #### L 500.3400, L500.4100, L300.3900 #### [facility] [address] [place], [address] CO2 [Moles/Vol] 28.5 mmol/L Normal 21.0-32.0 [facility] Comment on above: Performed By: #### L 500.3400, L500.4100, L300.3900 #### [facility] [address] [place], [address] Creatinine [Mass/Vol] 1.00 mg/dL Normal 0.70-1.20 [facility] Comment on above: Performed By: #### L 500.3400, L500.4100, L300.3900 #### [facility] [address] [place], [address] GAP 10 Normal - [facility] Comment on above: Performed By: #### L 500.3400, L500.4100, L300.3900 #### [facility] [address] [place], [address] GFR/1.73 sq M.predicted among non-blacks MDRD (S/P/Bld) [Vol rate/Area] 77 mL/min/{1.73_m2} Normal >60 [facility] Comment on above: Result Comment: mL/m in/1.73m2 CKD-EPI Creatinine Equation (2020) Performed By: #### L 500.3400, L500.4100, L300.3900 #### [facility] [address] [place], [address] Glucose [Mass/Vol] 89 mg/dL Normal 70-99 [facility] Comment on above: Performed By: #### L 500.3400, L500.4100, L300.3900 #### [facility] [address] [place], [address] Potassium [Moles/Vol] 3.9 mmol/L Normal 3.3-5.1 [facility] Comment on above: Performed By: #### L 500.3400, L500.4100, L300.3900 #### [facility] [address] [place], [address] Sodium [Moles/Vol] 135 mmol/L Normal 133-145 [facility] Comment on above: Performed By: #### L 500.3400, L500.4100, L300.3900 #### [facility] [address] [place], [address] Urea nitrogen [Mass/Vol] 24 mg/dL High 4-19 [facility] Comment on above: Performed By: #### L 500.3400, L500.4100, L300.3900 #### [facility] [address] [place], [place], [address] Carbon dioxide, total [Moles /volume] in Central venous bloodOrdered By: Raymon Heart on 02-24-2025 CO2 [Moles/Vol] 28.5 mmol/L 21.0-32.0 [facility] Chloride assayOrdered By: Rakesh Heart on 02-24-2025 Chloride [Moles/Vol] 96 mmol/L Low 98-108 [facility] Glomerular filtration rate ( GFR) estimation/1.73 sq m using serum, plasma, or whole bOrdered By: Raymon Heart on 02-24-2025 GFR/1.73 sq M.predicted among non-blacks MDRD (S/P/Bld) [Vol rate/Area] 77 mL/min/{1.73_m2} >60 [facility] Comment on above: mL/min/1.73m2 CKD-EP I Creatinine Equation (2020) International normalized rat io (INR) calculationOrdered By: Raymon Heart on 02-24-2025 INR Coag (Bld) [Relative time] 2.7 {INR} [facility] Potassium measurement (mass/ volume)Ordered By: Raymon Heart on 02-24-2025 Potassium (Unsp spec) [Mass/Vol] 3.9 mmol/L 3.3-5.1 [facility] Prothrombin Time w/INRon INR Coag (PPP) [Relative time] 2.7 {INR} Normal [facility] Comment on above: Order Comment: PT TO DR. DELATORRE. BMP TO [facility] Performed By: #### L 500.3400, L500.4100, L300.3900 #### [facility] [address] [place], [address] PT Coag (PPP) [Time] 29.3 s High 11.7-14.9 [facility] Comment on above: Order Comment: PT TO DR. DELATORRE. BMP TO [facility] Performed By: #### L 500.3400, L500.4100, L300.3900 #### [facility] [address] [place], [place], [id number] Prothrombin timeOrdered By: Raymon Heart on 02-24-2025 PT Coag (PPP) [Time] 29.3 s High 11.7-14.9 [facility] Serum creatinine measurement (mass/volume)Ordered By: Raymon Heart on 02-24-2025 Creatinine [Mass/Vol] 1.00 mg/dL 0.70-1.20 [facility] Serum glucose measurement (m ass/volume)Ordered By: Raymonliudmila Heart on 02-24-2025 Glucose [Mass/Vol] 89 mg/dL 70-99 [facility] Serum or plasma calcium mason urement (mass/volume)Ordered By: Raymon Heart on 02-24-2025 Calcium [Mass/Vol] 9.5 mg/dL 7.6-11.0 [facility] Serum or plasma urea nitroge n measurement (mass/volume)Ordered By: Raymon Heart on 02-24-2025 Urea nitrogen [Mass/Vol] 24 mg/dL High 4-19 [facility] Sodium levelOrdered By: Angel Heart on 02-24-2025 Sodium [Moles/Vol] 135 mmol/L 133-145 [facility] International normalized rat io (INR) calculationOrdered By: Donis Davies on 01-27-2025 INR Coag (Bld) [Relative time] 2.9 {INR} [facility] PSA,Total - Annual Screenon 01-27-2025 PSA,TOT SCREEN 2.19 ng/mL Normal 0.02-4.00 [facility] Comment on above: Result Comment: This test was performed using the [employer] tPSA method. Measured values of a patient??sample can vary depending on the testing procedure used. PSA values determined on patient samples by different testing procedures cannot be used interchangeably. If there is a change in PSA assays while monitoring therapy, sequential testing should be performed to confirm baseline values. Performed By: #### L 500.3400, L500.4100, L300.3900 #### [facility] [address] [place], [place], [id number] Prothrombin Time w/INRon INR Coag (PPP) [Relative time] 2.9 {INR} Normal [facility] Comment on above: Order Comment: Comme nts: STANDING ORDER: Fax to [phone] Performed By: #### L 500.3400, L500.4100, L300.3900 #### [facility] [address] [place], [address] PT Coag (PPP) [Time] 31.1 s High 11.7-14.9 [facility] Comment on above: Order Comment: Comme nts: STANDING ORDER: Fax to [phone] Performed By: #### L 500.3400, L500.4100, L300.3900 #### [facility] [address] [place], [address] Prothrombin timeOrdered By: Donis Davies on 01-27-2025 PT Coag (PPP) [Time] 31.1 s High 11.7-14.9 [facility] Anion gap in Serum or Plasma Ordered By: Oneil Nova on 01-13-2025 Anion gap [Moles/Vol] 11 mmol/L 5-15 [facility] BUN/creatinine ratioOrdered By: Oneil Nova on 01-13-2025 Urea nitrogen/Creatinine [Mass ratio] 23.3 mg/mg High 10- [facility] Basic Metabolic Profile (BMP )on 01-13-2025 BUN/CRE 23.3 RATIO High - [facility] Comment on above: Performed By: #### L 500.2500, L300.3900 #### [facility] [address] [place], [address] Calcium [Mass/Vol] 9.8 mg/dL Normal 7.6-11.0 [facility] Comment on above: Performed By: #### L 500.2500, L300.3900 #### [facility] [address] [place], [address] Chloride [Moles/Vol] 102 mmol/L Normal 98-108 [facility] Comment on above: Performed By: #### L 500.2500, L300.3900 #### [facility] [address] [place], [address] CO2 [Moles/Vol] 25.9 mmol/L Normal 21.0-32.0 [facility] Comment on above: Performed By: #### L 500.2500, L300.3900 #### [facility] [address] [place], [address] Creatinine [Mass/Vol] 1.02 mg/dL Normal 0.70-1.20 [facility] Comment on above: Performed By: #### L 500.2500, L300.3900 #### [facility] [address] [place], [address] GAP 11 Normal 5-15 [facility] Comment on above: Performed By: #### L 500.2500, L300.3900 #### [facility] [address] [place], [address] GFR/1.73 sq M.predicted among non-blacks MDRD (S/P/Bld) [Vol rate/Area] 75 mL/min/{1.73_m2} Normal >60 [facility] Comment on above: Result Comment: mL/m in/1.73m2 CKD-EPI Creatinine Equation (2020) Performed By: #### L 500.2500, L300.3900 #### [facility] [address] [place], [address] Glucose [Mass/Vol] 101 mg/dL High 70-99 [facility] Comment on above: Performed By: #### L 500.2500, L300.3900 #### [facility] [address] [place], [address] Potassium [Moles/Vol] 4.4 mmol/L Normal 3.3-5.1 [facility] Comment on above: Performed By: #### L 500.2500, L300.3900 #### [facility] [address] [place], [address] Sodium [Moles/Vol] 138 mmol/L Normal 133-145 [facility] Comment on above: Performed By: #### L 500.2500, L300.3900 #### [facility] [address] [place], [address] Urea nitrogen [Mass/Vol] 24 mg/dL High 4-19 [facility] Comment on above: Performed By: #### L 500.2500, L300.3900 #### [facility] [address] [place], [address] CBC-Complete Blood Cnt No Di ffon 01-13-2025 Erythrocyte distribution width (RBC) [Ratio] 13.6 % Normal 11.6-14.6 [facility] Comment on above: Performed By: #### L 500.3400, L500.4100, L300.3900 #### [facility] [address] [place], [address] Hematocrit (Bld) [Volume fraction] 42.2 % Normal 40-54 [facility] Comment on above: Performed By: #### L 500.3400, L500.4100, L300.3900 #### [facility] [address] [place], [address] Hemoglobin (Bld) [Mass/Vol] 14.8 g/dL Normal 13.0-16.5 [facility] Comment on above: Performed By: #### L 500.3400, L500.4100, L300.3900 #### [facility] [address] [place], [address] MCH (RBC) [Entitic mass] 31.8 pg Normal 27.0-32.0 [facility] Comment on above: Performed By: #### L 500.3400, L500.4100, L300.3900 #### [facility] [address] [place], [address] MCHC (RBC) [Mass/Vol] 35.1 g/dL Normal 32-36 [facility] Comment on above: Performed By: #### L 500.3400, L500.4100, L300.3900 #### [facility] [address] [place], [address] MCV (RBC) [Entitic vol] 90.8 fL Normal 80-94 [facility] Comment on above: Performed By: #### L 500.3400, L500.4100, L300.3900 #### [facility] [address] [place], [address] Platelet mean volume (Bld) [Entitic vol] 10.0 fL Normal 6.2-12.0 [facility] Comment on above: Performed By: #### L 500.3400, L500.4100, L300.3900 #### [facility] [address] [place], [address] Platelets (Bld) [#/Vol] 271 10*3/uL Normal 150-450 [facility] Comment on above: Performed By: #### L 500.3400, L500.4100, L300.3900 #### [facility] [address] [place], [address] RBC (Bld) [#/Vol] 4.65 10*6/uL Normal 4.6-6.2 [facility] Comment on above: Performed By: #### L 500.3400, L500.4100, L300.3900 #### [facility] [address] [place], [address] RDW SD 45.8 fl High 35.1-43.9 [facility] Comment on above: Performed By: #### L 500.3400, L500.4100, L300.3900 #### [facility] [address] [place], [address] WBC (Bld) [#/Vol] 9.9 10*3/uL Normal 4.4-11.0 [facility] Comment on above: Performed By: #### L 500.3400, L500.4100, L300.3900 #### [facility] [address] [place], [address] Carbon dioxide, total [Moles /volume] in Central venous bloodOrdered By: Oneil Nova on 01-13-2025 CO2 [Moles/Vol] 25.9 mmol/L 21.0-32.0 [facility] Chloride assayOrdered By: Ra sparkle Nova on 01-13-2025 Chloride [Moles/Vol] 102 mmol/L 98-108 [facility] Erythrocyte distribution wid th ratioOrdered By: Oneil Nova on 01-13-2025 Erythrocyte distribution width (RBC) [Ratio] 13.6 % 11.6-14.6 [facility] Erythrocyte distribution wid th standard deviationOrdered By: Oneil Nova on 01-13-2025 Erythrocyte distribution width (RBC) [Ratio] 45.8 fl High 35.1-43.9 [facility] Glomerular filtration rate ( GFR) estimation/1.73 sq m using serum, plasma, or whole bOrdered By: Oneil Nova on 01-13-2025 GFR/1.73 sq M.predicted among non-blacks MDRD (S/P/Bld) [Vol rate/Area] 75 mL/min/{1.73_m2} >60 [facility] Comment on above: mL/min/1.73m2 CKD-EP I Creatinine Equation (2020) Hematocrit Auto (Bld) [Volum e fraction]Ordered By: Oneil Nova on 01-13-2025 Hematocrit (Bld) [Volume fraction] 42.2 % 40-54 [facility] Hemoglobin A1con 01-13-2025 HbA1c (Bld) [Mass fraction] 5.6 % Normal <=5.6 [facility] Comment on above: Result Comment: Norm al < 5.7 % Prediabetic 5.7 - 6.4 % Diabetic >or= 6.5 % Please note range changes. Performed By: #### L 500.3400, L500.4100, L300.3900 #### [facility] [place], [address] Hemoglobin A1c percentageOrd ered By: Oneil Nova on 01-13-2025 HbA1c (Bld) [Mass fraction] 5.6 % <5.7 [facility] Comment on above: Normal < 5.7 % Predi abetic 5.7 - 6.4 % Diabetic >or= 6.5 % Please note range changes. Hemoglobin measurementOrdere d By: Oneil Nova on 01-13-2025 Hemoglobin (Bld) [Mass/Vol] 14.8 g/dL 13.0-16.5 [facility] International normalized rat io (INR) calculationOrdered By: Talat Perez on 01-13-2025 INR Coag (Bld) [Relative time] 1.5 {INR} [facility] MCV (mean corpuscular volume ) determinationOrdered By: Oneil Nova on 01-13-2025 MCV (RBC) [Entitic vol] 90.8 fL 80-94 [facility] Mean corpuscular hemoglobin (MCH) determinationOrdered By: Oneil Nova on 01-13-2025 MCH (RBC) [Entitic mass] 31.8 pg 27.0-32.0 [facility] Mean corpuscular hemoglobin concentration (MCHC) determinationOrdered By: Oneil Nova on 01-13-2025 MCHC (RBC) [Mass/Vol] 35.1 g/dL 32-36 [facility] Mean platelet volume determi nationOrdered By: Oneil Nova on 01-13-2025 Platelet mean volume (Bld) [Entitic vol] 10.0 fL 6.2-12.0 [facility] Platelet countOrdered By: Ra sparkle Nova on 01-13-2025 Platelets (Bld) [#/Vol] 271 10*3/uL 150-450 [facility] Potassium measurement (mass/ volume)Ordered By: Oneil Nova on 01-13-2025 Potassium (Unsp spec) [Mass/Vol] 4.4 mmol/L 3.3-5.1 [facility] Prothrombin Time w/INRon INR Coag (PPP) [Relative time] 1.5 {INR} Normal [facility] Comment on above: Performed By: #### L 500.3400, L500.4100, L300.3900 #### [facility] [address] [place], [address] PT Coag (PPP) [Time] 18.6 s High 11.7-14.9 [facility] Comment on above: Performed By: #### L 500.3400, L500.4100, L300.3900 #### [facility] [address] [place], [address] Prothrombin timeOrdered By: Talat Perez on 01-13-2025 PT Coag (PPP) [Time] 18.6 s High 11.7-14.9 [facility] RBC Auto (Bld) [#/Vol]Ordere d By: Oneil Nova on 01-13-2025 RBC (Bld) [#/Vol] 4.65 10*6/uL 4.6-6.2 [facility] Serum creatinine measurement (mass/volume)Ordered By: Oneli Nova on 01-13-2025 Creatinine [Mass/Vol] 1.02 mg/dL 0.70-1.20 [facility] Serum glucose measurement (m ass/volume)Ordered By: Oneil Nova on 01-13-2025 Glucose [Mass/Vol] 101 mg/dL High 70-99 [facility] Serum or plasma calcium mason urement (mass/volume)Ordered By: Oneil Nova on 01-13-2025 Calcium [Mass/Vol] 9.8 mg/dL 7.6-11.0 [facility] Serum or plasma urea nitroge n measurement (mass/volume)Ordered By: Oneil Nova on 01-13-2025 Urea nitrogen [Mass/Vol] 24 mg/dL High 4-19 [facility] Sodium levelOrdered By: Quirino Nova on 01-13-2025 Sodium [Moles/Vol] 138 mmol/L 133-145 [facility] White blood cell (WBC) count Ordered By: Oneil Nova on 01-13-2025 WBC (Bld) [#/Vol] 9.9 10*3/uL 4.4-11.0 [facility] Neurology Visit Reporton Neurology Visit Report [facility] [address], [address] [place] [address] OFFICE VISIT Date of Service: 01/06/25 MR#: [id number] Acct: [id number] Name: JEY RUSH Rep #: [id number] : 1945 Provider: Dr. Oneil melchor MD Age/Sex: 79/M Location[place] [facility] Status: Signed HPI HPI Chief Complaint: Details: Interim History: Jey returns for follow-up. He has a history of hypertension, hyperlipidemia, congestive heart failure, atrial fibrillation, bilateral cataracts (status post cataract surgery 2014), sleep apnea (he uses BiPAP), aortic valve insufficiency s/p aortic valve replacement in 2008, arthritis (left hip replacement in 2016 and revision in 2018), benign prostatic hyperplasia (s/p prostate surgery in 2017), vitamin D deficiency, obstructive sleep apnea (on CPAP), and polyneuropathy. He has been experiencing burning pain and numbness in the feet since at least 2014. EMG/nerve conduction studies of the lower extremities performed in years past revealed a polyneuropathy. He does not have a history of diabetes mellitus or thyroid disease (labs from 2495-8645 reveal mild elevation of TSH; a subsequent TSH in 2019 was normal) however his hemoglobin A1c (June 2023) is mildly elevated suggesting that he has a prediabetic state. He denied having weakness in the lower extremities. He denied having low back pain or lower extremity radicular pain. His burning pain is prominent at night but is fairly well controlled with gabapentin. He no longer feels the need to take a daytime dose of gabapentin. He has tolerated gabapentin well. A B12 and folate were normal. [place] lambda light, serum protein electrophoresis, serum immunofixation and urine immunofixation were unremarkable (December 2020). In 2017, he was diagnosed with moderate bilateral carpal tunnel syndrome; on later evaluation he had reported that he was not having upper extremity numbness, tingling or weakness. For several years, he experienced cramping pain in his calves and feet that occurred at night, and awakened him from sleep; this now primarily affects the shins. Magnesium 400mg qhs and vitamin D3 supplementation have been of some some benefit in reducing his muscle cramps. OTC Theraworx spray as needed for his cramping pain also provides some acute relief. Baclofen 10mg nightly was of only modest benefit for his muscle cramps. Tizanidine is of some benefit for his muscle cramps. An czrl-mqz-fjbmaxi capsaicin cream was of benefit for his neuropathic pain in the feet. He no longer uses Aspercreme lidocaine roll-on. Tonic water was of some benefit for his nighttime muscle cramps. He takes warfarin for atrial fibrillation. He had right foot bunion surgery in years past. He takes pravastatin. 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 He has chronic bilateral lower extremity edema. He has congestive heart failure. He takes amlodipine, furosemide, and losartan/hydrochlorothi azide for hypertension. Physical Exam: Neuro: The patient is awake and alert and responds appropriately; motor strength is 5/5 in the foot dorsiflexors bilaterally, quadriceps bilaterally, iliopsoas bilaterally, hamstrings bilaterally, and foot plantar flexors bilaterally Heart: Irregularly irregular Neck: no bruits Note: On prior assessment, a cardiac murmur was auscultated. Supplemental Info MRI of lumbar spine without contrast (03/11/2013): IMPRESSION: Multilevel degenerative changes of the visualized lower thoracic and lumbar spine, with annular bulges and/or disc herniations, endplate spondylosis and variable degrees of facet arthrosis and or ligamentum flavum hypertrophy, with mild epidural lipomatosis and grade 1 degenerative spondylolisthesis at L4-5, as described sequentially above. Combination of findings results in moderate L3-4 and severe L4-5 central canal stenosis, as well as variable degrees of multilevel intervertebral neural foraminal narrowing, with potential foraminal nerve root impingement predominantly bilaterally at L4-5. Please see level by level details above. Nerve conduction study of bilateral lower extremities (05/13/2013): INTRODUCTION: This is a nerve conduction study performed on this 68-year-old male with pain and numbness on the bottom of his feet bilaterally for the past several years. There is a history of low back pain. Sensory and motor nerve conduction study was performed of the bilateral lower extremities. Sural sensory amplitudes are mildly diminished bilaterally. Common peroneal distal latencies, amplitudes, and conduction velocities are normal as are tibial motor responses. The F waves obtained from the bilateral tibial and common peroneal nerves were normal and H reflexes obtained from bilateral tibial nerves were normal. IMPRESSION: This is a normal nerve con (more content not included)... Normal [facility] Echo Complete W/ Contraston 11-25-2024 Echo Complete W/ Contrast [facility] [address] [place] [address] Echo Complete W/ Contrast 11/25/24 1353 MR#: [id number] Acct: [id number] Name: JEY RUSH Rep #: [id number] : 1945 79 From: Matias Delatorre MD Attending Dr: PATRICIA Mclaughlin Status: REG CL I Ordering Dr: Raymon Heart Date: 11/25/24 Location: [facility] Sex: M C Admitted: Reason For Study Reason For Study: AVR Procedure This was a 2D Doppler, Color Flow transthoracic echocardiogram. Contrast injection was performed. Exam performed in department. Left Ventricle Normal LV size. The left ventricular ejection fraction is 55 %. No regional wall motion abnormalities noted. Right Ventricle Normal RV size. Normal systolic function. Atria The left atrium is moderately enlarged. Normal right atrium. Mitral Valve Normal mitral valve. Tricuspid Valve Normal tricuspid valve. Mild (1+) tricuspid valve insufficiency. Pulmonary artery systolic pressure is 30 mmHg. Aortic Valve Peak aortic valve gradient 28 mmHg. Mean aortic valve gradient 16 mmHg. Bioprosthetic aortic valve. Pulmonic Valve Normal pulmonic valve. Great Vessels Normal aortic root. The sinus of valsalva is mildly dilated. The pulmonary artery is normal size. Inferior vena cava collapse with respiration. Pericardium/Pleural No pericardial effusion. Medication Diluted definity 2ml given slow IV push to enhance endocardial definition. MMode/2D Measurements Calculations LVIDd: 5.5 cm IVSd: 1.2 cm LVOT diam: 2.5 cm LVIDs: 4.0 cm LVPWd: 1.1 cm RVDd: 4.0 cm FS: 27.4 % LVOT area: 4.9 cm2 Ao root diam: 3.1 cm LAV(MOD-bp): 97.4 ml LVAd ap4: 33.3 cm2 LAV(MOD-bp) Indexed: 46.8 ml/m2 LVLd ap4: 7.6 cm LAV(MOD-sp2): 99.2 ml EDV(MOD-sp4): 122.0 ml LAV(MOD-sp4): 94.2 ml EDV(sp4-el): 124.6 ml LVAs ap4: 19.5 cm2 LVLs ap4: 6.2 cm ESV(MOD-sp4): 51.2 ml ESV(sp4-el): 52.3 ml EF(MOD-sp4): 58.0 % EF(sp4-el): 58.0 % SV(MOD-sp4): 70.8 ml SV(sp4-el): 72.2 ml LA A4 area: 27.8 cm2 SI(MOD-sp4): 34.0 ml/m2 LA dimension(2D): 5.1 cm RA A4 area: 22.9 cm2 TAPSE: 1.1 cm Doppler Measurements Calculations MV E max kierra: 70.3 cm/sec Lat Peak E' Kierra: 13.1 cm/sec Med Peak E' Kierra: 9.3 cm/sec E/E' lat: 5.4 E/E' med: 7.6 Ao V2 max: 263.5 cm/sec LV V1 max: 128.1 cm/sec SV(LVOT): 139.5 ml Ao max P.0 mmHg LV V1 max P.7 mmHg Ao V2 mean: 191.4 cm/sec LV V1 mean P.5 mmHg Ao mean P.4 mmHg LV V1 mean: 102.5 cm/sec Ao V2 VTI: 57.3 cm LV V1 VTI: 28.2 cm AV (velocity ratio): 0.49 TIMBO(I,D): 2.4 cm2 TIMBO(V,D): 2.4 cm2 PA V2 max: 82.4 cm/sec TR max kierra: 250.6 cm/sec TR max P.1 mmHg ECHO/Echo Complete W/ Contrast Interpretation Summary The left atrium is moderately enlarged. Normal LV size. The left ventricular ejection fraction is 55 %. Bioprosthetic aortic valve. Mean aortic valve gradient 16 mmHg. Ordering Physician: Raymon Heart Referring Physician: Dwain Kolb Performed By: Luisa Perez, CHUCKCS, RVT 11/25/241716 Date Matias Delatorre MD CC: Dr. Dwain Kolb, DO; PATRICIA Mclaughlin Date Dictated: 11/25/24 135 Date Transcribed: 11/25/241716 Log Chain Feeder: Signed Normal [facility] Echocardiogram study reportO rdered By: Matias Delatorre on 11-25-2024 Study report [facility] [address] [place] [address] Echo Complete W/ Contrast 11/25/24 135 MR#: [id number] Acct: [id number] Name: JEY RUSH Rep #:[id number] : 1945 79 From: Matias Macias Attending Dr: PATRICIA Mclaughlin atus: REG CLI Ordering Dr: Raymon Heart Date: 11/25/24 Location: [facility] Sex: M C Admitted: Reason For Study Reason For Study: AVR Procedure This was a 2D Doppler, Color Flow transthoracic echocardiogram. Contrast injection was performed. Exam performed in department. Left Ventricle Normal LV size. The left ventricular ejection fraction is 55 %. No regional wallmotion abnormalities noted. Right Ventricle Normal RV size. Normal systolic function. Atria The left atrium is moderately enlarged. Normal right atrium. Mitral Valve Normal mitral valve. Tricuspid Valve Normal tricuspid valve. Mild (1+) tricuspid valve insufficiency. Pulmonary artery systolic pressure is 30 mmHg. Aortic Valve Peak aortic valve gradient 28 mmHg. Mean aortic valve gradient 16 mmHg. Bioprosthetic aortic valve. Pulmonic Valve Normal pulmonic valve. Great Vessels Normal aortic root. The sinus of valsalva is mildly dilated. The pulmonary artery is normal size. Inferior vena cava collapse with respiration. Pericardium/Pleural No pericardial effusion. Medication Diluted definity 2ml given slow IV push to enhance endocardial definition. MMode/2D Measurements & Calculations LVIDd: 5.5 cm IVSd: 1.2 cm LVOT diam: 2.5 cm LVIDs: 4.0 cm LVPWd: 1.1 cm RVDd: 4.0 cm FS: 27.4 % LVOT area: 4.9 cm2 Ao root diam: 3.1 cm LAV(MOD-bp): 97.4 ml LVAd ap4: 33.3 cm2 LAV(MOD-bp) Indexed: 46.8 ml/m2 LVLd ap4: 7.6 cm LAV(MOD-sp2): 99.2 ml EDV(MOD-sp4): 122.0 ml LAV(MOD-sp4): 94.2 ml EDV(sp4-el): 124.6 ml LVAs ap4: 19.5 cm2 LVLs ap4: 6.2 cm ESV(MOD-sp4): 51.2 ml ESV(sp4-el): 52.3 ml EF(MOD-sp4): 58.0 % EF(sp4-el): 58.0 % SV(MOD-sp4): 70.8 ml SV(sp4-el): 72.2 ml LA A4 area: 27.8 cm2 SI(MOD-sp4): 34.0 ml/m2 LA dimension(2D): 5.1 cm RA A4 area: 22.9 cm2 TAPSE: 1.1 cm Doppler Measurements & Calculations MV E max kierra: 70.3 cm/sec Lat Peak E' Kierra: 13.1 cm/sec Med Peak E' Kierra: 9.3 cm/sec E/E' lat: 5.4 E/E' med: 7.6 Ao V2 max: 263.5 cm/sec LV V1 max: 128.1 cm/sec SV(LVOT): 139.5 ml Ao max P.0 mmHg LV V1 max P.7 mmHg Ao V2 mean: 191.4 cm/sec LV V1 mean P.5 mmHg Ao mean P.4 mmHg LV V1 mean: 102.5 cm/sec Ao V2 VTI: 57.3 cm LV V1 VTI: 28.2 cm AV (velocity ratio): 0.49 TIMBO(I,D): 2.4 cm2 TIMBO(V,D): 2.4 cm2 PA V2 max: 82.4 cm/sec TR max kierra: 250.6 cm/sec TR max P.1 mmHg ECHO/Echo Complete W/ Contrast Interpretation Summary The left atrium is moderately enlarged. Normal LV size. The left ventricular ejection fraction is 55 %. Bioprosthetic aortic valve. Mean aortic valve gradient 16 mmHg. Ordering Physician: Raymon Heart Referring Physician: Dwain Kolb Performed By: Luisa Perez, MARIA ELENA, RVT 11/25/24 1717 Date _ Matias Delatorre MD CC: Dr. Dwain Kolb, DO; PATRICIA Mclaughlin ~ Date Dictated: 11/25/24 1353 Date Transcribed: 11/25/241716 Log Chain Feeder: Signed [facility] Work Phone: Office Visit Reporton 2024 Office Visit Report [facility] Mitzi MendozaNOMI [place] [address] OFFICE VISIT Date of Service: 11/14/24 MR#: [id number] Acct: [id number] Patient: JEY RUSH Rep #: [id number] : 1945 Provider: Dr. Matias Delatorre MD Age/Sex: 79/M [place] [facility] [place] Status: Signed Intake Vital Signs 10/28/24 08:44 11/14/24 13:38 Height 5 ft 10 in Weight: 199 lb BMI 28.5 BP 163/82 H 127/80 H Blood Pressure Location Lt brachial Lt brachial Position Sitting Sitting Respiration 18 16 Pulse 62 72 Pulse Source NIBP NIBP Intake Visit Reasons: BP CHECK Chief Complaint: Allergies Environmental Allergies: Uncoded (seasonal) Allergy (Mild, Verified 10/28/24 09:55) congestion lactose Allergy (Verified 10/28/24 09:55) Food Allergy poison lauren extract Allergy (Verified 10/28/24 09:55) Itching dapagliflozin (From Farxiga) Adverse Reaction (Intermediate, Verified 10/28/24 09:55) Extreme fatigue and somnolence rivaroxaban (From Xarelto) Adverse Reaction (Intermediate, Verified 10/28/24 09:55) Bruising easily, nosebleeds Have you fallen in the past year?: No Nursing Note Pt presented for F/U BP Check. Vitals as follows: 1st: (Office) LUE BP: 127/80 HR: 72 2nd: (Home) LUE BP: 137/85 HR:62 3rd: (Office) RUE BP: 139/79 HR: 84 4th: (Home) RUE BP: 134/88 HR: 69 It seems as though the 127/80 was an outlier, but the home BP and office BP machines correlate closely. Clinical Quality Measures Falls Risk Screening/Assistive Devices Have you fallen in the past year?: No 11/19/24 1016 Date [facility]: Date (if applicable) CC: [facility] Bilirubin directOrdered By: Raymon Heart on 11-04-2024 Bilirubin.direct [Mass/Vol] 0.18 mg/dL 0.00-0.30 [facility] Comment on above: Hemolysis present, R esults could be affected. Bilirubin, totalOrdered By: Raymon Heart on 11-04-2024 Bilirubin [Mass/Vol] 0.60 mg/dL 0.00-1.30 [facility] Calculated very low density lipoprotein (VLDL) cholesterol measurementOrdered By: Raymon Heart on 11-04-2024 Calculated very low density lipoprotein (VLDL) cholesterol measurement 26 mg/dL 5-40 [facility] International normalized rat io (INR) calculationOrdered By: Raymonliudmila Heart on 11-04-2024 INR Coag (Bld) [Relative time] 2.7 {INR} [facility] LDL calc ser/plasOrdered By: [facility] Sly on 11-04-2024 Cholesterol in LDL [Mass/Vol] 73 mg/dL [facility] Comment on above: Xmenpwwllf=926-816 m g/dL & Higher Mnsl=666 mg/dL or greater Laboratory - Chemistry and C hemistry - challengeOrdered By: Raymon Heart on 11-04-2024 AST [Catalytic activity/Vol] 30 U/L <38 [facility] Comment on above: Hemolysis present, R esults could be affected. Lipid Profileon 11-04-2024 CHOL:HDL 2.49 Normal [facility] Comment on above: Performed By: #### L 500.3400, L500.4100, L300.3900 #### [facility] [address] [place], [address] Cholesterol [Mass/Vol] 165 mg/dL Normal <=200 [facility] Comment on above: Result Comment: Chol esterol level, Desirable <200 mg/dL Borderline high cholesterol 200-239 mg/dL High cholesterol >=240 mg/dL Recommendations of the NCEP Adult Treatment Panel for the following risk-cutoff thresholds for the [place] population. Performed By: #### L 500.3400, L500.4100, L300.3900 #### [facility] [address] [place], [address] Cholesterol in HDL [Mass/Vol] 66 mg/dL Normal [facility] Comment on above: Result Comment: Gilda onal Cholesterol Education Program (NCEP) guidelines: <40 mg/dL: Low HDL-cholesterol (major risk factor for CHD) >= 60 mg/dL: High HDL-cholesterol (negative risk factor for CHD) HDL-cholesterol is affected by a number of factors, e.g. smoking, exercise, hormones, sex and age. Performed By: #### L 500.3400, L500.4100, L300.3900 #### [facility] [address] [place], [address] Cholesterol in LDL [Mass/Vol] 73 mg/dL Normal [facility] Comment on above: Result Comment: Bord iqdwfj=220-871 mg/dL Higher Mljr=942 mg/dL or greater Performed By: #### L 500.3400, L500.4100, L300.3900 #### [facility] [address] [place], [address] Cholesterol in VLDL [Mass/Vol] 26 mg/dL Normal 5-40 [facility] Comment on above: Performed By: #### L 500.3400, L500.4100, L300.3900 #### [facility] [address] [place], [address] Triglyceride [Mass/Vol] 131 mg/dL Normal [facility] Comment on above: Result Comment: The drugs N-Acetylcysteine and Metamizole may falsely depress this assay. Normal range: <150 mg/dL Borderline High: 150-199 mg/dL High: 200-499 mg/dL Very High: >500 mg/dL Performed By: #### L 500.3400, L500.4100, L300.3900 #### [facility] [address] [place], [address] Liver Profileon 11-04-2024 Albumin [Mass/Vol] 3.8 g/dL Normal 3.4-4.8 [facility] Comment on above: Performed By: #### L 500.3400, L500.4100, L300.3900 #### [facility] [address] [place], [address] ALK PHOS 49 U/L Normal 40-129 [facility] Comment on above: Performed By: #### L 500.3400, L500.4100, L300.3900 #### [facility] [address] [place], [address] ALT [Catalytic activity/Vol] 25 U/L Normal <=46 [facility] Comment on above: Performed By: #### L 500.3400, L500.4100, L300.3900 #### [facility] [address] [place], [address] AST [Catalytic activity/Vol] 30 U/L Normal <=37 [facility] Comment on above: Result Comment: Hemo lysis present, Results??could be affected. ?? Performed By: #### L 500.3400, L500.4100, L300.3900 #### [facility] [address] [place], [address] Bilirubin [Mass/Vol] 0.60 mg/dL Normal 0.00-1.30 [facility] Comment on above: Performed By: #### L 500.3400, L500.4100, L300.3900 #### [facility] [address] [place], [address] Bilirubin.direct [Mass/Vol] 0.18 mg/dL Normal 0.00-0.30 [facility] Comment on above: Result Comment: Hemo lysis present, Results??could be affected. ?? Performed By: #### L 500.3400, L500.4100, L300.3900 #### [facility] [address] [place], [address] Globulin (S) [Mass/Vol] 2.5 g/dL Normal 2.2-4.2 [facility] Comment on above: Performed By: #### L 500.3400, L500.4100, L300.3900 #### [facility] [address] [place], [address] T PROT 6.4 g/dL Normal 5.9-8.4 [facility] Comment on above: Performed By: #### L 500.3400, L500.4100, L300.3900 #### [facility] [address] [place], [address] Prothrombin Time w/INRon INR Coag (PPP) [Relative time] 2.7 {INR} Normal [facility] Comment on above: Performed By: #### L 500.3400, L500.4100, L300.3900 #### [facility] [address] [place], [address] PT Coag (PPP) [Time] 29.3 s High 11.7-14.9 [facility] Comment on above: Performed By: #### L 500.3400, L500.4100, L300.3900 #### [facility] [address] [place], [address] Prothrombin timeOrdered By: Raymon Heart on 11-04-2024 PT Coag (PPP) [Time] 29.3 s High 11.7-14.9 [facility] Screening total cholesterol/ high density lipoprotein (HDL) cholesterol ratioOrdered By: Raymon Heart on 11-04-2024 Cholesterol.total/Joana sterol in HDL [Mass ratio] 2.49 {ratio} [facility] Serum globulin measurementOr dered By: Raymon Heart on 11-04-2024 Globulin (S) [Mass/Vol] 2.5 g/dL 2.2-4.2 [facility] Serum or plasma alanine rivas otransferase (ALT) measurementOrdered By: Raymon Heart on 11-04-2024 ALT [Catalytic activity/Vol] 25 U/L <47 [facility] Serum or plasma albumin mason urement (mass/volume)Ordered By: Raymon Heart on 11-04-2024 Albumin [Mass/Vol] 3.8 g/dL 3.4-4.8 [facility] Serum or plasma alkaline elfego sphatase measurementOrdered By: Raymon Heart on 11-04-2024 ALP [Catalytic activity/Vol] 49 U/L 40-129 [facility] Serum or plasma cholesterol in HDL measurement (mass/volume)Ordered By: Raymon Heart on 11-04-2024 Cholesterol in HDL [Mass/Vol] 66 mg/dL >40 [facility] Comment on above: National Cholesterol Education Program (NCEP) guidelines:<40 mg/dL: Low HDL-cholesterol (major risk factor for CHD)>= 60 mg/dL: High HDL-cholesterol (negative risk factor for CHD)HDL-cholesterol is affected by a number of factors, e.g. smoking, exercise, hormones, sex and age. Serum or plasma cholesterol measurement (mass/volume)Ordered By: Raymon Heart on 11-04-2024 Cholesterol [Mass/Vol] 165 mg/dL <201 [facility] Comment on above: Cholesterol level, D esirable <200 mg/dLBorderline high cholesterol 200-239 mg/dLHigh cholesterol >=240 mg/dLRecommendations of the NCEP Adult Treatment Panel for the following risk-cutoff thresholds for the [place] population. Total proteinOrdered By: Luis Heart on 11-04-2024 Protein [Mass/Vol] 6.4 g/dL 5.9-8.4 [facility] Triglycerides measurementOrd ered By: Raymon Heart on 11-04-2024 Triglyceride [Mass/Vol] 131 mg/dL <199 [facility] Comment on above: The drugs N-Acetylcy steine and Metamizole may falsely depress this assay. Normal range: <150 mg/dLBorderline High: 150-199 mg/dLHigh: 200-499 mg/dLVery High: >500 mg/dL 12 Lead EKG performed by [facility] on 10-28-2024 12 Lead EKG performed by [place] [address] [place] [address] 12 Lead EKG performed by [facility] 10/28/24909 MR#: [id number] Acct: [id number] Name: JEY RUSH Rep #: [id number] : 1945 79 From: Raymon GOMEZ Attending Dr: PATRICIA Mclaughlin Status: DEP AM B Ordering Dr: Raymon Heart Date: 10/28/24 [facility] Sex: M C Admitted: BMS/12 Lead EKG performed by [facility] ECG Report Interpretation ---Atrial fibrillation ABNORMAL RHYTHMElectronically signed on 10/29/2024 at 11:23 by Matias Delatorrewood Software Version 8610 10/29/24 1124 Date Raymon GOMEZ CC: Dr. Dwain Kolb, Date Dictated: 10/28/24909 Date Transcribed: 10/28/24909 Log Chain Feeder: SILVESTRE Signed Normal [facility] Cardiology Visit Reporton Cardiology Visit Report [facility] [address] [place] [address] OFFICE VISIT Date of Service: 10/28/24 MR#: [id number] Acct: [id number] Name: JEY RUSH Rep #: [id number] : 1945 Provider: PATRICIA Mclaughlin Age/Sex: 79/M [facility] Status: Signed HPI HPI History of Present Illness Details: Jey Rush is a 79-year-old male who presents to office today for follow-up for monitoring of his cardiovascular disease. Patient has a history of aortic valve disease status post aortic valve replacement with 25 mm Julian Cosme bioprosthetic aortic valve in 2008, aortic root dilation status post aortoplasty Julian Cosme bioprosthetic aortic valve in 2008, aortic root dilation status post aortoplasty in 2008, persistent atrial fibrillation first noted in January 2020 first noted in January 2020, PVCs, hyperlipidemia, hypertension, CONCEPCION on BiPAP therapy. Since last seen, approximately 1 year ago, patient reports doing well up until a few months ago in which he experienced syncope 07/26/2024 and again in the end of August/beginning of September. Patient denies any associated symptoms with episode of syncope. Patient was assessed in the ED for a skin tear in July; however, patient did not report syncopal episode and had reported as mechanical fall in which extensive workup was not pursued at that time. Patient did not present to ED with second episode. Patient reports intermittent mild headaches over the last 6 weeks. Further ROS below. Of note, patient did undergo a Holter monitor 11/2023 that revealed 23% PVC burden. Patient was referred to EP at [facility] hospital. Patient saw Dr. Pollock 01/29/[address] Pollock discussed 3 options including conservative management of PVCs, rate limiting medication with PPM given underlying bradycardia, or ablation. At that time, patient decided on conservative management and was doing well up until these episodes of syncope. Patient did undergo stress test 12/27/2023 with concerns of apical ischemia and underwent left heart catheterization 01/21/2024 that did not reveal significant coronary artery disease. Intake Vital Signs 10/30/23 11:09 09/04/24 07:51 10/28/24 08:44 Height 5 ft 10 in 5 ft 10 in 5 ft 10 in Weight: 199 lb BMI 28.5 BP 163/82 H Blood Pressure Location Lt brachial Position Sitting Respiration 18 Pulse 62 Pulse Source NIBP Intake Visit Reasons: 1 Y FU Vegetable Tier Required: No Accompanied by: Self Is patient in pain?: No Allergies Environmental Allergies: Uncoded (seasonal) Allergy (Mild, Verified 10/28/24 09:55) congestion lactose Allergy (Verified 10/28/24 09:55) Food Allergy poison lauren extract Allergy (Verified 10/28/24 09:55) Itching dapagliflozin (From Farxiga) Adverse Reaction (Intermediate, Verified 10/28/24 09:55) Extreme fatigue and somnolence rivaroxaban (From Xarelto) Adverse Reaction (Intermediate, Verified 10/28/24 09:55) Bruising easily, nosebleeds Medications ???Medication ???Instructions ???Recorded ???Confirmed ???Type multivitamin with folic acid 400 1 tab PO DAILY SUPPLEMENT 06/21/16 10/28/24 History mcg tablet magnesium 250 mg tablet 500 mg PO QHS 05/04/20 10/28/24 Hi story Compression stockings (10-20) #2 ea 02/26/24 10/28/24 Rx pravastatin 80 mg tablet 80 mg PO QHS CHOLESTEROL #90 tabs 04/04/24 10/28/24 Rx warfarin 4 mg tablet 4 mg PO DAILY #90 tabs 04/16/24 Rx gabapentin 600 mg tablet 1,200 mg (2 x 600 mg) PO QHS #180 05/08/24 10/28/24 Rx tabs tizanidine 4 mg tablet 4 mg PO QHS muscle spasticity #90 05/08/24 10/28/24 Rx tabs losartan 100 See Rx Instructions .Route 4 10/28/24 Rx mg-hydrochlorothiazide 25 mg tablet .COMPLEX #90 tabs furosemide 40 mg tablet 40 mg PO BID #180 tabs 07/01/24 Rx potassium chloride 20 mEq 20 meq PO BID this is a dose 07/0310/28/24 Rx tablet,extended release increase #180 tabs alpha lipoic acid PO DAILY 10/28/24 10/28/24 History ascorbic acid (vitamin C) 500 mg mg PO HS 10/28/24 10/28/24 History capsule cholecalciferol (vitamin D3) 250 250 mcg PO QDAY 10/28/24 10/28/24 History mcg (10,000 unit) capsule creatine monohydrate 5,000 mg oral mg PO DAILY 10/28/24 10/28/24 Hi story powder packet inositol-choline rku-[id number]-sdl 2 tab PO TIDWMEAL Tinnitus 10/2810/28/24 History B complex and C 500 mg tablet (Lipo-Flavonoid) potassium gluconate 595 mg (99 mg) 595 mg PO QDAY 10/28/24 10/28/24 History tablet semaglutide (weight loss) 0.5 0.25 mg subcut QWEEK 10/28/2403/16 History mg/0.5 mL subcutaneous pen injector (Wegovy) semaglutide 2 mg/dose (8 mg/3 mL) 2 mg subcut QWEEK 10/28/24 History subcutaneous pen injector Ejection fraction %: 50 Have you falle (more content not included)... Normal [facility] normalized rat io (INR) calculationOrdered By: Salem Juan Ramon on 10-14-2024 INR Coag (Bld) [Relative time] 2.1 {INR} [facility] Prothrombin Time w/INRon INR Coag (PPP) [Relative time] 2.1 {INR} Normal [facility] Comment on above: Performed By: #### L 300.3900 #### [facility] [address] [place], [place], [id number] PT Coag (PPP) [Time] 23.9 s High 11.7-14.9 [facility] Comment on above: Performed By: #### L 300.3900 #### [facility] [address] [place], [place], [id number] Prothrombin timeOrdered By: Salem Juan Ramon on 10-14-2024 PT Coag (PPP) [Time] 23.9 s High 11.7-14.9 [facility] Prothrombin Time w/INRon INR Coag (PPP) [Relative time] 1.8 {INR} Normal [facility] Comment on above: Performed By: #### L 300.3900 #### [facility] [address] [place], [place], [id number] PT Coag (PPP) [Time] 21.3 s High 11.7-14.9 [facility] Comment on above: Performed By: #### L 300.3900 #### [facility] [address] [place], [place], [id number] Pulmonary Visit Reporton Pulmonary Visit Report [facility] [place] [address] [place], [place] [address] OFFICE VISIT Date of Service: 09/04/24 MR#: [id number] Acct: [id number] Name: JEY RUSH Rep #: [id number] : 1945 Provider: EDIL Neal Age/Sex: 79/M Location[place] [facility] [place] Status: Signed Assessment and Plan Assessment and Plan (1) Sleep apnea: Status: Chronic Qualifiers: Sleep apnea type: unspecified type Qualified Code(s): G47.30 - Sleep apnea, unspecified Comment: ASV 18/12 cmH2O with 14 breaths/min Plan: He is using and benefiting from Pap therapy. He is going to contact the [employer] company to make sure that "if they humidification chamber runs out of water it will not damage the machine". When he gets confirmation that this is not a concern, he is willing to increase the humidification delivered during therapy. No indication for titration study at this time. Contact the office for any new or worsening symptoms in the meantime. Follow-up in 6 months. (2) Obesity: Status: Chronic Qualifiers: Obesity type: due to excess calories Obesity classification: adult class 1 (BMI 30 - 34.9) Serious obesity comorbidity presence: with serious comorbidity Body mass index: BMI 34.0-34.9 Qualified Code(s): E66.09 - Other obesity due to excess calories; Z68.34 - Body mass index [BMI] 34.0-34.9, adult Plan: Improving. The patient has successfully lost 30 pounds in the past 6 months. Currently his goal is to "keep it off". (3) Hoarseness: Status: Acute Plan: Of unclear etiology. If the patient does not notice improvement with hoarseness after increasing humidification delivered through the PAP device he will contact the office. I did discuss with him that he may benefit from a referral to ENT. If the humidification adjustment does not solve the hoarseness he will contact the office for this referral. HPI HPI Comments Details: This patient presents to the office today for follow-up of his sleep apnea. He is ambulatory with the use of a cane and currently on room air. He has not recently been seen in the ED or urgent care for any respiratory illness. Has not required any antibiotics or prednisone for any breathing problems. He denies any difficulty with shortness of breath. He denies any cough, sputum production or hemoptysis. He denies any wheezing, chest tightness, chest pain or palpitations. He also denies any fever, chills or body aches. He does not notice feeling rested when waking up, but he states that he "never has". He is experiencing dry mouth and hoarseness. He believes that the dry mouth might be causing the hoarseness. He admits that he has his humidification turned completely down. He also has the temperature as low as it will go. He denies any difficulty with excessive nocturia. He is not nodding off to sleep unintentionally. He is not requiring naps. Compliance report for the past 30 days shows 93% compliance with average use of 9 hours and 32 minutes per night. Current setting is ASV 18/12 cmH2O with a backup rate of 14 breaths/min. Residual AHI 0.3 events per hour. Leaks do not appear to be problematic. Intake Vital Signs 03/06/24 07:49 05/08/24 13:27 09/04/24 07:51 Height 5 ft 10 in 5 ft 10 in 5 ft 10 in Weight: 199 lb BMI 28.5 BP 115/77 Blood Pressure Location Lt brachial Position Sitting Respiration 18 Pulse 50 L Pulse Source Monitor Temp 96.8 F L Temperature Source Temporal Artery Pulse Oximetry (%) 100 Oxygen Delivery Method room air Intake Visit Reasons: 6 M FU Chief Complaint: Vegetable Tier Required: No DME Vendor: [employer] Accompanied by: Self Allergies lactose Allergy (Verified 09/04/24 14:12) Food Allergy poison lauren extract Allergy (Verified 09/04/24 14:12) Itching dapagliflozin (From Farxiga) Adverse Reaction (Intermediate, Verified 09/04/24 14:12) Extreme fatigue and somnolence rivaroxaban (From Xarelto) Adverse Reaction (Intermediate, Verified 09/04/24 14:12) Bruising easily, nosebleeds Medications ???Medication ???Instructions ???Recorded ???Confirmed ???Type multivitamin with folic acid 400 1 tab PO DAILY SUPPLEMENT 06/21/16 09/04/24 History mcg tablet magnesium 250 mg tablet 500 mg PO QHS 05/04/20 09/04/24 Hi story cholecalciferol (vitamin D3) 50 50 mcg PO DAILY 10/18/20 09/04/24 History mcg (2,000 unit) tablet Compression stockings (10-20) #2 ea 02/26/24 09/04/24 Rx pravastatin 80 mg tablet 80 mg PO QHS CHOLESTEROL #90 tabs 04/04/24 09/04/24 Rx warfarin 4 mg tablet 4 mg PO DAILY #90 tabs 04/16/24 Rx gabapentin 600 mg tablet 1,200 mg (2 x 600 mg) PO QHS #180 05/08/24 09/04/24 Rx tabs tizanidine 4 mg tablet 4 mg PO QHS muscle spasticity #90 05/08/24 09/04/24 Rx tabs semaglutide (weight loss) 0.5 0.5 mg s (more content not included)... Normal [facility] HIP, UNI W/ Pelvis 2-3 Views on 08-18-2024 HIP, UNI W/ Pelvis 2-3 Views [facility] Imaging Services [address] [place] [id number] HIP, UNI W/ Pelvis 2-3 Views MR#: [id number] Acct: [id number] Name: JEY RUSH Rep #: [id number] : 1945 M 79 From: Kenney Castañeda MD PCP: Dr. Dwain Kolb, DO Status: [facility] Study: HIP, UNI W/ Pelvis 2-3 Views Date of Exam: Exam# [id number] Ordering Dr: Luisa Rojas 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-C [id number] STUDY: X-RAY - PELVIS AND LEFT HIP REASON FOR EXAM: Male, 79 years old. Fall. Pain. TECHNIQUE: 4 views of the pelvis and hip. COMPARISON: August 28, 2018 FINDINGS: There is a non-specific bowel gas pattern. Marked vascular calcification. Stable phleboliths. Osteopenia. Normal bilateral iliac wings, sacroiliac joints and visualized sacrum. Normal bilateral superior and inferior pubic rami. Normal pubic symphysis. Normal bilateral ischial tuberosities. Mild arthrosis of the right hip unchanged. Stable revision left total hip arthroplasty with longstem femoral component and cerclage wires. RAD/HIP, UNI W/ Pelvis 2-3 Views IMPRESSION: Stable pelvis and proximal femurs with no acute abnormality. Electronically Signed: Kenney Castañeda MD at 9:52 EST , CC: EDIL Rojas; Dr. Dwain Kolb, Log Chain Feeder: Signed Normal [facility] normalized rat io (INR) calculationOrdered By: Matias Delatorre on 08-18-2024 INR Coag (Bld) [Relative time] 2.1 {INR} [facility] Prothrombin Time w/INRon INR Coag (PPP) [Relative time] 2.1 {INR} Normal [facility] Comment on above: Performed By: #### L 500.3400, L500.4100, L300.3900 #### [facility] [address], [address] PT Coag (PPP) [Time] 23.8 s High 11.7-14.9 [facility] Comment on above: Performed By: #### L 500.3400, L500.4100, L300.3900 #### [facility] [address] [place], [address] Prothrombin timeOrdered By: Matias Delatorre on 08-18-2024 PT Coag (PPP) [Time] 23.8 s High 11.7-14.9 [facility] Venous Duplex US, Unilateral on 08-18-2024 Venous Duplex US, Unilateral [facility] [address] [place] [address] Venous Duplex US, Unilateral 08/18/24 1532 MR#: [id number] Acct: [id number] Name: JEY RUSH Rep #: [id number] : 1945 79 From: Davi Diaz MD Attending Dr: Luisa Rojas, 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-C Status: REG [facility] I Ordering Dr: Luisa Rojas 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-C Date: 08/18/24 Location: [facility] Sex: M C Admitted: Reason For Study: Left leg pain RIGHT LEFT CFV is compressible, spontaneous, phasic, GSV is normal. competent and demonstrates normal CFV is compressible, spontaneous, phasic, augmentation. competent, and demonstrates normal Procedure augmentation. This is a venous duplex using B-mode, color FV is compressible, spontaneous, phasic, flow and spectral Doppler. competent and demonstrates normal Exam performed in department. augmentation. A preliminary report was called and/or faxed POP V is compressible, spontaneous, phasic, to Bob SOLO. competent and demonstrates normal augmentation. T/P Trunk is compressible. PTV is compressible. LT PerV is compressible. VL/Venous Duplex US, Unilateral Interpretation Summary Deep veins of the left lower extremity are patent and compressible segmentally. There is no evidence of left lower extremity deep vein thrombosis. The left great saphenous vein appears patent and compressible segmentally. Ordering Physician: Luisa Rojas Referring Physician: Dwain Kolb Performed By: Yesenia Perez T 08/18/24 1842 Date Davi Diaz MD CC: 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-C Luisa Rojas; Dr. Dwain Kolb, Date Dictated: 08/18/24 1532 Date Transcribed: 08/18/241841 Log Chain Feeder: Signed Normal [facility] PT Coag (Bld) [Time]Ordered By: Matias Delatorre on 08-06-2024 Bedside Prothrombin Time 16.6 SEC High 11.7-14.9 [facility] Protime w/INR Fingerstickon 08-06-2024 INR Coag (PPP) [Relative time] 1.5 {INR} Normal [facility] Comment on above: Result Comment: Crit ical Value > 4.0 Performed By: #### L 500.2500, L300.3900 #### [facility] [address] [place], [address] Protime [place]en 16.6 SEC High 11.7-14.9 [facility] Comment on above: Performed By: #### L 500.2500, L300.3900 #### [facility] [address] [place], [address] Whole blood prothrombin time Ordered By: Matias Delatorre on 08-06-2024 PT Coag (Bld) [Time] 16.6 s High 11.7-14.9 [facility] Emergency Department Summary on 07-26-2024 Emergency Department Summary [facility] Medical Records Department [address] [place] [address] Emergency Department Summary 07/26/24 MR#: [id number] Acct: [id number] Name: JEY RUSH Rep #: [id number] : 1945 79 From: Amadeo Claire MD PCP: Dr. Dwain Kolb, DO Status:DEP ER Location: ED HPI History of Present Illness Chief Complaint: Fall Narrative Narrative: 79-year-old male past medical history of atrial fibrillation, on Coumadin, presents with skin tear to his left hand that he sustained about an hour prior to arrival. He states that the cushion that he had on a chair fell on the floor. He leaned over to pick it up, and fell forward. His left hand hit a plant stand, and it was dragged across the metal surface. He sustained a large skin tear to the dorsum of his left hand, mainly between his first and second digit, and some at the base of his third digit. He has had skin tears in the past. He states his tetanus immunization is current. He denies other injury. No hitting his his head or loss of consciousness. 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 CONCEPCION (obstructive sleep apnea) History of cardioversion ( 03/30/20) Aortic root dilatation Essential hypertension BPH with obstruction/lower urinary tract symptoms Cardiomyopathy in other diseases classified elsewhere CONCEPCION (obstructive sleep apnea) Neuropathy Hyperlipidemia Osteoarthritis Home Medications ???Medication ???Instructions ???Recorded ???Last Taken ???Type multivitamin with folic acid 400 1 tab PO DAILY SUPPLEMENT 06/21/16 08/07/17 08:00 History mcg tablet 1 magnesium 250 mg tablet 500 mg PO QHS 05/04/20 Unknown History cholecalciferol (vitamin D3) 50 50 mcg PO DAILY 10/18/20 Unknown History mcg (2,000 unit) tablet Compression stockings (10-20) #2 ea 02/26/24 Unknown Rx pravastatin 80 mg tablet 80 mg PO QHS CHOLESTEROL #90 tabs 04/04/24 Unknown Rx warfarin 4 mg tablet 4 mg PO DAILY #90 tabs 04/16/24 Unknown Rx gabapentin 600 mg tablet 1,200 mg (2 x 600 mg) PO QHS #180 05/08/24 Unknown Rx tabs tizanidine 4 mg tablet 4 mg PO QHS muscle spasticity #90 05/08/24 Unknown Rx tabs semaglutide (weight loss) 0.5 0.5 mg subcut QWEEK 06/10/24 Unknown History mg/0.5 mL subcutaneous pen injector (Meetgovfreya) losartan 100 See Rx Instructions .Route 06/30/24 Unknown Rx mg-hydrochlorothiazide 25 mg tablet .COMPLEX #90 tabs furosemide 40 mg tablet 40 mg PO BID #180 tabs 07/01/24 Unknown Rx potassium chloride 20 mEq 20 meq PO BID this is a dose 07/03/24 Unknown Rx tablet,extended release increase #180 tabs Allergy/AdvReac Type Severity Reaction Status Date / Time lactose Allergy Food Verified 07/26/24 19:18 Allergy poison lauren extract Allergy Itching Verified 07/26/24 19:18 dapagliflozin (From Farxiga) AdvReac Intermediate Extreme Verified 07/26/24 19:18 fatigue and somnolence rivaroxaban (From Xarelto) AdvReac Intermediate Bruising Verified 07/26/24 19:18 easily, nosebleeds Family History Father CVA (cerebral vascular accident) Congestive heart failure Brother Heart disease Congestive heart failure Diabetes Mother Cancer Ovarian Cancer Surgical History History of prostate surgery History of transurethral resection of prostate History of left hip replacement History of tonsillectomy H/O aortic valve replacement ( 08/24/08) Social History Smoking Status: Never smoker second hand exposure: No alcohol intake: current alcohol intake frequency: 0-2 drinks per day details: beer caffeine: Yes Type: coffee Number of servings: 1 what type of physical activity do you participate in: walking and other details: step light weight lifting frequency: 3-4 times per week ambrose/jewish: Shinto seatbelt use: always ROS ROS ED ROS Narrative Review of systems positive for skin tear on dorsum of left hand between first and second digits, and on third digit. No hitting of his head, no loss of consciousness, no pain with movement of fingers. Denies other injuries. EXAM Physical Exam Narrative Exam Narrative: GCS 15. ABCs intact. Focused physical examination does reveal a 5 to 6 cm skin tear on the dorsum of his left hand, proximal to the webspace of the first and second digits. There is 2 to 3 cm skin tear at the base of his third digit on the dorsum of the finger. Minimal active bleeding. The larger avulsion does have remaining epidermis attached to about half of it. No bony tenderness of hand. Full range of (more content not included)... Normal [facility] CNOVon 07-24-2024 CNOV Office Visit (AGHWW1 ) NICKSHILOHJEY BLACK ([id number]) 1945 M Date Time Provider Department 07/24/24 1:45 PM JR VARGAS AGHWW1 During your visit today, we recorded the following information about you: Respiration Weight Height 17/minute 103.4 kg 1.778 m Naomie Rhodes MA 08/22/2024 7:02 AM Signed REVIEW OF SYSTEMS: GENERAL: Well developed, well nourished. No acute distress PAIN: Pain 09/01 CARDIOVASCULAR: CHF, Hypertension, Hyperlipidemia MSK: Negative for joint swelling SKIN: Negative for lesions, rash, itching, metal sensitivity NEURO: Negative for seizure, trauma, numbness/tingling of extremities. ENDOCRINE: Negative for diabetic associated symptoms HEMATOLOGY: Warfarin TREY Rosa Jordan Paul, DPM 08/22/2024 7:02 AM Signed CC: hallux rigidus right foot follow up HPI: This 79 year old male with PMH indicated below presents today for follow up of right great toe pain. Admits to improvement of pain since last visit. States that he obtained carbon fiber inserts since last visit that he has been using and has provided significant relief. Continues to use Capsicin but helps him sleep. Did helps keep toe stiff during activity. 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 Denies any other pedal complaints. No primary care provider on file. PAST MEDICAL HISTORY Diagnosis Date AORTIC VALVE INSUFFICIENCY Cardiomyopathy in other diseases classified elsewhere Other and unspecified hyperlipidemia Shortness of breath Unspecified essential hypertension 08/19/2008 Current Outpatient Medications Medication Sig Dispense Refill warfarin (COUMADIN) 4 mg tablet Take 4 mg by mouth. gabapentin (NEURONTIN) 600 mg tablet Take 600 mg by mouth. losartan-hydroCHLOROthi azide (HYZAAR) 100-25 mg per tablet Take 1 tablet by mouth once daily. furosemide (LASIX) 40 mg tablet Take 40 mg by mouth. Cholecalciferol, Vitamin D3, 25 mcg (1,000 unit) cap Take 4,000 Units by mouth. MAGNESIUM OXIDE ORAL Take 500 mg by mouth. tiZANidine (ZANAFLEX) 4 mg tablet Valsartan-Hydrochloroth iazide 320-25 mg per tablet Take 1 tablet by mouth once daily. Multivitamin capsule Take 1 capsule by mouth once daily. pravastatin (PRAVACHOL) 80 mg tablet Take 80 mg by mouth once daily. UBIDECARENONE/VITAMIN E MIXED (COQ10 SG 100 ORAL) Take by mouth. (Patient not taking: Reported on 06/26/2024) doxazosin (CARDURA) 4 mg tablet Take 4 mg by mouth daily at bedtime. (Patient not taking: Reported on 06/26/2024) amLODIPine (NORVASC) 2.5 mg tablet Take 2.5 mg by mouth once daily. (Patient not taking: Reported on 07/24/2024) ASPIRIN 81 MG CHEWABLE TAB 1 Tab PO DAILY (Patient not taking: Reported on 06/26/2024) 30 0 No current facility-administered medications for this visit. ALLERGIES Allergen Reactions Lactose Intolerance* Social History Tobacco Use Smoking status: Never Smokeless tobacco: Never Substance Use Topics Alcohol use: Yes Comment: 12 beers per week. Drug use: No FAMILY HISTORY Problem Relation Age of Onset other (CVA AND OF CHF [Other]) Father AGE 78 other (OVARIAN CANCER [Other]) Mother AGE 48 other (DIABETES AND OF HEART DISEASE [Other]) Brother AGE 51 PAST SURGICAL HISTORY Procedure Laterality Date COLONOSCOPY SCREENING 07/22/2024 LEFT HEART CATH,PERCUTANEOUS 2002, 2007 Cardiac cath, L heart X 2 PAST SURGICAL HISTORY OF remote Right great toe pinning TONSILLECTOMY PRIMARY/SECONDARY Tonsillectomy REVIEW OF SYSTEMS 12 point ROS performed and negative except for those mentioned in the HPI Physical Exam: Patient is a 79 year old male who appears well developed, well nourished and with good attention to hygiene and body habitus. Resp 17 Ht 177.8 cm (5' 10") Wt 103.4 kg (228 lb) BMI 32.71 kg/m? Vascular: DP and PT pulses are palpable. CFT less than 3 seconds to all digits b/l. Skin temperature is warm to warm from proximal to distal b/l. Hair growth is noted. Mild edema to 1st MTPJ right . No varicosities noted. Neuro: Light touch intact b/l. Protective sensation intact at all pedal sites via [place] 5.07 monofilament b/l. Proprioception intact at the hallux b/l. No clonus noted. Babinski reflex not elicited b/l. Derm: Skin texture and turgor within normal limits. Toenails normal in appearance. Webspaces 1-4 clean, dry, intact b/l. No rashes, subcutaneous nodules, or open lesions noted. No hyperkeratotic tissue. no erythema Musc: Muscle strength is 5/5 for all muscle groups including dorsiflexors, plantarflexors, everters, and inverters b/l. There is a dorsal bony prominence at the 1st MTP joint right foot. Local effusion is noted to the 1st MTP joint. There is pain to palpation of the prominent dorsal eminence. Range of motion of the 1st MTP joint is severely decreased with positive (more content not included)... Normal [facility] Absolute neutrophil countOrd ered By: Dwain Kolb on 07-17-2024 Neutrophils (Bld) [#/Vol] 7.2 10*3/uL 2.0-7.7 [facility] Albumin to globulin ratioOrd ered By: Dwain Kolb on 07-17-2024 Albumin/Globulin [Mass ratio] 1.1 {ratio} Normal 0.9-2.4 [facility] Comment on above: Order Comment: PER P T-DO BOTH TESTS Performed By: #### L 500.2500, L300.3900 #### [facility] [address] [place], [place], [id number] Automated blood erythrocyte countOrdered By: Dwain Kolb on 07-17-2024 RBC (Bld) [#/Vol] 5.29 10*6/uL Normal 4.6-6.2 [facility] Comment on above: Performed By: #### L 500.2500, L300.3900 #### [facility] [address] [place], [address] Automated blood hematocrit ( percentage)Ordered By: Dwain Kolb on 07-17-2024 Hematocrit (Bld) [Volume fraction] 46.6 % Normal 40-54 [facility] Comment on above: Performed By: #### L 500.2500, L300.3900 #### [facility] [address] [place], [address] Automated lymphocyte count a s percentage of total leukocytesOrdered By: Dwain Kolb on 07-17-2024 Lymphocytes/100 WBC (Bld) 23.1 % Normal 19-41 [facility] Comment on above: Performed By: #### L 500.2500, L300.3900 #### [facility] [address] [place], [address] Basic Metabolic Profile (BMP )on 07-17-2024 BUN Normal 7-18 [facility] Comment on above: Result Comment: OVER LAP CMP Performed By: #### L 500.2500, L300.3900 #### [facility] [address] [place], [address] BUN/CRE Normal 10-20 [facility] Comment on above: Result Comment: OVER LAP CMP Performed By: #### L 500.2500, L300.3900 #### [facility] [address] [place], [address] CA,Total Normal 8.5-10.1 [facility] Comment on above: Result Comment: OVER LAP CMP Performed By: #### L 500.2500, L300.3900 #### [facility] [address] [place], [address] CL Normal 98-107 [facility] Comment on above: Result Comment: OVER LAP CMP Performed By: #### L 500.2500, L300.3900 #### [facility] [address] [place], [address] CO2 Normal 21.0-32.0 [facility] Comment on above: Result Comment: OVER LAP CMP Performed By: #### L 500.2500, L300.3900 #### [facility] [address] [place], [address] CREAT,SERUM Normal 0.70-1.30 [facility] Comment on above: Result Comment: OVER LAP CMP Performed By: #### L 500.2500, L300.3900 #### [facility] [address] [place], [address] EST GFR Normal >60 [facility] Comment on above: Result Comment: OVER LAP CMP Performed By: #### L 500.2500, L300.3900 #### [facility] [address] [place], [address] EST GFR - AA Normal >60 [facility] Comment on above: Result Comment: OVER LAP CMP Performed By: #### L 500.2500, L300.3900 #### [facility] [address] [place], [address] GAP Normal 5-15 [facility] Comment on above: Result Comment: OVER LAP CMP Performed By: #### L 500.2500, L300.3900 #### [facility] [address] [place], [address] GLU Normal 74-106 [facility] Comment on above: Result Comment: OVER LAP CMP Performed By: #### L 500.2500, L300.3900 #### [facility] [address] [place], [address] Potassium Normal 3.5-5.1 [facility] Comment on above: Result Comment: OVER LAP CMP Performed By: #### L 500.2500, L300.3900 #### [facility] [address] [place], [address] Basic Metabolic Profile (BMP) Normal 136-145 [facility] Comment on above: Result Comment: OVER LAP CMP Performed By: #### L 500.2500, L300.3900 #### [facility] [address] [place], [address] Basophil percentageOrdered B y: Dwain Kolb on 12-26-2024 Basophils/100 WBC (Bld) 0.4 % Normal 0-1 [facility] Comment on above: Performed By: #### L 500.2500, L300.3900 #### [facility] [address] [place], [address] Bilirubin, totalOrdered By: Dwain Kolb on 07-17-2024 Bilirubin [Mass/Vol] 1.10 mg/dL High 0.20-1.00 [facility] Comment on above: For patients on eltr ombopag therapy, use of Dimension [place] TBIL is not recommended. Order Comment: PER P T-DO BOTH TESTS Result Comment: For patients on eltrombopag therapy, use of Dimension [place] TBIL is not recommended. Performed By: #### L 500.2500, L300.3900 #### [facility] [address] [place], [address] Blood urea nitrogen (BUN)/cr eatinine ratioOrdered By: Dwain Kolb on 07-17-2024 Urea nitrogen/Creatinine [Mass ratio] 20.1 mg/mg High 10-20 [facility] C-reactive protein measureme nt by high sensitivity methodOrdered By: Dwain Kolb on 07-17-2024 C-Reactive Protein Extended Range 6.11 mg/L High 0.0-3.0 [facility] Comment on above: C-Reactive Protein ( CRP) provides useful information for thediagnosis, therapy and monitoring of inflammatory processesand associated diseases. For the evaluation of Relative Riskfor Cardiovascular Disease, a High Sensitivity CRP (HSCRP)should be ordered. CBC W/Diff, Automatedon - Absolute Lymph 2.46 X10 3/uL Normal 0.83-4.51 [facility] Comment on above: Performed By: #### L 500.2500, L300.3900 #### [facility] [address] [place], [address] Absolute Neut 7.2 X10 3/uL Normal 2.0-7.7 [facility] Comment on above: Performed By: #### L 500.2500, L300.3900 #### [facility] [address] [place], [address] IG% 0.700 Normal 0.0-0.9 [facility] Comment on above: Result Comment: IG% - Immature Granulocytes (promyelocytes, myelocytes and metamyelocytes) > 1% indicates that a LEFT SHIFT is Present. Performed By: #### L 500.2500, L300.3900 #### [facility] [address] [place], [address] Nucleated RBC (Bld) [#/Vol] 0 10*3/uL Normal 0-5 [facility] Comment on above: Performed By: #### L 500.2500, L300.3900 #### [facility] [address] [place], [address] RDW SD 44.7 fl High 35.1-43.9 [facility] Comment on above: Performed By: #### L 500.2500, L300.3900 #### [facility] [address] [place], [address] CRPon 07-17-2024 C-REACTIVE PROT 6.11 mg/L High 0.0-3.0 [facility] Comment on above: Order Comment: PER P T-DO BOTH TESTS Result Comment: C-Re active Protein (CRP) provides useful information for the diagnosis, therapy and monitoring of inflammatory processes and associated diseases. For the evaluation of Relative Risk for Cardiovascular Disease, a High Sensitivity CRP (HSCRP) should be ordered. Performed By: #### L 500.2500, L300.3900 #### [facility] [address] [place], [address] Carbon dioxide measurementOr dered By: Dwain Kolb on 07-17-2024 CO2 [Moles/Vol] 34.0 mmol/L High 21.0-32.0 [facility] Comment on above: Order Comment: PER P T-DO BOTH TESTS Performed By: #### L 500.2500, L300.3900 #### [facility] [address] [place], [address] Chloride measurementOrdered By: Dwain Kolb on 07-17-2024 Chloride [Moles/Vol] 100 mmol/L Normal 98-107 [facility] Comment on above: Order Comment: PER P T-DO BOTH TESTS Performed By: #### L 500.2500, L300.3900 #### [facility] [address] [place], [address] Comprehensive Metabolic Prof ilon 07-17-2024 ALK P 76 U/L Normal 45-117 [facility] Comment on above: Order Comment: PER P T-DO BOTH TESTS Performed By: #### L 500.2500, L300.3900 #### [facility] [address] [place], [address] BUN/CRE 20.1 RATIO High 10-20 [facility] Comment on above: Order Comment: PER P T-DO BOTH TESTS Performed By: #### L 500.2500, L300.3900 #### [facility] [address] [place], [address] CA,Total 9.5 mg/dL Normal 8.5-10.1 [facility] Comment on above: Order Comment: PER P T-DO BOTH TESTS Performed By: #### L 500.2500, L300.3900 #### [facility] [address] [place], [address] EST GFR - AA 66 mL/min Normal >60 [facility] Comment on above: Order Comment: PER P T-DO BOTH TESTS Result Comment: Afri can [place] GFR Calc Performed By: #### L 500.2500, L300.3900 #### [facility] [address] [place], [address] GAP 2 Low 5-15 [facility] Comment on above: Order Comment: PER P T-DO BOTH TESTS Performed By: #### L 500.2500, L300.3900 #### [facility] [address] [place], [address] GFR/1.73 sq M.predicted among non-blacks MDRD (S/P/Bld) [Vol rate/Area] 55 mL/min/{1.73_m2} Low >60 [facility] Comment on above: Order Comment: PER P T-DO BOTH TESTS Result Comment: Non- GFR Calc Performed By: #### L 500.2500, L300.3900 #### [facility] [address] [place], [address] T PROT 7.0 g/dL Normal 6.4-8.2 [facility] Comment on above: Order Comment: PER P T-DO BOTH TESTS Performed By: #### L 500.2500, L300.3900 #### [facility] [address] [place], [address] Comprehensive Metabolic Prof ilOrdered By: Dwain Kolb on 07-17-2024 AST [Catalytic activity/Vol] 16 U/L Normal 15-37 [facility] Comment on above: Order Comment: PER P T-DO BOTH TESTS Performed By: #### L 500.2500, L300.3900 #### [facility] [address] [place], [address] Eosinophil percentageOrdered By: Dwain Kolb on 07-17-2024 Eosinophils/100 WBC (Bld) 0.6 % Normal 0-5 [facility] Comment on above: Performed By: #### L 500.2500, L300.3900 #### [facility] [address] [place], [address] Erythrocyte Sed Rateon 07-17 SED RATE 1 mm/hr Normal 0-20 [facility] Comment on above: Performed By: #### L 500.2500, L300.3900 #### [facility] [address] [place], [address] Erythrocyte distribution wid th ratioOrdered By: Dwain Kolb on 07-17-2024 Erythrocyte distribution width (RBC) [Ratio] 13.9 % Normal 11.6-14.6 [facility] Comment on above: Performed By: #### L 500.2500, L300.3900 #### [facility] [address] [place], [place], [address] Erythrocyte distribution wid th standard deviationOrdered By: Dwain Kolb on 07-17-2024 Erythrocyte distribution width (RBC) [Entitic vol] 44.7 fL High 35.1-43.9 [facility] Erythrocyte sedimentation ra teOrdered By: Dwain Kolb on 07-17-2024 ESR (Bld) [Velocity] 1 mm/h 0-20 [facility] Estimated glomerular filtrat ion rate (GFR) AmericanOrdered By: Dwain Kolb on 07-17-2024 Estimated GFR (MDRD) Amer 66 mL/min >60 [facility] Comment on above: GFR Calc Glomerular filtration rate ( GFR) estimationOrdered By: Dwain Kolb on 07-17-2024 Estimated GFR (MDRD) Non-Af Amer 55 mL/min Low >60 [facility] Comment on above: Non- GFR Calc Glucose measurementOrdered B y: Dwain Kolb on 07-17-2024 Glucose [Mass/Vol] 104 mg/dL Normal 74-106 [facility] Comment on above: Fasting Glucose resu lt from 100 to 125 mg/dL suggests IMPAIRED HOMEOSTASIS per A.D.A. criteria. Order Comment: PER P T-DO BOTH TESTS Result Comment: Fast ing Glucose result from 100 to 125 mg/dL suggests IMPAIRED HOMEOSTASIS per A.D.A. criteria. Performed By: #### L 500.2500, L300.3900 #### [facility] [address] [place], [place], [address] Hemoglobin measurementOrdere d By: Dwain Kolb on 07-17-2024 Hemoglobin (Bld) [Mass/Vol] 15.7 g/dL Normal 13.0-16.5 [facility] Comment on above: Performed By: #### L 500.2500, L300.3900 #### [facility] [address], [address] Immature granulocytes/100 WB C Auto (Bld)Ordered By: Dwain Kolb on 07-17-2024 Immature granulocytes/100 WBC (Bld) 0.700 % 0.0-0.9 [facility] Comment on above: IG% - Immature Granu locytes (promyelocytes, myelocytes and metamyelocytes) > 1% indicates that a LEFT SHIFT is Present. International normalized rat io (INR) calculationOrdered By: Talat Perez on 07-17-2024 INR Coag (Bld) [Relative time] 2.3 {INR} [facility] Lymphocytes Auto (Unsp spec) [#/Vol]Ordered By: Dwain Kolb on 07-17-2024 Lymphocytes (Bld) [#/Vol] 2.46 10*3/uL 0.83-4.51 [facility] MCV (mean corpuscular volume ) determinationOrdered By: Dwain Kolb on 07-17-2024 MCV (RBC) [Entitic vol] 88.1 fL Normal 80-94 [facility] Comment on above: Performed By: #### L 500.2500, L300.3900 #### [facility] [address], [address] Mean corpuscular hemoglobin (MCH) determinationOrdered By: Dwain Kolb on 07-17-2024 MCH (RBC) [Entitic mass] 29.7 pg Normal 27.0-32.0 [facility] Comment on above: Performed By: #### L 500.2500, L300.3900 #### [facility] [address] [place], [address] Mean corpuscular hemoglobin concentration (MCHC) determinationOrdered By: Dwain Kolb on 07-17-2024 MCHC (RBC) [Mass/Vol] 33.7 g/dL Normal 32-36 [facility] Comment on above: Performed By: #### L 500.2500, L300.3900 #### [facility] [address] [place], [address] Mean platelet volume determi nationOrdered By: Dwain Kolb on 07-17-2024 Platelet mean volume (Bld) [Entitic vol] 10.5 fL Normal 6.2-12.0 [facility] Comment on above: Performed By: #### L 500.2500, L300.3900 #### [facility] [address], [address] Monocyte percentageOrdered B y: Dwain Kolb on 07-17-2024 Monocytes/100 WBC (Bld) 7.3 % Normal 0-10 [facility] Comment on above: Performed By: #### L 500.2500, L300.3900 #### [facility] [address] [place], [address] Neutrophil percentageOrdered By: Dwain Kolb on 07-17-2024 Neutrophils/100 WBC (Bld) 67.9 % Normal 47-70 [facility] Comment on above: Performed By: #### L 500.2500, L300.3900 #### [facility] [address] [place], [address] Nucleated red blood cell per centageOrdered By: Dwain Kolb on 07-17-2024 Nucleated RBC/100 WBC (Bld) [Ratio] 0 % 0-5 [facility] Platelet countOrdered By: Trey Kolb on 07-17-2024 Platelets (Bld) [#/Vol] 259 10*3/uL Normal 150-450 [facility] Comment on above: Performed By: #### L 500.2500, L300.3900 #### [facility] [address] [place], [address] Potassium measurementOrdered By: Dwain Kolb on 07-17-2024 Potassium [Moles/Vol] 4.0 mmol/L Normal 3.5-5.1 [facility] Comment on above: Order Comment: PER P T-DO BOTH TESTS Performed By: #### L 500.2500, L300.3900 #### [facility] [address] [place], [address] Prothrombin Time w/INRon INR Coag (PPP) [Relative time] 2.3 {INR} Normal [facility] Comment on above: Performed By: #### L 500.2500, L300.3900 #### [facility] [address] [place], [address] PT Coag (PPP) [Time] 24.8 s High 11.7-14.9 [facility] Comment on above: Performed By: #### L 500.2500, L300.3900 #### [facility] [address] [place], [address] Prothrombin timeOrdered By: Talat Perez on 07-17-2024 PT Coag (PPP) [Time] 24.8 s High 11.7-14.9 [facility] Serum anion gap measurementO rdered By: Dwain Kolb on 07-17-2024 Anion gap [Moles/Vol] 2 mmol/L Low 5-15 [facility] Serum globulin measurementOr dered By: Dwain Kolb on 07-17-2024 Globulin (S) [Mass/Vol] 3.3 g/dL Normal 2.2-4.2 [facility] Comment on above: Order Comment: PER P T-DO BOTH TESTS Performed By: #### L 500.2500, L300.3900 #### [facility] [address] [place], [address] Serum or plasma alanine rivas otransferase (ALT) measurementOrdered By: Dwain Kolb on 07-17-2024 ALT [Catalytic activity/Vol] 32 U/L Normal 16-61 [facility] Comment on above: Order Comment: PER P T-DO BOTH TESTS Performed By: #### L 500.2500, L300.3900 #### [facility] [address] [place], [address] Serum or plasma albumin mason urement (mass/volume)Ordered By: Dwain Cortes on 07-17-2024 Albumin [Mass/Vol] 3.7 g/dL Normal 3.2-5.0 [facility] Comment on above: Order Comment: PER P T-DO BOTH TESTS Performed By: #### L 500.2500, L300.3900 #### [facility] [address] [place], [address] Serum or plasma alkaline elfego sphatase measurementOrdered By: Dwain Kolb on 07-17-2024 ALP [Catalytic activity/Vol] 76 U/L 45-117 [facility] Serum or plasma calcium mason urement (mass/volume)Ordered By: Dwain Kolb on 07-17-2024 Calcium [Mass/Vol] 9.5 mg/dL 8.5-10.1 [facility] Serum or plasma creatinine m easurement (mass/volume)Ordered By: Dwain Kolb on 07-17-2024 Creatinine [Mass/Vol] 1.34 mg/dL High 0.70-1.30 [facility] Comment on above: The validity of the calculated GFR & GFRAA in patients over 70 years has not been determined. Clinical correlation is essential. Order Comment: PER P T-DO BOTH TESTS Result Comment: The validity of the calculated GFR GFRAA in patients over 70 years has not been determined. Clinical correlation is essential. Performed By: #### L 500.2500, L300.3900 #### [facility] [address] [place], [address] Serum or plasma urea nitroge n measurement (mass/volume)Ordered By: Dwain Kolb on 07-17-2024 Urea nitrogen [Mass/Vol] 27 mg/dL High 7-18 [facility] Comment on above: Order Comment: PER P T-DO BOTH TESTS Performed By: #### L 500.2500, L300.3900 #### [facility] [address] [place], [address] Sodium levelOrdered By: Dwain Kolb on 07-17-2024 Sodium [Moles/Vol] 136 mmol/L Normal 136-145 [facility] Comment on above: Order Comment: PER P T-DO BOTH TESTS Performed By: #### L 500.2500, L300.3900 #### [facility] [address] [place], [address] Total proteinOrdered By: Lacy avni Cortes on 07-17-2024 Protein [Mass/Vol] 7.0 g/dL 6.4-8.2 [facility] White blood cell (WBC) count Ordered By: Dwain Kolb on 07-17-2024 WBC (Bld) [#/Vol] 10.7 10*3/uL Normal 4.4-11.0 [facility] Comment on above: Performed By: #### L 500.2500, L300.3900 #### [facility] [address] [place], [address] CNOVon 06-26-2024 CNOV Office Visit ([id number] ) JEY RUSH ([id number]) 1945 M Date Time Provider Department 06/26/24 1:30 PM JR VARGAS HWW1 During your visit today, we recorded the following information about you: Respiration Weight Height 18/minute 103.4 kg 1.778 m Naomie Rhodes MA 07/11/2024 8:12 AM Signed REVIEW OF SYSTEMS: GENERAL: Well developed, well nourished. No acute distress PAIN: Pain Continuous CARDIOVASCULAR: Hyperlipidemia, Hypertension MSK: Negative for joint swelling SKIN: Negative for lesions, rash, itching, metal sensitivity NEURO: Negative for seizure, trauma, numbness/tingling of extremities. ENDOCRINE: Negative for diabetic associated symptoms HEMATOLOGY: Warfarin TREY Rosa Jordan Paul, DPM 07/11/2024 8:12 AM Signed CC: 1st MTP joint pain right HPI: This 79 year old male with PMH indicated below presents today for follow up of right great toe pain. No change since last visit. Continues to use Capsicin but helps him sleep. Did obtain carbon fiber insert, wears in tennis shoes. Did helps keep toe stiff during activity. Has been getting spasms in the RLE, resting. 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 Denies any other pedal complaints. No primary care provider on file. PAST MEDICAL HISTORY Diagnosis Date AORTIC VALVE INSUFFICIENCY Cardiomyopathy in other diseases classified elsewhere Other and unspecified hyperlipidemia Shortness of breath Unspecified essential hypertension 08/19/2008 Current Outpatient Medications Medication Sig Dispense Refill warfarin (COUMADIN) 4 mg tablet Take 4 mg by mouth. gabapentin (NEURONTIN) 600 mg tablet Take 600 mg by mouth. losartan-hydroCHLOROthi azide (HYZAAR) 100-25 mg per tablet Take 1 tablet by mouth once daily. furosemide (LASIX) 40 mg tablet Take 40 mg by mouth. Cholecalciferol, Vitamin D3, 25 mcg (1,000 unit) cap Take 4,000 Units by mouth. MAGNESIUM OXIDE ORAL Take 500 mg by mouth. tiZANidine (ZANAFLEX) 4 mg tablet Valsartan-Hydrochloroth iazide 320-25 mg per tablet Take 1 tablet by mouth once daily. amLODIPine (NORVASC) 2.5 mg tablet Take 2.5 mg by mouth once daily. Multivitamin capsule Take 1 capsule by mouth once daily. pravastatin (PRAVACHOL) 80 mg tablet Take 80 mg by mouth once daily. UBIDECARENONE/VITAMIN E MIXED (COQ10 SG 100 ORAL) Take by mouth. (Patient not taking: Reported on 06/26/2024) doxazosin (CARDURA) 4 mg tablet Take 4 mg by mouth daily at bedtime. (Patient not taking: Reported on 06/26/2024) ASPIRIN 81 MG CHEWABLE TAB 1 Tab PO DAILY (Patient not taking: Reported on 06/26/2024) 30 0 No current facility-administered medications for this visit. ALLERGIES Allergen Reactions Lactose Intolerance* Social History Tobacco Use Smoking status: Never Smokeless tobacco: Never Substance Use Topics Alcohol use: Yes Comment: 12 beers per week. Drug use: No FAMILY HISTORY Problem Relation Age of Onset other (CVA AND OF CHF [Other]) Father AGE 78 other (OVARIAN CANCER [Other]) Mother AGE 48 other (DIABETES AND OF HEART DISEASE [Other]) Brother AGE 51 PAST SURGICAL HISTORY Procedure Laterality Date LEFT HEART CATH,PERCUTANEOUS 2002, 2007 Cardiac cath, L heart X 2 PAST SURGICAL HISTORY OF remote Right great toe pinning TONSILLECTOMY PRIMARY/SECONDARY Tonsillectomy REVIEW OF SYSTEMS 12 point ROS performed and negative except for those mentioned in the HPI Physical Exam: Patient is a 79 year old male who appears well developed, well nourished and with good attention to hygiene and body habitus. Resp 18 Ht 177.8 cm (5' 10") Wt 103.4 kg (228 lb) BMI 32.71 kg/m? Vascular: DP and PT pulses are palpable. CFT less than 3 seconds to all digits b/l. Skin temperature is warm to warm from proximal to distal b/l. Hair growth is noted. Mild edema to 1st MTPJ right . No varicosities noted. Neuro: Light touch intact b/l. Protective sensation intact at all pedal sites via [place] 5.07 monofilament b/l. Proprioception intact at the hallux b/l. No clonus noted. Babinski reflex not elicited b/l. Derm: Skin texture and turgor within normal limits. Toenails normal in appearance. Webspaces 1-4 clean, dry, intact b/l. No rashes, subcutaneous nodules, or open lesions noted. No hyperkeratotic tissue. no erythema Musc: Muscle strength is 5/5 for all muscle groups including dorsiflexors, plantarflexors, everters, and inverters b/l. There is a dorsal bony prominence at the 1st MTP joint right foot. Local effusion is noted to the 1st MTP joint. There is pain to palpation of the prominent dorsal eminence. Range of motion of the 1st MTP joint is severely decreased with positive pain noted. The hallux is noted to be in a rectus position. The first ray and medial column are noted to be wnl. no pain to pal (more content not included)... Normal [facility] Basic Metabolic Profile (BMP )on 06-10-2024 BUN/CRE 18.8 RATIO Normal 05-11 [facility] Comment on above: Order Comment: PER P T-DO BOTH TESTS Performed By: #### L 500.2500, L300.3900 #### [facility] [address] [place], [address] CA,Total 9.7 mg/dL Normal 8.5-10.1 [facility] Comment on above: Order Comment: PER P T-DO BOTH TESTS Performed By: #### L 500.2500, L300.3900 #### [facility] [address] [place], [address] Chloride [Moles/Vol] 101 mmol/L Normal 98-107 [facility] Comment on above: Order Comment: PER P T-DO BOTH TESTS Performed By: #### L 500.2500, L300.3900 #### [facility] [address] [place], [address] CO2 [Moles/Vol] 29.0 mmol/L Normal 21.0-32.0 [facility] Comment on above: Order Comment: PER P T-DO BOTH TESTS Performed By: #### L 500.2500, L300.3900 #### [facility] [address] [place], [address] Creatinine [Mass/Vol] 0.90 mg/dL Normal 0.70-1.30 [facility] Comment on above: Order Comment: PER P T-DO BOTH TESTS Result Comment: The validity of the calculated GFR GFRAA in patients over 70 years has not been determined. Clinical correlation is essential. Performed By: #### L 500.2500, L300.3900 #### [facility] [address] [place], [address] EST GFR - AA 105 mL/min Normal >60 [facility] Comment on above: Order Comment: PER P T-DO BOTH TESTS Result Comment: Afri can [place] GFR Calc Performed By: #### L 500.2500, L300.3900 #### [facility] [address] [place], [address] GAP 5 Normal 5-15 [facility] Comment on above: Order Comment: PER P T-DO BOTH TESTS Performed By: #### L 500.2500, L300.3900 #### [facility] [address] [place], [address] GFR/1.73 sq M.predicted among non-blacks MDRD (S/P/Bld) [Vol rate/Area] 86 mL/min/{1.73_m2} Normal >60 [facility] Comment on above: Order Comment: PER P T-DO BOTH TESTS Result Comment: Non- GFR Calc Performed By: #### L 500.2500, L300.3900 #### [facility] [address] [place], [address] Glucose [Mass/Vol] 95 mg/dL Normal 74-106 [facility] Comment on above: Order Comment: PER P T-DO BOTH TESTS Performed By: #### L 500.2500, L300.3900 #### [facility] [address] [place], [address] Potassium [Moles/Vol] 3.6 mmol/L Normal 3.5-5.1 [facility] Comment on above: Order Comment: PER P T-DO BOTH TESTS Performed By: #### L 500.2500, L300.3900 #### [facility] [address] [place], [address] Sodium [Moles/Vol] 135 mmol/L Low 136-145 [facility] Comment on above: Order Comment: PER P T-DO BOTH TESTS Performed By: #### L 500.2500, L300.3900 #### [facility] [address] [place], [address] Urea nitrogen [Mass/Vol] 17 mg/dL Normal 7-18 [facility] Comment on above: Order Comment: PER P T-DO BOTH TESTS Performed By: #### L 500.2500, L300.3900 #### [facility] [address] [place], [address] Prothrombin Time w/INRon INR Coag (PPP) [Relative time] 1.7 {INR} [facility] Comment on above: Order Comment: PER P T-DO BOTH TESTS Performed By: #### L 500.2500, L300.3900 #### [facility] [address] [place], [address] PT Coag (PPP) [Time] 19.7 s High 11.7-14.9 [facility] Comment on above: Order Comment: PER P T-DO BOTH TESTS Performed By: #### L 500.2500, L300.3900 #### [facility] [address] [place], [address] CNOVon 05-15-2024 CNOV Office Visit ([id number] ) JEY RUSH ([id number]) 1945 M Date Time Provider Department 05/15/24 9:00 AM JR VARGAS HWW1 During your visit today, we recorded the following information about you: Respiration Weight Height 16/minute 103.4 kg 1.778 m Jr Vargas DPM 05/21/2024 1:54 PM Signed CC: 1st MTP joint pain right HPI: This 79 year old male with PMH indicated below presents today complaining of a painful first MTP joint right foot x 12 months. Onset was gradual with worsening course in the last few months. Pain is moderate rated as 6/10 and present in shoes after prolonged WB. Pain is not relieved with removal of shoe gear. Denies any numbness at the joint. admits to swelling over the joint. admits to use of analgesics, with relief. Has tried to modify shoe gear with some relief. has not used orthotics. Denies any other pedal complaints. No primary care provider on file. PAST MEDICAL HISTORY Diagnosis Date AORTIC VALVE INSUFFICIENCY Cardiomyopathy in other diseases classified elsewhere Other and unspecified hyperlipidemia Shortness of breath Unspecified essential hypertension 08/19/2008 Current Outpatient Medications Medication Sig Dispense Refill UBIDECARENONE/VITAMIN E MIXED (COQ10 SG 100 ORAL) Take by mouth. Valsartan-Hydrochloroth iazide 320-25 mg per tablet Take 1 tablet by mouth once daily. doxazosin (CARDURA) 4 mg tablet Take 4 mg by mouth daily at bedtime. amLODIPine (NORVASC) 2.5 mg tablet Take 2.5 mg by mouth once daily. Multivitamin capsule Take 1 capsule by mouth once daily. pravastatin (PRAVACHOL) 80 mg tablet Take 80 mg by mouth once daily. ASPIRIN 81 MG CHEWABLE TAB 1 Tab PO DAILY 30 0 No current facility-administered medications for this visit. ALLERGIES Allergen Reactions Lactose Intolerance* Social History Tobacco Use Smoking status: Never Smokeless tobacco: Never Substance Use Topics Alcohol use: Yes Comment: 12 beers per week. Drug use: No FAMILY HISTORY Problem Relation Age of Onset other (CVA AND OF CHF [Other]) Father AGE 78 other (OVARIAN CANCER [Other]) Mother AGE 48 other (DIABETES AND OF HEART DISEASE [Other]) Brother AGE 51 PAST SURGICAL HISTORY Procedure Laterality Date LEFT HEART CATH,PERCUTANEOUS 2002, 2007 Cardiac cath, L heart X 2 PAST SURGICAL HISTORY OF remote Right great toe pinning TONSILLECTOMY PRIMARY/SECONDARY Tonsillectomy REVIEW OF SYSTEMS 12 point ROS performed and negative except for those mentioned in the HPI Physical Exam: Patient is a 79 year old male who appears well developed, well nourished and with good attention to hygiene and body habitus. Resp 16 Ht 177.8 cm (5' 10") Wt 103.4 kg (228 lb) BMI 32.71 kg/m? Vascular: DP and PT pulses are palpable. CFT less than 3 seconds to all digits b/l. Skin temperature is warm to warm from proximal to distal b/l. Hair growth is noted. Mild edema to 1st MTPJ right . No varicosities noted. Neuro: Light touch intact b/l. Protective sensation intact at all pedal sites via [place] 5.07 monofilament b/l. Proprioception intact at the hallux b/l. No clonus noted. Babinski reflex not elicited b/l. Derm: Skin texture and turgor within normal limits. Toenails normal in appearance. Webspaces 1-4 clean, dry, intact b/l. No rashes, subcutaneous nodules, or open lesions noted. No hyperkeratotic tissue. no erythema Musc: Muscle strength is 5/5 for all muscle groups including dorsiflexors, plantarflexors, everters, and inverters b/l. There is a dorsal bony prominence at the 1st MTP joint right foot. Local effusion is noted to the 1st MTP joint. There is pain to palpation of the prominent dorsal eminence. Range of motion of the 1st MTP joint is severely decreased with positive pain noted. The hallux is noted to be in a rectus position. The first ray and medial column are noted to be wnl. no pain to palpation of plantar sesamoids. Positive central grind. Radiographs: 3 views of the right foot were taken today. Radiographic impression: Bone stock is WNL. No acute fractures or dislocations noted. All cortices are intact. Joint spaces are maintained with exception of the 1st MTP joint which demonstrates degenerative changes including joint space narrowing and marika-articular spur formation. Positive dorsal flag and elevatus of the 1st met noted. No increase in ST density. flattening of the met head with osteophyte formation and eburnation noted. Impression: This is a 79 year old patient presenting with hallux rigidus right foot. Plan: A comprehensive history and physical examination were preformed. The patient was educated on clinical and radiographic findings, diagnosis and treatment plans. Patient state that he understands all that has been explained and all questions were answered to his (more content not included)... [facility] XR Foot - right AP and Later al and obliqueon 05-15-2024 Bone stock is WNL. N o acute fractures or dislocations noted. All cortices are intact. Joint spaces are maintained with exception of the 1st MTP joint which demonstrates degenerative changes including joint space narrowing and marika-articular spur formation. Positive dorsal flag and elevatus of the 1st met noted. No increase in ST density. flattening of the met head with osteophyte formation and eburnation noted. [facility] RADIOLOGY [facility] Radiology Study observation (narrative) [facility] Neurology Visit Reporton Neurology Visit Report [facility] [address] [place] [address] OFFICE VISIT Date of Service: 05/08/24 MR#: [id number] Acct: [id number] Name: JEY RUSH Rep #: [id number] : 1945 Provider: Dr. Oneil melchor MD Age/Sex: 78/M Location: [facility] Status: Signed HPI HPI Chief Complaint: Details: Interim History: Jey returns for follow-up. He has a history of hypertension, hyperlipidemia, congestive heart failure, atrial fibrillation, bilateral cataracts (status post cataract surgery 2014), sleep apnea (he uses BiPAP), aortic valve insufficiency s/p aortic valve replacement in 2008, arthritis (left hip replacement in 2016 and revision in 2018), benign prostatic hyperplasia (s/p prostate surgery in 2017), vitamin D deficiency, obstructive sleep apnea (on CPAP), and polyneuropathy. He has been experiencing burning pain and numbness in the feet since at least 2014. EMG/nerve conduction studies of the lower extremities performed in years past revealed a polyneuropathy. He does not have a history of diabetes mellitus or thyroid disease (labs from [id number] reveal mild elevation of TSH; a subsequent TSH in 2019 was normal) however his hemoglobin A1c (June 2023) is mildly elevated suggesting that he has a prediabetic state. He denied having weakness in the lower extremities. He denied having low back pain or lower extremity radicular pain. His burning pain is prominent at night but is fairly well controlled with gabapentin. He no longer feels the need to take a daytime dose of gabapentin. He has tolerated gabapentin well. A B12 and folate were normal. [place] lambda light, serum protein electrophoresis, serum immunofixation and urine immunofixation were unremarkable (December 2020). In 2016, he was diagnosed with moderate bilateral carpal tunnel syndrome; more recently he has not had upper extremity numbness, tingling or weakness. For several years, he experienced cramping pain in his calves and feet that occurred at night, and awakened him from sleep. Magnesium 400mg qhs and vitamin D3 supplementation have been of some some benefit in reducing his muscle cramps. OTC Theraworx spray as needed for his cramping pain also provided some acute relief. Baclofen 10mg nightly was of only modest benefit for his muscle cramps. Tizanidine is of some benefit for his muscle cramps. An meqs-lqu-orrgshh capsaicin cream is of benefit for his neuropathic pain in the feet. He no longer uses Aspercreme lidocaine roll-on. Tonic water was of some benefit for his nighttime muscle cramps. He takes warfarin for atrial fibrillation. He had right foot bunion surgery in years past. He takes pravastatin. Earlier in 2023, he strained his left foot and has had left foot pain, swelling and erythema. He was seen by his primary care provider and has been prescribed a course of prednisone and doxycycline (for possible left foot cellulitis). 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 He is scheduled to see a physician at the [facility]. He has chronic bilateral lower extremity edema. He has congestive heart failure. He takes a diuretic. Physical Exam: Neuro: The patient is awake and alert and responds appropriately; motor strength is 5/5 in the foot dorsiflexors bilaterally, quadriceps bilaterally, iliopsoas bilaterally, hamstrings bilaterally, and foot plantar flexors bilaterally Heart: Irregularly irregular; a cardiac murmur is auscultated Neck: no bruits Supplemental Info MRI of lumbar spine without contrast (03/11/2013): IMPRESSION: Multilevel degenerative changes of the visualized lower thoracic and lumbar spine, with annular bulges and/or disc herniations, endplate spondylosis and variable degrees of facet arthrosis and or ligamentum flavum hypertrophy, with mild epidural lipomatosis and grade 1 degenerative spondylolisthesis at L4-5, as described sequentially above. Combination of findings results in moderate L3-4 and severe L4-5 central canal stenosis, as well as variable degrees of multilevel intervertebral neural foraminal narrowing, with potential foraminal nerve root impingement predominantly bilaterally at L4-5. Please see level by level details above. Nerve conduction study of bilateral lower extremities (05/13/2013): INTRODUCTION: This is a nerve conduction study performed on this 68-year-old male with pain and numbness on the bottom of his feet bilaterally for the past several years. There is a history of low back pain. Sensory and motor nerve conduction study was performed of the bilateral lower extremities. Sural sensory amplitudes are mildly diminished bilaterally. Common peroneal distal latencies, amplitudes, and conduction velocities are normal as are tibial motor responses. The F waves obtained from the bilateral tibial and common peronea (more content not included)... [facility] ECG 12 lead - CLINIC PERFORM EDon 01-29-2024 Atrial fibrillation -frequent ectopic ventricular beats # VECs = 2 -Nonspecific QRS widening. ABNORMAL RHYTHM [facility] Capillary blood internationa l normalized ratio (INR)Ordered By: Matias Delatorre on 11-26-2023 INR Coag (BldC) [Relative time] 2.3 [facility] Comment on above: Critical Value > 4.0 Whole blood prothrombin time Ordered By: Matias Delatorre on 11-26-2023 PT Coag (Bld) [Time] 23.7 s 11.7-14.9 [facility] Capillary blood internationa l normalized ratio (INR)Ordered By: Matias Delatorre on 11-15-2023 INR Coag (BldC) [Relative time] 1.7 [facility] Comment on above: Critical Value > 4.0 Whole blood prothrombin time Ordered By: Matias Delatorre on 11-15-2023 PT Coag (Bld) [Time] 18.2 s 11.7-14.9 [facility] Absolute lymphocyte countOrd ered By: Zuleyma Mcclure on 09-25-2023 Lymphocytes Auto (Unsp spec) [#/Vol] 2.28 10*3/uL 0.83-4.51 [facility] Automated lymphocyte count a s percentage of total leukocytesOrdered By: Zuleyma Mcclure on 09-25-2023 Lymphocytes/100 WBC Auto (Unsp spec) 20.5 % 19-41 [facility] Basophil percentageOrdered B y: Zuleyma Mcclure on 09-25-2023 Basophil percentage 0 SEEN /hpf 0-5 [facility] Basophils/100 WBC (Bld) 0.5 % 0-1 [facility] Bilirubin [Mass/Vol] 0.70 mg/dL 0.20-1.00 [facility] Comment on above: For patients on eltr ombopag therapy, use of Dimension [place] TBIL is not recommended. Chloride [Moles/Vol] 104 mmol/L 98-107 [facility] Eosinophils/100 WBC (Bld) 0.4 % 0-5 [facility] Glucose [Mass/Vol] 105 mg/dL 74-106 [facility] Comment on above: Fasting Glucose resu lt from 100 to 125 mg/dL suggests IMPAIRED HOMEOSTASIS per A.D.A. criteria. Hemoglobin (Bld) [Mass/Vol] 14.1 g/dL 13.0-16.5 [facility] LDH [Catalytic activity/Vol] 267 U/L 87-241 [facility] Monocytes/100 WBC (Bld) 9.1 % 0-10 [facility] Neutrophils (Bld) [#/Vol] 7.6 10*3/uL 2.0-7.7 [facility] Neutrophils/100 WBC (Bld) 68.7 % 47-70 [facility] Potassium [Moles/Vol] 4.1 mmol/L 3.5-5.1 [facility] Protein [Mass/Vol] 7.0 g/dL 6.4-8.2 [facility] Sodium [Moles/Vol] 142 mmol/L 136-145 [facility] WBC (Bld) [#/Vol] 11.1 10*3/uL 4.4-11.0 [facility] Bilirubin Test strip Ql (U)O rdered By: Zuleyma Mcclure on 09-25-2023 Bilirubin Ql (U) Negative Negative [facility] Determination of erythrocyte mean corpuscular volume (MCV)Ordered By: Zuleyma Mcclure on 09-25-2023 MCV (RBC) [Entitic vol] 92.1 fL 80-94 [facility] Erythrocyte distribution wid th ratioOrdered By: Zuleyma Mcclure on 09-25-2023 Erythrocyte distribution width (RBC) [Ratio] 14.2 % 11.6-14.6 [facility] Erythrocyte distribution wid th standard deviationOrdered By: Zuleyma Mcclure on 09-25-2023 Erythrocyte distribution width (RBC) [Entitic vol] 47.9 fL 35.1-43.9 [facility] Erythrocyte sedimentation ra teOrdered By: Zuleyma Mcclure on 09-25-2023 ESR (Bld) [Velocity] 25 mm/h 0-20 [facility] Hematocrit Auto (Bld) [Volum e fraction]Ordered By: Zuleyma Mcclure on 09-25-2023 Hematocrit (Bld) [Volume fraction] 42.0 % 40-54 [facility] Immature granulocytes/100 WB C Auto (Bld)Ordered By: Zuleyma Mcclure on 09-25-2023 Immature granulocytes/100 WBC (Bld) 0.800 % 0.0-0.9 [facility] Comment on above: IG% - Immature Granu locytes (promyelocytes, myelocytes and metamyelocytes) > 1% indicates that a LEFT SHIFT is Present. Ketones Test strip Ql (U)Ord ered By: Zuleyma Mcclure on 09-25-2023 Ketones Ql (U) Negative Negative [facility] - Chemistry and C hemistry - challengeOrdered By: Zuleyma Mcclure on 09-25-2023 Albumin/Globulin [Mass ratio] 1.1 {ratio} 0.9-2.4 [facility] ALP [Catalytic activity/Vol] 47 U/L 45-117 [facility] ALT [Catalytic activity/Vol] 27 U/L 16-61 [facility] CO2 [Moles/Vol] 32.0 mmol/L 21.0-32.0 [facility] Globulin (S) [Mass/Vol] 3.4 g/dL 2.2-4.2 [facility] Urea nitrogen/Creatinine [Mass ratio] 16.7 mg/mg 10-20 [facility] - Hematology and Cell countsOrdered By: Zuleyma Mcclure on 09-25-2023 MCH (RBC) [Entitic mass] 30.9 pg 27.0-32.0 [facility] MCHC (RBC) [Mass/Vol] 33.6 g/dL 32-36 [facility] Nucleated RBC/100 WBC (Bld) [Ratio] 0 % 0-5 [facility] Platelet mean volume (Bld) [Entitic vol] 9.9 fL 6.2-12.0 [facility] Platelets (Bld) [#/Vol] 280 10*3/uL 150-450 [facility] Mucus LM Ql (Urine sed)Order ed By: Zuleyma Mcclure on 09-25-2023 Mucus Ql (Urine sed) 0 SEEN /hpf [facility] Nitrite Test strip Ql (U)Ord ered By: Zuleyma Mcclure on 09-25-2023 Nitrite Ql (U) Negative Negative [facility] No Panel InformationOrdered By: Zuleyma Mcclure on 09-25-2023 Urine RBC 0 SEEN /hpf 0-5 [facility] C-Reactive Protein Extended Range 12.30 mg/L 0.0-3.0 [facility] Comment on above: C-Reactive Protein ( CRP) provides useful information for thediagnosis, therapy and monitoring of inflammatory processesand associated diseases. For the evaluation of Relative Riskfor Cardiovascular Disease, a High Sensitivity CRP (HSCRP)should be ordered. Estimated GFR (MDRD) Amer 91 mL/min >60 [facility] Comment on above: GFR Calc Estimated GFR (MDRD) Non-Af Amer 75 mL/min >60 [facility] Comment on above: Non- GFR Calc Protein Test strip Ql (U)Ord ered By: Zuleyma Mcclure on 09-25-2023 Protein Ql (U) Negative Negative [facility] RBC Auto (Bld) [#/Vol]Ordere d By: Zuleyma Mcclure on 09-25-2023 RBC (Bld) [#/Vol] 4.56 10*6/uL 4.6-6.2 [facility] Serum or plasma calcium mason urement (mass/volume)Ordered By: Zuleyma Mcclure on 09-25-2023 Calcium [Mass/Vol] 9.3 mg/dL 8.5-10.1 [facility] Serum or plasma creatinine m easurement (mass/volume)Ordered By: Zuleyma Mcclure on 09-25-2023 Creatinine [Mass/Vol] 1.02 mg/dL 0.70-1.30 [facility] Comment on above: The validity of the calculated GFR & GFRAA in patients over 70 years has not been determined. Clinical correlation is essential. Serum or plasma urea nitroge n measurement (mass/volume)Ordered By: Zuleyma Mcclure on 09-25-2023 Urea nitrogen [Mass/Vol] 17 mg/dL 7-18 [facility] Squamous epithelial cells de tection in urine sediment by light microscopyOrdered By: Zuleyma Mcclure on 09-25-2023 Epithelial cells.squamous LM Ql (Urine sed) 0 SEEN /hpf 0-5 [facility] Thin prep Papanicolaou smear with manual screeningOrdered By: Zuleyma Mcclure on 09-25-2023 Thin prep Papanicolaou smear with manual screening 3.6 g/dL 3.2-5.0 [facility] Thin prep Papanicolaou smear with manual screening 21 U/L 15-37 [facility] Thin prep Papanicolaou smear with manual screening 6 5-15 [facility] Urine blood detectionOrdered By: Zuleyma Mcclure on 09-25-2023 RBC Ql (U) Negative Negative [facility] Urine clarityOrdered By: Endy Mcclure on 09-25-2023 Clarity (U) Clear Clear [facility] Urine color determinationOrd ered By: Zuleyma Mcclure on 09-25-2023 Color (U) Yellow Yellow [facility] Urine glucose detectionOrder ed By: Zuleyma Mcclure on 09-25-2023 Glucose Ql (U) Normal mg/dl Normal [facility] Urine leukocyte esterase det ection by dipstickOrdered By: Zuleyma Mcclure on 09-25-2023 Leukocyte esterase Test strip Ql (U) Negative Negative [facility] Urine pHOrdered By: Zuleyma Mcclure on 09-25-2023 pH (U) 6.0 [pH] 5.0 - 8.0 [facility] Urine sediment bacteria coun t by microscopy (number/high power field)Ordered By: Zuleyma Mcclure on 09-25-2023 Bacteria LM.HPF (Urine sed) [#/Area] 0 /[HPF] None Seen [facility] Urine specific gravity measu rementOrdered By: Zuleyma Mcclure on 09-25-2023 Specific gravity (U) [Rel density] 1.020 1.002-1.030 [facility] Urine urobilinogen measureme ntOrdered By: Zuleyma Mcclure on 09-25-2023 Urobilinogen Ql (U) Normal mg/dl Normal [facility] Capillary blood internationa l normalized ratio (INR)Ordered By: Matias Delatorre on 08-16-2023 INR Coag (BldC) [Relative time] 2.0 [facility] Comment on above: Critical Value > 4.0 Whole blood prothrombin time Ordered By: Matias Delatorre on 08-16-2023 PT Coag (Bld) [Time] 21.2 s 11.7-14.9 [facility] Basophil percentageOrdered B y: Oneil Nova on 07-19-2023 Bilirubin [Mass/Vol] 0.70 mg/dL 0.20-1.00 [facility] Comment on above: For patients on eltr ombopag therapy, use of [place] TBIL is not recommended. Chloride [Moles/Vol] 108 mmol/L 98-107 [facility] Cholesterol [Mass/Vol] 166 mg/dL <200 [facility] Comment on above: <200 mg/dL Desirable 200-240 mg/dL Borderline >240 mg/dL High Risk Glucose [Mass/Vol] 99 mg/dL 74-106 [facility] Potassium [Moles/Vol] 4.2 mmol/L 3.5-5.1 [facility] Protein [Mass/Vol] 6.8 g/dL 6.4-8.2 [facility] Sodium [Moles/Vol] 140 mmol/L 136-145 [facility] Triglyceride [Mass/Vol] 156 mg/dL <199 [facility] Comment on above: The drugs N-Acetylcy steine and Metamizole may falsely depress this assay.Serum Triglycerides Reference Interval Normal <150 mg/dL Borderline high 150 - 199 mg/dL High 200 - 499 mg/dL Very High > or = 500 mg/dL WBC (Bld) [#/Vol] 14.1 10*3/uL 4.4-11.0 [facility] Blood erythrocytes count (nu mber/volume)Ordered By: Oneil Nova on 07-19-2023 RBC (Bld) [#/Vol] 4.87 10*6/uL 4.6-6.2 [facility] Blood hemoglobin measurement (mass/volume)Ordered By: Oneil Nova on 07-19-2023 Hemoglobin (Bld) [Mass/Vol] 15.1 g/dL 13.0-16.5 [facility] Blood platelet mean volumeOr dered By: Oneil Nova on 07-19-2023 Platelet mean volume (Bld) [Entitic vol] 10.1 fL 6.2-12.0 [facility] Determination of erythrocyte mean corpuscular volume (MCV)Ordered By: Oneil Nova on 07-19-2023 MCV (RBC) [Entitic vol] 93.6 fL 80-94 [facility] Direct bilirubinOrdered By: Oneil Nova on 07-19-2023 Bilirubin.direct [Mass/Vol] 0.17 mg/dL 0.00-0.30 [facility] Hematocrit Auto (Bld) [Volum e fraction]Ordered By: Oneil Nova on 07-19-2023 Hematocrit (Bld) [Volume fraction] 45.6 % 40-54 [facility] INR in Blood by Coagulation assayOrdered By: Oneil Nova on 07-19-2023 INR Coag (Bld) [Relative time] 3.3 {INR} [facility] - Chemistry and C hemistry - challengeOrdered By: Oneil Nova on 07-19-2023 ALP [Catalytic activity/Vol] 43 U/L 45-117 [facility] ALT [Catalytic activity/Vol] 27 U/L 16-61 [facility] CO2 [Moles/Vol] 26.0 mmol/L 21.0-32.0 [facility] Cobalamin (Vitamin B12) [Mass/Vol] 334 pg/mL 211-911 [facility] Globulin (S) [Mass/Vol] 3.4 g/dL 2.2-4.2 [facility] Magnesium [Mass/Vol] 2.8 mg/dL 1.6-2.6 [facility] Urea nitrogen/Creatinine [Mass ratio] 26.3 mg/mg 10-20 [facility] - CoagulationOrde red By: Oneil Nova on 07-19-2023 PT Coag (PPP) [Time] 33.9 s 11.7-14.9 [facility] - Hematology and Cell countsOrdered By: Oneil Nova on 07-19-2023 Erythrocyte distribution width (RBC) [Entitic vol] 47.1 fL 35.1-43.9 [facility] Erythrocyte distribution width (RBC) [Ratio] 13.7 % 11.6-14.6 [facility] MCH (RBC) [Entitic mass] 31.0 pg 27.0-32.0 [facility] MCHC Auto (RBC) [Mass/Vol]Or dered By: Oneil Nova on 07-19-2023 MCHC (RBC) [Mass/Vol] 33.1 g/dL 32-36 [facility] No Panel InformationOrdered By: Oneil oNva on 07-19-2023 Estimated GFR (MDRD) Amer 99 mL/min >60 [facility] Comment on above: GFR Calc Estimated GFR (MDRD) Non-Af Amer 82 mL/min >60 [facility] Comment on above: Non- GFR Calc Thyroid Stimulating Hormone (TSH) 2.50 uIU/mL 0.358-3.74 [facility] Platelets bldOrdered By: Nathaniel Nova on 07-19-2023 Platelets (Bld) [#/Vol] 291 10*3/uL 150-450 [facility] Serum or plasma albumin mason urement (mass/volume)Ordered By: Oneil Nova on 07-19-2023 Albumin [Mass/Vol] 3.4 g/dL 3.2-5.0 [facility] Serum or plasma albumin/glob ulin mass ratioOrdered By: Oneil Nova on 07-19-2023 Albumin/Globulin [Mass ratio] 1.0 {ratio} 0.9-2.4 [facility] Serum or plasma calcium mason urement (mass/volume)Ordered By: Oneil Nova on 07-19-2023 Calcium [Mass/Vol] 8.8 mg/dL 8.5-10.1 [facility] Serum or plasma cholesterol in HDL measurement (mass/volume)Ordered By: Oneil Nova on 07-19-2023 Cholesterol in HDL [Mass/Vol] 60 mg/dL >40 [facility] Comment on above: The drugs N-Acetylcy steine and Metamizole may falsely depress this assay. Reference Range HDL <40 mg/dL Low HDL Cholesterol HDL >or= 60 mg/dL High HDL Cholesterol Serum or plasma cholesterol in VLDL measurement (mass/volume)Ordered By: Oneil Nova on 07-19-2023 Cholesterol in VLDL [Mass/Vol] 31 mg/dL 5-40 [facility] Serum or plasma creatinine m easurement (mass/volume)Ordered By: Oneil Nova on 07-19-2023 Creatinine [Mass/Vol] 0.95 mg/dL 0.70-1.30 [facility] Comment on above: The validity of the calculated GFR & GFRAA in patients over 70 years has not been determined. Clinical correlation is essential. Serum or plasma low density lipoprotein (LDL) cholesterol measurement (mass/volume)Ordered By: Oneil Nova on 07-19-2023 Cholesterol in LDL [Mass/Vol] 75 mg/dL 0-130 [facility] Serum or plasma urea nitroge n measurement (mass/volume)Ordered By: Oneil Nova on 07-19-2023 Urea nitrogen [Mass/Vol] 25 mg/dL 7-18 [facility] Thin prep Papanicolaou smear with manual screeningOrdered By: Oneil Nova on 07-19-2023 Thin prep Papanicolaou smear with manual screening 17 U/L 15-37 [facility] Thin prep Papanicolaou smear with manual screening 6 5-15 [facility] Whole blood hemoglobin A1c/t otal hemoglobin ratio (mass fraction)Ordered By: Oneil Nova on 07-19-2023 HbA1c (Bld) [Mass fraction] 5.8 % 3.8-5.6 [facility] Comment on above: Normal < 5.7 % Predi abetic 5.7 - 6.4 % Diabetic >or= 6.5 % Please note range changes. Laboratory - CoagulationOrde red By: Matias Delatorre on 04-13-2023 INR Coag (Bld) [Relative time] 2.7 {INR} [facility] Comment on above: Critical Value > 4.0 Whole blood prothrombin time Ordered By: Matias Delatorre on 04-13-2023 PT Coag (Bld) [Time] 28.7 s 11.7-14.9 [facility] INR in Blood by Coagulation assayOrdered By: Matias Delatorre on 12-28-2022 INR Coag (Bld) [Relative time] 2.2 {INR} [facility] Laboratory - CoagulationOrde red By: Matias Delatorre on 12-28-2022 PT Coag (PPP) [Time] 24.5 s 11.7-14.9 [facility] No Panel InformationOrdered By: Thompson Mariano on 12-28-2022 Prostate Specific Antigen Screen 3.13 ng/mL 0.00-4.00 [facility] Comment on above: This test was perfor med using the TPSA assay method for the[employer] chemistry system. Values obtained with differentassay methods cannot be used interchangably.When changing PSA assays in the course of monitoring apatient, additional sequential testing should be carriedout to confirm baseline values. Laboratory - CoagulationOrde red By: Dr. Delatorre on 11-30-2022 INR Coag (Bld) [Relative time] 3.0 {INR} [facility] Comment on above: Critical Value > 4.0 Whole blood prothrombin time Ordered By: Dr. Delatorre on 11-30-2022 PT Coag (Bld) [Time] 32.6 s 11.7-14.9 [facility] Laboratory - CoagulationOrde red By: Dr. Delatorre on 11-14-2022 INR Coag (Bld) [Relative time] 3.3 {INR} [facility] Comment on above: Critical Value > 4.0 Whole blood prothrombin time Ordered By: Dr. Delatorre on 11-14-2022 PT Coag (Bld) [Time] 35.3 s 11.7-14.9 [facility] Basophil percentageOrdered B y: Talat Perez on 10-31-2022 Bilirubin [Mass/Vol] 0.80 mg/dL 0.20-1.00 [facility] Comment on above: For patients on eltr ombopag therapy, use of [place] TBIL is not recommended. Cholesterol [Mass/Vol] 203 mg/dL <200 [facility] Comment on above: <200 mg/dL Desirable 200-240 mg/dL Borderline >240 mg/dL High Risk Protein [Mass/Vol] 6.6 g/dL 6.4-8.2 [facility] Triglyceride [Mass/Vol] 171 mg/dL <199 [facility] Comment on above: The drugs N-Acetylcy steine and Metamizole may falsely depress this assay.Serum Triglycerides Reference Interval Normal <150 mg/dL Borderline high 150 - 199 mg/dL High 200 - 499 mg/dL Very High > or = 500 mg/dL Direct bilirubinOrdered By: Talat Perez on 10-31-2022 Bilirubin.direct [Mass/Vol] 0.22 mg/dL 0.00-0.30 [facility] Laboratory - Chemistry and C hemistry - challengeOrdered By: Talat Perez on 10-31-2022 ALP [Catalytic activity/Vol] 45 U/L 45-117 [facility] ALT [Catalytic activity/Vol] 31 U/L 16-61 [facility] Globulin (S) [Mass/Vol] 3.1 g/dL 2.2-4.2 [facility] Laboratory - CoagulationOrde red By: Dr. Delatorre on 10-31-2022 PT Coag (PPP) [Time] 35.8 s 11.7-14.9 [facility] Serum or plasma albumin mason urement (mass/volume)Ordered By: Talat Perez on 10-31-2022 Albumin [Mass/Vol] 3.5 g/dL 3.2-5.0 [facility] Serum or plasma cholesterol in HDL measurement (mass/volume)Ordered By: Talat Perez on 10-31-2022 Cholesterol in HDL [Mass/Vol] 70 mg/dL >40 [facility] Comment on above: The drugs N-Acetylcy steine and Metamizole may falsely depress this assay. Reference Range HDL <40 mg/dL Low HDL Cholesterol HDL >or= 60 mg/dL High HDL Cholesterol Serum or plasma cholesterol in VLDL measurement (mass/volume)Ordered By: Talat Perez on 10-31-2022 Cholesterol in VLDL [Mass/Vol] 34 mg/dL 5-40 [facility] Serum or plasma low density lipoprotein (LDL) cholesterol measurement (mass/volume)Ordered By: Talat Perez on 10-31-2022 Cholesterol in LDL [Mass/Vol] 99 mg/dL 0-130 [facility] Thin prep Papanicolaou smear with manual screeningOrdered By: Talat Perez on 10-31-2022 Thin prep Papanicolaou smear with manual screening 18 U/L 15-37 [facility] Absolute lymphocyte countOrd ered By: Dr. Thacekr on 10-16-2022 Lymphocytes Auto (Unsp spec) [#/Vol] 1.77 10*3/uL 0.83-4.51 [facility] Basophil percentageOrdered B y: Dr. Thacker on 10-16-2022 Basophils/100 WBC (Bld) 0.1 % 0-1 [facility] Eosinophils/100 WBC (Bld) 0.1 % 0-5 [facility] Neutrophils (Bld) [#/Vol] 12.6 10*3/uL 2.0-7.7 [facility] Neutrophils/100 WBC (Bld) 81.0 % 47-70 [facility] WBC (Bld) [#/Vol] 15.6 10*3/uL 4.4-11.0 [facility] Chloride [Moles/Vol] 101 mmol/L 98-107 [facility] Glucose [Mass/Vol] 113 mg/dL 74-106 [facility] Comment on above: Fasting Glucose resu lt from 100 to 125 mg/dL suggests IMPAIRED HOMEOSTASIS per A.D.A. criteria. Potassium [Moles/Vol] 3.9 mmol/L 3.5-5.1 [facility] Sodium [Moles/Vol] 134 mmol/L 136-145 [facility] Blood erythrocytes count (nu mber/volume)Ordered By: Dr. Thacker on 10-16-2022 RBC (Bld) [#/Vol] 4.77 10*6/uL 4.6-6.2 [facility] Blood hemoglobin measurement (mass/volume)Ordered By: Dr. Thacker on 10-16-2022 Hemoglobin (Bld) [Mass/Vol] 14.8 g/dL 13.0-16.5 [facility] Blood lymphocytes/100 leukoc ytesOrdered By: Dr. Thacker on 10-16-2022 Lymphocytes/100 WBC (Bld) 11.3 % 19-41 [facility] Blood monocytes/100 leukocyt esOrdered By: Dr. Thacker on 10-16-2022 Monocytes/100 WBC (Bld) 6.0 % 0-10 [facility] Blood platelet mean volumeOr dered By: Dr. Thacker on 10-16-2022 Platelet mean volume (Bld) [Entitic vol] 10.5 fL 6.2-12.0 [facility] Determination of erythrocyte mean corpuscular volume (MCV)Ordered By: Dr. Thacker on 10-16-2022 MCV (RBC) [Entitic vol] 89.7 fL 80-94 [facility] Hematocrit Auto (Bld) [Volum e fraction]Ordered By: Dr. Thacker on 10-16-2022 Hematocrit (Bld) [Volume fraction] 42.8 % 40-54 [facility] INR in Blood by Coagulation assayOrdered By: Dr. Thacker on 10-16-2022 INR Coag (Bld) [Relative time] 2.2 {INR} [facility] Laboratory - Chemistry and C hemistry - challengeOrdered By: Dr. Thacker on 10-16-2022 CO2 [Moles/Vol] 27.0 mmol/L 21.0-32.0 [facility] Urea nitrogen/Creatinine [Mass ratio] 28.5 mg/mg 10-20 [facility] Laboratory - CoagulationOrde red By: Dr. Thacker on 10-16-2022 PT Coag (PPP) [Time] 24.0 s 11.7-14.9 [facility] Laboratory - Hematology and Cell countsOrdered By: Dr. Thacker on 10-16-2022 Erythrocyte distribution width (RBC) [Entitic vol] 47.5 fL 35.1-43.9 [facility] Erythrocyte distribution width (RBC) [Ratio] 14.3 % 11.6-14.6 [facility] Immature granulocytes/100 WBC (Bld) 1.500 % 0.0-0.9 [facility] Comment on above: IG% - Immature Granu locytes (promyelocytes, myelocytes and metamyelocytes) > 1% indicates that a LEFT SHIFT is Present. MCH (RBC) [Entitic mass] 31.0 pg 27.0-32.0 [facility] Nucleated RBC/100 WBC (Bld) [Ratio] 0 % 0-5 [facility] MCHC Auto (RBC) [Mass/Vol]Or dered By: Dr. Thacker on 10-16-2022 MCHC (RBC) [Mass/Vol] 34.6 g/dL 32-36 [facility] No Panel InformationOrdered By: Dr. Thacker on 10-16-2022 Estimated GFR (MDRD) Amer 74 mL/min >60 [facility] Comment on above: GFR Calc Estimated GFR (MDRD) Non-Af Amer 61 mL/min >60 [facility] Comment on above: Non- GFR Calc Platelets bldOrdered By: Dr. Thacker on 10-16-2022 Platelets (Bld) [#/Vol] 318 10*3/uL 150-450 [facility] Serum or plasma calcium mason urement (mass/volume)Ordered By: Dr. Thacker on 10-16-2022 Calcium [Mass/Vol] 8.8 mg/dL 8.5-10.1 [facility] Serum or plasma creatinine m easurement (mass/volume)Ordered By: Dr. Thacker on 10-16-2022 Creatinine [Mass/Vol] 1.23 mg/dL 0.70-1.30 [facility] Comment on above: The validity of the calculated GFR & GFRAA in patients over 70 years has not been determined. Clinical correlation is essential. Serum or plasma urea nitroge n measurement (mass/volume)Ordered By: Dr. Thacker on 10-16-2022 Urea nitrogen [Mass/Vol] 35 mg/dL 7-18 [facility] Thin prep Papanicolaou smear with manual screeningOrdered By: Dr. Thacker on 10-16-2022 Thin prep Papanicolaou smear with manual screening 6 5-15 [facility] Laboratory - CoagulationOrde red By: Dr. Thacker on 08-10-2022 INR Coag (Bld) [Relative time] 2.6 {INR} [facility] Comment on above: Critical Value > 4.0 Whole blood prothrombin time Ordered By: Dr. Thacker on 08-10-2022 PT Coag (Bld) [Time] 29.7 s 11.7-14.9 [facility] Laboratory - CoagulationOrde red By: Dr. Thacker on 07-06-2022 INR Coag (Bld) [Relative time] 2.0 {INR} [facility] Comment on above: Critical Value > 4.0 Whole blood prothrombin time Ordered By: Dr. Thacker on 07-06-2022 PT Coag (Bld) [Time] 24.0 s 11.7-14.9 [facility] Basophil percentageon 2021 Bilirubin [Mass/Vol] 0.70 mg/dL 0.20-1.00 [facility] Work Phone: Comment on above: For patients on eltr ombopag therapy, use of [place] TBIL is not recommended. Cholesterol [Mass/Vol] 162 mg/dL <200 [facility] Work Phone: Comment on above: <200 mg/dL Desirable 200-240 mg/dL Borderline >240 mg/dL High Risk Protein [Mass/Vol] 6.7 g/dL 6.4-8.2 [facility] Work Phone: Triglyceride [Mass/Vol] 115 mg/dL <199 [facility] Work Phone: Comment on above: The drugs N-Acetylcy steine and Metamizole may falsely depress this assay.Serum Triglycerides Reference Interval Normal <150 mg/dL Borderline high 150 - 199 mg/dL High 200 - 499 mg/dL Very High > or = 500 mg/dL Direct bilirubinon 2 Bilirubin.direct [Mass/Vol] 0.18 mg/dL 0.00-0.30 [facility] Work Phone: INR in Blood by Coagulation assayon 04-20-2022 INR Coag (Bld) [Relative time] 2.7 {INR} [facility] Work Phone: Laboratory - Chemistry and C hemistry - challengeon 04-20-2022 ALP [Catalytic activity/Vol] 48 U/L 45-117 [facility] Work Phone: ALT [Catalytic activity/Vol] 22 U/L 16-61 [facility] Work Phone: Globulin (S) [Mass/Vol] 3.2 g/dL 2.2-4.2 [facility] Work Phone: Laboratory - Coagulationon 0 04-20-2022 PT Coag (PPP) [Time] 28.4 s 11.7-14.9 [facility] Work Phone: Serum or plasma albumin mason urement (mass/volume)on 04-20-2022 Albumin [Mass/Vol] 3.5 g/dL 3.2-5.0 [facility] Work Phone: Serum or plasma cholesterol in HDL measurement (mass/volume)on 04-20-2022 Cholesterol in HDL [Mass/Vol] 58 mg/dL >40 [facility] Work Phone: Comment on above: The drugs N-Acetylcy steine and Metamizole may falsely depress this assay. Reference Range HDL <40 mg/dL Low HDL Cholesterol HDL >or= 60 mg/dL High HDL Cholesterol Serum or plasma cholesterol in VLDL measurement (mass/volume)on 04-20-2022 Cholesterol in VLDL [Mass/Vol] 23 mg/dL 5-40 [facility] Work Phone: Serum or plasma low density lipoprotein (LDL) cholesterol measurement (mass/volume)on 04-20-2022 Cholesterol in LDL [Mass/Vol] 81 mg/dL 0-130 [facility] Work Phone: Thin prep Papanicolaou smear with manual screeningon 04-20-2022 Thin prep Papanicolaou smear with manual screening 10 U/L 15-37 [facility] Work Phone: Laboratory - Coagulationon 0 03-03-2022 INR Coag (Bld) [Relative time] 1.9 {INR} [facility] Work Phone: Comment on above: Critical Value > 4.0 Whole blood prothrombin time on 03-03-2022 PT Coag (Bld) [Time] 22.2 s 11.7-14.9 [facility] Work Phone: Laboratory - Coagulationon 0 02-17-2022 INR Coag (Bld) [Relative time] 1.7 {INR} [facility] Work Phone: Comment on above: Critical Value > 4.0 Whole blood prothrombin time on 02-17-2022 PT Coag (Bld) [Time] 20.6 s 11.7-14.9 [facility] Work Phone: Laboratory - Coagulationon 0 01-18-2022 INR Coag (Bld) [Relative time] 2.6 {INR} [facility] Work Phone: Comment on above: Critical Value > 4.0 Whole blood prothrombin time on 01-18-2022 PT Coag (Bld) [Time] 29.7 s 11.7-14.9 [facility] Work Phone: INR in Blood by Coagulation assayon 12-20-2021 INR Coag (Bld) [Relative time] 2.3 {INR} [facility] Work Phone: Laboratory - Coagulationon 0 12-20-2021 PT Coag (PPP) [Time] 25.2 s 11.7-14.9 [facility] Work Phone: No Panel Informationon 12-20 Prostate Specific Antigen Screen 2.20 ng/mL 0.00-4.00 [facility] Work Phone: Comment on above: This test was perfor med using the TPSA assay method for [employer] chemistry system. Values obtained with differentassay methods cannot be used interchangably.When changing PSA assays in the course of monitoring apatient, additional sequential testing should be carriedout to confirm baseline values. Absolute lymphocyte counton 11-03-2021 Lymphocytes Auto (Unsp spec) [#/Vol] 1.94 10*3/uL 0.83-4.51 [facility] Work Phone: Basophil percentageon 2021 Basophils/100 WBC (Bld) 0.5 % 0-1 [facility] Work Phone: Eosinophils/100 WBC (Bld) 0.3 % 0-5 [facility] Work Phone: Neutrophils (Bld) [#/Vol] 8.5 10*3/uL 2.0-7.7 [facility] Work Phone: Neutrophils/100 WBC (Bld) 74.2 % 47-70 [facility] Work Phone: WBC (Bld) [#/Vol] 11.5 10*3/uL 4.4-11.0 [facility] Work Phone: Blood erythrocytes count (nu mber/volume)on 11-03-2021 RBC (Bld) [#/Vol] 4.72 10*6/uL 4.6-6.2 [facility] Work Phone: Blood hemoglobin measurement (mass/volume)on 11-03-2021 Hemoglobin (Bld) [Mass/Vol] 14.7 g/dL 13.0-16.5 [facility] Work Phone: Blood lymphocytes/100 leukoc yteson 11-03-2021 Lymphocytes/100 WBC (Bld) 16.9 % 19-41 [facility] Work Phone: Blood monocytes/100 leukocyt eson 11-03-2021 Monocytes/100 WBC (Bld) 7.3 % 0-10 [facility] Work Phone: Blood platelet mean volumeon 11-03-2021 Platelet mean volume (Bld) [Entitic vol] 9.6 fL 6.2-12.0 [facility] Work Phone: Determination of erythrocyte mean corpuscular volume (MCV)on 11-03-2021 MCV (RBC) [Entitic vol] 87.1 fL 80-94 [facility] Work Phone: Hematocrit Auto (Bld) [Volum e fraction]on 11-03-2021 Hematocrit (Bld) [Volume fraction] 41.1 % 40-54 [facility] Work Phone: [phone] Laboratory - Hematology and Cell countson 11-03-2021 Erythrocyte distribution width (RBC) [Entitic vol] 41.2 fL 35.1-43.9 [facility] Work Phone: Erythrocyte distribution width (RBC) [Ratio] 13.0 % 11.6-14.6 [facility] Work Phone: Immature granulocytes/100 WBC (Bld) 0.800 % 0.0-0.9 [facility] Work Phone: Comment on above: IG% - Immature Granu locytes (promyelocytes, myelocytes and metamyelocytes) > 1% indicates that a LEFT SHIFT is Present. MCH (RBC) [Entitic mass] 31.1 pg 27.0-32.0 [facility] Work Phone: [phone] Nucleated RBC/100 WBC (Bld) [Ratio] 0 % 0-5 [facility] Work Phone: MCHC Auto (RBC) [Mass/Vol]on 11-03-2021 MCHC (RBC) [Mass/Vol] 35.8 g/dL 32-36 [facility] Work Phone: No Panel Informationon 11-03 Thyroid Stimulating Hormone (TSH) 2.88 uIU/mL 0.358-3.74 [facility] Work Phone: Platelets bldon 11-03-2021 Platelets (Bld) [#/Vol] 287 10*3/uL 150-450 [facility] Work Phone: Whole blood hemoglobin A1c/t otal hemoglobin ratio (mass fraction)on 11-03-2021 HbA1c (Bld) [Mass fraction] 5.7 % 3.8-5.6 [facility] Work Phone: Comment on above: Normal < 5.7 % Predi abetic 5.7 - 6.4 % Diabetic >or= 6.5 % Please note range changes. Basophil percentageon 2021 Bilirubin [Mass/Vol] 0.60 mg/dL 0.20-1.00 [facility] Work Phone: Comment on above: For patients on eltr ombopag therapy, use of [place] TBIL is not recommended. Chloride [Moles/Vol] 103 mmol/L 98-107 [facility] Work Phone: Cholesterol [Mass/Vol] 197 mg/dL <200 [facility] Work Phone: Comment on above: <200 mg/dL Desirable 200-240 mg/dL Borderline >240 mg/dL High Risk Glucose [Mass/Vol] 102 mg/dL 74-106 [facility] Work Phone: Comment on above: Fasting Glucose resu lt from 100 to 125 mg/dL suggests IMPAIRED HOMEOSTASIS per A.D.A. criteria. Potassium [Moles/Vol] 3.8 mmol/L 3.5-5.1 [facility] Work Phone: Comment on above: Slight Hemolysis, Re sult may be falsely increased. Protein [Mass/Vol] 7.1 g/dL 6.4-8.2 [facility] Work Phone: Sodium [Moles/Vol] 138 mmol/L 136-145 [facility] Work Phone: Triglyceride [Mass/Vol] 266 mg/dL <199 [facility] Work Phone: Comment on above: The drugs N-Acetylcy steine and Metamizole may falsely depress this assay.Serum Triglycerides Reference Interval Normal <150 mg/dL Borderline high 150 - 199 mg/dL High 200 - 499 mg/dL Very High > or = 500 mg/dL Direct bilirubinon 2 Bilirubin.direct [Mass/Vol] 0.14 mg/dL 0.00-0.30 [facility] Work Phone: INR in Blood by Coagulation assayon 11-01-2021 INR Coag (Bld) [Relative time] 2.5 {INR} [facility] Work Phone: Laboratory - Chemistry and C hemistry - challengeon 11-01-2021 ALP [Catalytic activity/Vol] 45 U/L 45-117 [facility] Work Phone: ALT [Catalytic activity/Vol] 31 U/L 16-61 [facility] Work Phone: CO2 [Moles/Vol] 30.0 mmol/L 21.0-32.0 [facility] Work Phone: Globulin (S) [Mass/Vol] 3.4 g/dL 2.2-4.2 [facility] Work Phone: Urea nitrogen/Creatinine [Mass ratio] 21.0 mg/mg 10-20 [facility] Work Phone: Laboratory - Coagulationon 0 11-01-2021 PT Coag (PPP) [Time] 25.8 s 11.7-14.9 [facility] Work Phone: No Panel Informationon 11-01 Estimated GFR (MDRD) Amer 88 mL/min >60 [facility] Work Phone: Comment on above: GFR Calc Estimated GFR (MDRD) Non-Af Amer 73 mL/min >60 [facility] Work Phone: Comment on above: Non- GFR Calc Serum or plasma albumin mason urement (mass/volume)on 11-01-2021 Albumin [Mass/Vol] 3.7 g/dL 3.2-5.0 [facility] Work Phone: Serum or plasma calcium mason urement (mass/volume)on 11-01-2021 Calcium [Mass/Vol] 9.1 mg/dL 8.5-10.1 [facility] Work Phone: Serum or plasma cholesterol in HDL measurement (mass/volume)on 11-01-2021 Cholesterol in HDL [Mass/Vol] 56 mg/dL >40 [facility] Work Phone: Comment on above: The drugs N-Acetylcy steine and Metamizole may falsely depress this assay. Reference Range HDL <40 mg/dL Low HDL Cholesterol HDL >or= 60 mg/dL High HDL Cholesterol Serum or plasma cholesterol in VLDL measurement (mass/volume)on 11-01-2021 Cholesterol in VLDL [Mass/Vol] 53 mg/dL 5-40 [facility] Work Phone: Serum or plasma creatinine m easurement (mass/volume)on 11-01-2021 Creatinine [Mass/Vol] 1.05 mg/dL 0.70-1.30 [facility] Work Phone: Comment on above: The validity of the calculated GFR & GFRAA in patients over 70 years has not been determined. Clinical correlation is essential. Serum or plasma low density lipoprotein (LDL) cholesterol measurement (mass/volume)on 11-01-2021 Cholesterol in LDL [Mass/Vol] 88 mg/dL 0-130 [facility] Work Phone: Serum or plasma urea nitroge n measurement (mass/volume)on 11-01-2021 Urea nitrogen [Mass/Vol] 22 mg/dL 7-18 [facility] Work Phone: Thin prep Papanicolaou smear with manual screeningon 11-01-2021 Thin prep Papanicolaou smear with manual screening 24 U/L 15-37 [facility] Work Phone: Comment on above: Slight Hemolysis, Re sult may be falsely increased. Thin prep Papanicolaou smear with manual screening 5 5-15 [facility] Work Phone: Laboratory - Coagulationon 0 10-17-2021 INR Coag (Bld) [Relative time] 2.6 {INR} [facility] Work Phone: Comment on above: Critical Value > 4.0 Whole blood prothrombin time on 10-17-2021 PT Coag (Bld) [Time] 29.8 s 11.7-14.9 [facility] Work Phone: Laboratory - Coagulationon 0 09-19-2021 INR Coag (Bld) [Relative time] 2.2 {INR} [facility] Work Phone: Comment on above: Critical Value > 4.0 Whole blood prothrombin time on 09-19-2021 PT Coag (Bld) [Time] 25.8 s 11.9-14.4 [facility] Work Phone: Laboratory - Coagulationon 0 08-19-2021 INR Coag (Bld) [Relative time] 2.6 {INR} [facility] Work Phone: Comment on above: Critical Value > 4.0 Whole blood prothrombin time on 08-19-2021 PT Coag (Bld) [Time] 29.9 s 11.9-14.4 [facility] Work Phone: Laboratory - Coagulationon 1 09-12-2020 INR Coag (Bld) [Relative time] 3.0 {INR} [facility] Work Phone: Comment on above: Critical Value > 4.0 Whole blood prothrombin time on 07-12-2021 PT Coag (Bld) [Time] 33.0 s 11.9-14.4 [facility] Work Phone: Office Visit: [facility] 06-05-20 Dietary management education, guidance, and counseling (procedure) yes Invalid Interpretation Code [facility] Work Phone: [phone] Documentation of current medications (procedure) Done Invalid Interpretation Code [id number] Work Phone: [phone] Fall risk assessment No Invalid Interpretation Code [facility] Work Phone: [phone] Lab Report: Lipid Profileon 05-31-2017 Cholesterol 167 mg/dL Invalid Interpretation Code 200 [id number] Work Phone: [phone] HDL Cholesterol 47 mg/dL Invalid Interpretation Code [facility] [employer] [facility] Work Phone: [phone] LDL Cholesterol 64 mg/dL Invalid Interpretation Code 0-130 [facility] Work Phone: [phone] Triglyceride 281 mg/dL High [facility] Work Phone: [phone] very low density lipoproteins 56 mg/dL High 5-40 [facility] Work Phone: [phone] Lab Report: Liver Profileon 05-31-2017 Alanine aminotransferase (ALT) 27 U/L Invalid Interpretation Code 12-78 [facility] Work Phone: [phone] Albumin 4.0 g/dL Invalid Interpretation Code 3.4-5.0 [facility] Work Phone: [phone] Alkaline phosphatase (ALP) 55 U/L Invalid Interpretation Code 45-117 [facility] Work Phone: [phone] Aspartate aminotransferase (AST) 17 U/L Invalid Interpretation Code 15-37 [id number] Work Phone: [phone] Bilirubin (direct) 0.17 mg/dL Invalid Interpretation Code 0.00-0.30 [facility] Work Phone: [phone] Bilirubin (total) 0.70 mg/dL Invalid Interpretation Code 0.20-1.00 [facility] Work Phone: [phone] Globulin 3.2 g/dL Invalid Interpretation Code 2.2-4.2 [facility] Work Phone: [phone] Protein 7.2 g/dL Invalid Interpretation Code 6.4-8.2 [facility] Work Phone: [phone] Clinical Lists Update: Prelo mixer blender 01-01-2017 Left ventricular Ejection fraction 50 % Invalid Interpretation Code [id number] Work Phone: [phone] Office Visiton 12-13-2016 Dietary management education, guidance, and counseling (procedure) yes Invalid Interpretation Code [email or web address] Work Phone: [phone] Documentation of current medications (procedure) Done Invalid Interpretation Code [facility] Phone: [phone] Lab Report: BNP,B-Type NATRI URETIC PEPTIDEon 11-14-2016 BNP 137.6 pg/mL High 0-100 [facility] Work Phone: [phone] Lab Report: CBC-Complete Blo od Cnt No Diffon 11-14-2016 Erythrocyte distribution width Auto Ratio (RBC) 14.6 % Invalid Interpretation Code 11.6-14.6 [facility] Work Phone: [phone] Erythrocytes (RBC) 4.96 10*6/uL Invalid Interpretation Code 4.6-6.2 [facility] Work Phone: [phone] Hematocrit (HCT) 43.7 % Invalid Interpretation Code 40-54 [facility] Work Phone: [phone] Hemoglobin mass conc (Bld) 15.3 g/dL Invalid Interpretation Code 13.0-16.5 [facility] Work Phone: [phone] MCH 30.8 pg Invalid Interpretation Code 27.0-32.0 [facility] Work Phone: [phone] MCHC mass conc (RBC) 35.0 G/GL Invalid Interpretation Code 32-36 [facility] Work Phone: [phone] MCV 88.1 fL Invalid Interpretation Code 80-94 [facility] Work Phone: [phone] Platelets 231 10*3/mm3 Invalid Interpretation Code 150-450 [facility] Work Phone: [phone] PMV by Lisa 11.4 fL Invalid Interpretation Code 6.2-12.0 [facility] Work Phone: [phone] RDW SD 47.0 fL High 35.1-43.9 [facility] Work Phone: [phone] WBC (Leukocytes) 9.0 10*3/uL Invalid Interpretation Code 4.4-11.0 [facility] Work Phone: [phone] Lab Report: [facility] Profilon 11-14-2016 Albumin/Globulin Ratio 1.2 {ratio} Invalid Interpretation Code 0.9-2.4 [facility] Work Phone: [phone] Anion gap 10 mmol/L Invalid Interpretation Code 5-15 [facility] Work Phone: [phone] BUN/Creatinine Ratio 23.5 RATIO High 10-[address] [facility] [address] [facility] Work Phone: [phone] Calcium 8.5 mg/dL Invalid Interpretation Code 8.5-10.1 [facility] Work Phone: [phone] Chloride 105 mmol/L Invalid Interpretation Code 98-107 [facility] Work Phone: [phone] CO2 26.0 mmol/L Invalid Interpretation Code 21.0-32.0 [facility] Work Phone: [phone] Creatinine 1.02 mg/dL Invalid Interpretation Code 0.70-1.30 [facility] Work Phone: [phone] eGFR (non-black) 77 mL/min/{1.73_m2} Invalid Interpretation Code >60 [facility] Work Phone: [phone] eGFR (non-black) 93 mL/min/{1.73_m2} Invalid Interpretation Code >60 [facility] Work Phone: [phone] Glucose mass conc 89 mg/dL Invalid Interpretation Code 70-110 [facility] Work Phone: [phone] Potassium molar conc 4.0 mmol/L Invalid Interpretation Code 3.5-5.1 [facility] Work Phone: [phone] Sodium 141 mmol/L Invalid Interpretation Code 136-145 [facility] Work Phone: [phone] Urea nitrogen 24 mg/dL High 7-18 [facility] Work Phone: [phone] Lab Report: PSA,Total- Diagn osticon 11-14-2016 PSA, DIAGNOSTIC 8.09 ng/mL High 0.0-4.0 [facility] Work Phone: [phone] Lab Report: T4 Free Directon 11-14-2016 Thyroxine (T4) free 1.16 ng/dL Invalid Interpretation Code 0.76-1.46 [facility] Work Phone: [phone] Lab Report: Thyroid Stim Hor ca (TSH)on 11-14-2016 Thyroid stimulating hormone (TSH) 5.55 u[iU]/mL High 0.358-3.74 [facility] Work Phone: [phone] Replaced Document: Jannette Menendez CG Observationson 03-15-2016 EKG QRS axis 5 deg Invalid Interpretation Code [facility] Work Phone: [phone] Interpretation Sinus Rhythm -First degree A-V block - occasional ectopic ventricular beat Roxi = 254BORDERLINE RHYTHM Invalid Interpretation Code [facility] Work Phone: [phone] P [place] 38 deg Invalid Interpretation Code [facility] Work Phone: [phone] AL Interval 254 ms Invalid Interpretation Code [facility] Work Phone: [phone] Pulse (Heart Rate) 63 /min Invalid Interpretation Code [facility] Work Phone: [phone] QRS Duration 112 ms Invalid Interpretation Code [facility] Work Phone: [phone] QT Interval new path ms Invalid Interpretation Code [facility] Work Phone: [phone] QTc [place] 421 ms Invalid Interpretation Code [facility] Work Phone: [phone] T [place] 25 deg Invalid Interpretation Code [facility] Work Phone: [phone] Office Visiton 09-08-2015 General cardiovascular disease 10Y risk [#] [place]D'Agost[place] 6 % Invalid Interpretation Code [facility] Work Phone: [phone] Tobacco use CPHS Never smoker Invalid Interpretation Code [facility] Work Phone: Office Visiton 03-10-2015 cardiac risk group B Invalid Interpretation Code [facility] Work Phone: Clinical Lists Update: Prelo mixer blender 01-14-2015 LDL Cholesterol 41 mg/dL Invalid Interpretation Code [facility] [employer] Work Phone: Office Visiton 11-12-2013 Alcoholism counseling (procedure) no Invalid Interpretation Code [facility] Work Phone: Replaced Document: Jannette Menendez CG Observationson 11-12-2013 Pulse (Heart Rate) 457 ms Invalid Interpretation Code [facility] Work Phone: Lab Report: LSEDon 3 Erythrocyte sedimentation rate 2 mm/h Invalid Interpretation Code 0-20 [facility] Work Phone: Vital Signs Date Time Vital Sign Value Performing Clinician Faci lity 03-05-2025 09:05-0400 Body mass index (BMI) [Ratio] 28.5 kg/m2 Dr. Dwain Kolb DO Work Phone: [facility] 03-05-2025 09:05-0400 Body temperature 97.4 [degF] Dr. Dwain Kolb DO Work Phone: [facility] 03-05-2025 09:05-0400 Body weight 90.[address] Dwain Kolb DO Work Phone: [facility] 03-05-2025 09:05-0400 Diastolic blood pressure 78 mm[Hg] Dr. Dwain Kolb DO Work Phone: [facility] 03-05-2025 09:05-0400 Heart rate 63 /min Dr. Dwain Kolb DO Work Phone: [facility] 03-05-2025 09:05-0400 Respiratory rate 18 /min Dr. Dwain Kolb DO Work Phone: [facility] 03-05-2025 09:05-0400 SaO2% (BldA) [Mass fraction] 100 % Dr. Dwain Kolb DO Work Phone: [facility] 03-05-2025 09:05-0400 Systolic blood pressure 129 mm[Hg] Dr. Dwain Kolb DO Work Phone: [facility] 01-06-2025 12:53-0400 Body height 177.[address] Dwain Kolb DO Work Phone: [facility] 01-06-2025 12:53-0400 Body mass index (BMI) [Ratio] 29.3 kg/m2 Dr. Dwain Kolb DO Work Phone: [facility] 01-06-2025 12:53-0400 Body temperature 98 [degF] Dr. Dwain Kolb DO Work Phone: [facility] 01-06-2025 12:53-0400 Body weight 92.[address] Dwain Kolb DO Work Phone: [facility] 01-06-2025 12:53-0400 Diastolic blood pressure 75 mm[Hg] Dr. Dwain Kolb DO Work Phone: [facility] 01-06-2025 12:53-0400 Heart rate 64 /min Dr. Dwain Kolb DO Work Phone: [facility] 01-06-2025 12:53-0400 Respiratory rate 17 /min Dr. Dwain Kolb DO Work Phone: [facility] 01-06-2025 12:53-0400 SaO2% (BldA) [Mass fraction] 98 % Dr. Dwain Kolb DO Work Phone: [facility] 01-06-2025 12:53-0400 Systolic blood pressure 118 mm[Hg] Dr. Dwain Kolb DO Work Phone: [facility] 11-14-2024 13:38-0400 Diastolic blood pressure 80 mm[Hg] Dr. Dwain Kolb DO Work Phone: [facility] 11-14-2024 13:38-0400 Heart rate 72 /min Dr. Dwain Kolb DO Work Phone: [facility] 11-14-2024 13:38-0400 Respiratory rate 16 /min Dr. Dwain Kolb DO Work Phone: [facility] 11-14-2024 13:38-0400 Systolic blood pressure 127 mm[Hg] Dr. Dwain Kolb DO Work Phone: [facility] 10-28-2024 08:44-0400 Body mass index (BMI) [Ratio] 28.5 kg/m2 Dr. Dwain Kolb DO Work Phone: [facility] 10-28-2024 08:44-0400 Body weight 90.[address] Dwain Kolb DO Work Phone: [facility] 10-28-2024 08:44-0400 Diastolic blood pressure 82 mm[Hg] Dr. Dwain Kolb DO Work Phone: [facility] 10-28-2024 08:44-0400 Heart rate 62 /min Dr. Dwain Kolb DO Work Phone: [facility] 10-28-2024 08:44-0400 Respiratory rate 18 /min Dr. Dwain Kolb DO Work Phone: [facility] 10-28-2024 08:44-0400 Systolic blood pressure 163 mm[Hg] Dr. Dwain Kolb DO Work Phone: [facility] 09-04-2024 07:51-0500 Body mass index (BMI) [Ratio] 28.5 kg/m2 Dr. Dwain Kolb DO Work Phone: [facility] 09-04-2024 07:51-0500 Body temperature 96.8 [degF] Dr. Dwain Kolb DO Work Phone: [facility] 09-04-2024 07:51-0500 Body weight 90.[address] Dwain Kolb DO Work Phone: [facility] 09-04-2024 07:51-0500 Diastolic blood pressure 77 mm[Hg] Dr. Dwain Kolb DO Work Phone: [facility] 09-04-2024 07:51-0500 Heart rate 50 /min Dr. Dwain Kolb DO Work Phone: [facility] 09-04-2024 07:51-0500 Respiratory rate 18 /min Dr. Dwain Kolb DO Work Phone: [facility] 09-04-2024 07:51-0500 SaO2% (BldA) [Mass fraction] 100 % Dr. Dwain Kolb DO Work Phone: [facility] 09-04-2024 07:51-0500 Systolic blood pressure 115 mm[Hg] Dr. Dwain Kolb DO Work Phone: [facility] 07-26-2024 19:18-0500 Body height 177.[address] Dwain Kolb DO Work Phone: [facility] 07-26-2024 19:18-0500 Body mass index (BMI) [Ratio] 29.8 kg/m2 Dr. Dwain Kolb DO Work Phone: [facility] 07-26-2024 19:18-0500 Body temperature 98.2 [degF] Dr. Dwain Kolb DO Work Phone: [facility] 07-26-2024 19:18-0500 Body weight 94.[address] Dwain Kolb DO Work Phone: [facility] 07-26-2024 19:18-0500 Diastolic blood pressure 69 mm[Hg] Dr. Dwain Kolb DO Work Phone: [facility] 07-26-2024 19:18-0500 Heart rate 63 /min Dr. Dwain Kolb DO Work Phone: [facility] 07-26-2024 19:18-0500 Respiratory rate 16 /min Dr. Dwain Kolb DO Work Phone: [facility] 07-26-2024 19:18-0500 SaO2% (BldA) [Mass fraction] 98 % Dr. Dwain Kolb DO Work Phone: [facility] 07-26-2024 19:18-0500 Systolic blood pressure 127 mm[Hg] Dr. Dwain Kolb DO Work Phone: [facility] 07-24-2024 13:26-0500 Body height 177.8 cm Jr Sam DPM Work Phone: [facility] 07-24-2024 13:26-0500 Body mass index (BMI) [Ratio] 32.71 kg/m2 Jr Sam DPM Work Phone: [facility] 07-24-2024 13:26-0500 Body weight 103.42 kg Jr Sam DPM Work Phone: [facility] 07-24-2024 13:26-0500 Respiratory rate 17 /min Rj Sam DPM Work Phone: [facility] 06-26-2024 13:22-0500 Body height 177.8 cm Jr Sam DPM Work Phone: [facility] 06-26-2024 13:22-0500 Body mass index (BMI) [Ratio] 32.71 kg/m2 Jr Sam DPM Work Phone: [facility] 06-26-2024 13:22-0500 Body weight 103.42 kg Jr Sam DPM Work Phone: [facility] 06-26-2024 13:22-0500 Respiratory rate 18 /min Jr Sam DPM Work Phone: [facility] 05-15-2024 08:19-0400 Body height 177.8 cm Jr Sam DPM Work Phone: [facility] 05-15-2024 08:19-0400 Body mass index (BMI) [Ratio] 32.71 kg/m2 Jr Sam DPM Work Phone: [facility] 05-15-2024 08:19-0400 Body weight 103.42 kg Jr Vargas DPM Work Phone: [facility] 05-15-2024 08:19-0400 Respiratory rate 16 /min Jr Vargas DPM Work Phone: [facility] 01-29-2024 10:32-0400 Body height 177.8 cm Collin Pollock MD Work Phone: [facility] 01-29-2024 10:32-0400 Body mass index (BMI) [Ratio] 33.29 kg/m2 Collin Pollock MD Work Phone: [facility] 01-29-2024 10:32-0400 Body weight 105.23 kg Collin Pollock MD Work Phone: [facility] 01-29-2024 10:32-0400 Diastolic blood pressure 62 mm[Hg] Collin Pollock MD Work Phone: [facility] 01-29-2024 10:32-0400 Heart rate 78 /min Collin Pollock MD Work Phone: [facility] 01-29-2024 10:32-0400 SaO2% (BldA) [Mass fraction] 96 % Collin Pollock MD Work Phone: [facility] 01-29-2024 10:32-0400 Systolic blood pressure 124 mm[Hg] Collin Pollock MD Work Phone: [facility] 11-22-2023 07:33-0400 Body height 177.[address] Dwain Kolb Work Phone: [facility] 11-22-2023 07:33-0400 Body mass index (BMI) [Ratio] 34.7 kg/m2 Dr. Dwain Kolb Work Phone: [facility] 11-22-2023 07:33-0400 Body temperature 98.3 [degF] Dr. Dwain Kolb Work Phone: [facility] 11-22-2023 07:33-0400 Body weight 109.[address] Dwain Kolb Work Phone: [facility] 11-22-2023 07:33-0400 Diastolic blood pressure 78 mm[Hg] Dr. Dwain Kolb Work Phone: [facility] 11-22-2023 07:33-0400 Heart rate 59 /min Dr. Dwain Kolb Work Phone: [facility] 11-22-2023 07:33-0400 Respiratory rate 16 /min Dr. Dwain Kolb Work Phone: [facility] 11-22-2023 07:33-0400 SaO2% (BldA) [Mass fraction] 96 % Dr. Dwain Kolb Work Phone: [facility] 11-22-2023 07:33-0400 Systolic blood pressure 133 mm[Hg] Dr. Dwain Kolb Work Phone: [facility] 10-30-2023 11:09-0400 Body height 177.[address] Dwain Kolb Work Phone: [facility] 10-30-2023 11:09-0400 Body mass index (BMI) [Ratio] 34.9 kg/m2 Dr. Dwian Kolb Work Phone: [facility] 10-30-2023 11:09-0400 Body weight 110.[address] Dwain Kolb Work Phone: [facility] 10-30-2023 11:09-0400 Diastolic blood pressure 79 mm[Hg] Dr. Dwain Kolb Work Phone: [facility] 10-30-2023 11:09-0400 Heart rate 72 /min Dr. Dwain Kolb Work Phone: [facility] 10-30-2023 11:09-0400 Respiratory rate 18 /min Dr. Dwain Kolb Work Phone: [facility] 10-30-2023 11:09-0400 Systolic blood pressure 162 mm[Hg] Dr. Dwain Kolb Work Phone: [facility] 10-02-2023 11:55-0400 Body mass index (BMI) [Ratio] 36.2 kg/m2 Dr. Dwain Kolb Work Phone: [facility] 10-02-2023 11:55-0400 Body temperature 98.5 [degF] Dr. Dwain Kolb Work Phone: [facility] 10-02-2023 11:55-0400 Body weight 114.[address] Dwain Kolb Work Phone: [facility] 10-02-2023 11:55-0400 Diastolic blood pressure 110 mm[Hg] Dr. Dwain Kolb Work Phone: [facility] 10-02-2023 11:55-0400 Heart rate 73 /min Dr. Dwain Kolb Work Phone: [facility] 10-02-2023 11:55-0400 Respiratory rate 18 /min Dr. Dwain Kolb Work Phone: [facility] 10-02-2023 11:55-0400 SaO2% (BldA) [Mass fraction] 99 % Dr. Dwain Kolb Work Phone: [facility] 10-02-2023 11:55-0400 Systolic blood pressure 161 mm[Hg] Dr. Dwain Kolb Work Phone: [facility] 09-25-2023 09:09-0500 Body mass index (BMI) [Ratio] 35.6 kg/m2 Dr. Dwain Kolb Work Phone: [facility] 09-25-2023 09:09-0500 Body temperature 98.2 [degF] Dr. Dwain Kolb Work Phone: [facility] 09-25-2023 09:09-0500 Body weight 112.[address] Dwain Kolb Work Phone: [facility] 09-25-2023 09:09-0500 Diastolic blood pressure 88 mm[Hg] Dr. Dwain Kolb Work Phone: [facility] 09-25-2023 09:09-0500 Heart rate 56 /min Dr. Dwain Kolb Work Phone: [facility] 09-25-2023 09:09-0500 Respiratory rate 18 /min Dr. Dwain Kolb Work Phone: [facility] 09-25-2023 09:09-0500 SaO2% (BldA) [Mass fraction] 99 % Dr. Dwain Kolb Work Phone: [facility] 09-25-2023 09:09-0500 Systolic blood pressure 151 mm[Hg] Dr. Dwain Kolb Work Phone: [facility] 09-13-2023 13:25-0500 Body mass index (BMI) [Ratio] 35.6 kg/m2 Dr. Dwain Kolb Work Phone: [facility] 09-13-2023 13:25-0500 Body temperature 98.2 [degF] Dr. Dwain Kolb Work Phone: [facility] 09-13-2023 13:25-0500 Body weight 112.[address] Dwain Kolb Work Phone: [facility] 09-13-2023 13:25-0500 Diastolic blood pressure 72 mm[Hg] Dr. Dwain Kolb Work Phone: [facility] 09-13-2023 13:25-0500 Heart rate 87 /min Dr. Dwain Kolb Work Phone: [facility] 09-13-2023 13:25-0500 Respiratory rate 17 /min Dr. Dwain Kolb Work Phone: [facility] 09-13-2023 13:25-0500 SaO2% (BldA) [Mass fraction] 95 % Dr. Dwain Kolb Work Phone: [facility] 09-13-2023 13:25-0500 Systolic blood pressure 138 mm[Hg] Dr. Dwain Kolb Work Phone: [facility] 07-17-2023 07:56-0500 Body height 177.[address] Dwain Kolb Work Phone: [facility] 07-17-2023 07:56-0500 Body mass index (BMI) [Ratio] 34.6 kg/m2 Dr. Dwain Kolb Work Phone: [facility] 07-17-2023 07:56-0500 Body temperature 98.2 [degF] Dr. Dwain Kolb Work Phone: [facility] 07-17-2023 07:56-0500 Body weight 109.[address] Dwain Kolb Work Phone: [facility] 07-17-2023 07:56-0500 Diastolic blood pressure 84 mm[Hg] Dr. Dwain Kolb Work Phone: [facility] 07-17-2023 07:56-0500 Heart rate 82 /min Dr. Dwain Kolb Work Phone: [facility] 07-17-2023 07:56-0500 Respiratory rate 18 /min Dr. Dwain Kolb Work Phone: [facility] 07-17-2023 07:56-0500 SaO2% (BldA) [Mass fraction] 97 % Dr. Dwain Kolb Work Phone: [facility] 07-17-2023 07:56-0500 Systolic blood pressure 142 mm[Hg] Dr. Dwain Kolb Work Phone: [facility] 05-09-2023 13:00-0400 Body mass index (BMI) [Ratio] 34.7 kg/m2 Dr. Dwain Kolb Work Phone: [facility] 05-09-2023 13:00-0400 Body temperature 98.2 [degF] Dr. Dwain Kolb Work Phone: [facility] 05-09-2023 13:00-0400 Body weight 109.[address] Dwain Kolb Work Phone: [facility] 05-09-2023 13:00-0400 Diastolic blood pressure 68 mm[Hg] Dr. Dwain Kolb Work Phone: [facility] 05-09-2023 13:00-0400 Heart rate 80 /min Dr. Dwain Kolb Work Phone: [facility] 05-09-2023 13:00-0400 Respiratory rate 17 /min Dr. Dwain Kolb Work Phone: [facility] 05-09-2023 13:00-0400 SaO2% (BldA) [Mass fraction] 96 % Dr. Dwain Kolb Work Phone: [facility] 05-09-2023 13:00-0400 Systolic blood pressure 110 mm[Hg] Dr. Dwain Kolb Work Phone: [facility] 04-09-2023 07:52-0400 Body height 177.[address] Dwain Kolb Work Phone: [facility] 04-09-2023 07:52-0400 Body mass index (BMI) [Ratio] 34.8 kg/m2 Dr. Dwain Kolb Work Phone: [facility] 04-09-2023 07:52-0400 Body temperature 97.4 [degF] Dr. Dwain Kolb Work Phone: [facility] 04-09-2023 07:52-0400 Body weight 110.[address] Dwain Kolb Work Phone: [facility] 04-09-2023 07:52-0400 Diastolic blood pressure 79 mm[Hg] Dr. Dwain Kolb Work Phone: [facility] 04-09-2023 07:52-0400 Heart rate 79 /min Dr. Dwain Kolb Work Phone: [facility] 04-09-2023 07:52-0400 Respiratory rate 18 /min Dr. Dwain Kolb Work Phone: [facility] 04-09-2023 07:52-0400 SaO2% (BldA) [Mass fraction] 96 % Dr. Dwain Kolb Work Phone: [facility] 04-09-2023 07:52-0400 Systolic blood pressure 132 mm[Hg] Dr. Dwain Kolb Work Phone: [facility] 02-02-2023 14:16-0400 Body mass index (BMI) [Ratio] 34.2 kg/m2 Dr. Dwain Kolb Work Phone: [facility] 02-02-2023 14:16-0400 Body weight 108.[address] Dwain Kolb Work Phone: [facility] 02-02-2023 14:16-0400 Diastolic blood pressure 72 mm[Hg] Dr. Dwain Kolb Work Phone: [facility] 02-02-2023 14:16-0400 Heart rate 78 /min Dr. Dwain Kolb Work Phone: [facility] 02-02-2023 14:16-0400 Respiratory rate 18 /min Dr. Dwain Kolb Work Phone: [facility] 02-02-2023 14:16-0400 SaO2% (BldA) [Mass fraction] 96 % Dr. Dwain Kolb Work Phone: [facility] 02-02-2023 14:16-0400 Systolic blood pressure 118 mm[Hg] Dr. Dwain Kolb Work Phone: [facility] 11-02-2022 14:02-0400 Body height 177.[address] Dwain Kolb Work Phone: [facility] 11-02-2022 14:02-0400 Body mass index (BMI) [Ratio] 34.2 kg/m2 Dr. Dwain Kolb Work Phone: [facility] 11-02-2022 14:02-0400 Body weight 108.[address] Dwain Kolb Work Phone: [facility] 11-02-2022 14:02-0400 Diastolic blood pressure 68 mm[Hg] Dr. Dwain Kolb Work Phone: [facility] 11-02-2022 14:02-0400 Heart rate 81 /min Dr. Dwain Kolb Work Phone: [facility] 11-02-2022 14:02-0400 Respiratory rate 16 /min Dr. Dwain Kolb Work Phone: [facility] 11-02-2022 14:02-0400 Systolic blood pressure 113 mm[Hg] Dr. Dwain Kolb Work Phone: [facility] 09-20-2022 10:54-0500 Body height 177.[address] Dwain Kolb Work Phone: [facility] 09-20-2022 10:48-0500 Body mass index (BMI) [Ratio] 34 kg/m2 Dr. Dwain Kolb Work Phone: [facility] 09-20-2022 10:48-0500 Body temperature 97.4 [degF] Dr. Dwain Kolb Work Phone: [facility] 09-20-2022 10:48-0500 Body weight 107.[address] Dwain Kolb Work Phone: [facility] 09-20-2022 10:48-0500 Diastolic blood pressure 77 mm[Hg] Dr. Dwain Kolb Work Phone: [facility] 09-20-2022 10:48-0500 Heart rate 70 /min Dr. Dwain Kolb Work Phone: [facility] 09-20-2022 10:48-0500 Respiratory rate 18 /min Dr. Dwain Kolb Work Phone: [facility] 09-20-2022 10:48-0500 SaO2% (BldA) [Mass fraction] 98 % Dr. Dwain Kolb Work Phone: [facility] 09-20-2022 10:48-0500 Systolic blood pressure 127 mm[Hg] Dr. Dwain Kolb Work Phone: [facility] 09-07-2022 13:03-0500 Body mass index (BMI) [Ratio] 34.6 kg/m2 Dr. Dwain Kolb Work Phone: [facility] 09-07-2022 13:03-0500 Body temperature 98.5 [degF] Dr. Dwain Kolb Work Phone: [facility] 09-07-2022 13:03-0500 Body weight 109.[address] Dwain Kolb Work Phone: [facility] 09-07-2022 13:03-0500 Diastolic blood pressure 70 mm[Hg] Dr. Dwain Kolb Work Phone: [facility] 09-07-2022 13:03-0500 Heart rate 78 /min Dr. Dwain Kolb Work Phone: [facility] 09-07-2022 13:03-0500 Respiratory rate 17 /min Dr. Dwain Kolb Work Phone: [facility] 09-07-2022 13:03-0500 SaO2% (BldA) [Mass fraction] 96 % Dr. Dwain Kolb Work Phone: [facility] 09-07-2022 13:03-0500 Systolic blood pressure 124 mm[Hg] Dr. Dwain Kolb Work Phone: [facility] 07-11-2022 07:38-0500 Body height 177.[address] Dwain Kolb Work Phone: [facility] 07-11-2022 07:38-0500 Body mass index (BMI) [Ratio] 33.1 kg/m2 Dr. Dwain Kolb Work Phone: [facility] 07-11-2022 07:38-0500 Body temperature 97.2 [degF] Dr. Dwain Kolb Work Phone: [facility] 07-11-2022 07:38-0500 Body weight 104.[address] Dwain Kolb Work Phone: [facility] 07-11-2022 07:38-0500 Diastolic blood pressure 80 mm[Hg] Dr. Dwain Kolb Work Phone: [facility] 07-11-2022 07:38-0500 Heart rate 88 /min Dr. Dwain Kolb Work Phone: [facility] 07-11-2022 07:38-0500 Respiratory rate 18 /min Dr. Dwain Kolb Work Phone: [facility] 07-11-2022 07:38-0500 SaO2% (BldA) [Mass fraction] 98 % Dr. Dwain Kolb Work Phone: [facility] 07-11-2022 07:38-0500 Systolic blood pressure 125 mm[Hg] Dr. Dwain Kolb Work Phone: [facility] 04-26-2022 14:00-0400 Body mass index (BMI) [Ratio] 33.6 kg/m2 Dr. Dwain Kolb Work Phone: [facility] 04-26-2022 14:00-0400 Body weight 106.[address] Dwain Kolb Work Phone: [facility] 04-26-2022 14:00-0400 Diastolic blood pressure 78 mm[Hg] Dr. Dwain Kolb Work Phone: [facility] 04-26-2022 14:00-0400 Heart rate 64 /min Dr. Dwain Kolb Work Phone: [facility] 04-26-2022 14:00-0400 Respiratory rate 16 /min Dr. Dwain Kolb Work Phone: [facility] 04-26-2022 14:00-0400 Systolic blood pressure 126 mm[Hg] Dr. Dwain Kolb Work Phone: [facility] 03-16-2022 07:08-0400 Body height 177.[address] Dwain Kolb Work Phone: [facility] Work Phone: 03-16-2022 07:08-0400 Body mass index (BMI) [Ratio] 34.1 kg/m2 Dr. Dwain Kolb Work Phone: [facility] Work Phone: 03-16-2022 07:08-0400 Body temperature 97.6 [degF] Dr. Dwain Kolb Work Phone: [facility] Work Phone: 03-16-2022 07:08-0400 Body weight 108.[address] Dwain Kolb Work Phone: [facility] Work Phone: 03-16-2022 07:08-0400 Diastolic blood pressure 73 mm[Hg] Dr. Dwain Kolb Work Phone: [facility] Work Phone: 03-16-2022 07:08-0400 Heart rate 70 /min Dr. Dwain Kolb Work Phone: [facility] Work Phone: 03-16-2022 07:08-0400 Respiratory rate 16 /min Dr. Dwain Kolb Work Phone: [facility] Work Phone: 03-16-2022 07:08-0400 SaO2% (BldA) [Mass fraction] 96 % Dr. Dwain Kolb Work Phone: [facility] Work Phone: 03-16-2022 07:08-0400 Systolic blood pressure 131 mm[Hg] Dr. Dwain Kolb Work Phone: [facility] Work Phone: 03-09-2022 09:50-0400 Body mass index (BMI) [Ratio] 34.4 kg/m2 Dr. Dwain Kolb Work Phone: [facility] Work Phone: 03-09-2022 09:50-0400 Body temperature 98.4 [degF] Dr. Dwain Kolb Work Phone: [facility] Work Phone: 03-09-2022 09:50-0400 Body weight 109.[address] Dwain Kolb Work Phone: [facility] Work Phone: 03-09-2022 09:50-0400 Diastolic blood pressure 70 mm[Hg] Dr. Dwain Kolb Work Phone: [facility] Work Phone: 03-09-2022 09:50-0400 Heart rate 82 /min Dr. Dwain Kolb Work Phone: [facility] Work Phone: 03-09-2022 09:50-0400 Respiratory rate 16 /min Dr. Dwain Kolb Work Phone: [facility] Work Phone: 03-09-2022 09:50-0400 SaO2% (BldA) [Mass fraction] 98 % Dr. Dwain Kolb Work Phone: [facility] Work Phone: 03-09-2022 09:50-0400 Systolic blood pressure 116 mm[Hg] Dr. Dwain Kolb Work Phone: [facility] Work Phone: 03-07-2022 15:22-0400 Body mass index (BMI) [Ratio] 34.4 kg/m2 Dr. Dwain Kolb Work Phone: [facility] Work Phone: 03-07-2022 15:22-0400 Body weight 108.[address] Dwain Kolb Work Phone: [facility] Work Phone: 03-07-2022 15:22-0400 Diastolic blood pressure 70 mm[Hg] Dr. Dwain Kolb Work Phone: [facility] Work Phone: 03-07-2022 15:22-0400 Heart rate 53 /min Dr. Dwain Kolb Work Phone: [facility] Work Phone: 03-07-2022 15:22-0400 Respiratory rate 20 /min Dr. Dwain Kolb Work Phone: [facility] Work Phone: 03-07-2022 15:22-0400 SaO2% (BldA) [Mass fraction] 96 % Dr. Dwain Kolb Work Phone: [facility] Work Phone: 03-07-2022 15:22-0400 Systolic blood pressure 122 mm[Hg] Dr. Dwain Kolb Work Phone: [facility] Work Phone: 02-19-2022 01:53-0400 Body mass index (BMI) [Ratio] 33.7 kg/m2 Dr. Dwain Kolb Work Phone: [facility] Work Phone: 02-17-2022 13:52-0400 Body mass index (BMI) [Ratio] 33.7 kg/m2 Dr. Dwain Kolb Work Phone: [facility] Work Phone: 01-19-2022 13:25-0400 Body height 177.[address] Dwain Kolb Work Phone: [facility] Work Phone: 01-19-2022 13:25-0400 Body mass index (BMI) [Ratio] 34.1 kg/m2 Dr. Dwain Kolb Work Phone: [facility] Work Phone: 01-19-2022 13:25-0400 Body weight 107.[address] Dwain Kolb Work Phone: [facility] Work Phone: 01-19-2022 13:25-0400 Diastolic blood pressure 68 mm[Hg] Dr. Dwain Kolb Work Phone: [facility] Work Phone: 01-19-2022 13:25-0400 Heart rate 94 /min Dr. Dwain Kolb Work Phone: [facility] Work Phone: 01-19-2022 13:25-0400 Respiratory rate 18 /min Dr. Dwain Kolb Work Phone: [facility] Work Phone: 01-19-2022 13:25-0400 SaO2% (BldA) [Mass fraction] 98 % Dr. Dwain Kolb Work Phone: [facility] Work Phone: 01-19-2022 13:25-0400 Systolic blood pressure 106 mm[Hg] Dr. Dwain Kolb Work Phone: [facility] Work Phone: 12-20-2021 20:06-0400 Body mass index (BMI) [Ratio] 33.7 kg/m2 Dr. Dwain Kolb Work Phone: [facility] Work Phone: 11-20-2021 02:34-0400 Body mass index (BMI) [Ratio] 33.7 kg/m2 Dr. Dwain Kolb Work Phone: [facility] Work Phone: 11-03-2021 13:05-0400 Body mass index (BMI) [Ratio] 34.8 kg/m2 Dr. Dwain Kolb Work Phone: [facility] Work Phone: 11-03-2021 13:05-0400 Body weight 110.[address] Dwain Kolb Work Phone: [facility] Work Phone: 11-03-2021 13:05-0400 Diastolic blood pressure 87 mm[Hg] Dr. Dwain Kolb Work Phone: [facility] Work Phone: 11-03-2021 13:05-0400 Heart rate 80 /min Dr. Dwain Kolb Work Phone: [facility] Work Phone: 11-03-2021 13:05-0400 Respiratory rate 18 /min Dr. Dwain Kolb Work Phone: [facility] Work Phone: 11-03-2021 13:05-0400 SaO2% (BldA) [Mass fraction] 96 % Dr. Dwain Kolb Work Phone: [facility] Work Phone: 11-03-2021 13:05-0400 Systolic blood pressure 134 mm[Hg] Dr. Dwain Kolb Work Phone: [facility] Work Phone: 11-03-2021 13:05-0400 Body height 177.[address] Dwain Kolb Work Phone: [facility] Work Phone: 11-03-2021 13:05-0400 Body mass index (BMI) [Ratio] 34.8 kg/m2 Dr. Dwain Kolb Work Phone: [facility] Work Phone: 11-03-2021 13:05-0400 Body weight 110.[address] Dwain Kolb Work Phone: [facility] Work Phone: 11-03-2021 13:05-0400 Diastolic blood pressure 87 mm[Hg] Dr. Dwain Kolb Work Phone: [facility] Work Phone: 11-03-2021 13:05-0400 Heart rate 80 /min Dr. Dwain Kolb Work Phone: [facility] Work Phone: 11-03-2021 13:05-0400 Respiratory rate 18 /min Dr. Dwain Kolb Work Phone: [facility] Work Phone: 11-03-2021 13:05-0400 SaO2% (BldA) [Mass fraction] 96 % Dr. Dwain Kolb Work Phone: [facility] Work Phone: 11-03-2021 13:05-0400 Systolic blood pressure 134 mm[Hg] Dr. Dwain Kolb Work Phone: [facility] Work Phone: 10-21-2021 00:41-0400 Body mass index (BMI) [Ratio] 33.7 kg/m2 Dr. Dwain Kolb Work Phone: [facility] Work Phone: 09-20-2021 07:56-0500 Body mass index (BMI) [Ratio] 33.7 kg/m2 Dr. Dwain Kolb Work Phone: [facility] Work Phone: 09-06-2021 12:08-0500 Diastolic blood pressure 78 mm[Hg] Dr. Dwain Kolb Work Phone: [facility] Work Phone: 09-06-2021 12:08-0500 Heart rate 78 /min Dr. Dwain Kolb Work Phone: [facility] Work Phone: 09-06-2021 12:08-0500 SaO2% (BldA) [Mass fraction] 98 % Dr. Dwain Kolb Work Phone: [facility] Work Phone: 09-06-2021 12:08-0500 Systolic blood pressure 124 mm[Hg] Dr. Dwain Kolb Work Phone: [facility] Work Phone: 08-22-2021 21:05-0500 Body mass index (BMI) [Ratio] 33.7 kg/m2 Dr. Dwain Kolb Work Phone: [facility] Work Phone: 07-24-2021 02:30-0500 Body mass index (BMI) [Ratio] 33.7 kg/m2 Dr. Dwain Kolb Work Phone: [facility] Work Phone: 06-22-2021 00:17-0500 Body mass index (BMI) [Ratio] 33.7 kg/m2 Dr. Dwain Kolb Work Phone: [facility] Work Phone: 06-05-2017 09:02-0500 BMI (Body Mass Index) 36.15 kg/m2 [facility] Work Phone: 06-05-2017 09:02-0500 BP Diastolic 60 mm[Hg] [facility] Work Phone: 06-05-2017 09:02-0500 BP Systolic 130 mm[Hg] [facility] Work Phone: 06-05-2017 09:02-0500 Height 177.8 cm [facility] Work Phone: 06-05-2017 09:02-0500 Pulse (Heart Rate) 52 /min Rosalbamonica Del Real [facility] Work Phone: 06-05-2017 09:02-0500 Respiratory Rate 20 /min Nicole Del Real [facility] Work Phone: 06-05-2017 09:02-0500 Weight 114.31 kg Rosalbamonica Eatonz [facility] Work Phone: 12-13-2016 15:40-0400 BMI (Body Mass Index) 36.01 kg/m2 Rodrigo Thacker MD [facility] Work Phone: 12-13-2016 15:40-0400 BP Diastolic 60 mm[Hg] Rodrigo Thacker MD [facility] Work Phone: 12-13-2016 15:40-0400 BP Systolic 102 mm[Hg] Rodrigo Thacker MD [facility] Work Phone: 12-13-2016 15:40-0400 Pulse (Heart Rate) 60 /min [facility] Work Phone: 12-13-2016 15:40-0400 Respiratory Rate 16 /min Rodrigo Thacker MD [facility] Work Phone: 12-13-2016 15:40-0400 Weight 113.85 kg Rodrigo Thacker MD [facility] Work Phone: 03-15-2016 13:00-0400 BSA (Body Surface Area) 2.29 m2 Rodrigo Thacker MD [facility] Work Phone: 12-11-2011 09:43-0400 Height 177.8 cm [facility] Work Phone: Encounters Encounter Date Encounter Type Care Provider Facility Start: 04-14-2025 [facility] Facility: [facility] Start: 03-14-2025 ambulatory [facility] Facility: [facility] Start: 03-14-2025 Registered Referred Raymon Chiang -Cardiovascular Services Work Phone: Start: 03-05-2025 End: 03-05-2025 Patient encounter procedure Bridgette SOLO -[facility] Work Phone: Start: 03-05-2025 End: 03-05-[address] Dwain Kolb DO Work Phone: -[facility] Start: 02-24-2025 End: 02-24-[address] Matias Delatorre MD -Laboratory Work Phone: Start: 02-24-[address] Matias Delatorre MD -Laboratory Work Phone: Start: 02-24-2025 End: 02-24-[address] Dwain Kolb DO Work Phone: -Laboratory Start: 01-27-2025 End: 02-19-[address] Matias Delatorre MD -Laboratory Work Phone: Start: 01-27-2025 End: 02-19-[address] Dwain Kolb DO Work Phone: -Laboratory Start: 01-27-2025 ambulatory Dwain Kolb Facility: [facility] Start: 01-13-2025 End: 01-13-[address] Matias Delatorre MD -Laboratory Work Phone: Start: 01-13-2025 End: 01-13-[address] Dwain Kolb DO Work Phone: -Laboratory Start: 01-06-2025 End: 01-06-[address] Oneil Nova MD -[facility] Work Phone: Start: 01-06-2025 End: 01-06-[address] Dwain Kolb DO Work Phone: [facility] Work Phone: Start: 11-25-2024 Non-patient / Non-visit Dr. Michelle MOY -[facility] Start: 11-25-2024 End: 11-25-[address] Dwain Kolb DO Work Phone: [facility] Work Phone: Start: 11-25-2024 End: 11-25-2024 Patient encounter procedure Raymon GOMEZ -Cardiovascular Services Work Phone: Start: 11-25-2024 End: 11-25-2024 ambulatory [facility] Facility:[facility] Start: 11-14-2024 End: 11-14-[address] Matias Delatorre MD -[facility] Work Phone: Start: 11-14-2024 End: 11-14-2024 ambulatory [facility] Facility:[facility] Start: 11-13-2024 ambulatory [facility] Facility: [facility] Start: 11-13-2024 Non-patient / Non-visit Dr. Michelle MOY -[facility] Work Phone: Start: 11-13-2024 End: 11-13-2024 Patient encounter procedure Raymon GOMEZ -Pulmonary Services/Neurology Work Phone: Start: 11-13-2024 End: 11-13-2024 ambulatory [facility] Facility:[facility] Start: 11-04-2024 End: 11-19-[address] Matias Delatorre MD -Laboratory Work Phone: Start: 11-04-2024 End: 11-19-20[facility] Start: 10-28-2024 End: 10-28-2024 Patient encounter procedure Raymon GOMEZ -[facility] Work Phone: Start: 10-28-2024 End: 10-28-2024 ambulatory [facility] Facility:[facility] Start: 10-14-2024 End: 10-14-[address] Dwain Kolb DO Work Phone: [facility] Work Phone: Start: 10-14-2024 End: 10-14-[address] Matias Delatorre MD -Laboratory Work Phone: Start: 09-04-2024 End: 09-04-2024 Patient encounter procedure Bridgette Neal 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-C -[facility] Work Phone: Start: 09-04-2024 End: 09-04-2024 ambulatory [facility] Facility:[facility] Start: 08-18-2024 End: 08-18-[address] Matias Delatorre MD -Laboratory Work Phone: Start: 08-18-2024 End: 08-18-2024 ambulatory Nichelle Greenwood 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 Facility:[facility] Start: 08-18-2024 Non-patient / Non-visit Dr. Davi mayer MD -[facility] Start: 08-18-2024 End: 08-18-2024 Patient encounter procedure Luisa Rojas 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-C -Cardiovascular Services Work Phone: Start: 08-18-2024 End: 08-18-2024 ambulatory [facility] Facility:[facility] Start: 07-26-2024 End: 07-26-2024 Emergency department patient visit Dr. Amadeo Claire MD -Emergency Department Work Phone: Start: 07-24-2024 End: 07-24-2024 Patient encounter procedure Jr Vargas DPM Work Phone: [facility] Comment on above: Hallux rigidus of ri ght foot (Primary Dx); Right foot pain Start: 07-24-2024 End: 07-24-2024 ambulatory JR VARGAS Facility:[facility] Start: 07-17-2024 End: 07-17-[address] Matias Delatorre MD -Laboratory Work Phone: Start: 07-17-2024 End: 07-17-2024 ambulatory [facility] Facility:[facility] Start: 06-26-2024 End: 06-26-2024 Patient encounter procedure Jr Vargas DPM Work Phone: [facility] Comment on above: Hallux rigidus of ri ght foot (Primary Dx) Start: 06-26-2024 End: 06-26-2024 ambulatory JR VARGAS Facility:[facility] Start: 06-10-2024 End: 06-21-2024 ambulatory Dwain Cortes Facility:[facility] Start: 06-10-2024 ambulatory [facility] Facility: [facility] Start: 05-15-2024 End: 05-15-2024 Patient encounter procedure Jr Vargas DPM Work Phone: [facility] Comment on above: Right foot pain (Roxi flex Dx); Hallux rigidus of right foot Start: 05-15-2024 End: 05-15-2024 ambulatory JR VARGAS Facility:[facility] Start: 05-08-2024 End: 05-08-2024 ambulatory Dwain Kolb Facility:[facility] Start: 01-29-2024 End: 01-29-2024 Office outpatient new 45 minutes Collin Pollock MD Work Phone: [facility] Comment on above: Atrial fibrillation, unspecified type (HCC); Palpitations; Bradycardia Start: 11-26-[address] Dwain Kolb Work Phone: [facility]-Laboratory Work Phone: Start: 11-26-2023 End: 11-26-[address] Dwain Kolb Work Phone: [facility] Work Phone: Start: 11-26-2023 End: 11-26-[address] Dwain Kolb Work Phone: [facility]-Pulmonary Services/Neurology Work Phone: Start: 11-22-2023 End: 11-22-[address] Dwain Kolb Work Phone: [facility] [place] [facility] Work Phone: Start: 11-15-2023 End: 11-20-[address] Dwain Kolb Work Phone: [facility] Work Phone: Start: 11-15-2023 End: 11-20-[address] Dwain Kolb Work Phone: [facility]-Laboratory Work Phone: Start: 10-30-2023 End: 10-30-[address] Dwain Kolb Work Phone: [facility] Work Phone: Start: 10-02-2023 End: 10-02-[address] Dwain Kolb Work Phone: [facility] Work Phone: Start: 09-25-[address] Dwain Kolb Work Phone: [facility] Start: 09-25-2023 End: 09-25-[address] Dwain Kolb Work Phone: [facility] Work Phone: Start: 09-13-2023 End: 09-13-[address] Dwain Kolb Work Phone: [facility] Work Phone: Start: 08-24-2023 End: 08-24-[address] Dwain Kolb Work Phone: [facility] Work Phone: Start: 08-24-2023 End: 08-24-[address] Dwain Kolb Work Phone: [facility]-Sleep Lab Work Phone: Start: 08-17-2023 Non-patient / Non-visit Dr. Trey Kolb Work Phone: [facility] Work Phone: Start: 08-16-2023 End: 08-16-[address] Dwain Kolb Work Phone: [facility] Work Phone: Start: 08-16-2023 End: 08-16-[address] Dwain Kolb Work Phone: [facility]-Laboratory Work Phone: Start: 08-10-2023 Non-patient / Non-visit Dr. Trey Kolb Work Phone: [facility] Start: 08-10-2023 End: 08-10-[address] Dwain Kolb Work Phone: [facility] Work Phone: Start: 08-10-2023 End: 08-10-[address] [facility] Work [facility] Start: 07-19-2023 End: 07-22-[address] Dwain Kolb Work Phone: [facility] Work Phone: Start: 07-19-2023 End: 07-22-[address] Dwain Kol[facility] Start: 07-17-2023 End: 07-17-[address] Dwain Kolb Work Phone: [facility] Work Phone: Start: 05-09-2023 End: 05-09-[address] Dwain Kolb Work Phone: [facility] [facility] Work Phone: Start: 04-13-2023 End: 04-13-[address] Dwain Kolb Work Phone: [facility] Work Phone: Start: 04-13-2023 End: 04-13-[address] Dwain Kol[facility] Start: 04-09-2023 End: 04-09-[address] Dwain Kolb Work Phone: [facility] Work Phone: Start: 02-02-2023 End: 02-02-[address] Dwain Kolb Work Phone: [facility] Work Phone: Start: 12-28-2022 End: 12-28-[address] Dwain Kolb Work Phone: [facility] Work Phone: Start: 12-28-2022 End: 12-28-[address] Dwain Kol[facility]: Start: 11-30-2022 End: 11-30-[address] Dwain Kolb Work Phone: [facility] Work Phone: Start: 11-30-2022 End: 11-30-[address] Dwain Kol[facility] Start: 11-14-2022 End: 11-19-[address] Dw[facility] Kol[facility] Start: 11-02-2022 End: 11-02-[address] Dwain Kolb Work Phone: [facility] Start: 10-16-2022 End: 10-20-[address] Dwain Kolb Work Phone: [facility] Work Phone: Start: 10-16-2022 End: 10-20-[address] Dwain Kolb Work Phone: [facility]-Laboratory Start: 09-20-2022 End: 09-20-[address] Dwain Kol[facility] Start: 09-07-2022 End: 09-07-[address] Dwain Kolb Work Phone: [facility] Start: 08-10-2022 End: 08-10-[address] Dwain Kolb Work Phone: [facility] Work Phone: Start: 08-10-2022 End: 08-10-[address] Dwain Kol[facility] Start: 07-11-2022 End: 07-11-[address] Dwain Kolb Work Phone: [facility] Start: 07-06-2022 End: 07-06-[address] Dwain Kolb Work Phone: [facility]-Laboratory Start: 05-19-2022 Non-patient / Non-visit Dr. Trey Kolb Work Phone: [facility] Start: 05-19-2022 End: 05-19-[address] Dwain Kolb Work Phone: [facility]-Cardiovascular Services Start: 04-26-2022 End: 04-26-[address] Dwain Kolb Work Phone: [facility] Start: 04-20-2022 End: 04-20-[address] Dwain Kolb Work Phone: [facility] Work Phone: Start: 04-20-2022 End: 04-20-[address] Dwain Kolb Work Phone: [facility]-Laboratory Start: 04-03-2022 End: 04-03-[address] Dwain Kolb Work Phone: [facility] Work Phone: Start: 04-03-2022 End: 04-03-[address] Dwain Kolb Work Phone: [facility] Start: 03-29-2022 End: 03-29-[address] Dwain Kolb Work Phone: [facility] Work Phone: Start: 03-29-2022 End: 03-29-[address] Dwain Kolb Work Phone: [facility]-Sleep Lab Start: 03-16-2022 End: 03-16-[address] Dwain Kolb Work Phone: [facility]-Pulmonary Medicine [facility] Start: 03-09-2022 End: 03-09-[address] Dwain Kolb Work Phone: [facility] Start: 03-07-2022 End: 03-07-[address] Dwain Kolb Work Phone: [facility] Start: 03-03-2022 End: 03-03-[address] Dwain Kolb Work Phone: [facility] Work Phone: Start: 03-03-2022 End: 03-03-[address] Dwain Kolb Work Phone: [facility]-Laboratory Start: 02-17-2022 End: 02-19-[address] Dwain Kol[facility] Start: 01-19-2022 End: 01-19-[address] Dwain Kolb Work Phone: [facility] Start: 01-18-2022 End: 01-18-[address] Dwain Kol[facility] Start: 12-20-2021 End: 12-20-[address] Dw[facility] Kol[facility] Start: 11-24-2021 Non-patient / Non-visit Dr. Trey Kolb Work Phone: [facility] Start: 11-24-2021 End: 11-24-[address] Dw[facility] Kol[facility] Start: 11-03-2021 End: 11-03-[address] Dw[facility] Kol[facility] Start: 11-03-2021 End: 11-03-[address] Dwain Kolb Work Phone: [facility] Start: 11-01-2021 End: 11-01-[address] Dwain Kol[facility] Start: 11-01-[address] Dwain Kol[facility] Start: 10-17-2021 End: 10-20-[address] Dwain Kol[facility] Start: 09-19-2021 End: 09-19-[address] Dwain Kol[facility] Start: 09-06-2021 End: 09-06-[address] Dwain Kolb Work Phone: [facility] Start: 08-19-2021 End: 08-22-[address] Dwain Kolb Work Phone: [facility]-Laboratory Start: 07-12-2021 End: 07-23-[address] Dwain Kolb Work Phone: [facility]-Laboratory Procedures Date Procedure Procedure Detail Performing Clinician Start: 01-27-2025 Prostate specific an tigen measurement Dr. Dwain Kolb DO Work Phone: Comment on above: This test was perfor med using the [employer] tPSA method. Measured values of a patient sample can vary depending on the testing procedure used. PSA values determined on patient samples by different testing procedures cannot be used interchangeably. If there is a change in PSA assays while monitoring therapy, sequential testing should be performed to confirm baseline values. Start: 10-28-2024 Evaluation of diagno stic study results Dr. Dwain Kolb DO Work Phone: Start: 08-18-2024 Plain x-ray of pelvi s and lower extremity Dr. Dwain Kolb DO Work Phone: Start: 06-26-2024 Follow-up visit Follow Up JR VARGAS Start: 05-15-2024 Radex foot complete minimum 3 views Madi AMANDAM Work Phone: Start: 01-29-2024 Ecg routine ecg w/le ast 12 lds w/i&r Collin Pollock MD Work Phone: Start: 04-03-2022 Radiologic examinati on of knee Dr. Dwain Kolb Work Phone: Start: 03-09-2022 X-ray of both feet Dr. Dwain Kolb Work Phone: Start: 11-24-2021 Radionuclide imaging of perfusion of myocardium under exercise stress Dr. Dwain Kolb Work Phone: Start: 05-16-2017 End: 05-31-2017 *Hepatic [...] Treatment Date Care Activity Detail Author Start: 08-27-2027 DTaP/Tdap/Td Vaccine s (2 - Td or Tdap) DTaP/Tdap/Td Vaccines (2 - Td or Tdap) [facility] [employer] Start: 08-27-2027 Urine microalbumin profile DTaP,Tdap,Td Vaccine (2 - Td or Tdap) [facility] Start: 07-26-[address] [facility] Start: 07-24-2024 End: 07-24-2024 Patient encounter procedure 07/24/2024 1:45 PM EST Office Visit [facility] [address] [place] [address] Jr Vargas DPM [address] [place] [address] [place], [place] [id number] RIGHT BIG TOE [facility] Comment on above: RIGHT BIG TOE Start: 07-23-2024 Advance Directive Discussion Advance Directive Discussion [facility] Start: 06-26-2024 End: 06-26-2024 Patient encounter procedure 06/26/2024 1:30 PM EST Office Visit [facility] [address] [place], [place] [id number] Jr Vargas DPM [address] [place] [address] [place], [place] [id number] RIGHT BIG TOE [facility] Comment on above: RIGHT BIG TOE Start: 03-23-2024 Influenza vaccination Influenza Vacc ine (#1) [facility] Start: 09-15-2023 COVID-19 Vaccine ( season) COVID-19 Vaccine ( season) [facility] Start: 09-13-2023 Patient referral [facility] Work Phone: Start: 07-23-2023 Advance Directive Discussion Advance Directive Discussion [facility] Start: 04-27-2021 Pneumococcal Vaccine : 65+ Years (2 of 2 - PPSV23 or PCV20) Pneumococcal Vaccine: 65+ Years (2 of 2 - PPSV23 or PCV20) [facility] Start: 06-22-2020 Pneumococcal Vaccine : 50+ (2 of 2 - PPSV23) Pneumococcal Vaccine: 50+ (2 of 2 - PPSV23) [facility] Start: 06-22-2020 Pneumococcal Vaccine : 65+ (2 of 2 - PPSV23 or PCV20) Pneumococcal Vaccine: 65+ (2 of 2 - PPSV23 or PCV20) [facility] Start: 11-28-2017 End: 06-01-2017 *Hepatic Function Panel *Hepatic Function Panel [facility] Work Phone: Start: 11-28-2017 End: 06-01-2017 Lipid panel [AGGREGATE] *Lipid Profile CC PCP [facility] Work Phone: Start: 11-26-2017 End: 11-26-2017 Appointment [facility] Work Phone: Start: 06-05-2017 End: 06-05-2017 Appointment Appointment [facility] Work Phone: Start: 05-16-2017 End: 05-31-2017 *Hepatic Function Panel *Hepatic Function Panel [facility] Work Phone: Start: 05-16-2017 End: 05-31-2017 Lipid panel [AGGREGATE] *Lipid Profile CC PCP [facility] Work Phone: Start: 12-13-2016 End: 12-13-2016 24 hour holter monitor 24 hour holter monitor [facility] Work Phone: Start: 12-13-2016 End: 12-13-2016 Echocardiography Echocardiogram (complete) [facility] Work Phone: Start: 12-13-2016 End: 12-13-2016 Follow Up Appt 6 months Follow Up Appt 6 months Done In :60 Seconds [facility] Work Phone: Start: 12-13-2016 End: 12-13-2016 PFM PFM [facility] Work Phone: Start: 09-26-2016 End: 09-26-2016 *Hepatic Function Panel *Hepatic Function Panel [facility] Work Phone: Start: 09-26-2016 End: 11-14-2016 Lipid panel [AGGREGATE] *Lipid Profile CC PCP [facility] Work Phone: Start: 03-15-2016 End: 03-15-2016 Ecg routine ecg w/least 12 lds w/i&r EKG (In office) [facility] Work Phone: Start: 03-15-2016 End: 03-15-2016 Follow Up Appt 6 months Follow Up Appt 6 months [facility] Work Phone: Start: 03-15-2016 End: 03-15-2016 PFM PFM [facility] Work Phone: Start: 03-02-2016 End: 11-17-2016 *Hepatic Function Panel *Hepatic Function Panel [facility] Work Phone: Start: 03-02-2016 End: 11-17-2016 Lipid panel [AGGREGATE] *Lipid Profile CC PCP [facility] Work Phone: Start: 09-08-2015 End: 09-08-2015 Follow Up Appt 6 months Follow Up Appt 6 months [facility] Work Phone: Start: 09-08-2015 End: 09-08-2015 PFM PFM [facility] Work Phone: Start: 08-31-2015 End: 08-30-2015 *Hepatic Function Panel *Hepatic Function Panel [facility] Work Phone: Start: 08-31-2015 End: 08-30-2015 Lipid panel [AGGREGATE] *Lipid Profile CC PCP [facility] Work Phone: Start: 03-10-2015 End: 03-10-2015 Ecg routine ecg w/least 12 lds w/i&r EKG (In office) [facility] Work Phone: Start: 03-10-2015 End: 03-10-2015 Echocardiography Echocardiogram (complete) [facility] Work Phone: Start: 03-10-2015 End: 03-10-2015 Follow Up Appt 6 months Follow Up Appt 6 months [facility] Work Phone: Start: 03-10-2015 End: 03-10-2015 Follow Up Appt Other Follow Up Appt Other [facility] Work Phone: Start: 03-10-2015 End: 03-10-2015 PFM PFM [facility] Work Phone: Start: 07-23-2014 End: 08-14-2014 *Hepatic Function Panel *Hepatic Function Panel [facility] Work Phone: Start: 07-23-2014 End: 08-14-2014 Lipid panel [AGGREGATE] *Lipid Profile CC PCP [facility] Work Phone: Start: 05-20-2014 End: 05-20-2014 Follow Up Appt 6 months Follow Up Appt 6 months [facility] Work Phone: Start: 05-20-2014 End: 05-20-2014 Follow Up Appt Other Follow Up Appt Other [facility] Work Phone: Start: 05-20-2014 End: 05-20-2014 PFM PFM [facility] Work Phone: Start: 01-20-2014 End: 02-05-2014 *Hepatic Function Panel *Hepatic Function Panel [facility] Work Phone: Start: 01-20-2014 End: 02-05-2014 Lipid panel [AGGREGATE] *Lipid Profile CC PCP [facility] Work Phone: Start: 11-12-2013 End: 11-12-2013 Ecg routine ecg w/least 12 lds w/i&r EKG (In office) [facility] Work Phone: Start: 11-12-2013 End: 11-12-2013 Follow Up Appt 6 months Follow Up Appt 6 months [facility] Work Phone: Start: 11-12-2013 End: 11-12-2013 PFM PFM [facility] Work Phone: Start: 05-07-2013 End: 11-06-2013 *Hepatic Function Panel *Hepatic Function Panel [facility] Work Phone: Start: 05-07-2013 End: 11-06-2013 Follow Up Appt 6 months Follow Up Appt 6 months [facility] Work Phone: Start: 05-07-2013 End: 11-06-2013 Lipid panel [AGGREGATE] *Lipid Profile CC PCP [facility] Work Phone: Start: 05-07-2013 End: 11-06-2013 PFM PFM [facility] Work Phone: Start: 04-22-2013 End: 11-06-2013 *Hepatic Function Panel *Hepatic Function Panel [facility] Work Phone: Start: 04-22-2013 End: 11-06-2013 Lipid panel [AGGREGATE] *Lipid Profile [facility] Work Phone: Start: 10-21-2012 End: 11-04-2012 *Hepatic Function Panel *Hepatic Function Panel [facility] Work Phone: Start: 10-21-2012 End: 11-04-2012 Lipid panel [AGGREGATE] *Lipid Profile [facility] Work Phone: Start: 07-12-2012 End: 08-19-2012 Echocardiography Echocardiogram (complete) [facility] Work Phone: Start: 07-12-2012 End: 07-12-2012 Follow Up Appt 6 months Follow Up Appt 6 months [facility] Work Phone: Start: 05-23-2012 End: 05-23-2012 *Hepatic Function Panel *Hepatic Function Panel [facility] Work Phone: Start: 05-23-2012 End: 05-23-2012 Lipid panel [AGGREGATE] *Lipid Profile [facility] Work Phone: Start: 12-12-2011 End: 05-23-2012 *Hepatic Function Panel *Hepatic Function Panel [facility] Work Phone: Start: 12-12-2011 End: 05-23-2012 Lipid panel [AGGREGATE] *Lipid Profile [facility] Work Phone: Start: 12-11-2011 End: 11-06-2013 Follow Up Appt 6 months Follow Up Appt 6 months [facility] Work Phone: Start: 11-20-2011 Diabetes Screening Diabetes Screenin g [facility] Start: 1996 Shingrix Vaccine (1 of 2) Dunn grix Vaccine (1 of 2) 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 Start: 1964 Anxiety Screening Anxiety Screening [facility] Start: 1964 BP Controlled (<130/80) BP Controlle d (<130/80) [facility] Start: 1964 Depression Screening Depression Scre ening [facility] Start: 1964 Hepatitis C screening Hepatitis C Sc reedylan [facility] Start: 1958 Depression Screening Depression Scre patricia [facility] Start: 1946 Creatinine measurement Creatinine Le kierra [facility] Start: 1946 Echocardiography Echocardiogram [facility] Start: 1946 Lipid panel Lipid Panel [facility] Start: 1946 Medicare Annual Well ness (AWV) Medicare Annual Wellness (AWV) [facility] Start: 1946 Potassium measurement Potassium Leve l [facility] Basic metabolic 2008 panel with ionized calcium - Serum or Plasma [facility] Complete blood count [facility] Hemoglobin A1c/Hemoglobin.total in Blood [facility] Patient Education [facility] Work Phone: Patient referral [facility] Work Phone: Heart [facility] Immunizations Immunization Date Immunization Notes Care Provider [facility] 05-15-2023 influenza virus vaccine, unspecified formulation Collin Pollock MD Work Phone: [facility] 04-26-[address] Dwain Kolb Work Phone: [facility] 05-23-[address] Dwain Kolb Work Phone: [facility] [address] Dwain Kolb Work Phone: [facility] Payers Date Payer Category Payer Self-pay [id number] 2023 Unknown [id number] 2017 Unknown [employer] INS COMP MEDICARE SUPPLEMENT [id number] 2017-Present [phone] [address] [address] [place] [id number] Supplement [id number] 2014 Medicare [id number] 2011 Medicare [id number] Unknown [id number] [id number] 2 Unknown [id number] 2.16.840.1.777331.3.579.2.46 2 Unknown [id number] 2.16.840.1.235943.3.579.2.46 2 Unknown [id number] 2.16.840.1.964323.3.579.2.46 2 Unknown [id number] 2.16.840.1.383214.3.579.2.46 2 Unknown [id number] 2.16.840.1.881703.3.579.2.46 2 Unknown [id number] 2.16.840.1.147886.3.579.2.46 2 Unknown [id number] 2.16.840.1.017393.3.579.2.46 2 Unknown [id number] 2.16.840.1.964104.3.579.2.46 2 Unknown [id number] 2.16.840.1.579367.3.579.2.46 2 Unknown [id number] 2.16.840.1.643146.3.579.2.46 2 Unknown [id number] 2.16.840.1.666865.3.579.2.46 2 Unknown [id number] 2.16.840.1.979046.3.579.2.46 2 Unknown [id number] 2.16.840.1.620844.3.579.2.46 2 Unknown [id number] 2.16.840.1.056346.3.579.2.46 2 Unknown [id number] 2.16.840.1.994239.3.579.2.46 2 Unknown [id number] 2.16.840.1.795579.3.579.2.46 2 Unknown [id number] 2.16.840.1.758852.3.579.2.46 2 Unknown [id number] 2.16.840.1.801930.3.579.2.46 2 Unknown [id number] 2.16.840.1.389699.3.579.2.46 2 Unknown [id number] 2.16.840.1.001163.3.579.2.46 2 Unknown [id number] 2.16.840.1.663634.3.579.2.46 2 Unknown [id number] 2.16.840.1.477773.3.579.2.46 2 Unknown [id number] 2.16.840.1.745459.3.579.2.46 2 Unknown [id number] 2.16.840.1.264735.3.579.2.46 2 Unknown [id number] 2.16.840.1.996064.3.579.2.46 2 Social History Date Type Detail Facility Start: 09-06-2021 End: 10-30-2023 Tobacco smoking status HIIS Unknown if ever smoked [facility] Start: 1945 Sex Assigned At Male [facility] Start: 03-22-[address] [facility] Start: 03-22-[address] [facility] Start: 03-22-2018 Non-smoker [facility] Start: 01-29-2024 End: 07-26-2024 Tobacco smoking status NHIS Never smoked tobacco [facility] Start: 01-29-2024 End: 05-15-2024 Tobacco use and exposure Smokeless tobacco non-user [facility] Start: 01-29-2024 End: 07-24-2024 Alcoholic beverage intake Current drinker of alcohol (finding) [facility] Start: 01-29-2024 End: 05-15-2024 Alcoholic beverage intake [facility] Start: 01-29-2024 End: 05-15-2024 Tobacco use panel [facility] Start: 1945 Sex assigned at Not on file S [facility] National Score (1-10 0), lower number is lower risk [address] [facility] Start: 08-19-2008 Alcohol Comment 12 beers per week. C [facility] Start: 10-20-2024 Sex Male (finding) [facility] Medical Equipment Procedure Code Equipment Code Equipment Origin al Text Equipment Identifier Dates Revision of uncemented total hip replacement DALL MILES 2.0 BEAD CABLE FDA Start: 08-28-2018 Revision of uncemented total hip replacement Plate Screw FDA Start: 08-28-2018 Revision of uncemented total hip replacement Plate Screw FDA Start: 08-28-2018 Revision of uncemented total hip replacement Plate Screw FDA Start: 08-28-2018 Revision of uncemented total hip replacement Plate Screw FDA Start: 08-28-2018 Revision of uncemented total hip replacement X3 Insert for ADM/MDM FDA Start: 08-28-2018 Revision of uncemented total hip replacement DALL MILES 2.0 BEAD CABLE FDA Start: 08-28-2018 Revision of uncemented total hip replacement Hemispherical Shell FDA Start: 08-28-2018 Revision of uncemented total hip replacement LFIT V40 Femoral Head FDA Start: 08-28-2018 Revision of uncemented total hip replacement Liner - Cementless FDA Start: 08-28-2018 Revision of uncemented total hip replacement Modular Hip System FDA Start: 08-28-2018 Revision of uncemented total hip replacement Modular Hip System FDA Start: 08-28-2018 Revision of uncemented total hip replacement Plate Screw FDA Start: 08-28-2018 Revision of uncemented total hip replacement Plate Screw FDA Start: 08-28-2018 Revision of uncemented total hip replacement DALL MILES 2.0 BEAD CABLE FDA Start: 08-28-2018 Revision of uncemented total hip replacement Plate Screw FDA Start: 08-28-2018 Revision of uncemented total hip replacement Plate Screw FDA Start: 08-28-2018 Revision of uncemented total hip replacement Plate Screw FDA Start: 08-28-2018 Revision of uncemented total hip replacement Plate Screw FDA Start: 08-28-2018 Revision of uncemented total hip replacement X3 Insert for ADM/MDM FDA Start: 08-28-2018 Revision of uncemented total hip replacement DALL MILES 2.0 BEAD CABLE FDA Start: 08-28-2018 Revision of uncemented total hip replacement Hemispherical Shell FDA Start: 08-28-2018 Revision of uncemented total hip replacement LFIT V40 Femoral Head FDA Start: 08-28-2018 Revision of uncemented total hip replacement Liner - Cementless FDA Start: 08-28-2018 Revision of uncemented total hip replacement Modular Hip System FDA Start: 08-28-2018 Revision of uncemented total hip replacement Modular Hip System FDA Start: 08-28-2018 Revision of uncemented total hip replacement Plate Screw FDA Start: 08-28-2018 Revision of uncemented total hip replacement Plate Screw FDA Start: 08-28-2018 Revision of uncemented total hip replacement DALL MILES 2.0 BEAD CABLE FDA Start: 08-28-2018 Revision of uncemented total hip replacement Plate Screw FDA Start: 08-28-2018 Revision of uncemented total hip replacement Plate Screw FDA Start: 08-28-2018 Revision of uncemented total hip replacement Plate Screw FDA Start: 08-28-2018 Revision of uncemented total hip replacement Plate Screw FDA Start: 08-28-2018 Revision of uncemented total hip replacement X3 Insert for ADM/MDM FDA Start: 08-28-2018 Revision of uncemented total hip replacement DALL MILES 2.0 BEAD CABLE FDA Start: 08-28-2018 Revision of uncemented total hip replacement Hemispherical Shell FDA Start: 08-28-2018 Revision of uncemented total hip replacement LFIT V40 Femoral Head FDA Start: 08-28-2018 Revision of uncemented total hip replacement Liner - Cementless FDA Start: 08-28-2018 Revision of uncemented total hip replacement Modular Hip System FDA Start: 08-28-2018 Revision of uncemented total hip replacement Modular Hip System FDA Start: 08-28-2018 Revision of uncemented total hip replacement Plate Screw FDA Start: 08-28-2018 Revision of uncemented total hip replacement Plate Screw FDA Start: 08-28-2018 Revision of uncemented total hip replacement DALL MILES 2.0 BEAD CABLE FDA Start: 08-28-2018 Revision of uncemented total hip replacement Plate Screw FDA Start: 08-28-2018 Revision of uncemented total hip replacement Plate Screw FDA Start: 08-28-2018 Revision of uncemented total hip replacement Plate Screw FDA Start: 08-28-2018 Revision of uncemented total hip replacement Plate Screw FDA Start: 08-28-2018 Revision of uncemented total hip replacement X3 Insert for ADM/MDM FDA Start: 08-28-2018 Revision of uncemented total hip replacement DALL TEJAS 2.0 BEAD CABLE FDA Start: 08-28-2018 Revision of uncemented total hip replacement Hemispherical Shell FDA Start: 08-28-2018 Revision of uncemented total hip replacement LFIT V40 Femoral Head FDA Start: 08-28-2018 Revision of uncemented total hip replacement Liner - Cementless FDA Start: 08-28-2018 Revision of uncemented total hip replacement Modular Hip System FDA Start: 08-28-2018 Revision of uncemented total hip replacement Modular Hip System FDA Start: 08-28-2018 Revision of uncemented total hip replacement Plate Screw FDA Start: 08-28-2018 Revision of uncemented total hip replacement Plate Screw FDA Start: 08-28-2018 Revision of uncemented total hip replacement DALL TEJAS 2.0 BEAD CABLE FDA Start: 08-28-2018 Revision of uncemented total hip replacement Plate Screw FDA Start: 08-28-2018 Revision of uncemented total hip replacement Plate Screw FDA Start: 08-28-2018 Revision of uncemented total hip replacement Plate Screw FDA Start: 08-28-2018 Revision of uncemented total hip replacement Plate Screw FDA Start: 08-28-2018 Revision of uncemented total hip replacement X3 Insert for ADM/MDM FDA Start: 08-28-2018 Revision of uncemented total hip replacement DALL TEJAS 2.0 BEAD CABLE FDA Start: 08-28-2018 Revision of uncemented total hip replacement Hemispherical Shell FDA Start: 08-28-2018 Revision of uncemented total hip replacement LFIT V40 Femoral Head FDA Start: 08-28-2018 Revision of uncemented total hip replacement Liner - Cementless FDA Start: 08-28-2018 Revision of uncemented total hip replacement Modular Hip System FDA Start: 08-28-2018 Revision of uncemented total hip replacement Modular Hip System FDA Start: 08-28-2018 Revision of uncemented total hip replacement Plate Screw FDA Start: 08-28-2018 Revision of uncemented total hip replacement Plate Screw FDA Start: 08-28-2018 Revision of uncemented total hip replacement DALL TEJAS 2.0 BEAD CABLE FDA Start: 08-28-2018 Revision of uncemented total hip replacement Plate Screw FDA Start: 08-28-2018 Revision of uncemented total hip replacement Plate Screw FDA Start: 08-28-2018 Revision of uncemented total hip replacement Plate Screw FDA Start: 08-28-2018 Revision of uncemented total hip replacement Plate Screw FDA Start: 08-28-2018 Revision of uncemented total hip replacement X3 Insert for ADM/MDM FDA Start: 08-28-2018 Revision of uncemented total hip replacement DALL TEJAS 2.0 BEAD CABLE FDA Start: 08-28-2018 Revision of uncemented total hip replacement Hemispherical Shell FDA Start: 08-28-2018 Revision of uncemented total hip replacement LFIT V40 Femoral Head FDA Start: 08-28-2018 Revision of uncemented total hip replacement Liner - Cementless FDA Start: 08-28-2018 Revision of uncemented total hip replacement Modular Hip System FDA Start: 08-28-2018 Revision of uncemented total hip replacement Modular Hip System FDA Start: 08-28-2018 Revision of uncemented total hip replacement Plate Screw FDA Start: 08-28-2018 Revision of uncemented total hip replacement Plate Screw FDA Start: 08-28-2018 Revision of uncemented total hip replacement DALL TEJAS 2.0 BEAD CABLE FDA Start: 08-28-2018 Revision of uncemented total hip replacement Plate Screw FDA Start: 08-28-2018 Revision of uncemented total hip replacement Plate Screw FDA Start: 08-28-2018 Revision of uncemented total hip replacement Plate Screw FDA Start: 08-28-2018 Revision of uncemented total hip replacement Plate Screw FDA Start: 08-28-2018 Revision of uncemented total hip replacement X3 Insert for ADM/MDM FDA Start: 08-28-2018 Revision of uncemented total hip replacement DALL TEJAS 2.0 BEAD CABLE FDA Start: 08-28-2018 Revision of uncemented total hip replacement Hemispherical Shell FDA Start: 08-28-2018 Revision of uncemented total hip replacement LFIT V40 Femoral Head FDA Start: 08-28-2018 Revision of uncemented total hip replacement Liner - Cementless FDA Start: 08-28-2018 Revision of uncemented total hip replacement Modular Hip System FDA Start: 08-28-2018 Revision of uncemented total hip replacement Modular Hip System FDA Start: 08-28-2018 Revision of uncemented total hip replacement Plate Screw FDA Start: 08-28-2018 Revision of uncemented total hip replacement Plate Screw FDA Start: 08-28-2018 Revision of uncemented total hip replacement DALL MILES 2.0 BEAD CABLE FDA Start: 08-28-2018 Revision of uncemented total hip replacement Plate Screw FDA Start: 08-28-2018 Revision of uncemented total hip replacement Plate Screw FDA Start: 08-28-2018 Revision of uncemented total hip replacement Plate Screw FDA Start: 08-28-2018 Revision of uncemented total hip replacement Plate Screw FDA Start: 08-28-2018 Revision of uncemented total hip replacement X3 Insert for ADM/MDM FDA Start: 08-28-2018 Revision of uncemented total hip replacement DALL MILES 2.0 BEAD CABLE FDA Start: 08-28-2018 Revision of uncemented total hip replacement Hemispherical Shell FDA Start: 08-28-2018 Revision of uncemented total hip replacement LFIT V40 Femoral Head FDA Start: 08-28-2018 Revision of uncemented total hip replacement Liner - Cementless FDA Start: 08-28-2018 Revision of uncemented total hip replacement Modular Hip System FDA Start: 08-28-2018 Revision of uncemented total hip replacement Modular Hip System FDA Start: 08-28-2018 Revision of uncemented total hip replacement Plate Screw FDA Start: 08-28-2018 Revision of uncemented total hip replacement Plate Screw FDA Start: 08-28-2018 Revision of uncemented total hip replacement DALL MILES 2.0 BEAD CABLE FDA Start: 08-28-2018 Revision of uncemented total hip replacement Plate Screw FDA Start: 08-28-2018 Revision of uncemented total hip replacement Plate Screw FDA Start: 08-28-2018 Revision of uncemented total hip replacement Plate Screw FDA Start: 08-28-2018 Revision of uncemented total hip replacement Plate Screw FDA Start: 08-28-2018 Revision of uncemented total hip replacement X3 Insert for ADM/MDM FDA Start: 08-28-2018 Revision of uncemented total hip replacement DALL MILES 2.0 BEAD CABLE FDA Start: 08-28-2018 Revision of uncemented total hip replacement Hemispherical Shell FDA Start: 08-28-2018 Revision of uncemented total hip replacement LFIT V40 Femoral Head FDA Start: 08-28-2018 Revision of uncemented total hip replacement Liner - Cementless FDA Start: 08-28-2018 Revision of uncemented total hip replacement Modular Hip System FDA Start: 08-28-2018 Revision of uncemented total hip replacement Modular Hip System FDA Start: 08-28-2018 Revision of uncemented total hip replacement Plate Screw FDA Start: 08-28-2018 Revision of uncemented total hip replacement Plate Screw FDA Start: 08-28-2018 Revision of uncemented total hip replacement DALL MILES 2.0 BEAD CABLE FDA Start: 08-28-2018 Revision of uncemented total hip replacement Plate Screw FDA Start: 08-28-2018 Revision of uncemented total hip replacement Plate Screw FDA Start: 08-28-2018 Revision of uncemented total hip replacement Plate Screw FDA Start: 08-28-2018 Revision of uncemented total hip replacement Plate Screw FDA Start: 08-28-2018 Revision of uncemented total hip replacement X3 Insert for ADM/MDM FDA Start: 08-28-2018 Revision of uncemented total hip replacement DALL MILES 2.0 BEAD CABLE FDA Start: 08-28-2018 Revision of uncemented total hip replacement Hemispherical Shell FDA Start: 08-28-2018 Revision of uncemented total hip replacement LFIT V40 Femoral Head FDA Start: 08-28-2018 Revision of uncemented total hip replacement Liner - Cementless FDA Start: 08-28-2018 Revision of uncemented total hip replacement Modular Hip System FDA Start: 08-28-2018 Revision of uncemented total hip replacement Modular Hip System FDA Start: 08-28-2018 Revision of uncemented total hip replacement Plate Screw FDA Start: 08-28-2018 Revision of uncemented total hip replacement Plate Screw FDA Start: 08-28-2018 Revision of uncemented total hip replacement DALL MILES 2.0 BEAD CABLE FDA Start: 08-28-2018 Revision of uncemented total hip replacement Plate Screw FDA Start: 08-28-2018 Revision of uncemented total hip replacement Plate Screw FDA Start: 08-28-2018 Revision of uncemented total hip replacement Plate Screw FDA Start: 08-28-2018 Revision of uncemented total hip replacement Plate Screw FDA Start: 08-28-2018 Revision of uncemented total hip replacement X3 Insert for ADM/MDM FDA Start: 08-28-2018 Revision of uncemented total hip replacement DALL MILES 2.0 BEAD CABLE FDA Start: 08-28-2018 Revision of uncemented total hip replacement Hemispherical Shell FDA Start: 08-28-2018 Revision of uncemented total hip replacement LFIT V40 Femoral Head FDA Start: 08-28-2018 Revision of uncemented total hip replacement Liner - Cementless FDA Start: 08-28-2018 Revision of uncemented total hip replacement Modular Hip System FDA Start: 08-28-2018 Revision of uncemented total hip replacement Modular Hip System FDA Start: 08-28-2018 Revision of uncemented total hip replacement Plate Screw FDA Start: 08-28-2018 Revision of uncemented total hip replacement Plate Screw FDA Start: 08-28-2018 Revision of uncemented total hip replacement DALL MILES 2.0 BEAD CABLE FDA Start: 08-28-2018 Revision of uncemented total hip replacement Plate Screw FDA Start: 08-28-2018 Revision of uncemented total hip replacement Plate Screw FDA Start: 08-28-2018 Revision of uncemented total hip replacement Plate Screw FDA Start: 08-28-2018 Revision of uncemented total hip replacement Plate Screw FDA Start: 08-28-2018 Revision of uncemented total hip replacement X3 Insert for ADM/MDM FDA Start: 08-28-2018 Revision of uncemented total hip replacement DALL MILES 2.0 BEAD CABLE FDA Start: 08-28-2018 Revision of uncemented total hip replacement Hemispherical Shell FDA Start: 08-28-2018 Revision of uncemented total hip replacement LFIT V40 Femoral Head FDA Start: 08-28-2018 Revision of uncemented total hip replacement Liner - Cementless FDA Start: 08-28-2018 Revision of uncemented total hip replacement Modular Hip System FDA Start: 08-28-2018 Revision of uncemented total hip replacement Modular Hip System FDA Start: 08-28-2018 Revision of uncemented total hip replacement Plate Screw FDA Start: 08-28-2018 Revision of uncemented total hip replacement Plate Screw FDA Start: 08-28-2018 Revision of uncemented total hip replacement DALL MILES 2.0 BEAD CABLE FDA Start: 08-28-2018 Revision of uncemented total hip replacement Plate Screw FDA Start: 08-28-2018 Revision of uncemented total hip replacement Plate Screw FDA Start: 08-28-2018 Revision of uncemented total hip replacement Plate Screw FDA Start: 08-28-2018 Revision of uncemented total hip replacement Plate Screw FDA Start: 08-28-2018 Revision of uncemented total hip replacement X3 Insert for ADM/MDM FDA Start: 08-28-2018 Revision of uncemented total hip replacement DALL TEJAS 2.0 BEAD CABLE FDA Start: 08-28-2018 Revision of uncemented total hip replacement Hemispherical Shell FDA Start: 08-28-2018 Revision of uncemented total hip replacement LFIT V40 Femoral Head FDA Start: 08-28-2018 Revision of uncemented total hip replacement Liner - Cementless FDA Start: 08-28-2018 Revision of uncemented total hip replacement Modular Hip System FDA Start: 08-28-2018 Revision of uncemented total hip replacement Modular Hip System FDA Start: 08-28-2018 Revision of uncemented total hip replacement Plate Screw FDA Start: 08-28-2018 Revision of uncemented total hip replacement Plate Screw FDA Start: 08-28-2018 Revision of uncemented total hip replacement DALL TEJAS 2.0 BEAD CABLE FDA Start: 08-28-2018 Revision of uncemented total hip replacement Plate Screw FDA Start: 08-28-2018 Revision of uncemented total hip replacement Plate Screw FDA Start: 08-28-2018 Revision of uncemented total hip replacement Plate Screw FDA Start: 08-28-2018 Revision of uncemented total hip replacement Plate Screw FDA Start: 08-28-2018 Revision of uncemented total hip replacement X3 Insert for ADM/MDM FDA Start: 08-28-2018 Revision of uncemented total hip replacement DALL TEJAS 2.0 BEAD CABLE FDA Start: 08-28-2018 Revision of uncemented total hip replacement Hemispherical Shell FDA Start: 08-28-2018 Revision of uncemented total hip replacement LFIT V40 Femoral Head FDA Start: 08-28-2018 Revision of uncemented total hip replacement Liner - Cementless FDA Start: 08-28-2018 Revision of uncemented total hip replacement Modular Hip System FDA Start: 08-28-2018 Revision of uncemented total hip replacement Modular Hip System FDA Start: 08-28-2018 Revision of uncemented total hip replacement Plate Screw FDA Start: 08-28-2018 Revision of uncemented total hip replacement Plate Screw FDA Start: 08-28-2018 Revision of uncemented total hip replacement DALL TEJAS 2.0 BEAD CABLE FDA Start: 08-28-2018 Revision of uncemented total hip replacement Plate Screw FDA Start: 08-28-2018 Revision of uncemented total hip replacement Plate Screw FDA Start: 08-28-2018 Revision of uncemented total hip replacement Plate Screw FDA Start: 08-28-2018 Revision of uncemented total hip replacement Plate Screw FDA Start: 08-28-2018 Revision of uncemented total hip replacement X3 Insert for ADM/MDM FDA Start: 08-28-2018 Revision of uncemented total hip replacement DALL TEJAS 2.0 BEAD CABLE FDA Start: 08-28-2018 Revision of uncemented total hip replacement Hemispherical Shell FDA Start: 08-28-2018 Revision of uncemented total hip replacement LFIT V40 Femoral Head FDA Start: 08-28-2018 Revision of uncemented total hip replacement Liner - Cementless FDA Start: 08-28-2018 Revision of uncemented total hip replacement Modular Hip System FDA Start: 08-28-2018 Revision of uncemented total hip replacement Modular Hip System FDA Start: 08-28-2018 Revision of uncemented total hip replacement Plate Screw FDA Start: 08-28-2018 Revision of uncemented total hip replacement Plate Screw FDA Start: 08-28-2018 Revision of uncemented total hip replacement DALL TEJAS 2.0 BEAD CABLE FDA Start: 08-28-2018 Revision of uncemented total hip replacement Plate Screw FDA Start: 08-28-2018 Revision of uncemented total hip replacement Plate Screw FDA Start: 08-28-2018 Revision of uncemented total hip replacement Plate Screw FDA Start: 08-28-2018 Revision of uncemented total hip replacement Plate Screw FDA Start: 08-28-2018 Revision of uncemented total hip replacement X3 Insert for ADM/MDM FDA Start: 08-28-2018 Revision of uncemented total hip replacement DALL TEJAS 2.0 BEAD CABLE FDA Start: 08-28-2018 Revision of uncemented total hip replacement Hemispherical Shell FDA Start: 08-28-2018 Revision of uncemented total hip replacement LFIT V40 Femoral Head FDA Start: 08-28-2018 Revision of uncemented total hip replacement Liner - Cementless FDA Start: 08-28-2018 Revision of uncemented total hip replacement Modular Hip System FDA Start: 08-28-2018 Revision of uncemented total hip replacement Modular Hip System FDA Start: 08-28-2018 Revision of uncemented total hip replacement Plate Screw FDA Start: 08-28-2018 Revision of uncemented total hip replacement Plate Screw FDA Start: 08-28-2018 Revision of uncemented total hip replacement DALL MILES 2.0 BEAD CABLE FDA Start: 08-28-2018 Revision of uncemented total hip replacement Plate Screw FDA Start: 08-28-2018 Revision of uncemented total hip replacement Plate Screw FDA Start: 08-28-2018 Revision of uncemented total hip replacement Plate Screw FDA Start: 08-28-2018 Revision of uncemented total hip replacement Plate Screw FDA Start: 08-28-2018 Revision of uncemented total hip replacement X3 Insert for ADM/MDM FDA Start: 08-28-2018 Revision of uncemented total hip replacement DALL MILES 2.0 BEAD CABLE FDA Start: 08-28-2018 Revision of uncemented total hip replacement Hemispherical Shell FDA Start: 08-28-2018 Revision of uncemented total hip replacement LFIT V40 Femoral Head FDA Start: 08-28-2018 Revision of uncemented total hip replacement Liner - Cementless FDA Start: 08-28-2018 Revision of uncemented total hip replacement Modular Hip System FDA Start: 08-28-2018 Revision of uncemented total hip replacement Modular Hip System FDA Start: 08-28-2018 Revision of uncemented total hip replacement Plate Screw FDA Start: 08-28-2018 Revision of uncemented total hip replacement Plate Screw FDA Start: 08-28-2018 Revision of uncemented total hip replacement DALL MILES 2.0 BEAD CABLE FDA Start: 08-28-2018 Revision of uncemented total hip replacement Plate Screw FDA Start: 08-28-2018 Revision of uncemented total hip replacement Plate Screw FDA Start: 08-28-2018 Revision of uncemented total hip replacement Plate Screw FDA Start: 08-28-2018 Revision of uncemented total hip replacement Plate Screw FDA Start: 08-28-2018 Revision of uncemented total hip replacement X3 Insert for ADM/MDM FDA Start: 08-28-2018 Revision of uncemented total hip replacement DALL MILES 2.0 BEAD CABLE FDA Start: 08-28-2018 Revision of uncemented total hip replacement Hemispherical Shell FDA Start: 08-28-2018 Revision of uncemented total hip replacement LFIT V40 Femoral Head FDA Start: 08-28-2018 Revision of uncemented total hip replacement Liner - Cementless FDA Start: 08-28-2018 Revision of uncemented total hip replacement Modular Hip System FDA Start: 08-28-2018 Revision of uncemented total hip replacement Modular Hip System FDA Start: 08-28-2018 Revision of uncemented total hip replacement Plate Screw FDA Start: 08-28-2018 Revision of uncemented total hip replacement Plate Screw FDA Start: 08-28-2018 Revision of uncemented total hip replacement DALL MILES 2.0 BEAD CABLE FDA Start: 08-28-2018 Revision of uncemented total hip replacement Plate Screw FDA Start: 08-28-2018 Revision of uncemented total hip replacement Plate Screw FDA Start: 08-28-2018 Revision of uncemented total hip replacement Plate Screw FDA Start: 08-28-2018 Revision of uncemented total hip replacement Plate Screw FDA Start: 08-28-2018 Revision of uncemented total hip replacement X3 Insert for ADM/MDM FDA Start: 08-28-2018 Revision of uncemented total hip replacement DALL MILES 2.0 BEAD CABLE FDA Start: 08-28-2018 Revision of uncemented total hip replacement Hemispherical Shell FDA Start: 08-28-2018 Revision of uncemented total hip replacement LFIT V40 Femoral Head FDA Start: 08-28-2018 Revision of uncemented total hip replacement Liner - Cementless FDA Start: 08-28-2018 Revision of uncemented total hip replacement Modular Hip System FDA Start: 08-28-2018 Revision of uncemented total hip replacement Modular Hip System FDA Start: 08-28-2018 Revision of uncemented total hip replacement Plate Screw FDA Start: 08-28-2018 Revision of uncemented total hip replacement Plate Screw FDA Start: 08-28-2018 Revision of uncemented total hip replacement DALL MILES 2.0 BEAD CABLE FDA Start: 08-28-2018 Revision of uncemented total hip replacement Plate Screw FDA Start: 08-28-2018 Revision of uncemented total hip replacement Plate Screw FDA Start: 08-28-2018 Revision of uncemented total hip replacement Plate Screw FDA Start: 08-28-2018 Revision of uncemented total hip replacement Plate Screw FDA Start: 08-28-2018 Revision of uncemented total hip replacement X3 Insert for ADM/MDM FDA Start: 08-28-2018 Revision of uncemented total hip replacement DALL TEJAS 2.0 BEAD CABLE FDA Start: 08-28-2018 Revision of uncemented total hip replacement Hemispherical Shell FDA Start: 08-28-2018 Revision of uncemented total hip replacement LFIT V40 Femoral Head FDA Start: 08-28-2018 Revision of uncemented total hip replacement Liner - Cementless FDA Start: 08-28-2018 Revision of uncemented total hip replacement Modular Hip System FDA Start: 08-28-2018 Revision of uncemented total hip replacement Modular Hip System FDA Start: 08-28-2018 Revision of uncemented total hip replacement Plate Screw FDA Start: 08-28-2018 Revision of uncemented total hip replacement Plate Screw FDA Start: 08-28-2018 Revision of uncemented total hip replacement DALL MILES 2.0 BEAD CABLE FDA Start: 08-28-2018 Revision of uncemented total hip replacement Plate Screw FDA Start: 08-28-2018 Revision of uncemented total hip replacement Plate Screw FDA Start: 08-28-2018 Revision of uncemented total hip replacement Plate Screw FDA Start: 08-28-2018 Revision of uncemented total hip replacement Plate Screw FDA Start: 08-28-2018 Revision of uncemented total hip replacement X3 Insert for ADM/MDM FDA Start: 08-28-2018 Revision of uncemented total hip replacement DALL TEJAS 2.0 BEAD CABLE FDA Start: 08-28-2018 Revision of uncemented total hip replacement Hemispherical Shell FDA Start: 08-28-2018 Revision of uncemented total hip replacement LFIT V40 Femoral Head FDA Start: 08-28-2018 Revision of uncemented total hip replacement Liner - Cementless FDA Start: 08-28-2018 Revision of uncemented total hip replacement Modular Hip System FDA Start: 08-28-2018 Revision of uncemented total hip replacement Modular Hip System FDA Start: 08-28-2018 Revision of uncemented total hip replacement Plate Screw FDA Start: 08-28-2018 Revision of uncemented total hip replacement Plate Screw FDA Start: 08-28-2018 Revision of uncemented total hip replacement DALL MILES 2.0 BEAD CABLE FDA Start: 08-28-2018 Revision of uncemented total hip replacement Plate Screw FDA Start: 08-28-2018 Revision of uncemented total hip replacement Plate Screw FDA Start: 08-28-2018 Revision of uncemented total hip replacement Plate Screw FDA Start: 08-28-2018 Revision of uncemented total hip replacement Plate Screw FDA Start: 08-28-2018 Revision of uncemented total hip replacement X3 Insert for ADM/MDM FDA Start: 08-28-2018 Revision of uncemented total hip replacement DALL TEJAS 2.0 BEAD CABLE FDA Start: 08-28-2018 Revision of uncemented total hip replacement Hemispherical Shell FDA Start: 08-28-2018 Revision of uncemented total hip replacement LFIT V40 Femoral Head FDA Start: 08-28-2018 Revision of uncemented total hip replacement Liner - Cementless FDA Start: 08-28-2018 Revision of uncemented total hip replacement Modular Hip System FDA Start: 08-28-2018 Revision of uncemented total hip replacement Modular Hip System FDA Start: 08-28-2018 Revision of uncemented total hip replacement Plate Screw FDA Start: 08-28-2018 Revision of uncemented total hip replacement Plate Screw FDA Start: 08-28-2018 Revision of uncemented total hip replacement DALL TEJAS 2.0 BEAD CABLE FDA Start: 08-28-2018 Revision of uncemented total hip replacement Plate Screw FDA Start: 08-28-2018 Revision of uncemented total hip replacement Plate Screw FDA Start: 08-28-2018 Revision of uncemented total hip replacement Plate Screw FDA Start: 08-28-2018 Revision of uncemented total hip replacement Plate Screw FDA Start: 08-28-2018 Revision of uncemented total hip replacement X3 Insert for ADM/MDM FDA Start: 08-28-2018 Revision of uncemented total hip replacement DALL TEJAS 2.0 BEAD CABLE FDA Start: 08-28-2018 Revision of uncemented total hip replacement Hemispherical Shell FDA Start: 08-28-2018 Revision of uncemented total hip replacement LFIT V40 Femoral Head FDA Start: 08-28-2018 Revision of uncemented total hip replacement Liner - Cementless FDA Start: 08-28-2018 Revision of uncemented total hip replacement Modular Hip System FDA Start: 08-28-2018 Revision of uncemented total hip replacement Modular Hip System FDA Start: 08-28-2018 Revision of uncemented total hip replacement Plate Screw FDA Start: 08-28-2018 Revision of uncemented total hip replacement Plate Screw FDA Start: 08-28-2018 Revision of uncemented total hip replacement DALL MILES 2.0 BEAD CABLE FDA Start: 08-28-2018 Revision of uncemented total hip replacement Plate Screw FDA Start: 08-28-2018 Revision of uncemented total hip replacement Plate Screw FDA Start: 08-28-2018 Revision of uncemented total hip replacement Plate Screw FDA Start: 08-28-2018 Revision of uncemented total hip replacement Plate Screw FDA Start: 08-28-2018 Revision of uncemented total hip replacement X3 Insert for ADM/MDM FDA Start: 08-28-2018 Revision of uncemented total hip replacement DALL TEJAS 2.0 BEAD CABLE FDA Start: 08-28-2018 Revision of uncemented total hip replacement Hemispherical Shell FDA Start: 08-28-2018 Revision of uncemented total hip replacement LFIT V40 Femoral Head FDA Start: 08-28-2018 Revision of uncemented total hip replacement Liner - Cementless FDA Start: 08-28-2018 Revision of uncemented total hip replacement Modular Hip System FDA Start: 08-28-2018 Revision of uncemented total hip replacement Modular Hip System FDA Start: 08-28-2018 Revision of uncemented total hip replacement Plate Screw FDA Start: 08-28-2018 Revision of uncemented total hip replacement Plate Screw FDA Start: 08-28-2018 Revision of uncemented total hip replacement DALL TEJAS 2.0 BEAD CABLE FDA Start: 08-28-2018 Revision of uncemented total hip replacement Plate Screw FDA Start: 08-28-2018 Revision of uncemented total hip replacement Plate Screw FDA Start: 08-28-2018 Revision of uncemented total hip replacement Plate Screw FDA Start: 08-28-2018 Revision of uncemented total hip replacement Plate Screw FDA Start: 08-28-2018 Revision of uncemented total hip replacement X3 Insert for ADM/MDM FDA Start: 08-28-2018 Revision of uncemented total hip replacement DALL TEJAS 2.0 BEAD CABLE FDA Start: 08-28-2018 Revision of uncemented total hip replacement Hemispherical Shell FDA Start: 08-28-2018 Revision of uncemented total hip replacement LFIT V40 Femoral Head FDA Start: 08-28-2018 Revision of uncemented total hip replacement Liner - Cementless FDA Start: 08-28-2018 Revision of uncemented total hip replacement Modular Hip System FDA Start: 08-28-2018 Revision of uncemented total hip replacement Modular Hip System FDA Start: 08-28-2018 Revision of uncemented total hip replacement Plate Screw FDA Start: 08-28-2018 Revision of uncemented total hip replacement Plate Screw FDA Start: 08-28-2018 Revision of uncemented total hip replacement DALL MILES 2.0 BEAD CABLE FDA Start: 08-28-2018 Revision of uncemented total hip replacement Plate Screw FDA Start: 08-28-2018 Revision of uncemented total hip replacement Plate Screw FDA Start: 08-28-2018 Revision of uncemented total hip replacement Plate Screw FDA Start: 08-28-2018 Revision of uncemented total hip replacement Plate Screw FDA Start: 08-28-2018 Revision of uncemented total hip replacement X3 Insert for ADM/MDM FDA Start: 08-28-2018 Revision of uncemented total hip replacement DALL MILES 2.0 BEAD CABLE FDA Start: 08-28-2018 Revision of uncemented total hip replacement Hemispherical Shell FDA Start: 08-28-2018 Revision of uncemented total hip replacement LFIT V40 Femoral Head FDA Start: 08-28-2018 Revision of uncemented total hip replacement Liner - Cementless FDA Start: 08-28-2018 Revision of uncemented total hip replacement Modular Hip System FDA Start: 08-28-2018 Revision of uncemented total hip replacement Modular Hip System FDA Start: 08-28-2018 Revision of uncemented total hip replacement Plate Screw FDA Start: 08-28-2018 Revision of uncemented total hip replacement Plate Screw FDA Start: 08-28-2018 Revision of uncemented total hip replacement DALL MILES 2.0 BEAD CABLE FDA Start: 08-28-2018 Revision of uncemented total hip replacement Plate Screw FDA Start: 08-28-2018 Revision of uncemented total hip replacement Plate Screw FDA Start: 08-28-2018 Revision of uncemented total hip replacement Plate Screw FDA Start: 08-28-2018 Revision of uncemented total hip replacement Plate Screw FDA Start: 08-28-2018 Revision of uncemented total hip replacement X3 Insert for ADM/MDM FDA Start: 08-28-2018 Revision of uncemented total hip replacement DALL MILES 2.0 BEAD CABLE FDA Start: 08-28-2018 Revision of uncemented total hip replacement Hemispherical Shell FDA Start: 08-28-2018 Revision of uncemented total hip replacement LFIT V40 Femoral Head FDA Start: 08-28-2018 Revision of uncemented total hip replacement Liner - Cementless FDA Start: 08-28-2018 Revision of uncemented total hip replacement Modular Hip System FDA Start: 08-28-2018 Revision of uncemented total hip replacement Modular Hip System FDA Start: 08-28-2018 Revision of uncemented total hip replacement Plate Screw FDA Start: 08-28-2018 Revision of uncemented total hip replacement Plate Screw FDA Start: 08-28-2018 Revision of uncemented total hip replacement DALL MILES 2.0 BEAD CABLE FDA Start: 08-28-2018 Revision of uncemented total hip replacement Plate Screw FDA Start: 08-28-2018 Revision of uncemented total hip replacement Plate Screw FDA Start: 08-28-2018 Revision of uncemented total hip replacement Plate Screw FDA Start: 08-28-2018 Revision of uncemented total hip replacement Plate Screw FDA Start: 08-28-2018 Revision of uncemented total hip replacement X3 Insert for ADM/MDM FDA Start: 08-28-2018 Revision of uncemented total hip replacement DALL MILES 2.0 BEAD CABLE FDA Start: 08-28-2018 Revision of uncemented total hip replacement Hemispherical Shell FDA Start: 08-28-2018 Revision of uncemented total hip replacement LFIT V40 Femoral Head FDA Start: 08-28-2018 Revision of uncemented total hip replacement Liner - Cementless FDA Start: 08-28-2018 Revision of uncemented total hip replacement Modular Hip System FDA Start: 08-28-2018 Revision of uncemented total hip replacement Modular Hip System FDA Start: 08-28-2018 Revision of uncemented total hip replacement Plate Screw FDA Start: 08-28-2018 Revision of uncemented total hip replacement Plate Screw FDA Start: 08-28-2018 Clinical Notes 08-23-2008 to 01-06-2025 Note Date & Type Note Facility 01-06-2025 Evaluation note Diagnosis Onset Date Resolution Elevated blood sugar acute January 06, 2025 12:52pm Nocturnal leg cramps chronic January 06, 2025 12:52pm Polyneuropathy, unspecified chronic January 06, 2025 12:52pm Sleep apnea chronic March 05, 2025 1:40pm [facility] Work Phone: 1(949) 790-299104-08-2025 Evaluation note* Diagnosis Onset Date Resolution Status Admit Date Bradycardia acute October 28 9:06am Syncope acute October 28 9:06am Ventricular ectopy acute October 28, 2024 9:06am Aortic root dilatation chronic Ap ril 2024 9:06am Atrial fibrillation chronic October 28, 2024 9:06am Congestive heart failure chronic October 28, 2024 9:06am Essential hypertension chronic Ap ril 2024 9:06am H/O aortic valve replacement August, [facility] October 28, 2024 9:06am Hyperlipidemia chronic October 28, 2024 9:06am 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 October 28, 2024 9:06am Obesity chronic October 28 9:06am Sleep apnea chronic October 28 9:06am Elevated blood sugar acute January 06, 2025 12:52pm [facility] Work Phone: 1(148) 371-505704-08-2025 Evaluation note* Diagnosis Onset Date Resolution Status Admit Date Bradycardia acute October 28 9:06am Syncope acute October 28 9:06am Ventricular ectopy acute October 28, 2024 9:06am Aortic root dilatation chronic Ap ril 2024 9:06am Atrial fibrillation chronic October 28, 2024 9:06am Congestive heart failure chronic October 28, 2024 9:06am Essential hypertension chronic Ap ril 2024 9:06am H/O aortic valve replacement August, [facility] October 28, 2024 9:06am Hyperlipidemia chronic October 28, 2024 9:06am 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 October 28, 2024 9:06am Obesity chronic October 28 9:06am Sleep apnea chronic October 28 9:06am Elevated blood sugar acute January 06, 2025 12:52pm Nocturnal leg cramps chronic January 06, 2025 12:52pm Polyneuropathy, unspecified chronic January 06, 2025 12:52pm [facility] Work Phone: 1(383) 698-106602-13-2025 Evaluation note* Diagnosis Onset Date Resolution Status Admit Date Hoarseness acute September 04, 2024 2:06pm Obesity chronic September 04, 2024 2:06pm Sleep apnea chronic August 2:06pm [facility] Work Phone: [phone]) 535-243902-13-2025 Evaluation note* Diagnosis Onset Date Resolution Status Admit Date Hoarseness acute September 04, 2024 2:06pm Obesity chronic September 04, 2024 2:06pm Sleep apnea chronic August 2:06pm Bradycardia acute October 28 9:06am Syncope acute October 28 9:06am Ventricular ectopy acute October 28, 2024 9:06am Aortic root dilatation chronic Ap ril 2024 9:06am Atrial fibrillation chronic October 28, 2024 9:06am Congestive heart failure chronic October 28, 2024 9:06am Essential hypertension chronic Ap ril 2024 9:06am H/O aortic valve replacement August, [facility] October 28, 2024 9:06am Hyperlipidemia chronic October 28, 2024 9:06am 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 Author Type: Physician Type: Progress Notes Filed: 08/22/2024 07:02 Note Text: CC: hallux rigidus right foot follow up HPI: This 79 year old male with PMH indicated below presents today for follow up of right great toe pain. Admits to improvement of pain since last visit. States that he obtained carbon fiber inserts since last visit that he has been using and has provided significant relief. Continues to use Capsicin but helps him sleep. Did helps keep toe stiff during activity. 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 Denies any other pedal complaints. No primary care provider on file. PAST MEDICAL HISTORY Diagnosis Date AORTIC VALVE INSUFFICIENCY Cardiomyopathy in other diseases classified elsewhere Other and unspecified hyperlipidemia Shortness of breath Unspecified essential hypertension 08/19/2008 Current Outpatient Medications Medication Sig Dispense Refill warfarin (COUMADIN) 4 mg tablet Take 4 mg by mouth. gabapentin (NEURONTIN) 600 mg tablet Take 600 mg by mouth. losartan-hydroCHLOROthiazide (HYZAAR) 100-25 mg per tablet Take 1 tablet by mouth once daily. furosemide (LASIX) 40 mg tablet Take 40 mg by mouth. Cholecalciferol, Vitamin D3, 25 mcg (1,000 unit) cap Take 4,000 Units by mouth. MAGNESIUM OXIDE ORAL Take 500 mg by mouth. tiZANidine (ZANAFLEX) 4 mg tablet Valsartan-Hydrochlorothiazide 320-25 mg per tablet Take 1 tablet by mouth once daily. Multivitamin capsule Take 1 capsule by mouth once daily. pravastatin (PRAVACHOL) 80 mg tablet Take 80 mg by mouth once daily. UBIDECARENONE/VITAMIN E MIXED (COQ10 SG 100 ORAL) Take by mouth. (Patient not taking: Reported on 06/26/2024) doxazosin (CARDURA) 4 mg tablet Take 4 mg by mouth daily at bedtime. (Patient not taking: Reported on 06/26/2024) amLODIPine (NORVASC) 2.5 mg tablet Take 2.5 mg by mouth once daily. (Patient not taking: Reported on 07/24/2024) ASPIRIN 81 MG CHEWABLE TAB 1 Tab PO DAILY (Patient not taking: Reported on 06/26/2024) 30 0 No current facility-administered medications for this visit. ALLERGIES Allergen Reactions Lactose Intolerance* Social History Tobacco Use Smoking status: Never Smokeless tobacco: Never Substance Use Topics Alcohol use: Yes Comment: 12 beers per week. Drug use: No FAMILY HISTORY Problem Relation Age of Onset other (CVA AND OF CHF [Other]) Father AGE 78 other (OVARIAN CANCER [Other]) Mother AGE 48 other (DIABETES AND OF HEART DISEASE [Other]) Brother AGE 51 PAST SURGICAL HISTORY Procedure Laterality Date COLONOSCOPY SCREENING 07/22/2024 LEFT HEART CATH,PERCUTANEOUS 2002, 2007 Cardiac cath, L heart X 2 PAST SURGICAL HISTORY OF remote Right great toe pinning TONSILLECTOMY PRIMARY/SECONDARY Tonsillectomy REVIEW OF SYSTEMS 12 point ROS performed and negative except for those mentioned in the HPI Physical Exam: Patient is a 79 year old male who appears well developed, well nourished and with good attention to hygiene and body habitus. Resp 17 Ht 177.8 cm (5' 10") Wt 103.4 kg (228 lb) BMI 32.71 kg/m? Vascular: DP and PT pulses are palpable. CFT less than 3 seconds to all digits b/l. Skin temperature is warm to warm from proximal to distal b/l. Hair growth is noted. Mild edema to 1st MTPJ right . No varicosities noted. Neuro: Light touch intact b/l. Protective sensation intact at all pedal sites via [place] 5.07 monofilament b/l. Proprioception intact at the hallux b/l. No clonus noted. Babinski reflex not elicited b/l. Derm: Skin texture and turgor within normal limits. Toenails normal in appearance. Webspaces 1-4 clean, dry, intact b/l. No rashes, subcutaneous nodules, or open lesions noted. No hyperkeratotic tissue. no erythema Musc: Muscle strength is 5/5 for all muscle groups including dorsiflexors, plantarflexors, everters, and inverters b/l. There is a dorsal bony prominence at the 1st MTP joint right foot. Local effusion is noted to the 1st MTP joint. There is pain to palpation of the prominent dorsal eminence. Range of motion of the 1st MTP joint is severely decreased with positive pain noted. The hallux is noted to be in a rectus position. The first ray and medial column are noted to be wnl. no pain to palpation of plantar sesamoids. Positive central grind. Radiographs: 3 views of the right foot were reviewed Radiographic impression: Bone stock is WNL. No acute fractures or dislocations noted. All cortices are intact. Joint spaces are maintained with exception of the 1st MTP joint which demonstrates degenerative changes including joint space narrowing and marika-articular spur formation. Positive dorsal flag and elevatus of the 1st met noted. No increase in ST density. flattening of the met head with osteophyte formation and eburnation noted. Impression: This is a 79 year old (more content not included)...[facility] 07-24-2024 History of Present illness Narrative* Jr Vargas DPM - 07/24/2024 1:39 PM EST CC: hallux rigidus right foot follow up HPI: This 79 year old male with PMH indicated below presents today for follow up of right great toepain. Admits to improvement of pain since last visit. States that he obtained carbon fiber inserts since last visit that he has been using and has provided significant relief. Continues to use Capsicin but helps him sleep. Did helps keep toe stiff during activity. 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 Denies any other pedal complaints. No primary care provider on file. PAST MEDICAL HISTORY Diagnosis Date AORTIC VALVE INSUFFICIENCY Cardiomyopathy in other diseases classified elsewhere Other and unspecified hyperlipidemia Shortness of breath Unspecified essential hypertension 08/19/2008 Current Outpatient Medications Medication Sig Dispense Refill warfarin (COUMADIN) 4 mg tablet Take 4 mg by mouth. gabapentin (NEURONTIN) 600 mg tablet Take 600 mg by mouth. losartan-hydroCHLOROthiazide (HYZAAR) 100-25 mg per tablet Take 1 tablet by mouth once daily. furosemide (LASIX) 40 mg tablet Take 40 mg by mouth. Cholecalciferol, Vitamin D3, 25 mcg (1,000 unit) cap Take 4,000 Units by mouth. MAGNESIUM OXIDE ORAL Take 500 mg by mouth. tiZANidine (ZANAFLEX) 4 mg tablet Valsartan-Hydrochlorothiazide 320-25 mg per tablet Take 1 tablet by mouth once daily. Multivitamin capsule Take 1 capsule by mouth once daily. pravastatin (PRAVACHOL) 80 mg tablet Take 80 mg by mouth once daily. UBIDECARENONE/VITAMIN E MIXED (COQ10 SG 100 ORAL) Take by mouth. (Patient not taking: Reported on 06/26/2024) doxazosin (CARDURA) 4 mg tablet Take 4 mg by mouth daily at bedtime. (Patient not taking: Reported on 06/26/2024) amLODIPine (NORVASC) 2.5 mg tablet Take 2.5 mg by mouth once daily. (Patient not taking: Reported on 07/24/2024) ASPIRIN 81 MG CHEWABLE TAB 1 Tab PO DAILY (Patient not taking: Reported on 06/26/2024) 30 0 No current facility-administered medications for this visit. ALLERGIES Allergen Reactions Lactose Intolerance* Social History Tobacco Use Smoking status: Never Smokeless tobacco: Never Substance Use Topics Alcohol use: Yes Comment: 12 beers per week. Drug use: No FAMILY HISTORY Problem Relation Age of Onset other (CVA AND OF CHF [Other]) Father AGE 78 other (OVARIAN CANCER [Other]) Mother AGE 48 other (DIABETES AND OF HEART DISEASE [Other]) Brother AGE 51 PAST SURGICAL HISTORY Procedure Laterality Date COLONOSCOPY SCREENING 07/22/2024 LEFT HEART CATH,PERCUTANEOUS 2002, 2007 Cardiac cath, L heart X 2 PAST SURGICAL HISTORY OF remote Right great toe pinning TONSILLECTOMY PRIMARY/SECONDARY <AGE 13 childhood Tonsillectomy REVIEW OF SYSTEMS 12 point ROS performed and negative except for those mentioned in the HPI Physical Exam: Patient is a 79 year old male who appears well developed, well nourished and with good attention tohygiene and body habitus. Resp 17 Ht 177.8 cm (5' 10") Wt 103.4 kg (228 lb) BMI 32.71 kg/m Vascular: DP and PT pulses are palpable. CFT less than 3 seconds to all digits b/l. Skin temperature is warm to warm from proximal to distal b/l. Hair growth is noted. Mild edema to 1st MTPJ right . No varicosities noted. Neuro: Light touch intact b/l. Protective sensation intact at all pedal sites via [place] [employer] 5.07 monofilament b/l. Proprioception intact at the hallux b/l. No clonus noted. Babinski reflex notelicited b/l. Derm: Skin texture and turgor within normal limits. Toenails normal in appearance. Webspaces 1-4 clean, dry, intact b/l. No rashes, subcutaneous nodules, or open lesions noted. No hyperkeratotic tissue. no erythema Musc: Muscle strength is 5/5 for all muscle groups including dorsiflexors, plantarflexors, everters, and inverters b/l. There is a dorsal bony prominence at the 1st MTP joint right foot. Local effusion is noted to the 1st MTP joint. There is pain to palpation of the prominent dorsal eminence. Rangeof motion of the 1st MTP joint is severely decreased with positive pain noted. The hallux is noted to be in a rectus position. The first ray and medial column are noted to be wnl. no pain to palpation of plantar sesamoids. Positive central grind. Radiographs: 3 views of the right foot were reviewed Radiographic impression: Bone stock is WNL. No acute fractures or dislocations noted. All cortices are intact. Joint spaces are maintained with exception of the 1st MTP joint which demonstrates degenerative changes including joint space narrowing and marika-articular spur formation. Positive dorsal flag and elevatus of the 1st met noted. No increase in ST density. flattening of the met head with osteophyte formation and eburnation noted. Impression: This is a 79 year old patient presenting with hallux rigidus right foot, moderate improvement sincelast visit. Plan: A comprehensive history and physical examination were preformed. The patient was educated on clinical and radiographic findings, diagnosis and treatment plans. Patient state that he understands all that has been explained and all questions were answered to his apparent satisfaction. Etiology and tx options, both conservative and surgical were discussed in detail with the pt. Pt opts to pursue conservative measures at this time. - Discussed continued padding, the benefit of analgesics, rocker bottom and stiff soled shoes - continue carbon fiber insert. Dispensed handout - Continue with topical capsacin as needed - Tylenol OTC as needed -Did briefly discuss surgery, patients symptoms improved with conservative measures and surgery is not indicated at this point since symptoms are tolerable now - Follow up as needed Madi Fierro DPM, PGY-3 I personally saw and evaluated the patient. I reviewed the resident's note. I agree with the resident's assessment and plan unless otherwise noted. Jr Vargas DPM, FACFAS * Naomie Rhodes MA - 07/24/2024 1:26 PM EST REVIEW OF SYSTEMS: GENERAL: Well developed, well nourished. No acute distress PAIN: Pain 2/10 CARDIOVASCULAR: CHF, Hypertension, Hyperlipidemia MSK: Negative for joint swelling SKIN: Negative for lesions, rash, itching, metal sensitivity NEURO: Negative for seizure, trauma, numbness/tingling of extremities. ENDOCRINE: Negative for diabetic associated symptoms HEMATOLOGY: Warfarin Naomie Rhodes MA [facility] NoteHNO ID: [id number] Author: NAOMIE RHODES MA Service: ? Author Type: Manager Pediatric Type: Progress Notes Filed: 08/22/2024 07:02 Note Text: REVIEW OF SYSTEMS: GENERAL: Well developed, well nourished. No acute distress PAIN: Pain 2/10 CARDIOVASCULAR: CHF, Hypertension, Hyperlipidemia MSK: Negative for joint swelling SKIN: Negative for lesions, rash, itching, metal sensitivity NEURO: Negative for seizure, trauma, numbness/tingling of extremities. ENDOCRINE: Negative for diabetic associated symptoms HEMATOLOGY: Warfarin Naomie Rhodes [facility]12-05-2024 NoteHNO ID: [id number] Author: JR VARGAS DPM Service: ? Author Type: Physician Type: Progress Notes Filed: 07/11/2024 08:12 Note Text: CC: 1st MTP joint pain right HPI: This 79 year old male with PMH indicated below presents today for follow up of right great toe pain. No change since last visit. Continues to use Capsicin but helps him sleep. Did obtain carbon fiber insert, wears in tennis shoes. Did helps keep toe stiff during activity. Has been getting spasms in the RLE, resting. 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 Denies any other pedal complaints. No primary care provider on file. PAST MEDICAL HISTORY Diagnosis Date AORTIC VALVE INSUFFICIENCY Cardiomyopathy in other diseases classified elsewhere Other and unspecified hyperlipidemia Shortness of breath Unspecified essential hypertension 08/19/2008 Current Outpatient Medications Medication Sig Dispense Refill warfarin (COUMADIN) 4 mg tablet Take 4 mg by mouth. gabapentin (NEURONTIN) 600 mg tablet Take 600 mg by mouth. losartan-hydroCHLOROthiazide (HYZAAR) 100-25 mg per tablet Take 1 tablet by mouth once daily. furosemide (LASIX) 40 mg tablet Take 40 mg by mouth. Cholecalciferol, Vitamin D3, 25 mcg (1,000 unit) cap Take 4,000 Units by mouth. MAGNESIUM OXIDE ORAL Take 500 mg by mouth. tiZANidine (ZANAFLEX) 4 mg tablet Valsartan-Hydrochlorothiazide 320-25 mg per tablet Take 1 tablet by mouth once daily. amLODIPine (NORVASC) 2.5 mg tablet Take 2.5 mg by mouth once daily. Multivitamin capsule Take 1 capsule by mouth once daily. pravastatin (PRAVACHOL) 80 mg tablet Take 80 mg by mouth once daily. UBIDECARENONE/VITAMIN E MIXED (COQ10 SG 100 ORAL) Take by mouth. (Patient not taking: Reported on 06/26/2024) doxazosin (CARDURA) 4 mg tablet Take 4 mg by mouth daily at bedtime. (Patient not taking: Reported on 06/26/2024) ASPIRIN 81 MG CHEWABLE TAB 1 Tab PO DAILY (Patient not taking: Reported on 06/26/2024) 30 0 No current facility-administered medications for this visit. ALLERGIES Allergen Reactions Lactose Intolerance* Social History Tobacco Use Smoking status: Never Smokeless tobacco: Never Substance Use Topics Alcohol use: Yes Comment: 12 beers per week. Drug use: No FAMILY HISTORY Problem Relation Age of Onset other (CVA AND OF CHF [Other]) Father AGE 78 other (OVARIAN CANCER [Other]) Mother AGE 48 other (DIABETES AND OF HEART DISEASE [Other]) Brother AGE 51 PAST SURGICAL HISTORY Procedure Laterality Date LEFT HEART CATH,PERCUTANEOUS 2002, 2007 Cardiac cath, L heart X 2 PAST SURGICAL HISTORY OF remote Right great toe pinning TONSILLECTOMY PRIMARY/SECONDARY Tonsillectomy REVIEW OF SYSTEMS 12 point ROS performed and negative except for those mentioned in the HPI Physical Exam: Patient is a 79 year old male who appears well developed, well nourished and with good attention to hygiene and body habitus. Resp 18 Ht 177.8 cm (5' 10") Wt 103.4 kg (228 lb) BMI 32.71 kg/m? Vascular: DP and PT pulses are palpable. CFT less than 3 seconds to all digits b/l. Skin temperature is warm to warm from proximal to distal b/l. Hair growth is noted. Mild edema to 1st MTPJ right . No varicosities noted. Neuro: Light touch intact b/l. Protective sensation intact at all pedal sites via [place] 5.07 monofilament b/l. Proprioception intact at the hallux b/l. No clonus noted. Babinski reflex not elicited b/l. Derm: Skin texture and turgor within normal limits. Toenails normal in appearance. Webspaces 1-4 clean, dry, intact b/l. No rashes, subcutaneous nodules, or open lesions noted. No hyperkeratotic tissue. no erythema Musc: Muscle strength is 5/5 for all muscle groups including dorsiflexors, plantarflexors, everters, and inverters b/l. There is a dorsal bony prominence at the 1st MTP joint right foot. Local effusion is noted to the 1st MTP joint. There is pain to palpation of the prominent dorsal eminence. Range of motion of the 1st MTP joint is severely decreased with positive pain noted. The hallux is noted to be in a rectus position. The first ray and medial column are noted to be wnl. no pain to palpation of plantar sesamoids. Positive central grind. Radiographs: 3 views of the right foot were reviewed Radiographic impression: Bone stock is WNL. No acute fractures or dislocations noted. All cortices are intact. Joint spaces are maintained with exception of the 1st MTP joint which demonstrates degenerative changes including joint space narrowing and marika-articular spur formation. Positive dorsal flag and elevatus of the 1st met noted. No increase in ST density. flattening of the met head with osteophyte formation and eburnation noted. Impression: This is a 79 year old patient presenting with hallux rigidus right foot, no improvement since last visit. Plan: A comprehensive history and physical (more content not included)...[facility]12-05-2024 History of Present illness Narrative* Jr Vargas, SAM - 06/26/2024 1:31 PM EST CC: 1st MTP joint pain right HPI: This 79 year old male with PMH indicated below presents today for follow up of right great toepain. No change since last visit. Continues to use Capsicin but helps him sleep. Did obtain carbon fiber insert, wears in tennis shoes. Did helps keep toe stiff during activity. Has been getting spasms in the RLE, resting. 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 Denies any other pedal complaints. No primary care provider on file. PAST MEDICAL HISTORY Diagnosis Date AORTIC VALVE INSUFFICIENCY Cardiomyopathy in other diseases classified elsewhere Other and unspecified hyperlipidemia Shortness of breath Unspecified essential hypertension 08/19/2008 Current Outpatient Medications Medication Sig Dispense Refill warfarin (COUMADIN) 4 mg tablet Take 4 mg by mouth. gabapentin (NEURONTIN) 600 mg tablet Take 600 mg by mouth. losartan-hydroCHLOROthiazide (HYZAAR) 100-25 mg per tablet Take 1 tablet by mouth once daily. furosemide (LASIX) 40 mg tablet Take 40 mg by mouth. Cholecalciferol, Vitamin D3, 25 mcg (1,000 unit) cap Take 4,000 Units by mouth. MAGNESIUM OXIDE ORAL Take 500 mg by mouth. tiZANidine (ZANAFLEX) 4 mg tablet Valsartan-Hydrochlorothiazide 320-25 mg per tablet Take 1 tablet by mouth once daily. amLODIPine (NORVASC) 2.5 mg tablet Take 2.5 mg by mouth once daily. Multivitamin capsule Take 1 capsule by mouth once daily. pravastatin (PRAVACHOL) 80 mg tablet Take 80 mg by mouth once daily. UBIDECARENONE/VITAMIN E MIXED (COQ10 SG 100 ORAL) Take by mouth. (Patient not taking: Reported on 06/26/2024) doxazosin (CARDURA) 4 mg tablet Take 4 mg by mouth daily at bedtime. (Patient not taking: Reported on 06/26/2024) ASPIRIN 81 MG CHEWABLE TAB 1 Tab PO DAILY (Patient not taking: Reported on 06/26/2024) 30 0 No current facility-administered medications for this visit. ALLERGIES Allergen Reactions Lactose Intolerance* Social History Tobacco Use Smoking status: Never Smokeless tobacco: Never Substance Use Topics Alcohol use: Yes Comment: 12 beers per week. Drug use: No FAMILY HISTORY Problem Relation Age of Onset other (CVA AND OF CHF [Other]) Father AGE 78 other (OVARIAN CANCER [Other]) Mother AGE 48 other (DIABETES AND OF HEART DISEASE [Other]) Brother AGE 51 PAST SURGICAL HISTORY Procedure Laterality Date LEFT HEART CATH,PERCUTANEOUS 2002, 2007 Cardiac cath, L heart X 2 PAST SURGICAL HISTORY OF remote Right great toe pinning TONSILLECTOMY PRIMARY/SECONDARY <AGE 13 childhood Tonsillectomy REVIEW OF SYSTEMS 12 point ROS performed and negative except for those mentioned in the HPI Physical Exam: Patient is a 79 year old male who appears well developed, well nourished and with good attention tohygiene and body habitus. Resp 18 Ht 177.8 cm (5' 10") Wt 103.4 kg (228 lb) BMI 32.71 kg/m Vascular: DP and PT pulses are palpable. CFT less than 3 seconds to all digits b/l. Skin temperature is warm to warm from proximal to distal b/l. Hair growth is noted. Mild edema to 1st MTPJ right . No varicosities noted. Neuro: Light touch intact b/l. Protective sensation intact at all pedal sites via [place] [employer] 5.07 monofilament b/l. Proprioception intact at the hallux b/l. No clonus noted. Babinski reflex notelicited b/l. Derm: Skin texture and turgor within normal limits. Toenails normal in appearance. Webspaces 1-4 clean, dry, intact b/l. No rashes, subcutaneous nodules, or open lesions noted. No hyperkeratotic tissue. no erythema Musc: Muscle strength is 5/5 for all muscle groups including dorsiflexors, plantarflexors, everters, and inverters b/l. There is a dorsal bony prominence at the 1st MTP joint right foot. Local effusion is noted to the 1st MTP joint. There is pain to palpation of the prominent dorsal eminence. Rangeof motion of the 1st MTP joint is severely decreased with positive pain noted. The hallux is noted to be in a rectus position. The first ray and medial column are noted to be wnl. no pain to palpation of plantar sesamoids. Positive central grind. Radiographs: 3 views of the right foot were reviewed Radiographic impression: Bone stock is WNL. No acute fractures or dislocations noted. All cortices are intact. Joint spaces are maintained with exception of the 1st MTP joint which demonstrates degenerative changes including joint space narrowing and marika-articular spur formation. Positive dorsal flag and elevatus of the 1st met noted. No increase in ST density. flattening of the met head with osteophyte formation and eburnation noted. Impression: This is a 79 year old patient presenting with hallux rigidus right foot, no improvement since last visit. Plan: A comprehensive history and physical examination were preformed. The patient was educated on clinical and radiographic findings, diagnosis and treatment plans. Patient state that he understands all that has been explained and all questions were answered to his apparent satisfaction. Etiology and tx options, both conservative and surgical were discussed in detail with the pt. Pt opts to pursue conservative measures at this time. - Discussed continued padding, the benefit of analgesics, rocker bottom and stiff soled shoes - continue carbon fiber insert - Continue with topical capsacin as needed - Tylenol OTC as needed -Did briefly discuss surgery, due to patient's medical co morbidities he is higher risk. Discussed following up in a few weeks and if still minimal improvement will discuss surgery in moredetail then - Follow up in 4 weeks Faviola Maradiaga DPM PGY-3 I personally saw and evaluated the patient. I reviewed the resident's note. I agree with the resident's assessment and plan unless otherwise noted. Jr Vargas DPM, FACFAS * Naomie Rhodes MA - 06/26/2024 1:22 PM EST REVIEW OF SYSTEMS: GENERAL: Well developed, well nourished. No acute distress PAIN: Pain Continuous CARDIOVASCULAR: Hyperlipidemia, Hypertension MSK: Negative for joint swelling SKIN: Negative for lesions, rash, itching, metal sensitivity NEURO: Negative for seizure, trauma, numbness/tingling of extremities. ENDOCRINE: Negative for diabetic associated symptoms HEMATOLOGY: Warfarin Naomie Rhodes MA [facility] NoteHNO ID: [id number] Author: NAOMIE RHODES MA Service: ? Author Type: Manager Pediatric Type: Progress Notes Filed: 07/11/2024 08:12 Note Text: REVIEW OF SYSTEMS: GENERAL: Well developed, well nourished. No acute distress PAIN: Pain Continuous CARDIOVASCULAR: Hyperlipidemia, Hypertension MSK: Negative for joint swelling SKIN: Negative for lesions, rash, itching, metal sensitivity NEURO: Negative for seizure, trauma, numbness/tingling of extremities. ENDOCRINE: Negative for diabetic associated symptoms HEMATOLOGY: Warfarin Naomie Rhodes [facility]10-24-2024 NoteHNO ID: [id number] Author: JR VARGAS DPM Service: ? Author Type: Physician Type: Progress Notes Filed: 05/21/2024 13:54 Note Text: CC: 1st MTP joint pain right HPI: This 79 year old male with PMH indicated below presents today complaining of a painful first MTP joint right foot x 12 months. Onset was gradual with worsening course in the last few months. Pain is moderate rated as 6/10 and present in shoes after prolonged WB. Pain is not relieved with removal of shoe gear. Denies any numbness at the joint. admits to swelling over the joint. admits to use of analgesics, with relief. Has tried to modify shoe gear with some relief. has not used orthotics. Denies any other pedal complaints. No primary care provider on file. PAST MEDICAL HISTORY Diagnosis Date AORTIC VALVE INSUFFICIENCY Cardiomyopathy in other diseases classified elsewhere Other and unspecified hyperlipidemia Shortness of breath Unspecified essential hypertension 08/19/2008 Current Outpatient Medications Medication Sig Dispense Refill UBIDECARENONE/VITAMIN E MIXED (COQ10 SG 100 ORAL) Take by mouth. Valsartan-Hydrochlorothiazide 320-25 mg per tablet Take 1 tablet by mouth once daily. doxazosin (CARDURA) 4 mg tablet Take 4 mg by mouth daily at bedtime. amLODIPine (NORVASC) 2.5 mg tablet Take 2.5 mg by mouth once daily. Multivitamin capsule Take 1 capsule by mouth once daily. pravastatin (PRAVACHOL) 80 mg tablet Take 80 mg by mouth once daily. ASPIRIN 81 MG CHEWABLE TAB 1 Tab PO DAILY 30 0 No current facility-administered medications for this visit. ALLERGIES Allergen Reactions Lactose Intolerance* Social History Tobacco Use Smoking status: Never Smokeless tobacco: Never Substance Use Topics Alcohol use: Yes Comment: 12 beers per week. Drug use: No FAMILY HISTORY Problem Relation Age of Onset other (CVA AND OF CHF [Other]) Father AGE 78 other (OVARIAN CANCER [Other]) Mother AGE 48 other (DIABETES AND OF HEART DISEASE [Other]) Brother AGE 51 PAST SURGICAL HISTORY Procedure Laterality Date LEFT HEART CATH,PERCUTANEOUS 2002, 2007 Cardiac cath, L heart X 2 PAST SURGICAL HISTORY OF remote Right great toe pinning TONSILLECTOMY PRIMARY/SECONDARY Tonsillectomy REVIEW OF SYSTEMS 12 point ROS performed and negative except for those mentioned in the HPI Physical Exam: Patient is a 79 year old male who appears well developed, well nourished and with good attention to hygiene and body habitus. Resp 16 Ht 177.8 cm (5' 10") Wt 103.4 kg (228 lb) BMI 32.71 kg/m? Vascular: DP and PT pulses are palpable. CFT less than 3 seconds to all digits b/l. Skin temperature is warm to warm from proximal to distal b/l. Hair growth is noted. Mild edema to 1st MTPJ right . No varicosities noted. Neuro: Light touch intact b/l. Protective sensation intact at all pedal sites via [place] 5.07 monofilament b/l. Proprioception intact at the hallux b/l. No clonus noted. Babinski reflex not elicited b/l. Derm: Skin texture and turgor within normal limits. Toenails normal in appearance. Webspaces 1-4 clean, dry, intact b/l. No rashes, subcutaneous nodules, or open lesions noted. No hyperkeratotic tissue. no erythema Musc: Muscle strength is 5/5 for all muscle groups including dorsiflexors, plantarflexors, everters, and inverters b/l. There is a dorsal bony prominence at the 1st MTP joint right foot. Local effusion is noted to the 1st MTP joint. There is pain to palpation of the prominent dorsal eminence. Range of motion of the 1st MTP joint is severely decreased with positive pain noted. The hallux is noted to be in a rectus position. The first ray and medial column are noted to be wnl. no pain to palpation of plantar sesamoids. Positive central grind. Radiographs: 3 views of the right foot were taken today. Radiographic impression: Bone stock is WNL. No acute fractures or dislocations noted. All cortices are intact. Joint spaces are maintained with exception of the 1st MTP joint which demonstrates degenerative changes including joint space narrowing and marika-articular spur formation. Positive dorsal flag and elevatus of the 1st met noted. No increase in ST density. flattening of the met head with osteophyte formation and eburnation noted. Impression: This is a 79 year old patient presenting with hallux rigidus right foot. Plan: A comprehensive history and physical examination were preformed. The patient was educated on clinical and radiographic findings, diagnosis and treatment plans. Patient state that he understands all that has been explained and all questions were answered to his apparent satisfaction. Etiology and tx options, both conservative and surgical were discussed in detail with the pt. Pt opts to pursue conservative measures at this time. - Discussed padding, the benefit of analgesics, rocker bottom and stiff soled shoes (more content not included)...[facility]10-24-2024 History of Present illness Narrative* Jr Vargas DPM - 05/15/2024 8:31 AM EDT CC: 1st MTP joint pain right HPI: This 79 year old male with PMH indicated below presents today complaining of a painful first MTP joint right foot x 12 months. Onset was gradual with worsening course in the last few months. Pain is moderate rated as 6/10 and present in shoes after prolonged WB. Pain is not relieved with removal of shoe gear. Denies any numbness at the joint. admits to swelling over the joint. admits to use of analgesics, with relief. Has tried to modify shoe gear with some relief. has not used orthotics. Denies any other pedal complaints. No primary care provider on file. PAST MEDICAL HISTORY Diagnosis Date AORTIC VALVE INSUFFICIENCY Cardiomyopathy in other diseases classified elsewhere Other and unspecified hyperlipidemia Shortness of breath Unspecified essential hypertension 08/19/2008 Current Outpatient Medications Medication Sig Dispense Refill UBIDECARENONE/VITAMIN E MIXED (COQ10 SG 100 ORAL) Take by mouth. Valsartan-Hydrochlorothiazide 320-25 mg per tablet Take 1 tablet by mouth once daily. doxazosin (CARDURA) 4 mg tablet Take 4 mg by mouth daily at bedtime. amLODIPine (NORVASC) 2.5 mg tablet Take 2.5 mg by mouth once daily. Multivitamin capsule Take 1 capsule by mouth once daily. pravastatin (PRAVACHOL) 80 mg tablet Take 80 mg by mouth once daily. ASPIRIN 81 MG CHEWABLE TAB 1 Tab PO DAILY 30 0 No current facility-administered medications for this visit. ALLERGIES Allergen Reactions Lactose Intolerance* Social History Tobacco Use Smoking status: Never Smokeless tobacco: Never Substance Use Topics Alcohol use: Yes Comment: 12 beers per week. Drug use: No FAMILY HISTORY Problem Relation Age of Onset other (CVA AND OF CHF [Other]) Father AGE 78 other (OVARIAN CANCER [Other]) Mother AGE 48 other (DIABETES AND OF HEART DISEASE [Other]) Brother AGE 51 PAST SURGICAL HISTORY Procedure Laterality Date LEFT HEART CATH,PERCUTANEOUS 2002, 2007 Cardiac cath, L heart X 2 PAST SURGICAL HISTORY OF remote Right great toe pinning TONSILLECTOMY PRIMARY/SECONDARY <AGE 13 childhood Tonsillectomy REVIEW OF SYSTEMS 12 point ROS performed and negative except for those mentioned in the HPI Physical Exam: Patient is a 79 year old male who appears well developed, well nourished and with good attention tohygiene and body habitus. Resp 16 Ht 177.8 cm (5' 10") Wt 103.4 kg (228 lb) BMI 32.71 kg/m Vascular: DP and PT pulses are palpable. CFT less than 3 seconds to all digits b/l. Skin temperature is warm to warm from proximal to distal b/l. Hair growth is noted. Mild edema to 1st MTPJ right . No varicosities noted. Neuro: Light touch intact b/l. Protective sensation intact at all pedal sites via [place] 5.07 monofilament b/l. Proprioception intact at the hallux b/l. No clonus noted. Babinski reflex notelicited b/l. Derm: Skin texture and turgor within normal limits. Toenails normal in appearance. Webspaces 1-4 clean, dry, intact b/l. No rashes, subcutaneous nodules, or open lesions noted. No hyperkeratotic tissue. no erythema Musc: Muscle strength is 5/5 for all muscle groups including dorsiflexors, plantarflexors, everters, and inverters b/l. There is a dorsal bony prominence at the 1st MTP joint right foot. Local effusion is noted to the 1st MTP joint. There is pain to palpation of the prominent dorsal eminence. Rangeof motion of the 1st MTP joint is severely decreased with positive pain noted. The hallux is noted to be in a rectus position. The first ray and medial column are noted to be wnl. no pain to palpation of plantar sesamoids. Positive central grind. Radiographs: 3 views of the right foot were taken today. Radiographic impression: Bone stock is WNL. No acute fractures or dislocations noted. All cortices are intact. Joint spaces are maintained with exception of the 1st MTP joint which demonstrates degenerative changes including joint space narrowing and marika-articular spur formation. Positive dorsal flag and elevatus of the 1st met noted. No increase in ST density. flattening of the met head with osteophyte formation and eburnation noted. Impression: This is a 79 year old patient presenting with hallux rigidus right foot. Plan: A comprehensive history and physical examination were preformed. The patient was educated on clinical and radiographic findings, diagnosis and treatment plans. Patient state that he understands all that has been explained and all questions were answered to his apparent satisfaction. Etiology and tx options, both conservative and surgical were discussed in detail with the pt. Pt opts to pursue conservative measures at this time. - Discussed padding, the benefit of analgesics, rocker bottom and stiff soled shoes - Advised patient on purchase of carbon fiber insert for use in shoe gear. - Continue with topical capsacin as needed - Tylenol OTC as needed - Follow up in 6 weeks Madi Fierro DPM, PGY-3 I personally saw and evaluated the patient. I reviewed the resident's note. I agree with the resident's assessment and plan unless otherwise noted. Jr Vargas DPM, FACFAS [facility] History of Present illness Narrative* Collin Pollock MD - 01/29/2024 11:00 AM EDT [facility] Cardiology Note Chief Complaint: Chief Complaint Patient presents with New Patient History of Present Illness: Jey Rush is a 78 y.o. male referred for evaluation of an abnormal Holter monitor. He follows with Dr. Thacker then Dr. Davies done at the [facility]. He presents today a bit uncertain as to why he is here. He feels fine except for very brief episodes of lightheadedness. He has not had syncope. He is not bothered by his persistent atrial fibrillation. Records are reviewed. A Holter monitor demonstrated atrial fibrillation throughout with an average ventricular response of 70 bpm. The minimum was 29 and the maximum was 160 with exercise. Notably, there is a 23% PVC burden. He had occasional 4 beat runs of nonsustained ventricular tachycardia. He status post aortic valve surgery after which he had brief conduction system abnormalities. He isnot managed with a beta-marysol given his occasional relative bradycardia and average heart rate of70 bpm in atrial fibrillation. ECGs demonstrate atrial fibrillation ventricular response 60-70 bpm with an IVCD and a pattern of aleft bundle branch block. Echocardiography from this year demonstrates ejection fraction around 50%. He also underwent cardiac catheterization which did not demonstrate any significant coronary artery disease. Overall he feels fine. Energy level is acceptable. Past Medical History: Past Medical History: Diagnosis Date Aortic valve replaced HTN (hypertension) Hx of degenerative disc disease OA (osteoarthritis) CONCEPCION (obstructive sleep apnea) PAF (paroxysmal atrial fibrillation) (HCC) Rosacea Vitamin D deficiency Past Surgical History Past Surgical History: Procedure Laterality Date AORTA SURGERY ascending aorta aortoplasty 2009 AORTIC VALVE REPLACEMENT 2009 biopothetic 25mm frank cosme HIP SURGERY Left Family History No family history on file. Social History Social History Tobacco Use Smoking status: Never Smokeless tobacco: Never Substance Use Topics Alcohol use: Yes Alcohol/week: 14.0 standard drinks of alcohol Types: 14 Cans of beer per week Allergies: Allergies Allergen Reactions Lactose Intolerance (Gi) Diarrhea Gas Medications: Current Outpatient Medications: amLODIPine (Norvasc) 2.5 MG tablet, Take 5 mg by mouth in the morning., Disp: , Rfl: cholecalciferol (Vitamin D-3) 25 MCG (1000 UT) capsule, Take 4,000 Units by mouth daily., Disp: , Rfl: furosemide (Lasix) 40 MG tablet, Take 40 mg by mouth daily., Disp: , Rfl: gabapentin (Neurontin) 600 MG tablet, Take 600 mg by mouth Nightly. Takes 2 tabs, Disp: , Rfl: losartan-hydroCHLOROthiazide (Hyzaar) 100-25 MG tablet, Take 1 tablet by mouth daily., Disp: , Rfl: Magnesium Oxide (MAG-200 PO), Take 500 mg by mouth Nightly., Disp: , Rfl: Multiple Vitamin (multivitamin) capsule, Take 1 capsule by mouth daily., Disp: , Rfl: pravastatin (Pravachol) 80 MG tablet, Take 80 mg by mouth in the morning., Disp: , Rfl: tiZANidine (Zanaflex) 4 MG capsule, Take 4 mg by mouth Nightly., Disp: , Rfl: warfarin (Coumadin) 4 MG tablet, Take 4 mg by mouth See administration instructions. Take as directed per After Visit Summary., Disp: , Rfl: Review of Systems: Review of Systems Constitutional: Negative. Negative for activity change, chills, diaphoresis, fatigue and fever. HENT: Negative. Negative for nosebleeds and trouble swallowing. Eyes: Negative. Negative for discharge and visual disturbance. Respiratory: Negative. Negative for apnea, cough, chest tightness, shortness of breath and wheezing. Cardiovascular: Positive for palpitations. Negative for chest pain and leg swelling. Gastrointestinal: Negative. Negative for abdominal distention, abdominal pain, blood in stool, diarrhea, nausea and vomiting. Endocrine: Negative. Negative for cold intolerance and heat intolerance. Genitourinary: Negative. Negative for hematuria. Musculoskeletal: Negative. Negative for gait problem and myalgias. Skin: Negative. Negative for color change and rash. Neurological: Positive for light-headedness. Negative for dizziness, seizures, syncope, facial asymmetry, speech difficulty, weakness, numbness and headaches. Hematological: Negative. Does not bruise/bleed easily. Psychiatric/Behavioral: Negative. Negative for dysphoric mood. Physical Examination: Vitals: Vitals: 01/29/24 1032 BP: 124/62 BP Location: Left arm Patient Position: Sitting BP Cuff Size: Adult Pulse: 78 SpO2: 96% Weight: 232 lb (105 kg) Height: 5' 10" (1.778 m) Body mass index is 33.29 kg/m . Physical Exam Vitals reviewed. Constitutional: Appearance: Normal appearance. HENT: Head: Normocephalic. Right Ear: External ear normal. Left Ear: External ear normal. Nose: Nose normal. Mouth/Throat: Mouth: Mucous membranes are moist. Eyes: Pupils: Pupils are equal, round, and reactive to light. Cardiovascular: Rate and Rhythm: Normal rate. Rhythm irregular. Heart sounds: No murmur heard. Pulmonary: Effort: No respiratory distress. Musculoskeletal: General: Normal range of motion. Right lower leg: No edema. Left lower leg: No edema. Skin: General: Skin is warm and dry. Coloration: Skin is not jaundiced. Neurological: General: No focal deficit present. Mental Status: He is alert. Psychiatric: Mood and Affect: Mood normal. Behavior: Behavior normal. Thought Content: Thought content normal. Judgment: Judgment normal. Laboratory Tests: No results found for: "WBC", "HGB", "HCT", "MCV", "PLT" No results found for: "GLUCOSE", "CALCIUM", "NA", "K", "CO2", "CL", "BUN", CREATININE @LASTCMP@ No results found for: "CHLPL", "CHOL" No results found for: "TRIG" No results found for: "HDL" No results found for: "LDLCALC" Assessment and Plan: Atrial fibrillation: Asymptomatic and rate controlled in the absence of AV nahum blockade. He will continue his warfarin for an INR between 2 and 3. I would not recommend striving for sinus rhythm. PVCs: He has a 23% burden in his essentially asymptomatic with these as well. His last ejection fraction was around 50%. He has short episodes of nonsustained ventricular tachycardia to 4 beats. He is not on a beta-marysol. Made a lengthy discussion regarding options of conservative management withfollowing of the ejection fraction versus aggressive suppressive therapy including potential EP study and ablation versus permanent pacing with the addition of beta-blockade. We also discussed permanent pacing with the addition of antiarrhythmic drug. After careful consideration of all of these, heopts for a more conservative strategy. I discussed the potential for a PVC induced myopathy and he u nderstands his PVC percentage is in the range where this could occur. I would repeat echocardiography this year and if LV function is dropping, would then have a more forceful recommendation for PVC suppression. Given his age and personal philosophies it is certainly reasonable to take a conservative approach. Hypertension: Blood pressure is under good control on losartan- hydrochlorothiazide 100-25 and amlodipine 2.5. documented in this [facility]02-01-2009 Evaluation note* Diagnosis Onset Date Resolution Status Aortic root dilatation chron ic Cardiomyopathy in other dise ases classified elsewhere chronic Essential hypertension chron ic H/O aortic valve replacement August, chronic Hyperlipidemia chronic Paroxysmal atrial fibrillation chronic Aortic root dilatation chron ic Cardiomyopathy in other dise ases classified elsewhere chronic Essential hypertension chron ic H/O aortic valve replacement August, chronic Hyperlipidemia chronic Paroxysmal atrial fibrillation chronic Pain in right foot acute Nocturnal leg cramps chronic Polyneuropathy, unspecified chronic Congestive heart failure chr onic CONCEPCION (obstructive sleep apnea) [facility] Work Phone: 1(336) 198-551202-01-2009 Evaluation note* Diagnosis Onset Date Resolution Status Aortic root dilatation chron ic Cardiomyopathy in other dise ases classified elsewhere chronic Essential hypertension chron ic H/O aortic valve replacement August, chronic Hyperlipidemia chronic Paroxysmal atrial fibrillation chronic Congestive heart failure chr onic CONCEPCION (obstructive sleep apnea) chronic Paroxysmal atrial fibrillation [facility] Work Phone: 1(164) 353-418802-01-2009 Evaluation note* Diagnosis Onset Date Resolution Status Aortic root dilatation chron ic Cardiomyopathy in other dise ases classified elsewhere chronic Essential hypertension chron ic H/O aortic valve replacement August, chronic Hyperlipidemia chronic Paroxysmal atrial fibrillation [facility] Work Phone: 1(780) 282-757202-01-2009 Evaluation note* Diagnosis Onset Date Resolution Status Aortic root dilatation chron ic Cardiomyopathy in other dise ases classified elsewhere chronic Essential hypertension chron ic H/O aortic valve replacement August, chronic Hyperlipidemia chronic Paroxysmal atrial fibrillation chronic Atrial fibrillation chronic Nocturnal leg cramps chronic Obesity chronic CONCEPCION (obstructive sleep apnea) [facility] Work Phone: Evaluation note* Diagnosis Onset Date Resolution Status Nocturnal leg cramps acute Polyneuropathy, unspecified acute [facility] Work Phone: Evaluation note* Diagnosis Onset Date Resolution Status Nocturnal leg cramps acute Polyneuropathy, unspecified acute Family history of diabetes mellitus acute Fatigue acute Hypertriglyceridemia acute Aortic root dilatation chron ic Cardiomyopathy in other dise ases classified elsewhere chronic Essential hypertension chron ic H/O aortic valve replacement August, chronic Hyperlipidemia chronic Paroxysmal atrial fibrillation [facility] Work Phone: Evaluation note* Diagnosis Onset Date Resolution Status Family history of diabetes mellitus acute Fatigue acute Hypertriglyceridemia acute Aortic root dilatation chron ic Cardiomyopathy in other dise ases classified elsewhere chronic Essential hypertension chron ic H/O aortic valve replacement August, chronic Hyperlipidemia chronic Paroxysmal atrial fibrillation chronic Aortic root dilatation chron ic Cardiomyopathy in other dise ases classified elsewhere chronic Essential hypertension chron ic H/O aortic valve replacement August, chronic Hyperlipidemia chronic Paroxysmal atrial fibrillation [facility] Work Phone: Evaluation note* Diagnosis Onset Date Resolution Status Congestive heart failure chr onic CONCEPCION (obstructive sleep apnea) chronic Paroxysmal atrial fibrillation chronic Nocturnal leg cramps chronic Polyneuropathy, unspecified chronic CONCEPCION (obstructive sleep apnea) [facility] Work Phone: Evaluation note* Diagnosis Onset Date Resolution Status Nocturnal leg cramps chronic Polyneuropathy, unspecified chronic CONCEPCION (obstructive sleep apnea) chronic Aortic root dilatation chron ic Cardiomyopathy in other dise ases classified elsewhere chronic Essential hypertension chron ic H/O aortic valve replacement August, chronic Hyperlipidemia chronic Paroxysmal atrial fibrillation [facility] Work Phone: Evaluation note* Diagnosis Onset Date Resolution Status Atrial fibrillation chronic Nocturnal leg cramps chronic Obesity chronic CONCEPCION (obstructive sleep apnea) chronic Nocturnal leg cramps chronic Polyneuropathy, unspecified chronic Sleep apnea acute Atrial fibrillation chronic Nocturnal leg cramps chronic Obesity [facility] Work Phone: Evaluation note* Diagnosis Onset Date Resolution Status Nocturnal leg cramps chronic Polyneuropathy, unspecified chronic Sleep apnea acute Atrial fibrillation chronic Nocturnal leg cramps chronic Obesity [facility] Work Phone: Evaluation note* Diagnosis Onset Date Resolution Status Leukocytosis, unspecified ch ronic Nocturnal leg cramps chronic Polyneuropathy, unspecified chronic Leukocytosis, unspecified ch ronic Leukocytosis, unspecified ch ronic Dizziness acute Atrial fibrillation chronic Congestive heart failure chr onic Essential hypertension chron ic H/O aortic valve replacement August, chronic Hyperlipidemia 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 Obesity [facility] Work Phone: Evaluation note* Diagnosis Onset Date Resolution Status Leukocytosis, unspecified ch ronic Nocturnal leg cramps chronic Polyneuropathy, unspecified chronic Leukocytosis, unspecified ch ronic Leukocytosis, unspecified ch ronic Dizziness acute Atrial fibrillation chronic Congestive heart failure chr onic Essential hypertension chron ic H/O aortic valve replacement August, chronic Hyperlipidemia 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 Obesity chronic Obesity chronic Sleep apnea [facility] Work Phone: Evaluation note* Diagnosis Atrial fibrillation, unspecified type (HCC) Palpitations Bradycardia Other specified cardiac dysrhythmias documented in this encounter [facility] note* Diagnosis Right foot pain- Primary Pain in limb Hallux rigidus of right foot Hallux rigidus documented in this encounter [facility] note* Diagnosis Hallux rigidus of right foot- Primary Hallux rigidus documented in this encounter [facility] note* Diagnosis Hallux rigidus of right foot- Primary Hallux rigidus Right foot pain Pain in limb documented in this encounter [facility] for referral (narrative)* Diagnostic Procedure Only (Routine) - New Request Specialty Diagnoses / Procedures Referred By Wyatt t Referred To Contact XR IMAGING Diagnoses Right foot pain Procedures XR FOOT GENERAL 3V AP/LAT/OBL RIGHT RADEX FOOT COMPLETE MINIMUM 3 VIEWS Jr Vargas DPM [address] [address] [place] [address] Referral ID Status Reason Start Date Expiration Date Visits Requested Visits Authorized [id number] New Request Auto-Generat ed Referral 4 06/14/2025 1 1 [facility] for referral (narrative)No reason for referral information [facility]WP[facility] Work [facility]: Chief Complaint and Reason for Visit Chief Complaint COPY RESULTS TO DR Roma MARTINEZ COPY RESULTS TO DR KOLB 3 M FU COPY RESULTS TO DR KOLB COPY RESULTS TO DR KOLB Reason for Visit Nocturnal leg cramps Polyneuropathy, unspecified Chief Complaint COPY RESULTS TO DR Roma MARTINEZ 3 M FU COPY RESULTS TO DR KOLB COPY RESULTS TO DR KOLB COPY RESULTS TO DR KOLB 6 M FU E-ORDER Reason for Visit Nocturnal leg cramps Polyneuropathy, unspecified Family history of diabetes mellitus Fatigue Hypertriglyceridemia Aortic root dilatation Cardiomyopathy in other diseases classified elsewhere Essential hypertension H/O aortic valve replacement Hyperlipidemia Paroxysmal atrial fibrillation Chief Complaint 3 M FU COPY RESULTS TO DR KOLB COPY RESULTS TO DR KOLB COPY RESULTS TO DR KOLB 6 M FU E-ORDER Cardiomyopathy in diseases classified elsewhere Cardiomyopathy in diseases classified elsewhere COPY RESULTS TO DR KOLB Reason for Visit Nocturnal leg cramps Polyneuropathy, unspecified Family history of diabetes mellitus Fatigue Hypertriglyceridemia Aortic root dilatation Cardiomyopathy in other diseases classified elsewhere Essential hypertension H/O aortic valve replacement Hyperlipidemia Paroxysmal atrial fibrillation Chief Complaint COPY RESULTS TO DR Roma MARTINEZ 6 M FU E-ORDER Cardiomyopathy in diseases classified elsewhere Cardiomyopathy in diseases classified elsewhere COPY RESULTS TO DR KOLB COPY RESULTS TO DR KOLB 3 M FU Reason for Visit Family history of di abetes mellitus Fatigue Hypertriglyceridemia Aortic root dilatation Cardiomyopathy in other diseases classified elsewhere Essential hypertension H/O aortic valve replacement Hyperlipidemia Paroxysmal atrial fibrillation Aortic root dilatation Cardiomyopathy in other diseases classified elsewhere Essential hypertension H/O aortic valve replacement Hyperlipidemia Paroxysmal atrial fibrillation Chief Complaint COPY RESULTS TO DR Roma MARTINEZ 6 M FU E-ORDER Cardiomyopathy in diseases classified elsewhere Cardiomyopathy in diseases classified elsewhere COPY RESULTS TO DR KOLB COPY RESULTS TO DR KOLB 3 M FU COPY RESULTS TO DR KOLB Reason for Visit Family history of di abetes mellitus Fatigue Hypertriglyceridemia Aortic root dilatation Cardiomyopathy in other diseases classified elsewhere Essential hypertension H/O aortic valve replacement Hyperlipidemia Paroxysmal atrial fibrillation Aortic root dilatation Cardiomyopathy in other diseases classified elsewhere Essential hypertension H/O aortic valve replacement Hyperlipidemia Paroxysmal atrial fibrillation Chief Complaint Cardiomyopathy in di seases classified elsewhere Cardiomyopathy in diseases classified elsewhere COPY RESULTS TO DR KOLB COPY RESULTS TO DR KOLB 3 M FU COPY RESULTS TO DR KOLB COPY RESULTS TO DR KOLB 6 wk fu 6 M FU EORDER- pain in right 1st metatarsal region 1 Y FU Reason for Visit Aortic root dilatati on Cardiomyopathy in other diseases classified elsewhere Essential hypertension H/O aortic valve replacement Hyperlipidemia Paroxysmal atrial fibrillation Aortic root dilatation Cardiomyopathy in other diseases classified elsewhere Essential hypertension H/O aortic valve replacement Hyperlipidemia Paroxysmal atrial fibrillation Pain in right foot Nocturnal leg cramps Polyneuropathy, unspecified Congestive heart failure CONCEPCION (obstructive sleep apnea) Chief Complaint COPY RESULTS TO DR Roma MARTINEZ COPY RESULTS TO DR KOLB 3 M FU COPY RESULTS TO DR KOLB COPY RESULTS TO DR KOLB 6 wk fu 6 M FU EORDER- pain in right 1st metatarsal region 1 Y FU CONCEPCION RIGHT KNEE PAIN Reason for Visit Aortic root dilatati on Cardiomyopathy in other diseases classified elsewhere Essential hypertension H/O aortic valve replacement Hyperlipidemia Paroxysmal atrial fibrillation Aortic root dilatation Cardiomyopathy in other diseases classified elsewhere Essential hypertension H/O aortic valve replacement Hyperlipidemia Paroxysmal atrial fibrillation Pain in right foot Nocturnal leg cramps Polyneuropathy, unspecified Congestive heart failure CONCEPCION (obstructive sleep apnea) Chief Complaint COPY RESULTS TO DR Roma MARTINEZ 3 M FU COPY RESULTS TO DR KOLB COPY RESULTS TO DR KOLB 6 wk fu 6 M FU EORDER- pain in right 1st metatarsal region 1 Y FU CONCEPCION RIGHT KNEE PAIN RCR INR/CC CORTES ALSO Reason for Visit Aortic root dilatati on Cardiomyopathy in other diseases classified elsewhere Essential hypertension H/O aortic valve replacement Hyperlipidemia Paroxysmal atrial fibrillation Aortic root dilatation Cardiomyopathy in other diseases classified elsewhere Essential hypertension H/O aortic valve replacement Hyperlipidemia Paroxysmal atrial fibrillation Pain in right foot Nocturnal leg cramps Polyneuropathy, unspecified Congestive heart failure CONCEPCION (obstructive sleep apnea) Chief Complaint 6 M FU AFIB RCR INR/CC CORTES ALSO 4 M FU RCR INR/CC CORTES ALSO Reason for Visit Aortic root dilatati on Cardiomyopathy in other diseases classified elsewhere Essential hypertension H/O aortic valve replacement Hyperlipidemia Paroxysmal atrial fibrillation Congestive heart failure CONCEPCION (obstructive sleep apnea) Paroxysmal atrial fibrillation Chief Complaint RCR INR/CC CORTES ALSO 4 M FU RCR INR/CC CORTES ALSO 6 M FU 2 M FU RCR INR/CC CORTES ALSO Reason for Visit Congestive heart jesus lure CONCEPCION (obstructive sleep apnea) Paroxysmal atrial fibrillation Nocturnal leg cramps Polyneuropathy, unspecified CONCEPCION (obstructive sleep apnea) Chief Complaint 6 M FU 2 M FU RCR INR/CC CORTES ALSO 6 M FU RCR INR/CC CORTES ALSO RCR INR/CC CORTES ALSO Reason for Visit Nocturnal leg cramps Polyneuropathy, unspecified CONCEPCION (obstructive sleep apnea) Aortic root dilatation Cardiomyopathy in other diseases classified elsewhere Essential hypertension H/O aortic valve replacement Hyperlipidemia Paroxysmal atrial fibrillation Chief Complaint RCR INR/CC CORTES ALSO 6 M FU RCR INR/CC CORTES ALSO RCR INR/CC CORTES ALSO RCR INR// ADDT DR MARIANO ORDER SCANNED 12/26/22 Reason for Visit Aortic root dilatati on Cardiomyopathy in other diseases classified elsewhere Essential hypertension H/O aortic valve replacement Hyperlipidemia Paroxysmal atrial fibrillation Chief Complaint RCR INR// ADDT DR CHARLIE ESTRADA ORDER SCANNED 12/26/22 3 m fu 6 M FU RCR INR Reason for Visit Aortic root dilatati on Cardiomyopathy in other diseases classified elsewhere Essential hypertension H/O aortic valve replacement Hyperlipidemia Paroxysmal atrial fibrillation Atrial fibrillation Nocturnal leg cramps Obesity CONCEPCION (obstructive sleep apnea) Chief Complaint 6 M FU RCR INR 8 MO FU 3 M FU RCR INR-3 ORDERING DRS Reason for Visit Atrial fibrillation Nocturnal leg cramps Obesity CONCEPCION (obstructive sleep apnea) Nocturnal leg cramps Polyneuropathy, unspecified Sleep apnea Atrial fibrillation Nocturnal leg cramps Obesity Chief Complaint 8 MO FU 3 M FU RCR INR-3 ORDERING DRS DYSPNEA/SOB Reason for Visit Nocturnal leg cramps Polyneuropathy, unspecified Sleep apnea Atrial fibrillation Nocturnal leg cramps Obesity Chief Complaint 8 MO FU 3 M FU RCR INR-3 ORDERING DRS DYSPNEA/SOB RCR INR-3 ORDERING DRS Amb Documentation Reason for Visit Nocturnal leg cramps Polyneuropathy, unspecified Sleep apnea Atrial fibrillation Nocturnal leg cramps Obesity Chief Complaint 8 MO FU 3 M FU RCR INR-3 ORDERING DRS DYSPNEA/SOB RCR INR-3 ORDERING DRS Amb Documentation CONCEPCION *SCHED AFTER ECHO RESULTS* Reason for Visit Nocturnal leg cramps Polyneuropathy, unspecified Sleep apnea Atrial fibrillation Nocturnal leg cramps Obesity Chief Complaint DYSPNEA/SOB RCR INR-3 ORDERING DRS Amb Documentation CONCEPCION *SCHED AFTER ECHO RESULTS* 4 M FU NEW-ELEVATED WBC REVIEW LABS 9 M FU/PREV PFM RCR INR-3 ORDERING DRS Reason for Visit Leukocytosis, unspec ified Nocturnal leg cramps Polyneuropathy, unspecified Leukocytosis, unspecified Leukocytosis, unspecified Dizziness Atrial fibrillation Congestive heart failure Essential hypertension H/O aortic valve replacement Hyperlipidemia 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 Obesity Chief Complaint DYSPNEA/SOB RCR INR-3 ORDERING DRS Amb Documentation CONCEPCION *SCHED AFTER ECHO RESULTS* 4 M FU NEW-ELEVATED WBC REVIEW LABS 9 M FU/PREV PFM RCR INR-3 ORDERING DRS 3 M FU BRADYCARDIA, A-FIB RCR INR-3 ORDERING DRS Reason for Visit Leukocytosis, unspec ified Nocturnal leg cramps Polyneuropathy, unspecified Leukocytosis, unspecified Leukocytosis, unspecified Dizziness Atrial fibrillation Congestive heart failure Essential hypertension H/O aortic valve replacement Hyperlipidemia 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 Obesity Obesity Sleep apnea Chief Complaint Admit Date RCR INR- July 17, 2024 7:52am FALL July 26, 2024 7: 17pm LT LOWER EXTREMITY August 18, 2024 3 :23pm RCR INR- August 18, 2024 4 :30pm 6 M FU September 04, 2024 2:06pm RCR INR- October 14, 2024 9:4 0am Reason for Visit Admit Date Hoarseness September 04, 2024 2:06pm Obesity September 04, 2024 2:06pm Sleep apnea September 04, 2024 2:06pm Chief Complaint Admit Date LT LOWER EXTREMITY August 18, 2024 3 :23pm RCR INR- August 18, 2024 4 :30pm 6 M FU September 04, 2024 2:06pm RCR INR- October 14, 2024 9:4 0am 1 Y FU October 28, 2024 9:06 am RCR INR- EXTRA ORDERS FROM HEART GROUP A pril 2024 8:49am SYNCOPE November 13, 2024 1:4 9pm Syncope November 13, 2024 2:1 0pm BP CHECK November 14, 2024 1:1 7pm PRESENCE OF PROSTHETIC HEART VALVE November 252024 1:47pm Reason for Visit Admit Date Hoarseness September 04, 2024 2:06pm Obesity September 04, 2024 2:06pm Sleep apnea September 04, 2024 2:06pm Bradycardia October 28, 2024 9:06 am Syncope October 28, 2024 9:06 am Ventricular ectopy October 28, 2024 9:06 am Aortic root dilatation October 28, 2024 9 :06am Atrial fibrillation October 28, 2024 9:06 am Congestive heart failure October 28, 2024 9:06am Essential hypertension October 28, 2024 9 :06am H/O aortic valve replacement October 28, 2024 9:06am Hyperlipidemia October 28, 2024 9:06 am retirement current use of anticoagulant A pril 2024 9:06am Obesity October 28, 2024 9:06 am Sleep apnea October 28, 2024 9:06 am Chief Complaint Admit Date RCR INR- October 14, 2024 9:4 0am 1 Y FU October 28, 2024 9:06 am RCR INR- EXTRA ORDERS FROM HEART GROUP A pri2024 8:49am SYNCOPE November 13, 2024 1:4 9pm Syncope November 13, 2024 2:1 0pm BP CHECK November 14, 2024 1:1 7pm PRESENCE OF PROSTHETIC HEART VALVE November 252024 1:47pm 8 M FU January 06, 2025 12:5 2pm Reason for Visit Admit Date Bradycardia October 28, 2024 9:06 am Syncope October 28, 2024 9:06 am Ventricular ectopy October 28, 2024 9:06 am Aortic root dilatation October 28, 2024 9 :06am Atrial fibrillation October 28, 2024 9:06 am Congestive heart failure October 28, 2024 9:06am Essential hypertension October 28, 2024 9 :06am H/O aortic valve replacement October 28, 2024 9:06am Hyperlipidemia October 28, 2024 9:06 am 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 A 2024 9:06am Obesity October 28, 2024 9:06 am Sleep apnea October 28, 2024 9:06 am Elevated blood sugar January 06, 2025 12: 52pm Chief Complaint Admit Date RCR INR- October 14, 2024 9:4 0am 1 Y FU October 28, 2024 9:06 am RCR INR- EXTRA ORDERS FROM HEART GROUP A pri2024 8:49am SYNCOPE November 13, 2024 1:4 9pm Syncope November 13, 2024 2:1 0pm BP CHECK November 14, 2024 1:1 7pm PRESENCE OF PROSTHETIC HEART VALVE November 252024 1:47pm 8 M FU January 06, 2025 12:5 2pm RCR INR-EORDER / ALSO ORDER 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 January 13, 2025 9:08am Reason for Visit Admit Date Bradycardia October 28, 2024 9:06 am Syncope October 28, 2024 9:06 am Ventricular ectopy October 28, 2024 9:06 am Aortic root dilatation October 28, 2024 9 :06am Atrial fibrillation October 28, 2024 9:06 am Congestive heart failure October 28, 2024 9:06am Essential hypertension October 28, 2024 9 :06am H/O aortic valve replacement October 28, 2024 9:06am Hyperlipidemia October 28, 2024 9:06 am 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 A pril 2024 9:06am Obesity October 28, 2024 9:06 am Sleep apnea October 28, 2024 9:06 am Elevated blood sugar January 06, 2025 12: 52pm Nocturnal leg cramps January 06, 2025 12: 52pm Polyneuropathy, unspecified January 06, 2 025 12:52pm Chief Complaint Admit Date 1 Y FU October 28, 2024 9:06 am RCR INR- EXTRA ORDERS FROM HEART GROUP A pril 2024 8:49am SYNCOPE November 13, 2024 1:4 9pm Syncope November 13, 2024 2:1 0pm BP CHECK November 14, 2024 1:1 7pm PRESENCE OF PROSTHETIC HEART VALVE November 252024 1:47pm 8 M FU January 06, 2025 12:5 2pm RCR INR-EORDER / ALSO ORDER 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 January 13, 2025 9:08am S/O INR January 27, 2025 8:41a m Chief Complaint Admit Date SYNCOPE November 13, 2024 1:4 9pm Syncope November 13, 2024 2:1 0pm BP CHECK November 14, 2024 1:1 7pm PRESENCE OF PROSTHETIC HEART VALVE November 252024 1:47pm 8 M FU January 06, 2025 12:5 2pm RCR INR-EORDER / ALSO ORDER 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 January 13, 2025 9:08am S/O INR January 27, 2025 8:41a m S/O INR February 24, 2025 7:5 7am 6 M FU March 05, 2025 1: 40pm Reason for Visit Admit Date Elevated blood sugar January 06, 2025 12: 52pm Nocturnal leg cramps January 06, 2025 12: 52pm Polyneuropathy, unspecified January 06 12:52pm Sleep apnea March 05, 2025 1: 40pm Chief Complaint Admit Date PRESENCE OF PROSTHETIC HEART VALVE November 252024 1:47pm 8 M FU January 06, 2025 12:5 2pm RCR INR-EORDER / ALSO ORDER 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 January 13, 2025 9:08am S/O INR January 27, 2025 8:41a m S/O INR February 24, 2025 7:5 7am 6 M FU March 05, 2025 1: 40pm DIZZINESS,PVC, SYNCOPE March 14, 2025 9:12am Family History No Family History Records Found Relationship Condition Age at Onset Recorded Date/T daryl father Cerebrovascular accident (CVA) Unknown Congestive heart failure Unknown brother Cardiac disease Unknown Diabetes mellitus Unknown mother Malignant neoplasm Unknown Advance Directives No Advanced Directives Records Found Advance Directive Response Recorded Date/ Time Advance Directives Yes March 10:40am Living Will Yes March 30 10:40am Power of Rotary Dump Operator Yes March 30, 2020 10:40am Advance Directive Response Recorded Date/ Time Advance Directives Yes March 9:40am Living Will Yes March 30 9:40am Power of Rotary Dump Operator Yes March 30, 2020 9:40am Advance Directive Response Recorded Date/ Time Living Will Yes January 21, 2024 7 :32am Do you have a Healthcare Power of Rotary Dump Operator? Yes January 21, 2024 7:32am Living Will Yes June 21 10:40pm Do you have a Healthcare Power of Rotary Dump Operator? Yes June 21, 2024 10:40pm Living Will Yes July 22 11:00pm Do you have a Healthcare Power of Rotary Dump Operator? Yes July 22, 2024 11:00pm Living Will Yes July 26 9:08pm Do you have a Healthcare Power of Rotary Dump Operator? Yes July 26, 2024 9:08pm Name of Medical Power of Rotary Dump Operator --kanika July 26, 2024 9:08pm Living Will Yes August 22 9:54pm Do you have a Healthcare Power of Rotary Dump Operator? Yes August 22, 2024 9:54pm Advance Directives Yes January 20 7:32am Advance Directive Response Recorded Date/ Time Living Will Yes March 30 10:40am Do you have a Healthcare Power of Rotary Dump Operator? Yes March 30, 2020 10:40am Living Will Yes January 21, 2024 7 :32am Do you have a Healthcare Power of Rotary Dump Operator? Yes January 21, 2024 7:32am Living Will Yes July 22 11:00pm Do you have a Healthcare Power of Rotary Dump Operator? Yes July 22, 2024 11:00pm Living Will Yes August 22 9:54pm Do you have a Healthcare Power of Rotary Dump Operator? Yes August 22, 2024 9:54pm Living Will Yes October 20, 2024 9:37pm Do you have a Healthcare Power of Rotary Dump Operator? Yes October 20, 2024 9:37pm Advance Directives Yes January 20 7:32am Advance Directive Response Recorded Date/ Time Living Will Yes March 30 10:40am Do you have a Healthcare Power of Rotary Dump Operator? Yes March 30, 2020 10:40am Living Will Yes January 21, 2024 7 :32am Do you have a Healthcare Power of Rotary Dump Operator? Yes January 21, 2024 7:32am Living Will Yes August 22 9:54pm Do you have a Healthcare Power of Rotary Dump Operator? Yes August 22, 2024 9:54pm Living Will Yes October 20, 2024 9:37pm Do you have a Healthcare Power of Rotary Dump Operator? Yes October 20, 2024 9:37pm Advance Directives Yes January 20 7:32am Advance Directive Response Recorded Date/ Time Living Will Yes March 30 10:40am Do you have a Healthcare Power of Rotary Dump Operator? Yes March 30, 2020 10:40am Living Will Yes January 21, 2024 7 :32am Do you have a Healthcare Power of Rotary Dump Operator? Yes January 21, 2024 7:32am Living Will Yes November 19, 2024 8:24pm Do you have a Healthcare Power of Rotary Dump Operator? Yes November 19, 2024 8:24pm Living Will Yes August 22 9:54pm Do you have a Healthcare Power of Rotary Dump Operator? Yes August 22, 2024 9:54pm Living Will Yes October 20, 2024 9:37pm Do you have a Healthcare Power of Rotary Dump Operator? Yes October 20, 2024 9:37pm Advance Directives Yes January 20 7:32am Advance Directive Response Recorded Date/ Time Living Will Yes March 30 10:40am Do you have a Healthcare Power of Rotary Dump Operator? Yes March 30, 2020 10:40am Living Will Yes January 21, 2024 7 :32am Do you have a Healthcare Power of Rotary Dump Operator? Yes January 21, 2024 7:32am Living Will Yes November 19, 2024 8:24pm Do you have a Healthcare Power of Rotary Dump Operator? Yes November 19, 2024 8:24pm Living Will Yes October 20, 2024 9:37pm Do you have a Healthcare Power of Rotary Dump Operator? Yes October 20, 2024 9:37pm Advance Directives Yes January 20 7:32am Advance Directive Response Recorded Date/ Time Living Will Yes January 21, 2024 7 :32am Do you have a Healthcare Power of Rotary Dump Operator? Yes January 21, 2024 7:32am Living Will Yes November 19, 2024 8:24pm Do you have a Healthcare Power of Rotary Dump Operator? Yes November 19, 2024 8:24pm Advance Directives Yes January 20 7:32am Summary Purpose Additional Source Comments Goals (unrecognized section and content) Goals may be documented in a n alternate sectionGoals may be documented in an alternate sectionGoals may be documented in an alternate sectionGoals may be documented in an alternate sectionGoals may be documented in an alternate sectionGoals may be documented in an alternate sectionGoals may be documented in an alternate sectionGoals may be documented in an alternate sectionGoals may be documented in an alternate sectionGoals may be documented in an alternate sectionGoals may be documented in an alternate sectionGoals may be documented in an alternate sectionGoals may be documented in an alternate sectionGoals may be documented in an alternate sectionGoals may be documented in an alternate sectionGoals may be documented in an alternate sectionGoals may be documented in an alternate sectionGoals may be documented in an alternate sectionGoals may be documented in an alternate sectionGoals may be documented in an alternate sectionGoals may be documented in an alternate sectionGoals may be documented in an alternate sectionGoals may be documented in an alternate sectionGoals may be documented in an alternate sectionGoals may be documented in an alternate sectionGoals may be documented in an alternate sectionGoals may be documented in an alternate sectionGoals may be documented in an alternate section Care Teams (unrecognized sec tion and content) Team Status: Active Member Role Status Dates Dr. Dwain Kolb , DO Family Provider Active Dr. Dwain Kolb DO Primary Care Provider Active Team Status: Inactive Member Role Status Dates Dr. Dwain Kolb DO Primary Care Provider, Referrin g Provider Active Dr. Rodrigo Thacker MD Attending Provider Active Team Status: Inactive Member Role Status Dates Dr. Dwain Kolb , DO Primary Care Provider, Referrin g Provider Active Bridgette Neal 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, 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-C Attending Provider Active Team Status: Active Member Role Status Dates Dr. Dwain Kolb , DO Primary Care Provider Active Dr. Rodrigo Thacker MD Attending Provider Active Team Status: Inactive Member Role Status Dates Dr. Dwain Kolb DO Primary Care Provider Active Dr. Rodrigo Thacker MD Attending Provider Active Nichelle Greenwood 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, 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-C Other Provider Active Talat Perez 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, 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-C Other Provider Active Team Status: Inactive Member Role Status Dates Dr. Dwain Kolb DO Primary Care Provider Active Dr. Rodrigo Thacker MD Attending Provider, Referring Provider Active Team Status: Inactive Member Role Status Dates Dr. Dwain Kolb , DO Primary Care Provider, Referrin g Provider Active Dr. Oneil Nova MD Attending Provider Active Team Status: Inactive Member Role Status Dates Dr. Dwain Kolb DO Primary Care Provider, Referrin g Provider Active Dr. Vinicio Steward MD Attending Provider Active Team Status: Inactive Member Role Status Dates Dr. Dwain Kolb , DO Primary Care Provider, Referrin g Provider Active Talat Perez 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, 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-C Attending Provider Active Team Status: Inactive Member Role Status Dates Dr. Dwain Kolb , DO Primary Care Provider Active Nichelle Greenwood 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, 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-C Other Provider Active Talat Perez 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, 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-C Other Provider Active Dr. Matias Delatorre MD Attending Provider, Referring Pro vider Active Team Status: Inactive Member Role Status Dates Dr. Dwain Kolb DO Primary Care Provider Active Nichelle Greenwood 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, 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-C Other Provider Active Talat Perez 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, 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-C Other Provider Active Dr. Matias Delatorre MD Attending Provider, Referring Pro vider Active Dr. Thompson Mariano MD Other Provider Active Team Status: Inactive Member Role Status Dates Dr. Dwain Kolb , DO Primary Care Provider Active Nichelle Greenwood 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, 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-C Other Provider Active Talat Perez 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, 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-C Other Provider Active Dr. Matias Delatorre MD Attending Provider, Referring Pro vider Active Dr. Thompson Mariano MD Other Provider Active Dr. Oneil Nova MD Other Provider Active Team Status: Active Member Role Status Dates Dr. Dwain Kolb , DO Primary Care Provider Active Dr. Matias Delatorre MD Attending Provider Active Team Status: Inactive Member Role Status Dates Dr. Dwain Kolb , DO Primary Care Provider Active Bridgette Neal 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, 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-C Attending Provider, Referrin g Provider Active Team Status: Active Member Role Status Dates Dr. Dwain Kolb , DO Primary Care Provider Active Dr. Matias Delatorre MD Attending Provider, Referring Pro vider Active Team Status: Active Member Role Status Dates Dr. Dwain Kolb , DO Primary Care Provider Active Talat Perez 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, 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-C Attending Provider Active Team Status: Inactive Member Role Status Dates Dr. Dwain Kolb , DO Primary Care Provider, Referrin g Provider Active Dr. Zuleyma Mcclure MD Attending Provider Active Team Status: Inactive Member Role Status Dates Dr. Dwain Kolb , DO Primary Care Provider, Referrin g Provider Active Dr. Donis Davies MD Attending Provider Active Team Status: Active Member Role Status Dates Dr. Dwain Kolb DO Primary Care Provider Active Dr. Zuleyma Mcclure MD Attending Provider, Referrin g Provider Active Team Status: Active Member Role Status Dates Dr. Dwain Kolb DO Primary Care Provider Active Nichelle Greenwood 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, 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-C Other Provider Active Talat Perez 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, 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-C Other Provider Active Dr. Matias Delatorre MD Attending Provider, Referring Pro vider Active Dr. Thompson Mariano MD Other Provider Active Dr. Oneil Nova MD Other Provider Active Team Status: Inactive Member Role Status Dates Dr. Dwain Kolb DO Primary Care Provider Active Dr. 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 Dwain Kolb DO Primary Care Provider Active Team Status: Inactive Member Role Status Dates Dr. Dwain Kolb DO Primary Care Provider Active Start: July 17, 2024 End: July 17, 2024 Nichelle Greenwood 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, 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-C Other Provider Active Start: July 17, 2024 End: July 17, 2024 Talat Perez 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, 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-C Other Provider Active Start : July 17, 2024 End: July 17, 2024 Dr. Matias Delatorre MD Attending Provider Active S tart: July 17, 2024 End: July 17, 2024 Dr. Matias Delatorre MD Referring Provider Active S tart: July 17, 2024 End: July 17, 2024 Dr. Thompson Mariano MD Other Provider Active Start: July 17, 2024 End: July 17, 2024 Dr. Oneil Nova MD Other Provider Active S tart: July 17, 2024 End: July 17, 2024 JAMES GAYLE Other Provider Active Start: [email or web address] End: July 17, 2024 Team Status: Inactive Member Role Status Dates Dr. Dwain Kolb DO Primary Care Provider Active Start: July 26, 2024 End: July 26, 2024 Amadeo Claire MD Attending Provider Active Star t: July 26, 2024 End: July 26, 2024 Amadeo Claire MD Emergency Provider Active Star t: July 26, 2024 End: July 26, 2024 Team Status: Inactive Member Role Status Dates Dr. Dwain Kolb DO Primary Care Provider Active Start: August 18, 2024 End: August 18, 2024 EDIL Santoyo Attending Provider Active St art: August 18, 2024 End: August 18, 2024 Luisa Bob , 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-C Referring Provider Active St art: August 18, 2024 End: August 18, 2024 Team Status: Active Member Role Status Dates Dr. Dwain Kolb DO Primary Care Provider Active Start: August 18, 2024 Dr. Davi Diaz MD Attending Provider Active S tart: August 18, 2024 Luisa Rojas 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-C Referring Provider Active St art: August 18, 2024 Team Status: Inactive Member Role Status Dates Dr. Dwain Kolb DO Primary Care Provider Active Start: August 18, 2024 End: August 18, 2024 Nichelle Greenwood 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, 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-C Other Provider Active Start: August 18, 2024 End: August 18, 2024 Talat Perez 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, 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-C Other Provider Active Start : August 18, 2024 End: August 18, 2024 Dr. Matias Delatorre MD Attending Provider Active S tart: August 18, 2024 End: August 18, 2024 Dr. Matias Delatorre MD Referring Provider Active S tart: August 18, 2024 End: August 18, 2024 Dr. Thompson Mariano MD Other Provider Active Start: August 18, 2024 End: August 18, 2024 Dr. Oneil Nova MD Other Provider Active S tart: August 18, 2024 End: August 18, 2024 JAMES GAYLE Other Provider Active Start: Carl belcher 2024 End: August 18, 2024 Team Status: Inactive Member Role Status Dates Dr. Dwain Kolb DO Primary Care Provider Active Start: September 04, 2024 End: September 04, 2024 Dr. Dwain Kolb DO Referring Provider Active Start: September 04, 2024 End: September 04, 2024 Bridgette Neal 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, 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-C Attending Provider Active Start: September 04, 2024 End: September 04, 2024 Team Status: Inactive Member Role Status Dates Dr. Dwain Kolb DO Primary Care Provider Active Start: October 14, 2024 End: October 14, 2024 Nichelle Greenwood 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, 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-C Other Provider Active Start: October 14, 2024 End: October 14, 2024 Talat Perez 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, 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-C Other Provider Active Start : October 14, 2024 End: October 14, 2024 Dr. Matias Delatorre MD Attending Provider Active S tart: October 14, 2024 End: October 14, 2024 Dr. Matias Delatorre MD Referring Provider Active S tart: October 14, 2024 End: October 14, 2024 Dr. Thompson Mariano MD Other Provider Active Start: October 14, 2024 End: October 14, 2024 Dr. Oneil Nova MD Other Provider Active S tart: October 14, 2024 End: October 14, 2024 JAMES GAYLE Other Provider Active Start: [facility] 2024 End: October 14, 2024 Team Status: Inactive Member Role Status Dates Dr. Dwain Kolb DO Primary Care Provider Active Start: October 28, 2024 End: October 28, 2024 Dr. Dwain Kolb DO Referring Provider Active Start: October 28, 2024 End: October 28, 2024 PATRICIA Mclaughlin Attending Provider Active St art: October 28, 2024 End: October 28, 2024 Team Status: Inactive Member Role Status Dates Dr. Dwain Kolb DO Primary Care Provider Active Start: November 04, 2024 End: November 19, 2024 Nichelle Greenwood 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, 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-C Other Provider Active Start: November 04, 2024 End: November 19, 2024 Talat Perez 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, 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-C Other Provider Active Start : November 04, 2024 End: November 19, 2024 Dr. Matias Delatorre MD Attending Provider Active S tart: November 04, 2024 End: November 19, 2024 Dr. Thompson Mariano MD Other Provider Active Start: November 04, 2024 End: November 19, 2024 Dr. Oneil Nova MD Other Provider Active S tart: November 04, 2024 End: November 19, 2024 JAMES GAYLE Other Provider Active Start: [facility] 2024 End: November 19, 2024 PATRICIA Mclaughlin Referring Provider Active St art: November 04, 2024 End: November 19, 2024 Team Status: Inactive Member Role Status Dates Dr. Dwain Kolb DO Primary Care Provider Active Start: November 13, 2024 End: November 13, 2024 PATRICIA Mclaughlin Attending Provider Active St art: November 13, 2024 End: November 13, 2024 PATRICIA Mclaughlin Referring Provider Active St art: November 13, 2024 End: November 13, 2024 Team Status: Active Member Role Status Dates Dr. Dwain Kolb DO Primary Care Provider Active Start: November 13, 2024 Dr. Matias Delatorre MD Attending Provider Active S tart: November 13, 2024 PATRICIA Mclaughlin Referring Provider Active St art: November 13, 2024 Team Status: Inactive Member Role Status Dates Dr. Dwain Kolb DO Primary Care Provider Active Start: November 14, 2024 End: November 14, 2024 Dr. Dwain Kolb DO Referring Provider Active Start: November 14, 2024 End: November 14, 2024 Dr. Matias Delatorre MD Attending Provider Active S tart: November 14, 2024 End: November 14, 2024 Team Status: Inactive Member Role Status Dates Dr. Dwain Kolb DO Primary Care Provider Active Start: November 25, 2024 End: November 25, 2024 PATRICIA Mclaughlin Attending Provider Active St art: November 25, 2024 End: November 25, 2024 PATRICIA Mclaughlin Referring Provider Active St art: November 25, 2024 End: November 25, 2024 Team Status: Active Member Role Status Dates Dr. Dwain Kolb DO Primary Care Provider Active Start: November 25, 2024 Dr. Matias Delatorre MD Attending Provider Active S tart: November 25, 2024 Team Status: Inactive Member Role Status Dates Dr. Dwain Kolb DO Primary Care Provider Active Start: January 06, 2025 End: January 06, 2025 Dr. Dwain Kolb DO Referring Provider Active Start: January 06, 2025 End: January 06, 2025 Dr. Oneil Nova MD Attending Provider Active Start: January 06, 2025 End: January 06, 2025 Team Status: Active Member Role/Relationship Status Dates Dr. Dwain Kolb DO Primary Care Provider Active Team Status: Inactive Member Role/Relationship Status Dates Dr. Dwain Kolb DO Primary Care Provider Active Start: October 14, 2024 End: October 14, 2024 Nichelle Greenwood 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, 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-C Other Provider Active Start: October 14, 2024 End: October 14, 2024 Talat Perez 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, 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-C Other Provider Active Start : October 14, 2024 End: October 14, 2024 Dr. Matias Delatorre MD Attending Provider Active S tart: October 14, 2024 End: October 14, 2024 Dr. Matias Delatorre MD Referring Provider Active S tart: October 14, 2024 End: October 14, 2024 Dr. Thompson Mariano MD Other Provider Active Start: October 14, 2024 End: October 14, 2024 Dr. Oneil Nova MD Other Provider Active S tart: October 14, 2024 End: October 14, 2024 JAMES GAYLE Other Provider Active Start: [facility] 2024 End: October 14, 2024 Team Status: Inactive Member Role/Relationship Status Dates Dr. Dwain Kolb DO Primary Care Provider Active Start: October 28, 2024 End: October 28, 2024 Dr. Dwain Kolb DO Referring Provider Active Start: October 28, 2024 End: October 28, 2024 PARTICIA Mclaughlin Attending Provider Active St art: October 28, 2024 End: October 28, 2024 Team Status: Inactive Member Role/Relationship Status Dates Dr. Dwain Kolb DO Primary Care Provider Active Start: November 04, 2024 End: November 19, 2024 Nichelle Greenwood 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, 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-C Other Provider Active Start: November 04, 2024 End: November 19, 2024 Talat Perez 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, 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-C Other Provider Active Start : November 04, 2024 End: November 19, 2024 Dr. Matias Delatorre MD Attending Provider Active S tart: November 04, 2024 End: November 19, 2024 Dr. Thompson Mariano MD Other Provider Active Start: November 04, 2024 End: November 19, 2024 Dr. Oneil Nova MD Other Provider Active S tart: November 04, 2024 End: November 19, 2024 JAMES GAYLE Other Provider Active Start: [facility] 2024 End: November 19, 2024 PATRICIA Mclaughlin Referring Provider Active St art: November 04, 2024 End: November 19, 2024 Team Status: Inactive Member Role/Relationship Status Dates Dr. Dwain Kolb DO Primary Care Provider Active Start: November 13, 2024 End: November 13, 2024 PATRICIA Mclaughlin Attending Provider Active St art: November 13, 2024 End: November 13, 2024 PATRICIA Mclaughlin Referring Provider Active St art: November 13, 2024 End: November 13, 2024 Team Status: Active Member Role/Relationship Status Dates Dr. Dwain Kolb DO Primary Care Provider Active Start: November 13, 2024 Dr. Matias Delatorre MD Attending Provider Active S tart: November 13, 2024 PATRICIA Mclaughlin Referring Provider Active St art: November 13, 2024 Team Status: Inactive Member Role/Relationship Status Dates Dr. Dwain Kolb DO Primary Care Provider Active Start: November 14, 2024 End: November 14, 2024 Dr. Dwain Kolb DO Referring Provider Active Start: November 14, 2024 End: November 14, 2024 Dr. Matias Delatorre MD Attending Provider Active S tart: November 14, 2024 End: November 14, 2024 Team Status: Inactive Member Role/Relationship Status Dates Dr. Dwain Kolb DO Primary Care Provider Active Start: November 25, 2024 End: November 25, 2024 PATRICIA Mclaughlin Attending Provider Active St art: November 25, 2024 End: November 25, 2024 PATRICIA Mclaughlin Referring Provider Active St art: November 25, 2024 End: November 25, 2024 Team Status: Active Member Role/Relationship Status Dates Dr. Dwain Kolb DO Primary Care Provider Active Start: November 25, 2024 Dr. Matias Delatorre MD Attending Provider Active S tart: November 25, 2024 Team Status: Inactive Member Role/Relationship Status Dates Dr. Dwain Kolb DO Primary Care Provider Active Start: January 06, 2025 End: January 06, 2025 Dr. Dwain Kolb DO Referring Provider Active Start: January 06, 2025 End: January 06, 2025 Dr. Oneil Nova MD Attending Provider Active Start: January 06, 2025 End: January 06, 2025 Team Status: Inactive Member Role/Relationship Status Dates Dr. Dwain Kolb DO Primary Care Provider Active Start: January 13, 2025 End: January 13, 2025 Nichelle Greenwood 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, 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-C Other Provider Active Start: January 13, 2025 End: January 13, 2025 Talat Perez 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, 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-C Other Provider Active Start : January 13, 2025 End: January 13, 2025 Dr. Matias Delatorre MD Attending Provider Active S tart: January 13, 2025 End: January 13, 2025 Dr. Thompson Mariano MD Other Provider Active Start: January 13, 2025 End: January 13, 2025 Dr. Oneil Nova MD Other Provider Active S tart: January 13, 2025 End: January 13, 2025 JAMES GAYLE Other Provider Active Start: 2024 End: January 13, 2025 Peyton Velazquez Referring Provider Active Start : January 13, 2025 End: January 13, 2025 Team Status: Inactive Member Role/Relationship Status Dates Dr. Dwain Kolb DO Primary Care Provider Active Start: October 28, 2024 End: October 28, 2024 Dr. Dwain Kolb DO Referring Provider Active Start: October 28, 2024 End: October 28, 2024 PATRICIA Mclaughlin Attending Provider Active St art: October 28, 2024 End: October 28, 2024 Team Status: Inactive Member Role/Relationship Status Dates Dr. Dwain Kolb DO Primary Care Provider Active Start: November 04, 2024 End: November 19, 2024 Nichelle Greenwood 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, 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-C Other Provider Active Start: November 04, 2024 End: November 19, 2024 Talat Perez 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, 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-C Other Provider Active Start : November 04, 2024 End: November 19, 2024 Dr. Matias Delatorre MD Attending Provider Active S tart: November 04, 2024 End: November 19, 2024 Dr. Thompson Mariano MD Other Provider Active Start: November 04, 2024 End: November 19, 2024 Dr. Oneil Nova MD Other Provider Active S tart: November 04, 2024 End: November 19, 2024 JAMES GAYLE Other Provider Active Start: 2024 End: November 19, 2024 PATRICIA Mclaughlin Referring Provider Active St art: November 04, 2024 End: November 19, 2024 Team Status: Inactive Member Role/Relationship Status Dates Dr. Dwain Kolb DO Primary Care Provider Active Start: November 13, 2024 End: November 13, 2024 PATRICIA Mclaughlin Attending Provider Active St art: November 13, 2024 End: November 13, 2024 PATRICIA Mclaughlin Referring Provider Active St art: November 13, 2024 End: November 13, 2024 Team Status: Active Member Role/Relationship Status Dates Dr. Dwain Kolb DO Primary Care Provider Active Start: November 13, 2024 Dr. Matias Delatorre MD Attending Provider Active S tart: November 13, 2024 PATRICIA Mclaughlin Referring Provider Active St art: November 13, 2024 Team Status: Inactive Member Role/Relationship Status Dates Dr. Dwain Kolb DO Primary Care Provider Active Start: November 14, 2024 End: November 14, 2024 Dr. Dwain Kolb DO Referring Provider Active Start: November 14, 2024 End: November 14, 2024 Dr. Matias Delatorre MD Attending Provider Active S tart: November 14, 2024 End: November 14, 2024 Team Status: Inactive Member Role/Relationship Status Dates Dr. Dwain Kolb DO Primary Care Provider Active Start: November 25, 2024 End: November 25, 2024 PATRICIA Mclaughlin Attending Provider Active St art: November 25, 2024 End: November 25, 2024 PATRICIA Mclaughlin Referring Provider Active St art: November 25, 2024 End: November 25, 2024 Team Status: Active Member Role/Relationship Status Dates Dr. Dwain Kolb DO Primary Care Provider Active Start: November 25, 2024 Dr. Matias Delatorre MD Attending Provider Active S tart: November 25, 2024 Team Status: Inactive Member Role/Relationship Status Dates Dr. Dwain Kolb DO Primary Care Provider Active Start: January 06, 2025 End: January 06, 2025 Dr. Dwain Kolb DO Referring Provider Active Start: January 06, 2025 End: January 06, 2025 Dr. Oneil Nova MD Attending Provider Active Start: January 06, 2025 End: January 06, 2025 Team Status: Inactive Member Role/Relationship Status Dates Dr. Dwain Kolb DO Primary Care Provider Active Start: January 13, 2025 End: January 13, 2025 Nichelle Greenwood 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, 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-C Other Provider Active Start: January 13, 2025 End: January 13, 2025 Talat Perez 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, 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-C Other Provider Active Start : January 13, 2025 End: January 13, 2025 Dr. Matias Delatorre MD Attending Provider Active S tart: January 13, 2025 End: January 13, 2025 Dr. Thompson Mariano MD Other Provider Active Start: January 13, 2025 End: January 13, 2025 Dr. Oneil Nova MD Other Provider Active S tart: January 13, 2025 End: January 13, 2025 JAMES GAYLE Other Provider Active Start: [place] 2024 End: January 13, 2025 Peyton Velazquez Referring Provider Active Start : January 13, 2025 End: January 13, 2025 Team Status: Inactive Member Role/Relationship Status Dates Dr. Dwain Kolb DO Primary Care Provider Active Start: January 27, 2025 End: February 19, 2025 Nichelle Greenwood 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, 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-C Other Provider Active Start: January 27, 2025 End: February 19, 2025 Talat Perez 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, 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-C Other Provider Active Start : January 27, 2025 End: February 19, 2025 Dr. Matias Delatorre MD Attending Provider Active S tart: January 27, 2025 End: February 19, 2025 Dr. Matias Delatorre MD Referring Provider Active S tart: January 27, 2025 End: February 19, 2025 Dr. Thompson Mariano MD Other Provider Active Start: January 27, 2025 End: February 19, 2025 Dr. Oneil Nova MD Other Provider Active S tart: January 27, 2025 End: February 19, 2025 JAMES GAYLE Other Provider Active Start: [place] [facility] 2024 End: February 19, 2025 Peyton Velazquez Other Provider Active Start: [place] 2024 End: February 19, 2025 Team Status: Inactive Member Role/Relationship Status Dates Dr. Dwain Klob DO Primary Care Provider Active Start: November 13, 2024 End: November 13, 2024 PATRICIA Mclaughlin Attending Provider Active St art: November 13, 2024 End: November 13, 2024 APTRICIA Mclaughlin Referring Provider Active St art: November 13, 2024 End: November 13, 2024 Team Status: Active Member Role/Relationship Status Dates Dr. Dwain Kolb DO Primary Care Provider Active Start: November 13, 2024 Dr. Matias Delatorre MD Attending Provider Active S tart: November 13, 2024 PATRICIA Mclaughlin Referring Provider Active St art: November 13, 2024 Team Status: Inactive Member Role/Relationship Status Dates Dr. Dwain Kolb DO Primary Care Provider Active Start: November 14, 2024 End: November 14, 2024 Dr. Dwain Kolb DO Referring Provider Active Start: November 14, 2024 End: November 14, 2024 Dr. Matias Delatorre MD Attending Provider Active S tart: November 14, 2024 End: November 14, 2024 Team Status: Inactive Member Role/Relationship Status Dates Dr. Dwain Kolb DO Primary Care Provider Active Start: November 25, 2024 End: November 25, 2024 PATRICIA Mclaughlin Attending Provider Active St art: November 25, 2024 End: November 25, 2024 PATRICIA Mclaughlin Referring Provider Active St art: November 25, 2024 End: November 25, 2024 Team Status: Active Member Role/Relationship Status Dates Dr. Dwain Kolb DO Primary Care Provider Active Start: November 25, 2024 Dr. Matias Delatorre MD Attending Provider Active S tart: November 25, 2024 Team Status: Inactive Member Role/Relationship Status Dates Dr. Dwain Kolb DO Primary Care Provider Active Start: January 06, 2025 End: January 06, 2025 Dr. Dwain Kolb DO Referring Provider Active Start: January 06, 2025 End: January 06, 2025 Dr. Oneil Nova MD Attending Provider Active Start: January 06, 2025 End: January 06, 2025 Team Status: Inactive Member Role/Relationship Status Dates Dr. Dwain Kolb DO Primary Care Provider Active Start: January 13, 2025 End: January 13, 2025 Nichelle Greenwood 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, 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-C Other Provider Active Start: January 13, 2025 End: January 13, 2025 Talat Perez 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, 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-C Other Provider Active Start : January 13, 2025 End: January 13, 2025 Dr. Matias Delatorre MD Attending Provider Active S tart: January 13, 2025 End: January 13, 2025 Dr. Thompson Mariano MD Other Provider Active Start: January 13, 2025 End: January 13, 2025 Dr. Oneil Nova MD Other Provider Active S tart: January 13, 2025 End: January 13, 2025 JAMES GAYLE Other Provider Active Start: [place] 2024 End: January 13, 2025 Peyton Velazquez Referring Provider Active Start : January 13, 2025 End: January 13, 2025 Team Status: Inactive Member Role/Relationship Status Dates Dr. Dwain Kolb DO Primary Care Provider Active Start: January 27, 2025 End: February 19, 2025 Nichelle Greenwood 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, 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-C Other Provider Active Start: January 27, 2025 End: February 19, 2025 Talat Perez 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, 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-C Other Provider Active Start : January 27, 2025 End: February 19, 2025 Dr. Matias Delatorre MD Attending Provider Active S tart: January 27, 2025 End: February 19, 2025 Dr. Matias Delatorre MD Referring Provider Active S tart: January 27, 2025 End: February 19, 2025 Dr. Thompson Mariano MD Other Provider Active Start: January 27, 2025 End: February 19, 2025 Dr. Oneil Nova MD Other Provider Active S tart: January 27, 2025 End: February 19, 2025 JAMES GAYLE Other Provider Active Start: [place] 2024 End: February 19, 2025 Peyton Velazquez Other Provider Active Start: [place] 2024 End: February 19, 2025 Team Status: Active Member Role/Relationship Status Dates Dr. Dwian Kolb DO Primary Care Provider Active Start: February 24, 2025 Christen Cheuvront 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, 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-C Other Provider Active Start: February 24, 2025 Talat Perez 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, 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-C Other Provider Active Start : February 24, 2025 Dr. Matias Delatorre MD Attending Provider Active S tart: February 24, 2025 Dr. Matias Delatorre MD Referring Provider Active S tart: February 24, 2025 Dr. Thompson Mariano MD Other Provider Active Start: February 24, 2025 Dr. Oneil Nova MD Other Provider Active S tart: February 24, 2025 JAMES GAYLE Other Provider Active Start: joel 2024 Peyton Velazquez Other Provider Active Start: [place] 2024 PATRICIA Mclaughlin Other Provider Active Start: February 24, 2025 Team Status: Inactive Member Role/Relationship Status Dates Dr. Dwain Kolb DO Primary Care Provider Active Start: March 05, 2025 End: March 05, 2025 Dr. Dwain Kolb DO Referring Provider Active Start: March 05, 2025 End: March 05, 2025 Bridgette Neal 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, 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-C Attending Provider Active Start: March 05, 2025 End: March 05, 2025 Team Status: Inactive Member Role/Relationship Status Dates Dr. Dwain Kolb DO Primary Care Provider Active Start: November 25, 2024 End: November 25, 2024 PATRICIA Mclaughlin Attending Provider Active St art: November 25, 2024 End: November 25, 2024 PATRICIA Mclaughlin Referring Provider Active St art: November 25, 2024 End: November 25, 2024 Team Status: Active Member Role/Relationship Status Dates Dr. Dwain Kolb DO Primary Care Provider Active Start: November 25, 2024 Dr. Matias Delatorre MD Attending Provider Active S tart: November 25, 2024 Team Status: Inactive Member Role/Relationship Status Dates Dr. Dwain Kolb DO Primary Care Provider Active Start: January 06, 2025 End: January 06, 2025 Dr. Dwain Kolb DO Referring Provider Active Start: January 06, 2025 End: January 06, 2025 Dr. Oneil Nova MD Attending Provider Active Start: January 06, 2025 End: January 06, 2025 Team Status: Inactive Member Role/Relationship Status Dates Dr. Dwain Kolb DO Primary Care Provider Active Start: January 13, 2025 End: January 13, 2025 Nichelle Greenwood 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, 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-C Other Provider Active Start: January 13, 2025 End: January 13, 2025 Talat Perez 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, 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-C Other Provider Active Start : January 13, 2025 End: January 13, 2025 Dr. Matias Delatorre MD Attending Provider Active S tart: January 13, 2025 End: January 13, 2025 Dr. Thompson Mariano MD Other Provider Active Start: January 13, 2025 End: January 13, 2025 Dr. Oneil Nova MD Other Provider Active S tart: January 13, 2025 End: January 13, 2025 JAMES GAYLE Other Provider Active Start: [place] 2024 End: January 13, 2025 Peyton Velazquez Referring Provider Active Start : January 13, 2025 End: January 13, 2025 Team Status: Inactive Member Role/Relationship Status Dates Dr. Dwain Kolb DO Primary Care Provider Active Start: January 27, 2025 End: February 19, 2025 Nichelle Greenwood 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, 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-C Other Provider Active Start: January 27, 2025 End: February 19, 2025 Talat Perez 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, 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-C Other Provider Active Start : January 27, 2025 End: February 19, 2025 Dr. Matias Delatorre MD Attending Provider Active S tart: January 27, 2025 End: February 19, 2025 Dr. Matias Delatorre MD Referring Provider Active S tart: January 27, 2025 End: February 19, 2025 Dr. Thompson Mariano MD Other Provider Active Start: January 27, 2025 End: February 19, 2025 Dr. Oneil Nova MD Other Provider Active S tart: January 27, 2025 End: February 19, 2025 JAMES GAYLE Other Provider Active Start: [place] 2024 End: February 19, 2025 Peyton Velazquez Other Provider Active Start: [place] 2024 End: February 19, 2025 Team Status: Inactive Member Role/Relationship Status Dates Dr. Dwain Kolb DO Primary Care Provider Active Start: February 24, 2025 End: February 24, 2025 Nichelle Greenwood 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, 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-C Other Provider Active Start: February 24, 2025 End: February 24, 2025 Talat Perez 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, 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-C Other Provider Active Start : February 24, 2025 End: February 24, 2025 Dr. Matias Delatorre MD Attending Provider Active S tart: February 24, 2025 End: February 24, 2025 Dr. Matias Delatorre MD Referring Provider Active S tart: February 24, 2025 End: February 24, 2025 Dr. Thompson Mariano MD Other Provider Active Start: February 24, 2025 End: February 24, 2025 Dr. Oneil Nova MD Other Provider Active S tart: February 24, 2025 End: February 24, 2025 JAMES GAYLE Other Provider Active Start: [facility] 2024 End: February 24, 2025 Peyton Velazquez Other Provider Active Start: [facility] End: February 24, 2025 PATRICIA Mclaughlin Other Provider Active Start: February 24, 2025 End: February 24, 2025 Team Status: Inactive Member Role/Relationship Status Dates Dr. Dwain Kolb DO Primary Care Provider Active Start: March 05, 2025 End: March 05, 2025 Dr. Dwain Kolb DO Referring Provider Active Start: March 05, 2025 End: March 05, 2025 Bridgette Neal 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, 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-C Attending Provider Active Start: March 05, 2025 End: March 05, 2025 Team Status: Active Member Role/Relationship Status Dates Dr. Dwain Kolb DO Primary Care Provider Active Start: March 14, 2025 PATRICIA Mclaughlin Attending Provider Active St art: March 14, 2025 PATRICIA Mclaughlin Referring Provider Active St art: March 14, 2025 Reason for Visit (unrecogniz ed section and content) Reason Comments New Patient Specialty Diagnoses / Procedures Referred By Contac t Referred To Contact Cardiology Diagnoses Chronic atrial fibrillation, unspecified (HCC) Procedures AL OFFICE/OUTPATIENT NEW HIGH MDM 60 MINUTES [facility] [address] [place] [address] Collin Pollock MD [address] [place] [address] Referral ID Status Reason Start Date Expiration Date Visits Re quested Visits Authorized [id number] Closed 12/06/2023 12/05/2024 1 1 Reason Comments New Reason Comments Follow Up Source Comments (unrecognize d section and content) In the event this informatio n is protected by the Federal Confidentiality of Alcohol and Drug Abuse Patient Records regulations: The Federal rules restrict any use of the information to criminally investigate or prosecute any alcohol or drug abuse patient.[facility] the event this information is protected by the Federal Confidentiality of Alcohol and Drug Abuse Patient Records regulations: The Federal rules restrict any use of the information to criminally investigate or prosecute any alcohol or drug abuse patient.[facility] the event this information is protected by the Federal Confidentiality of Alcohol and Drug Abuse Patient Records regulations: The Federal rules restrict any use of the information to criminally investigate or prosecute any alcohol or drug abuse patient.[facility] (unrecognized sect ion and content) No Status Records FoundNo Status Records Found INFORMATION SOURCE (unrecogn ized section and content) DATE CREATED AUTHOR 08/24/2024 [facility] DATE CREATED AUTHOR AUTHOR'S CHARLEEN VERDUZCO 04/15/2025 [facility] FOR RECORDS PERTAINING TO PATIENTS WHO ARE [...] BE BASED ON THE PRIMARY CLINICAL RECORDS. [facility]. provides no warranty or guarantee of the accuracy or completeness of information in this document.
== END | disposition home or self-care (01) ==
LOC: LABSPEC 04-24 07:32
PROVIDERS: PCP Family Medicine; Referring Provider Family Medicine; Visit Provider Family Medicine
DX: L82.1 Other seborrheic keratosis (principal)
CPT/HCPCS: 88305